=== PATIENT | female | born 1960 | race Caucasian/White ===

== ENCOUNTER → 2018-03-03 09:28 | Outpatient (CLI) | payer BC, SELFPAY ==
[2018-03-03 12:26] LABS: Absolute Lymphocyte Count 1.46 X10^3/ul (0.83-4.51); Absolute Neutrophil Count 4.4 X10^3/uL (2.0-7.7); Basophil# 0.02 X10^3/uL; Basophil% 0.3 % (0-1); Eosinophil# 0.13 X10^3/uL; Eosinophils% 1.9 % (0-5); Hematocrit 38.5 % (37-47); Hemoglobin 12.1 g/dl (12.0-15.0); Lymphocyte # 1.46 X10^3/ul (4.0); Lymphocyte % 21.9 % (19-41); Mean Corp Hgb Conc 31.4 g/gl (32-36); Mean Corpuscular Hgb 26.5 pg (27.0-32.0); Mean Corpuscular Volume 84.2 fL (81-99); Mean Platelet Vol. 10.3 fl (6.2-12.0); Neutrophil # 4.44 X10^3/uL (2.7-7.7); Neutrophil % 66.6 % (47-70); Platelet Count 312 K/mm3 (150-450); RBC Distribution Width CV 14.8 % (11.6-14.6); RBC Distribution Width SD 44.5 fl (35.1-43.9); Red Blood Count 4.57 M/mm3 (4.2-5.4); White Blood Count 6.7 K/mm3 (4.4-11.0)
[2018-03-03 12:32] LABS: POSITIVE COUNT NO; POSITIVE DIFFERENTIAL NO; POSITIVE MORPHOLOGY NO
[2018-03-03 12:43] LABS: ALB/GLOB Ratio 1.2 RATIO (0.9-2.4); AST(SGOT) 30 U/L (15-37); Alanine Aminotransfer ALT/SGPT 53 U/L (13-56); Alkaline Phosphatase 52 U/L (45-117); Anion Gap 11 (5-15); BUN 21 mg/dL (7-18); BUN/Creat Ratio 22.1 RATIO (10-20); Calcium,Total 9.8 mg/dL (8.5-10.1); Chloride 102 mmol/L (98-107); Creatinine, Serum 0.95 mg/dL (0.55-1.02); EST Glomerular Filtration Rate 64 mL/min (>60); Est Glom Filt Rate - Afr Amer 77 mL/min (>60); Globulin 3.4 g/dL (2.2-4.2); Glucose 223 mg/dL (74-106); Potassium 4.3 mmol/L (3.5-5.1); Protein, Total 7.4 g/dL (6.4-8.2); Rheumatoid Factor < 10.0 IU/mL (<15); Sodium Level 141 mmol/L (136-145)
[2018-03-09 20:07] LABS: QNTFERON TB Ag Minus Nil Value 0.04 IU/mL (.); QNTFERON TB Ag Value 0.09 IU/mL (.); QNTFERON TB Mitogen Value > 10.00 IU/mL (.); QNTFERON TB Nil Value 0.05 IU/mL (.)
[2018-03-10 11:33] LABS: CCP IgG Antibodies 4 units (0-19); HEPATITIS B SURFACE AG Negative (Negative); HLA B27 Negative (.); Hep B Surface Antibodies Non Reactive (.); Hep C Antibodies <0.1 s/co ratio (0.0-0.9); QNTIFERON TB Gold Negative (Negative)
== END ==
PROVIDERS: Family Provider Family Medicine; PCP Family Medicine; Visit Provider Internal Medicine Rheumatology
DX: L40.59 Other psoriatic arthropathy (principal)
CPT/HCPCS: 36415; 71046; 72170; 80053; 81374; 85025; 86200; 86431; 86480; 86706; 86803; 87340

== ENCOUNTER → 2019-04-04 16:30 | Outpatient (CLI) | payer BC, SELFPAY ==
[2019-04-04 18:10] LABS: Absolute Lymphocyte Count 1.86 X10^3/uL (0.83-4.51); Absolute Neutrophil Count 5.7 X10^3/uL (2.0-7.7); Basophil# 0.04 X10^3/uL; Basophil% 0.5 % (0-1); Eosinophil# 0.14 X10^3/uL; Eosinophils% 1.7 % (0-5); Hematocrit 37.9 % (37-47); Hemoglobin 11.5 g/dL (12.0-15.0); Lymphocyte # 1.86 X10^3/ul (4.0); Mean Corp Hgb Conc 30.3 g/dL (32-36); Mean Corpuscular Hgb 25.7 pg (27.0-32.0); Mean Corpuscular Volume 84.8 fL (81-99); Mean Platelet Vol. 9.6 fl (6.2-12.0); Monocyte# 0.74 X10^3/uL; Monocyte% 8.7 % (0-10); NRBC Flagged by Analyzer 0 % (0-5); Neutrophil # 5.66 X10^3/uL (2.7-7.7); Neutrophil % 66.7 % (47-70); Platelet Count 363 K/mm3 (150-450); RBC Distribution Width CV 14.5 % (11.6-14.6); RBC Distribution Width SD 44.5 fl (35.1-43.9); Red Blood Count 4.47 M/mm3 (4.2-5.4); White Blood Count 8.5 K/mm3 (4.4-11.0)
[2019-04-04 18:25] LABS: ALB/GLOB Ratio 1.2 RATIO (0.9-2.4); AST(SGOT) 15 U/L (15-37); Alanine Aminotransfer ALT/SGPT 34 U/L (13-56); Albumin, Serum 3.9 g/dL (3.2-5.0); Alkaline Phosphatase 54 U/L (45-117); Anion Gap 6 (5-15); BUN 16 mg/dL (7-18); BUN/Creat Ratio 16.4 RATIO (10-20); Calcium,Total 9.4 mg/dL (8.5-10.1); Chloride 103 mmol/L (98-107); Creatinine, Serum 0.98 mg/dL (0.55-1.02); EST Glomerular Filtration Rate 62 mL/min (>60); Est Glom Filt Rate - Afr Amer 75 mL/min (>60); Globulin 3.3 g/dL (2.2-4.2); Glucose 217 mg/dL (74-106); Protein, Total 7.2 g/dL (6.4-8.2); Sodium Level 138 mmol/L (136-145)
== END ==
PROVIDERS: Family Provider Family Medicine; PCP Family Medicine; Referring Provider Internal Medicine Rheumatology; Visit Provider Internal Medicine Rheumatology
DX: L40.59 Other psoriatic arthropathy (principal); K76.0 Fatty (change of) liver, not elsewhere classified; E11.9 Type 2 diabetes mellitus without complications; I10 Essential (primary) hypertension; E78.5 Hyperlipidemia, unspecified; E03.9 Hypothyroidism, unspecified; F32.89 Other specified depressive episodes
CPT/HCPCS: 36415; 80053; 85025

== ENCOUNTER → 2019-05-30 08:08 | Outpatient (CLI) | payer BC, SELFPAY ==
[2019-05-30 10:04] LABS: Absolute Lymphocyte Count 1.99 X10^3/uL (0.83-4.51); Absolute Neutrophil Count 4.6 X10^3/uL (2.0-7.7); Basophil# 0.04 X10^3/uL; Basophil% 0.5 % (0-1); Eosinophil# 0.14 X10^3/uL; Eosinophils% 1.8 % (0-5); Hematocrit 37.5 % (37-47); Hemoglobin 11.7 g/dL (12.0-15.0); Lymphocyte # 1.99 X10^3/ul (4.0); Lymphocyte % 26.3 % (19-41); Mean Corp Hgb Conc 31.2 g/dL (32-36); Mean Corpuscular Hgb 25.9 pg (27.0-32.0); Mean Corpuscular Volume 83.1 fL (81-99); Mean Platelet Vol. 9.6 fl (6.2-12.0); Monocyte# 0.75 X10^3/uL; Monocyte% 9.9 % (0-10); NRBC Flagged by Analyzer 0 % (0-5); Neutrophil # 4.63 X10^3/uL (2.7-7.7); Neutrophil % 61.2 % (47-70); Platelet Count 321 K/mm3 (150-450); RBC Distribution Width CV 14.6 % (11.6-14.6); RBC Distribution Width SD 43.6 fl (35.1-43.9); Red Blood Count 4.51 M/mm3 (4.2-5.4); White Blood Count 7.6 K/mm3 (4.4-11.0)
[2019-05-30 10:27] LABS: ALB/GLOB Ratio 1.2 RATIO (0.9-2.4); AST(SGOT) 21 U/L (15-37); Alanine Aminotransfer ALT/SGPT 39 U/L (13-56); Albumin, Serum 3.8 g/dL (3.2-5.0); Alkaline Phosphatase 50 U/L (45-117); Anion Gap 6 (5-15); BUN 17 mg/dL (7-18); BUN/Creat Ratio 18.9 RATIO (10-20); Calcium,Total 9.4 mg/dL (8.5-10.1); Chloride 108 mmol/L (98-107); EST Glomerular Filtration Rate 68 mL/min (>60); Est Glom Filt Rate - Afr Amer 82 mL/min (>60); Globulin 3.2 g/dL (2.2-4.2); Glucose 151 mg/dL (74-106); Potassium 4.2 mmol/L (3.5-5.1); Sodium Level 141 mmol/L (136-145)
== END ==
PROVIDERS: Family Provider Family Medicine; PCP Family Medicine; Referring Provider Internal Medicine Rheumatology; Visit Provider Internal Medicine Rheumatology
DX: L40.59 Other psoriatic arthropathy (principal); K76.0 Fatty (change of) liver, not elsewhere classified; E11.9 Type 2 diabetes mellitus without complications; I10 Essential (primary) hypertension; E03.9 Hypothyroidism, unspecified; E78.5 Hyperlipidemia, unspecified; F32.89 Other specified depressive episodes
CPT/HCPCS: 36415; 80053; 85025

== ENCOUNTER → 2019-08-01 09:12 | Outpatient (CLI) | payer BC, SELFPAY ==
[2019-08-01 12:23] LABS: Absolute Neutrophil Count 6.9 X10^3/uL (2.0-7.7); Basophil# 0.03 X10^3/uL; Basophil% 0.3 % (0-1); Eosinophil# 0.14 X10^3/uL; Eosinophils% 1.4 % (0-5); Hematocrit 35.7 % (37-47); Hemoglobin 11.2 g/dL (12.0-15.0); Lymphocyte % 19.3 % (19-41); Mean Corp Hgb Conc 31.4 g/dL (32-36); Mean Corpuscular Volume 82.8 fL (81-99); Mean Platelet Vol. 9.7 fl (6.2-12.0); Monocyte% 8.1 % (0-10); NRBC Flagged by Analyzer 0 % (0-5); Neutrophil # 6.94 X10^3/uL (2.7-7.7); Neutrophil % 70.5 % (47-70); Platelet Count 330 K/mm3 (150-450); RBC Distribution Width CV 15.9 % (11.6-14.6); RBC Distribution Width SD 47.5 fl (35.1-43.9); Red Blood Count 4.31 M/mm3 (4.2-5.4); White Blood Count 9.9 K/mm3 (4.4-11.0)
[2019-08-01 12:33] LABS: ALB/GLOB Ratio 1.1 RATIO (0.9-2.4); AST(SGOT) 43 U/L (15-37); Alanine Aminotransfer ALT/SGPT 68 U/L (13-56); Albumin, Serum 3.7 g/dL (3.2-5.0); Alkaline Phosphatase 55 U/L (45-117); Anion Gap 5 (5-15); BUN 10 mg/dL (7-18); BUN/Creat Ratio 11.4 RATIO (10-20); Calcium,Total 9.2 mg/dL (8.5-10.1); Chloride 104 mmol/L (98-107); Creatinine, Serum 0.88 mg/dL (0.55-1.02); EST Glomerular Filtration Rate 70 mL/min (>60); Est Glom Filt Rate - Afr Amer 84 mL/min (>60); Globulin 3.3 g/dL (2.2-4.2); Glucose 178 mg/dL (74-106); Potassium 3.8 mmol/L (3.5-5.1); Sodium Level 137 mmol/L (136-145)
== END ==
PROVIDERS: PCP Family Medicine; Referring Provider Internal Medicine Rheumatology; Visit Provider Internal Medicine Rheumatology
DX: L40.59 Other psoriatic arthropathy (principal); E11.9 Type 2 diabetes mellitus without complications; I10 Essential (primary) hypertension; E78.5 Hyperlipidemia, unspecified; E03.9 Hypothyroidism, unspecified; K76.0 Fatty (change of) liver, not elsewhere classified; F32.89 Other specified depressive episodes
CPT/HCPCS: 36415; 80053; 85025

== ENCOUNTER → 2020-02-08 09:09 | Outpatient (CLI) | payer BC, SELFPAY ==
[2020-02-08 10:07] LABS: Absolute Lymphocyte Count 1.94 X10^3/uL (0.83-4.51); Absolute Neutrophil Count 5.5 X10^3/uL (2.0-7.7); Basophil# 0.04 X10^3/uL; Basophil% 0.5 % (0-1); Eosinophil# 0.18 X10^3/uL; Eosinophils% 2.1 % (0-5); Hemoglobin 11.7 g/dL (12.0-15.0); Lymphocyte # 1.94 X10^3/ul (4.0); Lymphocyte % 22.9 % (19-41); Mean Corpuscular Hgb 24.7 pg (27.0-32.0); Mean Corpuscular Volume 82.5 fL (81-99); Mean Platelet Vol. 9.6 fl (6.2-12.0); Monocyte# 0.85 X10^3/uL; NRBC Flagged by Analyzer 0 % (0-5); Neutrophil # 5.45 X10^3/uL (2.7-7.7); Neutrophil % 64.1 % (47-70); Platelet Count 352 K/mm3 (150-450); RBC Distribution Width CV 14.7 % (11.6-14.6); RBC Distribution Width SD 44.9 fl (35.1-43.9); Red Blood Count 4.73 M/mm3 (4.2-5.4); White Blood Count 8.5 K/mm3 (4.4-11.0)
[2020-02-08 11:07] LABS: ALB/GLOB Ratio 1.1 RATIO (0.9-2.4); AST(SGOT) 23 U/L (15-37); Alanine Aminotransfer ALT/SGPT 44 U/L (13-56); Albumin, Serum 3.9 g/dL (3.2-5.0); Alkaline Phosphatase 59 U/L (45-117); Anion Gap 9 (5-15); BUN 14 mg/dL (7-18); BUN/Creat Ratio 16.9 RATIO (10-20); Calcium,Total 9.1 mg/dL (8.5-10.1); Chloride 100 mmol/L (98-107); Creatinine, Serum 0.83 mg/dL (0.55-1.02); EST Glomerular Filtration Rate 75 mL/min (>60); Est Glom Filt Rate - Afr Amer 90 mL/min (>60); Globulin 3.4 g/dL (2.2-4.2); Glucose 188 mg/dL (74-106); Potassium 4.1 mmol/L (3.5-5.1); Protein, Total 7.3 g/dL (6.4-8.2); Sodium Level 137 mmol/L (136-145)
== END ==
PROVIDERS: PCP Family Medicine; Referring Provider Internal Medicine Rheumatology; Visit Provider Internal Medicine Rheumatology
DX: L40.59 Other psoriatic arthropathy (principal); K76.0 Fatty (change of) liver, not elsewhere classified; E11.9 Type 2 diabetes mellitus without complications; I10 Essential (primary) hypertension; E03.9 Hypothyroidism, unspecified; E78.5 Hyperlipidemia, unspecified; F32.89 Other specified depressive episodes
CPT/HCPCS: 36415; 80053; 85025

== ENCOUNTER → 2020-03-16 09:19 | Outpatient (CLI) | payer BC, SELFPAY ==
[2020-03-16 11:08] LABS: Thyroid Stim Hormone (TSH) 2.97 uIU/mL (0.358-3.74)
== END ==
PROVIDERS: PCP Family Medicine; Referring Provider Psychiatry & Neurology Psychiatry; Visit Provider Psychiatry & Neurology Psychiatry
DX: R53.83 Other fatigue (principal); Z79.899 Other long term (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 therapy
CPT/HCPCS: 36415; 84443

== ENCOUNTER → 2020-08-03 09:59 | Outpatient (CLI) | payer BC, SELFPAY ==
[2020-08-03 12:12] LABS: Absolute Lymphocyte Count 1.67 X10^3/uL (0.83-4.51); Absolute Neutrophil Count 4.9 X10^3/uL (2.0-7.7); Basophil# 0.04 X10^3/uL; Basophil% 0.5 % (0-1); Eosinophil# 0.17 X10^3/uL; Eosinophils% 2.3 % (0-5); Hematocrit 37.3 % (37-47); Hemoglobin 11.5 g/dL (12.0-15.0); Lymphocyte # 1.67 X10^3/ul (4.0); Lymphocyte % 22.2 % (19-41); Mean Corp Hgb Conc 30.8 g/dL (32-36); Mean Corpuscular Hgb 24.7 pg (27.0-32.0); Mean Platelet Vol. 9.8 fl (6.2-12.0); Monocyte# 0.76 X10^3/uL; Monocyte% 10.1 % (0-10); NRBC Flagged by Analyzer 0 % (0-5); Neutrophil # 4.87 X10^3/uL (2.7-7.7); Neutrophil % 64.6 % (47-70); Platelet Count 368 K/mm3 (150-450); RBC Distribution Width CV 15.7 % (11.6-14.6); RBC Distribution Width SD 45.1 fl (35.1-43.9); Red Blood Count 4.66 M/mm3 (4.2-5.4); White Blood Count 7.5 K/mm3 (4.4-11.0)
[2020-08-03 12:34] LABS: ALB/GLOB Ratio 1.1 RATIO (0.9-2.4); AST(SGOT) 25 U/L (15-37); Alanine Aminotransfer ALT/SGPT 58 U/L (13-56); Albumin, Serum 3.8 g/dL (3.2-5.0); Alkaline Phosphatase 62 U/L (45-117); Anion Gap 8 (5-15); BUN 17 mg/dL (7-18); Calcium,Total 9.1 mg/dL (8.5-10.1); Chloride 103 mmol/L (98-107); Creatinine, Serum 0.85 mg/dL (0.55-1.02); EST Glomerular Filtration Rate 72 mL/min (>60); Est Glom Filt Rate - Afr Amer 87 mL/min (>60); Globulin 3.4 g/dL (2.2-4.2); Glucose 142 mg/dL (74-106); Protein, Total 7.2 g/dL (6.4-8.2); Sodium Level 138 mmol/L (136-145)
== END ==
PROVIDERS: PCP Family Medicine; Referring Provider Internal Medicine Rheumatology; Visit Provider Internal Medicine Rheumatology
DX: L40.59 Other psoriatic arthropathy (principal); K76.0 Fatty (change of) liver, not elsewhere classified; E11.9 Type 2 diabetes mellitus without complications; I10 Essential (primary) hypertension; E78.5 Hyperlipidemia, unspecified; E03.9 Hypothyroidism, unspecified; F32.89 Other specified depressive episodes
CPT/HCPCS: 36415; 80053; 85025

== ENCOUNTER 2020-08-26 00:14 | Observation (INO) | payer BC, SELFPAY ==
[2020-08-26] VITALS (24 sets, daily range): BP systolic 113–163; BP diastolic 56–84; PULSE 73–97; RESP 14–20; TEMP 35.5–36.8; O2SAT 91–99; BMI 30.6; BMI 30.1
--- NOTE | 2020-08-26 00:24 | RAD_ITS ---
STUDY: X-RAY CHEST REASON FOR EXAM: Female, 59 years old. chest pain TECHNIQUE: Single AP portable view of the chest. COMPARISON: 03/03/2018. FINDINGS: The lungs are clear and expanded. There is no demonstrated pleural abnormality. Normal size heart. Normal mediastinum and hernan. Normal visualized pulmonary arteries. There is atherosclerotic calcification of the aortic arch with tortuosity. Normal visualized thoracic spine. There is degenerative osteoarthritis of the bilateral shoulders. There is no demonstrated abnormality of the visualized soft tissue structures of the upper abdomen. RAD/Chest 1 View (Portable) IMPRESSION: No acute cardiopulmonary disease. Electronically Signed: Arely Mora MD at 0:58 EST , Service support ,
--- NOTE | 2020-08-26 00:24 | EKG12_ITS ---
Test Reason : CP Blood Pressure : / mmHG Vent. Rate : 083 BPM Atrial Rate : 083 BPM P-R Int : 156 ms QRS Dur : 092 ms QT Int : 394 ms P-R-T Axes : 044 -36 012 degrees QTc Int : 462 ms Normal sinus rhythm Left axis deviation Abnormal ECG Confirmed by ASIA SUÁREZ, HENRIETTA ([id number]), assistant editor DULCE MARIA KENNY ([id number]) on 08/27/2020 10:09:19 AM Referred By: DOMINIK Confirmed By:HENRIETTA BETANCOURT MD
--- NOTE | 2020-08-26 00:24 | ED.VIS.CHEST ---
History of Present Illness Chief Complaint: Chest Pain Informant: Patient Onset: Hours - 2 Activity at onset: Rest - Sitting up in bed Timing: Continuous Quality: Sharp - And pinching/squeezing Location: Right Chest - And into right parascapular area, a little into shoulder, - - No radiation to jaw, abdomen, or arms Current Severity: Moderate Maximum Severity: Moderate Worsened By: Breathing - A little if breathes deep. Not Worsened By: Exertion, Movement of Arm, Movement of Torso, Palpation Relieved By: Nothing, NSAIDS - Took aspirin prior to arrival Associated Symptoms: Negative for: Nausea, Vomiting, Diaphoresis, Dyspnea, Cough, Fever, Lightheadedness, Palpitations Narrative: Patient presenting with relatively sudden onset of discomfort in her right chest. She has been feeling well all day today, no excessive movements/lifting or injury, no recent illness, no recent travel, immobilization, hospitalization, or surgery. She states she has never had this before. No history of heart problems that she knows of. No history of venous thrombolic disease. She takes a baby aspirin daily and took a full strength tablet prior to coming. Denies any recent leg pain or swelling. Prior Similar Symptoms: No Recent Illness/Hospitalization: No CVD Risk Factors: Hypertension, Diabetes, Hypercholesterolemia, Smoking - Former PE Risk Factors: Negative for: Recent Travel/Surgery, Recenet Immobilization, Prior DVT or PE, Cancer, OCP + Smoking + >/=35 - Past Medical History (1) Hypothyroid Status: Chronic (2) Hypertension Status: Chronic (3) Hyperlipidemia Status: Chronic (4) Type 2 diabetes mellitus Status: Chronic (5) Anxiety and depression Status: Chronic (6) Psoriatic arthritis Status: Chronic Past Medical History - Allergies and Home Meds Allergies/Adverse Reactions: Allergies empagliflozin [From Jardiance] Allergy (Verified 08/26/20 00:16) PT UNSURE OF REACTION Primary Care Physician: Franklin Aviles MD [Primary Care Provider] - Smoking Status: Former smoker Review of Systems General: Denies: Chills, Fever, Sweats Eyes: Denies: Visual changes - bilaterally, Diplopia ENT: Denies: Rhinorrhea, Sore throat Cardiovascular: Reports: Chest pain. Denies: Palpitations Respiratory: Denies: Dyspnea, Cough, Dyspnea on exertion Gastrointestinal: Denies: Abdominal pain, Nausea, Vomiting, Diarrhea, Melena, Hematochezia Genitourinary: Denies: Dysuria, Hematuria, Frequency Musculoskeletal: Reports: Back pain. Denies: Neck pain, Swelling, Extremity Pain Skin: Denies: Rash, Wounds Neurological: Denies: Headache, Weakness, Numbness Physical Exam Vital Signs/Narrative: Vital Signs Temp Pulse Resp BP Pulse Ox 08/26/20 00:17 163/83 H 08/26/20 00:15 96 F L 84 19 H 98 Inital Vital Signs reviewed: Yes General: Well nourished, Well developed, No Acute Distress Head: Normocephalic, Atraumatic Eyes: Perrl, EOMI ENT: Moist mucous membranes, No rhinorrhea Neck: Supple, Nontender, No lymphadenopathy, No JVD Cardiovascular: Regular rate, Regular rhythm, No murmurs. Negative for: Tachycardia Respiratory: No distress, CTA bilaterally, Chest nontender Abdomen: Soft, Nontender, Nondistended, Normal bowel sounds. Negative for: Gusman's sign Back: Nontender, Normal Inspection. Negative for: CVA tenderness Extremities: Nontender, No edema. Negative for: Calf Tenderness Skin: Normal color, No rash, No Trauma Neurological: Alert, Oriented x3, Cranial nerves II-XII grossly intact, Normal Strength, Normal Sensation, Normal Gait Psychological: Normal affect - Except anxious, Normal Mood Diagnostic/Tx/Re-eval Impressions Chest X-Ray 08/26/20 00:24 IMPRESSION: No acute cardiopulmonary disease. Electronically Signed: Arely Mora MD at 0:58 EST , Service support , Chest CTA 08/26/20 01:21 IMPRESSION: Negative CTA chest examination, without a demonstrated pulmonary embolism or arterial dissection. No acute cardiopulmonary disease. Electronically Signed: Arely Mora MD at 2:05 EST , Service support , 08/26/20 00:24 Chest 1 View (Portable) [RAD] Stat 08/26/20 01:21 CTA Chest W/WO Contrast [CT] Stat Laboratory Results 08/26/20 08/26/20 08/26/20 00:20 00:20 00:20 WBC 8.0 RBC 4.55 Hgb 11.3 L Hct 37.0 MCV 81.3 MCH 24.8 L MCHC 30.5 L RDW Std Deviation 46.7 H RDW Coeff of Rena 15.8 H Plt Count 379 MPV 9.7 Immature Gran % (Auto) 0.200 Neut % (Auto) 57.0 Lymph % (Auto) 29.4 [place] % (Auto) 10.7 H Eos % (Auto) 2.2 Baso % (Auto) 0.5 Absolute Neuts (auto) 4.6 Absolute Lymphs (auto) 2.36 Nucleated RBC % 0 D-Dimer Quant (PE/DVT) Cancelled Sodium 137 Potassium 3.8 Chloride 102 Carbon Dioxide 27.0 Anion Gap 8 BUN 17 Creatinine 0.91 Estim Creat Clear Calc 60.78 Est GFR (MDRD) Af Amer 81 Est GFR (MDRD) Non-Af 67 BUN/Creatinine Ratio 18.7 Glucose 169 H Calcium 9.3 Troponin I < 0.015 08/26/20 00:50 WBC RBC Hgb Hct MCV MCH MCHC RDW Std Deviation RDW Coeff of Rena Plt Count MPV Immature Gran % (Auto) Neut % (Auto) Lymph % (Auto) [place] % (Auto) Eos % (Auto) Baso % (Auto) Absolute Neuts (auto) Absolute Lymphs (auto) Nucleated RBC % D-Dimer Quant (PE/DVT) 0.69 H* Sodium Potassium Chloride Carbon Dioxide Anion Gap BUN Creatinine Estim Creat Clear Calc Est GFR (MDRD) Af Amer Est GFR (MDRD) Non-Af BUN/Creatinine Ratio Glucose Calcium Troponin I - Rhythm Strip Rhythm Strip: Sinus Rhythm Rate: 83 Ectopy: None - EKG Initial EKG Interpretation: Sinus Rhythm, No Acute Injury Pattern, Non-Specific ST Changes - Inferior and lateral flattening without inversions or ST segment deviations, - - Left axis Prior: No Prior Treatment: Aspirin - Full strength, taken by patient prior to arrival, NTG SL, NTG Topical Repeat Eval: improved after NTG SL RADHA Risk: >/= 3RF, ASA within 7 days Score: 2 - Medical Decision Making Patient has an abnormal EKG showing a left axis, she has no old EKG available for comparison. Her discomfort improved with nitroglycerin, her D-dimer returned abnormal so she had CT angiography that returned normal, and when she came back she states her chest and back discomfort are completely gone and she is feeling much better. Nitroglycerin paste placed on her chest. Acute coronary syndrome is in the differential, the symptoms are atypical, but she is an older female who is a diabetic, which can present atypically. Given her risk factors, I think she should be admitted for provocative stress testing and the patient is comfortable with that plan. ED Disposition - Plan for ED Patient: Disposition: Acute Care Hospital [facility] Diagnosis: Chest pain, unspecified Referrals: Franklin Aviles MD [Primary Care Provider] -
[2020-08-26 00:30] LABS: Absolute Lymphocyte Count 2.36 X10^3/uL (0.83-4.51); Absolute Neutrophil Count 4.6 X10^3/uL (2.0-7.7); Basophil# 0.04 X10^3/uL; Basophil% 0.5 % (0-1); Eosinophil# 0.18 X10^3/uL; Eosinophils% 2.2 % (0-5); Hemoglobin 11.3 g/dL (12.0-15.0); Lymphocyte # 2.36 X10^3/ul (4.0); Lymphocyte % 29.4 % (19-41); Mean Corp Hgb Conc 30.5 g/dL (32-36); Mean Corpuscular Hgb 24.8 pg (27.0-32.0); Mean Corpuscular Volume 81.3 fL (81-99); Mean Platelet Vol. 9.7 fl (6.2-12.0); Monocyte# 0.86 X10^3/uL; Monocyte% 10.7 % (0-10); NRBC Flagged by Analyzer 0 % (0-5); Neutrophil # 4.58 X10^3/uL (2.7-7.7); Platelet Count 379 K/mm3 (150-450); RBC Distribution Width CV 15.8 % (11.6-14.6); RBC Distribution Width SD 46.7 fl (35.1-43.9); Red Blood Count 4.55 M/mm3 (4.2-5.4)
[2020-08-26] MEDS: Nitroglycerin SL (ED/IMG/CATH) 0.4 MG TABLET SUBLINGUAL ×2 (00:33→01:01)
[2020-08-26] MEDS: 0.9% Normal Saline 1,000 ML 150 ML IV (00:34)
[2020-08-26 00:44] LABS: Anion Gap 8 (5-15); BUN 17 mg/dL (7-18); BUN/Creat Ratio 18.7 RATIO (10-20); Calcium,Total 9.3 mg/dL (8.5-10.1); Chloride 102 mmol/L (98-107); Creatinine, Serum 0.91 mg/dL (0.55-1.02); EST Glomerular Filtration Rate 67 mL/min (>60); Est Glom Filt Rate - Afr Amer 81 mL/min (>60); Estimated Creatinine Clearance 60.78 ml/min; Glucose 169 mg/dL (74-106); Potassium 3.8 mmol/L (3.5-5.1); Sodium Level 137 mmol/L (136-145)
[2020-08-26 01:14] LABS: D-Dimer Quantitative (DVT/PE) 0.69 FEU/ug/m (0.27-0.49)
--- NOTE | 2020-08-26 01:21 | CT_ITS ---
STUDY: CTA CHEST REASON FOR EXAM: Female, 59 years old. right chest pain, elevated d-dimer RADIATION DOSAGE (If Supplied By Facility): CTDIvol = ( 12.75 ) mGy, DLP = ( 460.67 ) mGycm TECHNIQUE: The examination was performed with the intravenous administration of IV 75mL Isovue-370. Post-processing of the angiographic images was performed, with multiplanar reformation and 3D reconstruction. Individualized dose optimization techniques were used for this CT. COMPARISON: None. FINDINGS: Normal enhancement of the main pulmonary artery and right and left pulmonary arteries. Normal enhancement of the bilateral peripheral pulmonary arteries. There is no demonstrated pulmonary embolism. Normal thoracic aorta and visualized great vessels. There is no demonstrated aortic dissection. Normal heart and pericardium. Normal mediastinum. Normal hilar regions. Normal visualized trachea and bronchi. The lungs are well expanded. Normal pulmonary parenchyma. Normal pleura. Normal chest wall structures. There are degenerative changes of thoracic spine. Normal visualized upper abdomen. CT/CTA Chest W/WO Contrast IMPRESSION: Negative CTA chest examination, without a demonstrated pulmonary embolism or arterial dissection. No acute cardiopulmonary disease. Electronically Signed: Arely Mora MD at 2:05 EST , Service support ,
--- NOTE | 2020-08-26 02:22 | HP.PCM_ITS ---
Problem List (1) Chest pain, unspecified Status: Acute Qualifiers: Chest pain type: unspecified Qualified Code(s): R07.9 - Chest pain, unspecified (2) Former tobacco use Status: Chronic (3) Anxiety and depression Status: Chronic (4) Hyperlipidemia Status: Chronic Qualifiers: Hyperlipidemia type: unspecified Qualified Code(s): E78.5 - Hyperlipidemia, unspecified (5) Hypertension Status: Chronic Qualifiers: Hypertension type: essential hypertension Qualified Code(s): I10 - Essential (primary) hypertension (6) Hypothyroid Status: Chronic Qualifiers: Hypothyroidism type: unspecified Qualified Code(s): E03.9 - Hypothyroidism, unspecified (7) Psoriatic arthritis Status: Chronic (8) Type 2 diabetes mellitus Status: Chronic Qualifiers: 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 mellitus 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 Diabetes mellitus complication status: with other specified complication Qualified Code(s): E11.69 - Type 2 diabetes mellitus with other specified complication; 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 History of Present Illness Date of Admission: 08/26/20 Chief Complaint: Chest pain The patient is a 59 y/o F w/ PMHx: HTN, HLD, Anxiety and Depression, Psoriatic Arthritis, Diabetes mellitus type II, Hypothyroidism, Obesity who presents to the [facility] ED on 08/26/20 with history of onset chest discomfort ongoing approximately 2 hours prior to ED presentation with onset while lying in bed, continuous since described as a sharp and squeezing sensation primarily to the right chest and the right periscapular region as well as shoulder worsened by deep inspiratory effort with self administration of aspirin prior to arrival with no associated nausea, dyspnea or diaphoresis. Patient following NG notes resolution of chest pain specifically following her CTPA at ~ 2 am. She notes only having snacks for dinner the evening prior to presentation. Work-up in the ED included T 96 temporally, heart rate 86, BP 163/83, respiratory rate 19, 90% on room air, CBC with WC 8, hemoglobin 11.3, platelet 379 without marked shift, D-dimer 0.69, BMP with glucose 169 otherwise unremarkable, troponin less than 0.015, chest x-ray with no acute cardiopulmonary findings, EKG with sinus rhythm with nonspecific ST changes with inferior and lateral flattening without inversions, L axis without comparison, CTA with no evidence of pulmonary emboli or arterial dissection with no acute cardiopulmonary findings. Past Medical History Past Medical History (Chronic Problems): Chronic Problems Hypothyroid (Chronic) Hypertension (Chronic) Hyperlipidemia (Chronic) Type 2 diabetes mellitus (Chronic) Anxiety and depression (Chronic) Psoriatic arthritis (Chronic) Former tobacco use (Chronic) Allergies empagliflozin [From Jarjuniorance] Allergy (Verified 08/26/20 00:16) PT UNSURE OF REACTION Home Medications: Ambulatory Orders Medication Instructions Recorded Amitriptyline HCl 25 mg PO QHS 08/26/20 Apremilast [Otezla] 30 mg PO BID 08/26/20 Escitalopram Oxalate 10 mg PO DAILY 08/26/20 Fenofibrate [Tricor] 145 mg PO DAILY 08/26/20 Insulin Degludec [Tresiba 35 unit SQ BID 08/26/20 Flextouch U-100] Insulin Lispro [Humalog KwikPen] 0 - 100 unit SQ TID 08/26/20 Levothyroxine [Synthroid] 75 mcg PO DAILY 08/26/20 Losartan Potassium 25 mg PO DAILY 08/26/20 Metformin HCl 850 mg PO TID 08/26/20 Simvastatin 20 mg PO QHS 08/26/20 Surgical History: - - L breast cyst resection, unclear type of uterine surgery. 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 Lives: Spouse/ Significant Other Smoking Status: Former smoker - Quit cigarette tobacco use 2008, prior to this 1-2 packs since she was a teenager. Tobacco Use: Non-smoker Alcohol: None Drugs: None - *Family History Maternal History Items: Cancer - Mother with history of breast CA and tongue CA., Stroke Paternal History Items: High Cholesterol, Heart Disease - Father with history of AL, CAD, 1st occurence 70-80 year old., Hypertension Review of Systems Constitutional: Reports: Anorexia, Malaise, Weakness, Fatigue. Denies: Chills, Fever, Weight Change HEENT: Denies: Head Aches, Sinus Congestion, Sinus Drainage Cardiovascular: Reports: Chest Pain. Denies: Chest Pressure, Chest Tightness, Light Headedness, Orthopnea, Palpitations, Syncope Respiratory: Denies: Cough, Shortness of breath at rest, Sputum production Gastrointestinal: Denies: Abdominal Pain, Nausea, Vomiting Genitourinary: Denies: Dysuria Musculoskeletal: Reports: Joint Pain. Denies: Joint Tenderness Skin: Denies: Rash, Wounds Neurological: Denies: Numbness, Tingling, Focal weakness Psychiatric: Reports: Anxiety, Depression. Denies: Homicidal Ideations, Suicidal Ideations Hematologic/ Lymphatic: Denies: Easy Bruising, Easy Bleeding VTE Information - Inpt Only VTE Present on Admission: No VTE Mechan Device Prophylaxis: SCD's VTE Pharm Prophylaxis ordered?: Yes Patient Problems: Active and Suspected Problems Chest pain, unspecified (Acute) Subjective: Patient seated upright in the ED bed, NAD, notes resolution of her chest pain, NG in place. Objective: Physical Examination: General: awake, alert, oriented x 3 and cooperative, seated upright in the ED bed in no apparent distress, chest pain resolved. Skin: normal color, turgor, no icterus, cyanosis. HEENT: AT/NC, EOMI, PERRLA, MMM, no carotid bruits or JVD noted. Lungs: CTA bilaterally, moderate effort, mild decrease BL bases, no rales, ronchi or wheezing. Heart: Regular rate and rhythm; no gallop, rub audible. Abdomen: soft, obesity, NTTP, ND, normal BS, no HSM. Extremities: no cyanosis, clubbing, or edema. Neurological: patient awake, alert, oriented as noted; cognitive function intact; pupils equally reactive to light and accomodation; cranial nerves II-XII grossly normal, moving all 4 extremities, no focal deficits, strength preserved. Psychiatric: affect appears mildly fatigued otherwise normal, no acute evidence of depressive or anxiety feelings. - Physical Exam Vitals/I&O's: Vital Signs Temp Pulse Resp BP Pulse Ox 96 F L 78 20 H 118/65 99 08/26/20 00:15 08/26/20 02:00 08/26/20 02:00 08/26/20 02:00 08/26/20 02:00 Oxygen Delivery Method Room Air Weight: 189 lb 13.088 oz Body Mass Index (BMI) 30.6 Laboratory Results 08/26/20 00:20: WBC 8.0, RBC 4.55, Hgb 11.3 L, Hct 37.0, MCV 81.3, MCH 24.8 L, MCHC 30.5 L, RDW Std Deviation 46.7 H, RDW Coeff of Rena 15.8 H, Plt Count 379, MPV 9.7, Immature Gran % (Auto) 0.200, Neut % (Auto) 57.0, Lymph % (Auto) 29.4, [place] % (Auto) 10.7 H, Eos % (Auto) 2.2, Baso % (Auto) 0.5, Absolute Neuts (auto) 4.6, Absolute Lymphs (auto) 2.36, Nucleated RBC % 0 08/26/20 00:20: D-Dimer Quant (PE/DVT) Cancelled 08/26/20 00:20: Sodium 137, Potassium 3.8, Chloride 102, Carbon Dioxide 27.0, Anion Gap 8, BUN 17, Creatinine 0.91, Estim Creat Clear Calc 60.78, Est GFR (MDRD) Af Amer 81, Est GFR (MDRD) Non-Af 67, BUN/Creatinine Ratio 18.7, Glucose 169 H, Calcium 9.3, Troponin I < 0.015 08/26/20 00:50: D-Dimer Quant (PE/DVT) 0.69 H* Current Medications Sodium Chloride () 1,000 mls @ 150 mls/hr IV .[id number] [facility] Last Admin: 08/26/20 00:34 Dose: 150 mls/hr Documented by: Sodium Chloride 1,000 ml/ N/A 1,000 mls @ 86.1 mls/hr IV .[id number] [facility] Stop: 08/27/20 01:26 Nitroglycerin (Nitroglycerin Sl (Ed/Img/Cath) 0.4 Mg Tablet) 0.4 mg SUBLINGUAL Q5M PRN PRN Reason: Chest pain Last Admin: 08/26/20 01:01 Dose: 0.4 mg Documented by: Assessment/Plan All Active Problems Chest pain, unspecified (Acute) The patient is a 59 y/o F w/ PMHx: HTN, HLD, Anxiety and Depression, Psoriatic Arthritis, Diabetes mellitus type II, Hypothyroidism, Obesity who presents to the [facility] ED on 08/26/20 with history of onset chest discomfort ongoing appr oximately 2 hours prior to ED presentation with onset while lying in bed, continuous since described as a sharp and squeezing sensation primarily to the right chest and the right periscapular region as well as shoulder. 1. Chest Pain: ED evaluation w/ troponin less than 0.015, chest x-ray with no acute cardiopulmonary findings, EKG with sinus rhythm with nonspecific ST changes with inferior and lateral flattening without inversions, CTPA with no evidence of pulmonary emboli arterial dissection with no acute cardiopulmonary findings. Will admit to PCU, place on a monitored bed to assure no acute myocardial infarction with serial cardiac enzymes and EKGs. If repeat EKGs and cardiac enzymes remain unremarkable pursue a.m. cardiac stress testing Thursday. FLP in AM. Mag pending. ASA, NG, morphine. 2. Diabetes mellitus type II: Hold oral home regimen, continue home insulin regimen, ADA diet, accu checks w/ ISS. 3. Hypertension: Continue home regimen including losartan with hold parameters, PRN hydralazine. 4. Hyperlipidemia: Continue home statin, TriCor regimen. 5. Hypothyroidism: Continue home synthroid regimen. 6. Psoriatic arthritis: We will continue home apremilast regimen, she will use her own home regimen. 7. Anxiety and depression: We will continue patient home escitalopram regimen. 8. Former tobacco use: Encourage continued tobacco cessation. 9. Obesity: Weight loss and lifestyle changes encouraged. 10. DVT prophylaxis: SCDs, Lovenox. OBSV E&M: [id number] Initial observation care L3
[2020-08-26] MEDS: Nitroglycerin Oint 1 INCH PACKET TD (02:25)
--- NOTE | 2020-08-26 03:16 | EKG12_ITS ---
Test Reason : CP Blood Pressure : / mmHG Vent. Rate : 072 BPM Atrial Rate : 072 BPM P-R Int : 162 ms QRS Dur : 092 ms QT Int : 354 ms P-R-T Axes : 053 -36 014 degrees QTc Int : 387 ms Normal sinus rhythm Left axis deviation Nonspecific T wave abnormality Abnormal ECG No previous ECGs available Confirmed by NICHOL SUÁREZ, JESSICA ([id number]), film editor supervisor DULCE MARIA KENNY ([id number]) on 08/28/2020 1:07:14 PM Referred By: ITALIA Confirmed By:JESSICA GANDARA MD
[2020-08-26 03:31] LABS: Magnesium 1.6 mg/dL (1.6-2.6)
[2020-08-26] MEDS: Levothyroxine 75 MCG Tablet PO (06:51)
[2020-08-26] MEDS: Nitroglycerin Oint 1 INCH PACKET 0.5 INCH TD ×3 (06:51→17:57)
[2020-08-26 06:55] LABS: Bedside Glucose 125 mg/dL (70-110)
[2020-08-26 07:10] LABS: Absolute Lymphocyte Count 2.01 X10^3/uL (0.83-4.51); Absolute Neutrophil Count 3.9 X10^3/uL (2.0-7.7); Basophil# 0.03 X10^3/uL; Basophil% 0.4 % (0-1); Eosinophil# 0.16 X10^3/uL; Eosinophils% 2.3 % (0-5); Hematocrit 33.9 % (37-47); Lymphocyte # 2.01 X10^3/ul (4.0); Lymphocyte % 29.4 % (19-41); Mean Corp Hgb Conc 29.5 g/dL (32-36); Mean Corpuscular Hgb 24.2 pg (27.0-32.0); Mean Corpuscular Volume 82.1 fL (81-99); Mean Platelet Vol. 9.7 fl (6.2-12.0); Monocyte# 0.72 X10^3/uL; Monocyte% 10.5 % (0-10); NRBC Flagged by Analyzer 0 % (0-5); Neutrophil # 3.89 X10^3/uL (2.7-7.7); Platelet Count 307 K/mm3 (150-450); RBC Distribution Width CV 15.8 % (11.6-14.6); RBC Distribution Width SD 47.7 fl (35.1-43.9); Red Blood Count 4.13 M/mm3 (4.2-5.4); White Blood Count 6.8 K/mm3 (4.4-11.0)
[2020-08-26 08:04] LABS: ALB/GLOB Ratio 1.1 RATIO (0.9-2.4); AST(SGOT) 27 U/L (15-37); Alanine Aminotransfer ALT/SGPT 49 U/L (13-56); Albumin, Serum 3.3 g/dL (3.2-5.0); Alkaline Phosphatase 51 U/L (45-117); Anion Gap 10 (5-15); BUN 15 mg/dL (7-18); BUN/Creat Ratio 18.4 RATIO (10-20); Calcium,Total 8.4 mg/dL (8.5-10.1); Chloride 105 mmol/L (98-107); Cholesterol 167 mg/dL (200); Creatinine, Serum 0.82 mg/dL (0.55-1.02); EST Glomerular Filtration Rate 76 mL/min (>60); Est Glom Filt Rate - Afr Amer 92 mL/min (>60); Estimated Creatinine Clearance 67.45 ml/min; Glucose 125 mg/dL (74-106); High Density Lipoprotein 45 mg/dL; Potassium 3.8 mmol/L (3.5-5.1); Protein, Total 6.3 g/dL (6.4-8.2); Sodium Level 140 mmol/L (136-145); Triglycerides 180 mg/dL; Very Low Density Lipoprotein 36 mg/dL (5-40)
[2020-08-26] MEDS: Aspirin E.C. 81 MG Tablet PO (09:01)
[2020-08-26] MEDS: Fenofibrate 145 MG Tablet PO (09:01)
[2020-08-26] MEDS: Losartan Potassium 25 MG Tablet PO (09:01)
[2020-08-26] MEDS: Escitalopram Oxalate 10 MG Tablet PO (09:01)
[2020-08-26] MEDS: Famotidine 20 MG Tablet PO ×2 (09:01→21:11)
[2020-08-26] MEDS: Enoxaparin 40 MG/0.4 ML Syringe SC (09:07)
--- NOTE | 2020-08-26 11:08 | PCM.HOSP.N ---
Hospitalist Note The patient was admitted with right-sided chest pain with radiation to right scapula. Patient denies any manual pulling, pushing or stretching for arms or shoulders. No excess shortness of breath. Had stress test couple years ago and was normal in [facility]. Currently still sometimes feels right sided chest pain. No shortness of breath. Serial troponin enzymes are negative. Glucose mildly elevated. The patient is scheduled for treadmill nuclear stress test tomorrow a.m. Lungs: Air entry parental equal. No crepitation/rhonchi. Denies history of smoking Heart: S1-S2 regular, no murmur gallop no gallops no rub. Laboratory Results 08/26/20 00:20: WBC 8.0, RBC 4.55, Hgb 11.3 L, Hct 37.0, MCV 81.3, MCH 24.8 L, MCHC 30.5 L, RDW Std Deviation 46.7 H, RDW Coeff of Rena 15.8 H, Plt Count 379, MPV 9.7, Immature Gran % (Auto) 0.200, Neut % (Auto) 57.0, Lymph % (Auto) 29.4, [place] % (Auto) 10.7 H, Eos % (Auto) 2.2, Baso % (Auto) 0.5, Absolute Neuts (auto) 4.6, Absolute Lymphs (auto) 2.36, Nucleated RBC % 0 08/26/20 00:20: D-Dimer Quant (PE/DVT) Cancelled 08/26/20 00:20: Sodium 137, Potassium 3.8, Chloride 102, Carbon Dioxide 27.0, Anion Gap 8, BUN 17, Creatinine 0.91, Estim Creat Clear Calc 60.78, Est GFR (MDRD) Af Amer 81, Est GFR (MDRD) Non-Af 67, BUN/Creatinine Ratio 18.7, Glucose 169 H, Calcium 9.3, Troponin I < 0.015 08/26/20 00:20: Magnesium 1.6 08/26/20 00:50: D-Dimer Quant (PE/DVT) 0.69 H* 08/26/20 03:42: Troponin I < 0.015 08/26/20 06:25: WBC 6.8, RBC 4.13 L, Hgb 10.0 L, Hct 33.9 L, MCV 82.1, MCH 24.2 L, MCHC 29.5 L, RDW Std Deviation 47.7 H, RDW Coeff of Rena 15.8 H, Plt Count 307, MPV 9.7, Immature Gran % (Auto) 0.400, Neut % (Auto) 57.0, Lymph % (Auto) 29.4, [place] % (Auto) 10.5 H, Eos % (Auto) 2.3, Baso % (Auto) 0.4, Absolute Neuts (auto) 3.9, Absolute Lymphs (auto) 2.01, Nucleated RBC % 0 08/26/20 06:25: Sodium 140, Potassium 3.8, Chloride 105, Carbon Dioxide 25.0, Anion Gap 10, BUN 15, Creatinine 0.82, Estim Creat Clear Calc 67.45, Est GFR (MDRD) Af Amer 92, Est GFR (MDRD) Non-Af 76, BUN/Creatinine Ratio 18.4, Glucose 125 H, Calcium 8.4 L, Total Bilirubin 0.20, AST 27, ALT 49, Alkaline Phosphatase 51, Total Protein 6.3 L, Albumin 3.3, Globulin 3.0, Albumin/Globulin Ratio 1.1, Triglycerides 180, Cholesterol 167, LDL Cholesterol 86, VLDL Cholesterol 36, HDL Cholesterol 45 08/26/20 06:25: Troponin I < 0.015 08/26/20 06:48: POC Glucose 125 H Clinical Impression(s) from Imaging Studies Chest X-Ray 08/26/20 00:24 IMPRESSION: No acute cardiopulmonary disease. Chest CTA 08/26/20 01:21 IMPRESSION: Negative CTA chest examination, without a demonstrated pulmonary embolism or arterial dissection. No acute cardiopulmonary disease.
[2020-08-26 11:31] LABS: Bedside Glucose 173 mg/dL (70-110)
[2020-08-26] MEDS: Insulin Lispro 100 UNIT/ML INSULN.PEN SC ×3 (11:31→21:11)
[2020-08-26 16:41] LABS: Bedside Glucose 174 mg/dL (70-110)
[2020-08-26] MEDS: oxyCODONE 5 MG Tablet PO (17:57)
[2020-08-26] MEDS: Atorvastatin Calcium 10 MG Tablet PO (21:10)
[2020-08-26] MEDS: Amitriptyline 25 MG Tablet PO (21:11)
[2020-08-26 22:10] LABS: Bedside Glucose 230 mg/dL (70-110)
[2020-08-27] VITALS (7 sets, daily range): BP systolic 132–136; BP diastolic 68–73; PULSE 76–92; RESP 12–16; TEMP 36.6–36.7; O2SAT 93–98
[2020-08-27] MEDS: 0.9% Normal Saline 1,000 ML 100 ML IV (00:18)
[2020-08-27] MEDS: oxyCODONE 5 MG Tablet PO (00:18)
[2020-08-27] MEDS: Levothyroxine 75 MCG Tablet PO (06:10)
[2020-08-27] MEDS: Losartan Potassium 25 MG Tablet PO (06:10)
[2020-08-27] MEDS: Aspirin E.C. 81 MG Tablet PO (06:10)
[2020-08-27 06:40] LABS: Bedside Glucose 179 mg/dL (70-110)
[2020-08-27] MEDS: Famotidine 20 MG Tablet PO (10:23)
[2020-08-27] MEDS: Escitalopram Oxalate 10 MG Tablet PO (10:23)
[2020-08-27] MEDS: Fenofibrate 145 MG Tablet PO (10:23)
[2020-08-27] MEDS: Insulin Lispro 100 UNIT/ML INSULN.PEN SC (11:29)
--- NOTE | 2020-08-27 12:16 | DCINST_ITS ---
- Discharge Diagnoses Current Active Problems: Current Active and Chronic Problems Hypothyroid (Chronic) Hypertension (Chronic) Hyperlipidemia (Chronic) Type 2 diabetes mellitus (Chronic) Anxiety and depression (Chronic) Psoriatic arthritis (Chronic) Chest pain, unspecified (Acute) Former tobacco use (Chronic) You will use the following diet at home:: Calorie/Carbohydrate Controlled (specify 1200, 1400, etc) - 2000 ina., Cardiac Your food should be the consistency of: Regular Discharge Activity: Return to Normal Activity Weight Bearing Status: Full weight bearing Call your doctor if you observe: Fever of 101 or Higher, Shortness of breath, Dizziness, Fainting spells, Chest pain, Increased palpitations (irregular heartbeat), Uncontrolled pain Additional Instructions: You can use [id number] Tylenol or Aleve as needed for pain. Allergies/Adverse Reactions: Allergies empagliflozin [From Jardiance] Allergy (Verified 08/26/20 00:16) PT UNSURE OF REACTION Medications to take at Discharge Amitriptyline HCl 25 mg PO QHS 08/26/20 Apremilast [Otezla] 30 mg PO BID 08/26/20 Aspirin 81 mg PO DAILY 08/26/20 B Complex 1 tab PO DAILY 08/26/20 Escitalopram Oxalate 10 mg PO DAILY 08/26/20 Fenofibrate [Tricor] 145 mg PO DAILY 08/26/20 Glucosamine/Chondr/[place] 1 tab PO DAILY 08/26/20 Insulin Degludec [Tresiba Flextouch U-100] 35 unit SQ BID 08/26/20 Insulin Lispro [Humalog KwikPen] 0 - 100 unit SQ TIDCM 08/26/20 Levothyroxine [Synthroid] 75 mcg PO DAILY 08/26/20 Losartan Potassium 25 mg PO DAILY 08/26/20 Metformin HCl 850 mg PO TID MDD DIABETES 08/26/20 Multivitamin with Iron 1 tab PO DAILY 08/26/20 Simvastatin 20 mg PO QHS 08/26/20 Vitamin D 1,000 iu PO DAILY 08/26/20 Primary Care Physician: Franklin Aviles MD [Primary Care Provider] - Please follow up with your Primary Care Physician in: 1-2 weeks. Test Results: Test results from this visit will be discussed in further detail at your follow- up appointment, if applicable.
[2020-08-27 12:36] LABS: Bedside Glucose 194 mg/dL (70-110)
--- NOTE | 2020-08-27 14:21 | PHA.DC.MR ---
Pharmacy Service has performed discharge medication reconciliation for this patient. No new medications at time of discharge review. Medications reviewed are from previously reported home medications. Home Medications Amitriptyline HCl 25 mg PO QHS 08/26/20 Apremilast [Otezla] 30 mg PO BID 08/26/20 Aspirin 81 mg PO DAILY 08/26/20 B Complex 1 tab PO DAILY 08/26/20 Escitalopram Oxalate 10 mg PO DAILY 08/26/20 Fenofibrate [Tricor] 145 mg PO DAILY 08/26/20 Glucosamine/Chondr/[place]/Tur 1 tab PO DAILY 08/26/20 Insulin Degludec [Tresiba Flextouch U-100] 35 unit SQ BID 08/26/20 Insulin Lispro [Humalog KwikPen] 0 - 100 unit SQ TIDCM 08/26/20 Levothyroxine [Synthroid] 75 mcg PO DAILY 08/26/20 Losartan Potassium 25 mg PO DAILY 08/26/20 Metformin HCl 850 mg PO TID MDD DIABETES 08/26/20 Multivitamin with Iron 1 tab PO DAILY 08/26/20 Simvastatin 20 mg PO QHS 08/26/20 Vitamin D 1,000 iu PO DAILY 08/26/20 The patient's discharge medication list was reviewed for discrepancies and discrepancies were resolved.
--- NOTE | 2020-08-27 15:10 | PCM.DC.SUM ---
Discharge Date and Diagnosis - Problem List Patient Problems: Active and Suspected Problems Chest pain, unspecified (Acute) Date of Admission: 08/26/20 Date of Discharge: 08/27/20 - Primary Discharge Diagnosis Acute Problems: Active Problems Atypical chest pain, ACS ruled out. Probably due to musculoskeletal pain. - Secondary Discharge Diagnosis Chronic Problems: Chronic Problems Hypothyroid (Chronic) Hypertension (Chronic) Hyperlipidemia (Chronic) Type 2 diabetes mellitus (Chronic) Anxiety and depression (Chronic) Psoriatic arthritis (Chronic) Former tobacco use (Chronic) Hospital Course and Treatment Imaging Results: Clinical Impression(s) from Imaging Studies Chest X-Ray 08/26/20 00:24 IMPRESSION: No acute cardiopulmonary disease. Electronically Signed: Arely Mora MD at 0:58 EST , Service support , Chest CTA 08/26/20 01:21 IMPRESSION: Negative CTA chest examination, without a demonstrated pulmonary embolism or arterial dissection. No acute cardiopulmonary disease. Electronically Signed: Arely Mora MD at 2:05 EST , Service support , Operations: None Procedures: EKG, Stress test Summary of Care Provided: Patient seen and examined on the day of discharge and appeared to be stable to be discharged home. Chest pain on the right side improved. No other complaints. Vital signs are stable. The patient is a 59 year old F admitted because of atypical chest pain for evaluation. Her pain was on the right side. Her EKG revealed no acute ischemic changes. Troponin was negative x3. Chest x-ray showed no acute findings. D-dimer was elevated for which CTA chest done and showed no PE or dissection, no infiltrate or consolidation. She underwent nuclear stress test that showed no evidence of stress-induced myocardial ischemia and ejection fraction was 70%. ACS ruled out. Her pain is likely due to musculoskeletal pain. Patient discharged home in a stable medical condition, discharged in her previous home medications without any changes, instructed to use Tylenol or Aleve [id number] for pain as needed, follow-up with PCP in 1 to 2 weeks. Patient Problems: Active and Suspected Problems Chest pain, unspecified (Acute) - Physical Exam Vitals/I&O's: Vital Signs Temp Pulse Resp BP Pulse Ox 98.1 F 76 12 132/68 H 94 08/27/20 06:06 08/27/20 14:52 08/27/20 06:06 08/27/20 06:06 08/27/20 07:44 Oxygen Delivery Method Room Air Weight: 186 lb 4.65 oz Body Mass Index (BMI) 30.0 Intake and Output for Last 24 Hours 08/25/20 08/26/20 08/27/20 23:59 23:59 23:59 Intake Total 1757.5 / 1757.5 995.00 / 995.00 Balance 1757.5 / 1757.5 995.00 / 995.00 General: Alert, Oriented x3, Cooperative, No apparent distress HEENT: Atraumatic, PERRLA, EOMI, Normocephalic Oral: Moist Mucosa, No Gingival or Mucosal Lesions/ Ulcerations Neck: Supple, No JVD, Negative Carotid Bruits, Trachea Midline, Thyroid Normal Size and Texture Lungs: Clear to auscultation, Normal air movement, No rhonchi, No wheeze, No rales Cardiovascular: Regular rate, Regular Rhythm, Normal S1, Normal S2, PMI Normal Abdomen: Bowel Sounds Present, Soft, Non Tender, Non-Distended, No Hepato-splenomegaly Extremities: No clubbing, No cyanosis, No edema Skin: No rashes, No breakdown Lymphatic: No Cervical, Supraclavicular, or Inguinal Adenopathy Neurological: Cranial nerves II-XII grossly intact, Neuro grossly intact Psych/Mental Status: Normal Affect, Appropriate Laboratory Results 08/26/20 16:15: POC Glucose 174 H 08/26/20 21:08: POC Glucose 230 H 08/27/20 06:09: POC Glucose 179 H 08/27/20 11:28: POC Glucose 194 H Current Medications Acetaminophen (Acetaminophen 325 Mg Tablet) 650 mg PO Q6H PRN PRN PRN Reason: Pain Score 1-10/Temp > 100.7 F Al Hydroxide/Mg Hydroxide (Mag Hydrox/Al Hydrox/Simeth 30 Ml Udc) 30 ml PO Q6H PRN PRN PRN Reason: Gastric Burning Albuterol Sulfate (Albuterol 2.5 Mg/3 Ml Vial.Neb.) 2.5 mg INHALATION Q2H PRN PRN PRN Reason: Dyspnea, wheezing Amitriptyline HCl (Amitriptyline 25 Mg Tablet) 25 mg PO QHS [facility] Last Admin: 08/26/20 21:11 Dose: 25 mg Documented by: Aspirin (Aspirin E.C. 81 Mg Tablet) 81 mg PO DAILY@0800 [facility] Last Admin: 08/27/20 06:10 Dose: 81 mg Documented by: Atorvastatin Calcium (Atorvastatin Calcium 10 Mg Tablet) 10 mg PO QHS [facility] Last Admin: 08/26/20 21:10 Dose: 10 mg Documented by: Dextrose (Dextrose 50%-Water 25 Gm/50 Ml Disp.Syrin) 0 gm IV X1 PRN; Protocol PRN Reason: Hypoglycemia Enoxaparin Sodium (Enoxaparin 40 Mg/0.4 Ml Syringe) 40 mg SC DAILY [facility] Last Admin: 08/26/20 09:07 Dose: 40 mg Documented by: Escitalopram Oxalate (Escitalopram Oxalate 10 Mg Tablet) 10 mg PO DAILY [facility] Last Admin: 08/27/20 10:23 Dose: 10 mg Documented by: Famotidine (Famotidine 20 Mg Tablet) 20 mg PO BID [facility] Last Admin: 08/27/20 10:23 Dose: 20 mg Documented by: Fenofibrate (Fenofibrate 145 Mg Tablet) 145 mg PO DAILY [facility] Last Admin: 08/27/20 10:23 Dose: 145 mg Documented by: Glucagon (Glucagon 1 Mg/Ml Syringe) 1 mg IM .X1 PRN PRN Reason: Hypoglycemia Guaifenesin (Guaifenesin 10 Ml Udc (200mg/10ml)) 20 ml PO Q4H PRN PRN PRN Reason: COUGH Hydralazine HCl (Hydralazine 20 Mg/Ml Vial) 10 mg IV Q4H PRN PRN PRN Reason: SBP > 160 Sodium Chloride () 1,000 mls @ 100 mls/hr IV .Q10H [facility] Last Admin: 08/27/20 12:27 Dose: Not Given Documented by: Insulin Glargine (Insulin Glargine 100 Units/Ml Pen) 35 units SC BID [facility] Last Admin: 08/27/20 10:23 Dose: 35 u Documented by: Insulin Human Lispro (Insulin Lispro 100 Unit/Ml Insuln.Pen) 0 unit SC ACHS [facility]; Protocol Last Admin: 08/27/20 11:29 Dose: 2 u Documented by: Levothyroxine Sodium (Levothyroxine 75 Mcg Tablet) 75 mcg PO DAILY@0600 [facility] Last Admin: 08/27/20 06:10 Dose: 75 mcg Documented by: Losartan Potassium (Losartan Potassium 25 Mg Tablet) 25 mg PO DAILY [facility] Last Admin: 08/27/20 06:10 Dose: 25 mg Documented by: Magnesium Hydroxide (Magnesium Hydroxide 30 Ml Udc) 30 ml PO DAILY PRN PRN PRN Reason: Constipation Morphine Sulfate (Morphine 2 Mg/Ml Syringe) 2 mg IV Q3H PRN PRN PRN Reason: Pain Score 6-10 Nitroglycerin (Nitroglycerin Oint 1 Inch Packet) 0.5 inch TD Q6 [facility] Last Admin: 08/27/20 11:29 Dose: Not Given Documented by: Ondansetron HCl (Ondansetron 4 Mg/2 Ml Vial) 4 mg IV Q8H PRN PRN PRN Reason: NAUSEA/VOMITING Oxycodone HCl (Oxycodone 5 Mg Tablet) 5 mg PO Q4H PRN PRN PRN Reason: Pain Score 4-5 Last Admin: 08/27/20 00:18 Dose: 5 mg Documented by: Prochlorperazine Edisylate (Prochlorperazine 10 Mg/2 Ml Vial) 5 mg IV Q4H PRN PRN PRN Reason: Breakthrough Nausea/Vomiting Psyllium Hydrophilic Mucilloid (Psyllium 1 Packet) 1 packet PO DAILY PRN PRN PRN Reason: Constipation Senna/Docusate Sodium (Senna/Docusate Sodium 1 Tablet) 2 tablet PO BID PRN PRN PRN Reason: Constipation Sodium Chloride (0.9% Saline Lock 10 Ml Syringe) 10 - 40 ml IV UD PRN PRN Reason: SALINE FLUSH Temazepam (Temazepam 15 Mg Capsule) 15 mg PO QHS PRN PRN PRN Reason: INSOMNIA Throat Lozenges (Benzocaine/Menthol 1 Lozenge) 1 lozenge MUCOUS MEM Q2H PRN PRN PRN Reason: SORE THROAT Discharge Activity: Return to Normal Activity Weight Bearing Status: Full weight bearing Call your doctor if you observe: Fever of 101 or Higher, Shortness of breath, Dizziness, Fainting spells, Chest pain, Increased palpitations (irregular heartbeat), Uncontrolled pain Home Medications: Medications to take at Discharge Amitriptyline HCl 25 mg PO QHS 08/26/20 Apremilast [Otezla] 30 mg PO BID 08/26/20 Aspirin 81 mg PO DAILY 08/26/20 B Complex 1 tab PO DAILY 08/26/20 Escitalopram Oxalate 10 mg PO DAILY 08/26/20 Fenofibrate [Tricor] 145 mg PO DAILY 08/26/20 Glucosamine/Chondr/[place]/Tur 1 tab PO DAILY 08/26/20 Insulin Degludec [Tresiba Flextouch U-100] 35 unit SQ BID 08/26/20 Insulin Lispro [Humalog KwikPen] 0 - 100 unit SQ TIDCM 08/26/20 Levothyroxine [Synthroid] 75 mcg PO DAILY 08/26/20 Losartan Potassium 25 mg PO DAILY 08/26/20 Metformin HCl 850 mg PO TID MDD DIABETES 08/26/20 Multivitamin with Iron 1 tab PO DAILY 08/26/20 Simvastatin 20 mg PO QHS 08/26/20 Vitamin D 1,000 iu PO DAILY 08/26/20 Primary Care Physician: Franklin Aviles MD [Primary Care Provider] - Please follow up with your Primary Care Physician in: 1-2 weeks. Disposition: Home Minutes spent on discharge:: 26 Patient Condition:: Stable Medical Necessity - Tobacco Use Smoking Status: Former smoker Tobacco Use: Non-smoker Meaningful Use Info Meaningful Use Diagnoses (Choose all that apply): None applicable OBSV E&M: 29111 Observation care discharge
--- NOTE | 2020-08-27 15:14 | STRESSREP ---
Stress Test Report Exercise myocardial perfusion stress test. 59-year-old lady with a history of chest pain and elevated D-dimer. Medications Elavil aspirin Lipitor Lovenox. Stress protocol: Resting EKG demonstrates normal sinus rhythm with a rate of 86 bpm normal intervals are noted resting blood pressure is 124/70 mmHg. Patient exercised according to regular [facility] protocol for a total duration of 6 minutes and 30 seconds. The maximum heart rate attained was 171 bpm which was 107% of maximum predicted heart rate the maximum workload was 7.7 metabolic equivalents. The patient maintained sinus rhythm throughout the recording. At rest there were no ST or T wave changes noted suggest ischemia at peak exercise upsloping ST changes were noted with no meet the criteria for ischemia. The peak blood pressure of 210/68 mmHg which was hypertensive response to exercise the test was terminated due to dyspnea. Myocardial perfusion protocol. 12.0 mCi of technetium 99m sestamibi was injected at rest. The patient exercised for 6-1/2 minutes and at peak exercise 34.0 mCi of technetium 99m sestamibi was injected stress images were obtained stress and rest images were reconstructed and compared in the short axis vertical long horizontal long axis. Gated images were also obtained Perfusion SPECT analysis: Review of the stress images demonstrate normal uptake of tracer noted in all areas of myocardium the resting images similarly demonstrate normal uptake of tracer noted in all areas of myocardium. No areas of reversibility are noted suggest ischemia no previous infarct is noted. Gated SPECT analysis: The gated ejection fraction is noted to be 70%. Conclusion: Normal exercise myocardial perfusion stress test at a moderate workload. Preserved ejection fraction.
== END 2020-08-27 12:17 | disposition home or self-care (01) ==
LOC: ED 02:22 → PCU 02:39
PROVIDERS: Internal Medicine; Admitting Provider Family Medicine; Emergency Provider Emergency Medicine; PCP Family Medicine; Visit Provider Hospitalist
DX: R07.89 Other chest pain (principal); E03.9 Hypothyroidism, unspecified; E78.5 Hyperlipidemia, unspecified; E11.9 Type 2 diabetes mellitus without complications; I10 Essential (primary) hypertension; L40.50 Arthropathic psoriasis, unspecified; R94.31 Abnormal electrocardiogram [ECG] [EKG]; E66.9 Obesity, unspecified; F41.9 Anxiety disorder, unspecified; F32.9 Major depressive disorder, single episode, unspecified; Z87.891 Personal history of nicotine dependence; Z79.899 Other long term (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 therapy; Z79.4 Long term (current) use of insulin; Z79.82 Long term (current) use of aspirin; Z68.30 Body mass index [BMI] 30.0-30.9, adult
CPT/HCPCS: 36415; 71045; 71275; 78452; 80048; 80053; 80061; 82962; 83735; 84484; 85025; 85379; 93005; 93017; 96360; 96361; 96372; 99218; 99285; A9500; J7030; Q9967; A4216; G0378

== ENCOUNTER → 2021-01-14 15:54 | Outpatient (CLI) | payer BC, SELFPAY ==
[2021-01-14 17:47] LABS: Absolute Lymphocyte Count 1.67 X10^3/uL (0.83-4.51); Absolute Neutrophil Count 5.2 X10^3/uL (2.0-7.7); Basophil# 0.04 X10^3/uL; Basophil% 0.5 % (0-1); Eosinophil# 0.15 X10^3/uL; Eosinophils% 1.9 % (0-5); Hematocrit 37.9 % (37-47); Hemoglobin 11.5 g/dL (12.0-15.0); Lymphocyte # 1.67 X10^3/ul (0.83-4.51); Lymphocyte % 21.1 % (19-41); Mean Corp Hgb Conc 30.3 g/dL (32-36); Mean Corpuscular Hgb 24.2 pg (27.0-32.0); Mean Corpuscular Volume 79.6 fL (81-99); Mean Platelet Vol. 9.6 fl (6.2-12.0); Monocyte# 0.79 X10^3/uL; NRBC Flagged by Analyzer 0 % (0-5); Neutrophil # 5.23 X10^3/uL (2.7-7.7); Neutrophil % 66.1 % (47-70); Platelet Count 438 K/mm3 (150-450); RBC Distribution Width CV 15.9 % (11.6-14.6); RBC Distribution Width SD 46.2 fl (35.1-43.9); Red Blood Count 4.76 M/mm3 (4.2-5.4); White Blood Count 7.9 K/mm3 (4.4-11.0)
[2021-01-14 18:31] LABS: ALB/GLOB Ratio 1.2 RATIO (0.9-2.4); AST(SGOT) 27 U/L (15-37); Alanine Aminotransfer ALT/SGPT 53 U/L (13-56); Albumin, Serum 4.1 g/dL (3.2-5.0); Alkaline Phosphatase 55 U/L (45-117); Anion Gap 9 (5-15); BUN 15 mg/dL (7-18); BUN/Creat Ratio 15.2 RATIO (10-20); Calcium,Total 9.5 mg/dL (8.5-10.1); Chloride 104 mmol/L (98-107); Creatinine, Serum 0.98 mg/dL (0.55-1.02); EST Glomerular Filtration Rate 61 mL/min (>60); Est Glom Filt Rate - Afr Amer 74 mL/min (>60); Globulin 3.4 g/dL (2.2-4.2); Glucose 180 mg/dL (74-106); Potassium 3.9 mmol/L (3.5-5.1); Protein, Total 7.5 g/dL (6.4-8.2); Sodium Level 141 mmol/L (136-145)
== END ==
PROVIDERS: PCP Family Medicine; Referring Provider Internal Medicine Rheumatology; Visit Provider Internal Medicine Rheumatology
DX: L40.59 Other psoriatic arthropathy (principal); K76.0 Fatty (change of) liver, not elsewhere classified; E11.9 Type 2 diabetes mellitus without complications; I10 Essential (primary) hypertension; E78.5 Hyperlipidemia, unspecified; E03.9 Hypothyroidism, unspecified; F32.89 Other specified depressive episodes
CPT/HCPCS: 36415; 80053; 85025

== ENCOUNTER → 2021-06-25 09:45 | Outpatient (CLI) | payer BC, SELFPAY ==
[2021-06-25 12:31] LABS: Absolute Lymphocyte Count 2.17 X10^3/uL (0.83-4.51); Absolute Neutrophil Count 5.5 X10^3/uL (2.0-7.7); Basophil# 0.05 X10^3/uL; Basophil% 0.6 % (0-1); Eosinophil# 0.26 X10^3/uL; Eosinophils% 2.9 % (0-5); Hemoglobin 11.6 g/dL (12.0-15.0); Lymphocyte # 2.17 X10^3/ul (0.83-4.51); Lymphocyte % 24.5 % (19-41); Mean Corp Hgb Conc 31.4 g/dL (32-36); Mean Corpuscular Hgb 25.7 pg (27.0-32.0); Mean Corpuscular Volume 81.9 fL (81-99); Mean Platelet Vol. 9.1 fl (6.2-12.0); Monocyte# 0.79 X10^3/uL; Monocyte% 8.9 % (0-10); NRBC Flagged by Analyzer 0 % (0-5); Neutrophil # 5.54 X10^3/uL (2.7-7.7); Neutrophil % 62.8 % (47-70); Platelet Count 366 K/mm3 (150-450); RBC Distribution Width CV 15.7 % (11.6-14.6); RBC Distribution Width SD 46.9 fl (35.1-43.9); Red Blood Count 4.52 M/mm3 (4.2-5.4); White Blood Count 8.8 K/mm3 (4.4-11.0)
[2021-06-25 12:40] LABS: ALB/GLOB Ratio 0.9 RATIO (0.9-2.4); AST(SGOT) 28 U/L (15-37); Alanine Aminotransfer ALT/SGPT 59 U/L (13-56); Albumin, Serum 3.5 g/dL (3.2-5.0); Alkaline Phosphatase 52 U/L (45-117); Anion Gap 9 (5-15); BUN 15 mg/dL (7-18); BUN/Creat Ratio 18.5 RATIO (10-20); Calcium,Total 9.2 mg/dL (8.5-10.1); Chloride 102 mmol/L (98-107); Creatinine, Serum 0.81 mg/dL (0.55-1.02); EST Glomerular Filtration Rate 76 mL/min (>60); Est Glom Filt Rate - Afr Amer 92 mL/min (>60); Globulin 3.7 g/dL (2.2-4.2); Glucose 130 mg/dL (74-106); Potassium 3.8 mmol/L (3.5-5.1); Protein, Total 7.2 g/dL (6.4-8.2); Sodium Level 141 mmol/L (136-145)
== END ==
PROVIDERS: PCP Family Medicine; Referring Provider Internal Medicine Rheumatology; Visit Provider Internal Medicine Rheumatology
DX: L40.59 Other psoriatic arthropathy (principal); E11.9 Type 2 diabetes mellitus without complications; K76.0 Fatty (change of) liver, not elsewhere classified; I10 Essential (primary) hypertension; E03.9 Hypothyroidism, unspecified; E78.5 Hyperlipidemia, unspecified; F32.89 Other specified depressive episodes
CPT/HCPCS: 36415; 80053; 85025

== ENCOUNTER → 2022-05-20 | Outpatient (CLI) | payer BC, SELFPAY ==
[2022-05-20 10:12] LABS: Absolute Lymphocyte Count 2.29 X10^3/uL (0.83-4.51); Absolute Neutrophil Count 6.6 X10^3/uL (2.0-7.7); Basophil# 0.06 X10^3/uL; Basophil% 0.6 % (0-1); Eosinophil# 0.23 X10^3/uL; Eosinophils% 2.3 % (0-5); Hematocrit 38.8 % (37-47); Hemoglobin 11.8 g/dL (12.0-15.0); Lymphocyte # 2.29 X10^3/ul (0.83-4.51); Lymphocyte % 22.9 % (19-41); Mean Corp Hgb Conc 30.4 g/dL (32-36); Mean Corpuscular Hgb 24.5 pg (27.0-32.0); Mean Corpuscular Volume 80.7 fL (81-99); Mean Platelet Vol. 9.6 fl (6.2-12.0); Monocyte# 0.81 X10^3/uL; Monocyte% 8.1 % (0-10); NRBC Flagged by Analyzer 0 % (0-5); Neutrophil # 6.58 X10^3/uL (2.7-7.7); Neutrophil % 65.7 % (47-70); Platelet Count 376 K/mm3 (150-450); RBC Distribution Width CV 15.5 % (11.6-14.6); RBC Distribution Width SD 45.1 fl (35.1-43.9); Red Blood Count 4.81 M/mm3 (4.2-5.4)
[2022-05-20 10:30] LABS: ALB/GLOB Ratio 1.1 RATIO (0.9-2.4); AST(SGOT) 26 U/L (15-37); Alanine Aminotransfer ALT/SGPT 58 U/L (13-56); Albumin, Serum 3.8 g/dL (3.2-5.0); Alkaline Phosphatase 53 U/L (45-117); Anion Gap 9 (5-15); BUN 15 mg/dL (7-18); BUN/Creat Ratio 16.8 RATIO (10-20); Calcium,Total 9.8 mg/dL (8.5-10.1); Chloride 101 mmol/L (98-107); Creatinine, Serum 0.89 mg/dL (0.55-1.02); EST Glomerular Filtration Rate 68 mL/min (>60); Est Glom Filt Rate - Afr Amer 82 mL/min (>60); Globulin 3.5 g/dL (2.2-4.2); Glucose 153 mg/dL (74-106); Potassium 4.1 mmol/L (3.5-5.1); Protein, Total 7.3 g/dL (6.4-8.2); Sodium Level 138 mmol/L (136-145)
== END | disposition home or self-care (01) ==
LOC: MTLAB 08:28
PROVIDERS: PCP Family Medicine; Referring Provider Internal Medicine Rheumatology; Visit Provider Internal Medicine Rheumatology
DX: L40.59 Other psoriatic arthropathy (principal); E11.9 Type 2 diabetes mellitus without complications; L40.8 Other psoriasis; K76.0 Fatty (change of) liver, not elsewhere classified; F32.89 Other specified depressive episodes; E03.9 Hypothyroidism, unspecified; E78.5 Hyperlipidemia, unspecified; I10 Essential (primary) hypertension; Z79.899 Other long term (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 therapy
CPT/HCPCS: 36415; 80053; 85025

== ENCOUNTER → 2022-10-02 | Outpatient (CLI) | payer BC, SELFPAY ==
[2022-10-02 15:09] LABS: Absolute Lymphocyte Count 1.32 X10^3/uL (0.83-4.51); Absolute Neutrophil Count 4.3 X10^3/uL (2.0-7.7); Basophil# 0.03 X10^3/uL; Basophil% 0.5 % (0-1); Eosinophil# 0.09 X10^3/uL; Eosinophils% 1.5 % (0-5); Hematocrit 37.9 % (37-47); Hemoglobin 11.7 g/dL (12.0-15.0); Lymphocyte # 1.32 X10^3/ul (0.83-4.51); Lymphocyte % 21.5 % (19-41); Mean Corp Hgb Conc 30.9 g/dL (32-36); Mean Corpuscular Hgb 25.7 pg (27.0-32.0); Mean Corpuscular Volume 83.1 fL (81-99); Mean Platelet Vol. 10.2 fl (6.2-12.0); Monocyte% 6.5 % (0-10); NRBC Flagged by Analyzer 0 % (0-5); Neutrophil # 4.27 X10^3/uL (2.7-7.7); Neutrophil % 69.5 % (47-70); Platelet Count 317 K/mm3 (150-450); RBC Distribution Width CV 15.8 % (11.6-14.6); RBC Distribution Width SD 47.5 fl (35.1-43.9); Red Blood Count 4.56 M/mm3 (4.2-5.4); White Blood Count 6.1 K/mm3 (4.4-11.0)
[2022-10-02 16:03] LABS: ALB/GLOB Ratio 1.2 RATIO (0.9-2.4); AST(SGOT) 16 U/L (15-37); Alanine Aminotransfer ALT/SGPT 27 U/L (13-56); Albumin, Serum 3.7 g/dL (3.2-5.0); Alkaline Phosphatase 40 U/L (45-117); Anion Gap 6 (5-15); BUN 16 mg/dL (7-18); BUN/Creat Ratio 17.4 RATIO (10-20); Calcium,Total 9.5 mg/dL (8.5-10.1); Chloride 102 mmol/L (98-107); Creatinine, Serum 0.92 mg/dL (0.55-1.02); EST Glomerular Filtration Rate 65 mL/min (>60); Est Glom Filt Rate - Afr Amer 79 mL/min (>60); Globulin 3.1 g/dL (2.2-4.2); Glucose 242 mg/dL (74-106); Protein, Total 6.8 g/dL (6.4-8.2); Sodium Level 139 mmol/L (136-145)
== END | disposition home or self-care (01) ==
LOC: MTLAB 13:28
PROVIDERS: PCP Physician Assistant; Referring Provider Internal Medicine Rheumatology; Visit Provider Internal Medicine Rheumatology
DX: L40.59 Other psoriatic arthropathy (principal); E11.9 Type 2 diabetes mellitus without complications; L40.8 Other psoriasis; K76.0 Fatty (change of) liver, not elsewhere classified; F32.89 Other specified depressive episodes; E03.9 Hypothyroidism, unspecified; E78.5 Hyperlipidemia, unspecified; I10 Essential (primary) hypertension
CPT/HCPCS: 36415; 80053; 85025

== ENCOUNTER → 2023-03-30 | Outpatient (CLI) | payer BC, SELFPAY ==
[2023-03-30 12:15] LABS: Absolute Lymphocyte Count 1.95 X10^3/uL (0.83-4.51); Absolute Neutrophil Count 5.5 X10^3/uL (2.0-7.7); Basophil# 0.03 X10^3/uL; Basophil% 0.4 % (0-1); Eosinophil# 0.16 X10^3/uL; Eosinophils% 1.9 % (0-5); Hemoglobin 11.3 g/dL (12.0-15.0); Lymphocyte # 1.95 X10^3/ul (0.83-4.51); Mean Corp Hgb Conc 30.5 g/dL (32-36); Mean Corpuscular Hgb 25.7 pg (27.0-32.0); Mean Corpuscular Volume 84.3 fL (81-99); Mean Platelet Vol. 9.5 fl (6.2-12.0); Monocyte# 0.77 X10^3/uL; Monocyte% 9.1 % (0-10); NRBC Flagged by Analyzer 0 % (0-5); Platelet Count 400 K/mm3 (150-450); RBC Distribution Width CV 15.3 % (11.6-14.6); RBC Distribution Width SD 46.6 fl (35.1-43.9); Red Blood Count 4.39 M/mm3 (4.2-5.4); White Blood Count 8.5 K/mm3 (4.4-11.0)
[2023-03-30 12:58] LABS: ALB/GLOB Ratio 1.2 RATIO (0.9-2.4); AST(SGOT) 35 U/L (15-37); Alanine Aminotransfer ALT/SGPT 62 U/L (13-56); Albumin, Serum 3.8 g/dL (3.2-5.0); Alkaline Phosphatase 52 U/L (45-117); Anion Gap 8 (5-15); BUN 14 mg/dL (7-18); Calcium,Total 8.9 mg/dL (8.5-10.1); Chloride 103 mmol/L (98-107); Creatinine, Serum 0.94 mg/dL (0.55-1.02); EST Glomerular Filtration Rate 64 mL/min (>60); Est Glom Filt Rate - Afr Amer 77 mL/min (>60); Globulin 3.3 g/dL (2.2-4.2); Glucose 153 mg/dL (74-106); Potassium 4.1 mmol/L (3.5-5.1); Protein, Total 7.1 g/dL (6.4-8.2); Sodium Level 137 mmol/L (136-145)
== END | disposition home or self-care (01) ==
LOC: MTLAB 10:26
PROVIDERS: PCP Physician Assistant; Referring Provider Internal Medicine Rheumatology; Visit Provider Internal Medicine Rheumatology
DX: L40.59 Other psoriatic arthropathy (principal); Z79.899 Other long term (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 therapy
CPT/HCPCS: 36415; 80053; 85025

== ENCOUNTER → 2023-09-24 | Outpatient (CLI) | payer BC, SELFPAY ==
[2023-09-24 12:06] LABS: Absolute Lymphocyte Count 1.96 X10^3/uL (0.83-4.51); Basophil# 0.05 X10^3/uL; Basophil% 0.6 % (0-1); Eosinophil# 0.15 X10^3/uL; Eosinophils% 1.7 % (0-5); Hemoglobin 10.8 g/dL (12.0-15.0); Lymphocyte # 1.96 X10^3/ul (0.83-4.51); Lymphocyte % 21.7 % (19-41); Mean Corpuscular Hgb 24.7 pg (27.0-32.0); Mean Corpuscular Volume 82.4 fL (81-99); Mean Platelet Vol. 9.7 fl (6.2-12.0); Monocyte# 0.84 X10^3/uL; Monocyte% 9.3 % (0-10); NRBC Flagged by Analyzer 0 % (0-5); Neutrophil % 66.5 % (47-70); Platelet Count 342 K/mm3 (150-450); RBC Distribution Width CV 15.3 % (11.6-14.6); RBC Distribution Width SD 46.6 fl (35.1-43.9); Red Blood Count 4.37 M/mm3 (4.2-5.4)
[2023-09-24 13:11] LABS: ALB/GLOB Ratio 1.2 RATIO (0.9-2.4); AST(SGOT) 19 U/L (15-37); Alanine Aminotransfer ALT/SGPT 31 U/L (13-56); Albumin, Serum 3.7 g/dL (3.2-5.0); Alkaline Phosphatase 45 U/L (45-117); Anion Gap 5 (5-15); BUN 16 mg/dL (7-18); BUN/Creat Ratio 17.8 RATIO (10-20); Calcium,Total 9.3 mg/dL (8.5-10.1); Chloride 105 mmol/L (98-107); EST Glomerular Filtration Rate 67 mL/min (>60); Est Glom Filt Rate - Afr Amer 81 mL/min (>60); Glucose 144 mg/dL (74-106); Potassium 3.8 mmol/L (3.5-5.1); Protein, Total 6.7 g/dL (6.4-8.2); Sodium Level 138 mmol/L (136-145)
== END | disposition home or self-care (01) ==
LOC: MTLAB 10:43
PROVIDERS: PCP Internal Medicine; Referring Provider Internal Medicine Rheumatology; Visit Provider Internal Medicine Rheumatology
DX: L40.59 Other psoriatic arthropathy (principal); Z79.899 Other long term (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 therapy
CPT/HCPCS: 36415; 80053; 85025

== ENCOUNTER → 2023-10-09 | Outpatient (CLI) | payer BC, SELFPAY ==
[2023-10-09 13:10] LABS: Ferritin 14 ng/mL (8-252); Iron 28 ug/dL (50-170); Iron Binding Capacity,Total 451 ug/dL (250-450); PERCENT IRON SATURATION 6.2 % (15.0-55.0)
[2023-10-09 13:27] LABS: Vitamin B12 639 pg/mL (211-911); Vitamin D,25 Hydroxy 97.4 ng/mL
[2023-10-12 17:07] LABS: G6PD Quant Test 258 (127-427); Red Blood Cell Count Test/G6PD 4.43 x10E6/uL (3.77-5.28)
== END | disposition home or self-care (01) ==
LOC: MTLAB 11:11
PROVIDERS: PCP Internal Medicine; Referring Provider Internal Medicine Rheumatology; Visit Provider Internal Medicine Rheumatology
DX: L40.59 Other psoriatic arthropathy (principal); L40.8 Other psoriasis; K76.0 Fatty (change of) liver, not elsewhere classified; Z79.899 Other long term (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 therapy; D64.9 Anemia, unspecified
CPT/HCPCS: 36415; 82306; 82607; 82728; 82955; 83540; 83550

== ENCOUNTER → 2024-01-11 | Outpatient (CLI) | payer MEDICARE, BC, SELFPAY ==
[2024-01-11 12:04] LABS: Absolute Lymphocyte Count 1.55 X10^3/uL (0.83-4.51); Absolute Neutrophil Count 4.4 X10^3/uL (2.0-7.7); Basophil# 0.04 X10^3/uL; Basophil% 0.6 % (0-1); Eosinophil# 0.18 X10^3/uL; Eosinophils% 2.6 % (0-5); Hematocrit 37.5 % (37-47); Hemoglobin 11.2 g/dL (12.0-15.0); Lymphocyte # 1.55 X10^3/ul (0.83-4.51); Lymphocyte % 22.1 % (19-41); Mean Corp Hgb Conc 29.9 g/dL (32-36); Mean Corpuscular Hgb 24.8 pg (27.0-32.0); Mean Platelet Vol. 9.7 fl (6.2-12.0); Monocyte# 0.81 X10^3/uL; Monocyte% 11.6 % (0-10); NRBC Flagged by Analyzer 0 % (0-5); Neutrophil # 4.41 X10^3/uL (2.7-7.7); Neutrophil % 62.8 % (47-70); Platelet Count 336 K/mm3 (150-450); RBC Distribution Width CV 16.7 % (11.6-14.6); RBC Distribution Width SD 49.8 fl (35.1-43.9); Red Blood Count 4.52 M/mm3 (4.2-5.4)
[2024-01-11 13:30] LABS: ALB/GLOB Ratio 1.2 RATIO (0.9-2.4); AST(SGOT) 24 U/L (15-37); Alanine Aminotransfer ALT/SGPT 45 U/L (13-56); Albumin, Serum 3.9 g/dL (3.2-5.0); Alkaline Phosphatase 47 U/L (45-117); Anion Gap 9 (5-15); BUN 17 mg/dL (7-18); BUN/Creat Ratio 20.2 RATIO (10-20); Calcium,Total 9.3 mg/dL (8.5-10.1); Chloride 101 mmol/L (98-107); Cholesterol 189 mg/dL (200); Creatinine, Serum 0.84 mg/dL (0.55-1.02); EST Glomerular Filtration Rate 72 mL/min (>60); Est Glom Filt Rate - Afr Amer 87 mL/min (>60); Globulin 3.2 g/dL (2.2-4.2); Glucose 150 mg/dL (74-106); High Density Lipoprotein 53 mg/dL; Potassium 4.2 mmol/L (3.5-5.1); Protein, Total 7.1 g/dL (6.4-8.2); Sodium Level 137 mmol/L (136-145); T4 Free Direct 1.19 ng/dL (0.76-1.46); Thyroid Stim Hormone (TSH) 1.34 uIU/mL (0.358-3.74); Triglycerides 219 mg/dL; Very Low Density Lipoprotein 44 mg/dL (5-40)
== END | disposition home or self-care (01) ==
LOC: MTLAB 10:29
PROVIDERS: Nurse Practitioner Family; PCP Internal Medicine; Referring Provider Internal Medicine Rheumatology; Visit Provider Internal Medicine Rheumatology
DX: L40.59 Other psoriatic arthropathy (principal); Z79.899 Other long term (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 therapy
CPT/HCPCS: 36415; 80053; 80061; 84439; 84443; 85025

== ENCOUNTER → 2024-04-12 | Outpatient (CLI) | payer MEDICARE, BC, SELFPAY ==
[2024-04-12 12:58] LABS: Absolute Neutrophil Count 3.9 X10^3/uL (2.0-7.7); Basophil# 0.04 X10^3/uL; Basophil% 0.6 % (0-1); Eosinophil# 0.21 X10^3/uL; Eosinophils% 3.2 % (0-5); Hemoglobin 11.5 g/dL (12.0-15.0); Mean Corp Hgb Conc 30.3 g/dL (32-36); Mean Corpuscular Hgb 25.6 pg (27.0-32.0); Mean Corpuscular Volume 84.4 fL (81-99); Mean Platelet Vol. 10.2 fl (6.2-12.0); Monocyte# 0.66 X10^3/uL; Monocyte% 10.1 % (0-10); NRBC Flagged by Analyzer 0 % (0-5); Neutrophil % 59.6 % (47-70); Platelet Count 329 K/mm3 (150-450); RBC Distribution Width CV 15.2 % (11.6-14.6); RBC Distribution Width SD 46.5 fl (35.1-43.9); White Blood Count 6.5 K/mm3 (4.4-11.0)
[2024-04-12 13:36] LABS: ALB/GLOB Ratio 1.2 RATIO (0.9-2.4); AST(SGOT) 25 U/L (15-37); Alanine Aminotransfer ALT/SGPT 37 U/L (13-56); Albumin, Serum 3.8 g/dL (3.2-5.0); Alkaline Phosphatase 52 U/L (45-117); Anion Gap 6 (5-15); BUN 16 mg/dL (7-18); Calcium,Total 9.4 mg/dL (8.5-10.1); Chloride 104 mmol/L (98-107); Creatinine, Serum 0.94 mg/dL (0.55-1.02); EST Glomerular Filtration Rate 63 mL/min (>60); Est Glom Filt Rate - Afr Amer 77 mL/min (>60); Globulin 3.1 g/dL (2.2-4.2); Glucose 139 mg/dL (74-106); Protein, Total 6.9 g/dL (6.4-8.2); Sodium Level 139 mmol/L (136-145)
== END | disposition home or self-care (01) ==
LOC: MTLAB 09:25
PROVIDERS: PCP Internal Medicine; Referring Provider Internal Medicine Rheumatology; Visit Provider Internal Medicine Rheumatology
DX: L40.59 Other psoriatic arthropathy (principal); L40.8 Other psoriasis; K76.0 Fatty (change of) liver, not elsewhere classified; Z79.899 Other long term (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 therapy
CPT/HCPCS: 36415; 80053; 85025

== ENCOUNTER → 2024-05-05 | Outpatient (CLI) | payer MEDICARE, BC, SELFPAY | END | disposition home or self-care (01) | LOC: MRI 13:16 | PROVIDERS: PCP Internal Medicine; Referring Provider Nurse Practitioner; Visit Provider Nurse Practitioner | DX: R41.3 Other amnesia (principal) | CPT/HCPCS: 70030; 70553; A9575 ==

== ENCOUNTER → 2024-06-02 | Outpatient (CLI) | payer MEDICARE, BC, SELFPAY ==
--- NOTE | 2024-06-02 09:24 | US_ITS ---
STUDY: ABDOMINAL ULTRASOUND - RIGHT UPPER QUADRANT REASON FOR VISIT: Female, 63 years old fatty liver disease TECHNIQUE: Ultrasound evaluation of the right upper quadrant was performed with real-time and static marie-scale imaging. TECHNICAL QUALITY: Adequate. COMPARISON: None. FINDINGS: Liver: The liver is enlarged and measures 18.4 cm. There is increased echogenicity consistent with fatty infiltration. The bile ducts are within normal limits. There is hepatic color flow. The direction of portal flow is hepatopetal. There is no demonstrated mass lesion. Gallbladder: Normal distended gallbladder. The gallbladder wall measures 2.0 mm. There is a negative sonographic Gusman''s sign. There is no pericholecystic fluid. There are no gallstones. Common Bile Duct (C.B.D.): The common bile duct measures 3.4 mm. Pancreas: Normal size of the head, body and tail of the pancreas. There is normal echogenicity of the pancreas. There is no demonstrated pancreatic mass or cyst. Right Kidney: Normal size of the right kidney. The right kidney measures 12.2 cm x 5.5 cm x 4.5 cm. Normal renal cortex. The right cortex measures 1.2 cm. There is no demonstrated renal mass or cyst. There is no right hydronephrosis. US/Liver IMPRESSION: Mild hepatomegaly and fatty infiltration of the liver. Electronically Signed: Rd gAosto MD at 14:31 EST ,
[2024-06-02 12:06] LABS: Absolute Lymphocyte Count 1.44 X10^3/uL (0.83-4.51); Basophil# 0.04 X10^3/uL; Basophil% 0.6 % (0-1); Eosinophil# 0.13 X10^3/uL; Eosinophils% 1.8 % (0-5); Hematocrit 36.2 % (37-47); Lymphocyte # 1.44 X10^3/ul (0.83-4.51); Lymphocyte % 19.9 % (19-41); Mean Corp Hgb Conc 30.4 g/dL (32-36); Mean Corpuscular Hgb 25.4 pg (27.0-32.0); Mean Corpuscular Volume 83.6 fL (81-99); Mean Platelet Vol. 9.7 fl (6.2-12.0); Monocyte# 0.62 X10^3/uL; Monocyte% 8.6 % (0-10); NRBC Flagged by Analyzer 0 % (0-5); Neutrophil # 4.96 X10^3/uL (2.7-7.7); Neutrophil % 68.7 % (47-70); Platelet Count 310 K/mm3 (150-450); RBC Distribution Width CV 15.2 % (11.6-14.6); RBC Distribution Width SD 46.1 fl (35.1-43.9); Red Blood Count 4.33 M/mm3 (4.2-5.4); White Blood Count 7.2 K/mm3 (4.4-11.0)
[2024-06-02 12:58] LABS: ALB/GLOB Ratio 1.2 RATIO (0.9-2.4); AST(SGOT) 16 U/L (15-37); Alanine Aminotransfer ALT/SGPT 24 U/L (13-56); Albumin, Serum 3.7 g/dL (3.2-5.0); Alkaline Phosphatase 49 U/L (45-117); Anion Gap 7 (5-15); BUN 12 mg/dL (7-18); BUN/Creat Ratio 14.7 RATIO (10-20); Chloride 105 mmol/L (98-107); Creatinine, Serum 0.82 mg/dL (0.55-1.02); EST Glomerular Filtration Rate 75 mL/min (>60); Est Glom Filt Rate - Afr Amer 91 mL/min (>60); Ferritin 10 ng/mL (8-252); Glucose 170 mg/dL (74-106); Iron 40 ug/dL (50-170); Iron Binding Capacity,Total 399 ug/dL (250-450); Potassium 3.8 mmol/L (3.5-5.1); Protein, Total 6.7 g/dL (6.4-8.2); Sodium Level 138 mmol/L (136-145)
== END | disposition home or self-care (01) ==
PROVIDERS: Nurse Practitioner; PCP Internal Medicine; Referring Provider Nurse Practitioner Family; Visit Provider Nurse Practitioner Family
DX: K76.0 Fatty (change of) liver, not elsewhere classified (principal); L40.59 Other psoriatic arthropathy; L40.8 Other psoriasis; D64.9 Anemia, unspecified; Z79.899 Other long term (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 therapy
CPT/HCPCS: 36415; 76705; 80053; 82728; 83540; 83550; 85025

== ENCOUNTER → 2024-06-27 | Outpatient (CLI) | payer MEDICARE, BC, SELFPAY ==
--- NOTE | 2024-06-27 13:39 | BI_ITS ---
MAMMOGRAPHY - BILATERAL SCREENING 3-D TOMOSYNTHESIS REASON FOR EXAM: Female, 63 years old. Routine screening PERTINENT HISTORY: Mother and aunt with breast cancer.. TECHNIQUE: 2-D mammograms and 3-D Tomosynthesis of the breast (s) were performed. CAD was performed. COMPARISON: 06/24/2023 FINDINGS: The breast composition is heterogeneously dense that can obscure small breast masses. Scattered benign calcifications are seen. No dense spiculated masses or suspicious microcalcifications are identified. No architectural distortion is identified. There is no skin thickening or retraction. There has been no significant change since the prior study. BI/SCRN MAMM (CAD)W/MARIA E BILAT IMPRESSION: No mammographic signs of malignancy. Routine yearly mammograms recommended. ASSESSMENT CATEGORY: BIRADS Category 1: Negative. A letter regarding these results will be sent to the patient by the facility within 30 days. FOLLOW UP RECOMMENDATION: Yearly follow up mammogram recommended. (A) Approximately 10% of breast cancers are not detected by mammography. A normal mammogram should not delay biopsy of a clinically suspicious abnormality. Electronically Signed: John Sandoval MD at 8:14 EST ,
== END | disposition home or self-care (01) ==
LOC: OPBI 13:39
PROVIDERS: PCP Internal Medicine; Referring Provider Nurse Practitioner; Visit Provider Nurse Practitioner
DX: Z12.31 Encounter for screening mammogram for malignant neoplasm of breast (principal)
CPT/HCPCS: 77063; 77067

== ENCOUNTER → 2024-08-04 | Outpatient (CLI) | payer MEDICARE, SELFPAY ==
[2024-08-04 15:32] LABS: Absolute Lymphocyte Count 1.45 X10^3/uL (0.83-4.51); Absolute Neutrophil Count 4.8 X10^3/uL (2.0-7.7); Basophil# 0.04 X10^3/uL; Basophil% 0.6 % (0-1); Eosinophil# 0.17 X10^3/uL; Eosinophils% 2.4 % (0-5); Hematocrit 36.4 % (37-47); Hemoglobin 11.4 g/dL (12.0-15.0); Lymphocyte # 1.45 X10^3/ul (0.83-4.51); Lymphocyte % 20.6 % (19-41); Mean Corp Hgb Conc 31.3 g/dL (32-36); Mean Corpuscular Hgb 26.1 pg (27.0-32.0); Mean Corpuscular Volume 83.3 fL (81-99); Mean Platelet Vol. 9.4 fl (6.2-12.0); Monocyte# 0.57 X10^3/uL; Monocyte% 8.1 % (0-10); NRBC Flagged by Analyzer 0 % (0-5); Neutrophil # 4.76 X10^3/uL (2.7-7.7); Neutrophil % 67.7 % (47-70); Platelet Count 317 K/mm3 (150-450); RBC Distribution Width CV 15.3 % (11.6-14.6); RBC Distribution Width SD 47.1 fl (35.1-43.9); Red Blood Count 4.37 M/mm3 (4.2-5.4)
[2024-08-04 16:03] LABS: ALB/GLOB Ratio 1.1 RATIO (0.9-2.4); AST(SGOT) 22 U/L (15-37); Alanine Aminotransfer ALT/SGPT 36 U/L (13-56); Albumin, Serum 3.7 g/dL (3.2-5.0); Alkaline Phosphatase 49 U/L (45-117); Anion Gap 8 (5-15); BUN 13 mg/dL (7-18); BUN/Creat Ratio 12.9 RATIO (10-20); Calcium,Total 9.4 mg/dL (8.5-10.1); Chloride 102 mmol/L (98-107); Creatinine, Serum 1.01 mg/dL (0.55-1.02); EST Glomerular Filtration Rate 58 mL/min (>60); Est Glom Filt Rate - Afr Amer 71 mL/min (>60); Globulin 3.3 g/dL (2.2-4.2); Glucose 219 mg/dL (74-106); Potassium 4.2 mmol/L (3.5-5.1); Sodium Level 137 mmol/L (136-145)
== END | disposition home or self-care (01) ==
LOC: MTLAB 13:06
PROVIDERS: PCP Internal Medicine; Referring Provider Internal Medicine Rheumatology; Visit Provider Internal Medicine Rheumatology
DX: L40.59 Other psoriatic arthropathy (principal); Z79.899 Other long term (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 therapy
CPT/HCPCS: 36415; 80053; 85025

== ENCOUNTER → 2024-09-29 | Outpatient (CLI) | payer MEDICARE, SELFPAY ==
[2024-09-29 12:22] LABS: Absolute Lymphocyte Count 1.39 X10^3/uL (0.83-4.51); Absolute Neutrophil Count 4.1 X10^3/uL (2.0-7.7); Basophil# 0.05 X10^3/uL; Basophil% 0.8 % (0-1); Eosinophil# 0.14 X10^3/uL; Eosinophils% 2.2 % (0-5); Hematocrit 36.2 % (37-47); Hemoglobin 11.4 g/dL (12.0-15.0); Lymphocyte # 1.39 X10^3/ul (0.83-4.51); Lymphocyte % 21.6 % (19-41); Mean Corp Hgb Conc 31.5 g/dL (32-36); Mean Corpuscular Hgb 26.4 pg (27.0-32.0); Mean Corpuscular Volume 83.8 fL (81-99); Mean Platelet Vol. 9.3 fl (6.2-12.0); Monocyte# 0.72 X10^3/uL; Monocyte% 11.2 % (0-10); NRBC Flagged by Analyzer 0 % (0-5); Neutrophil # 4.13 X10^3/uL (2.7-7.7); Neutrophil % 63.9 % (47-70); Platelet Count 337 K/mm3 (150-450); RBC Distribution Width CV 14.9 % (11.6-14.6); RBC Distribution Width SD 45.5 fl (35.1-43.9); Red Blood Count 4.32 M/mm3 (4.2-5.4); White Blood Count 6.5 K/mm3 (4.4-11.0)
[2024-09-29 14:20] LABS: ALB/GLOB Ratio 1.8 RATIO (0.9-2.4); AST(SGOT) 25 U/L (<=31); Alanine Aminotransfer ALT/SGPT 25 U/L (<=34); Albumin, Serum 4.4 g/dL (3.4-4.8); Alkaline Phosphatase 44 U/L (35-104); Anion Gap 14 (5-15); BUN 12 mg/dL (4-19); BUN/Creat Ratio 13.6 RATIO (10-20); Calcium,Total 9.5 mg/dL (7.6-11.0); Carbon Dioxide 23.2 mmol/L (21.0-32.0); Chloride 100 mmol/L (98-108); Creatinine, Serum 0.89 mg/dL (0.70-1.20); EST Glomerular Filtration Rate 72 (>60); Globulin 2.4 g/dL (2.2-4.2); Glucose 183 mg/dL (70-99); Potassium 4.2 mmol/L (3.3-5.1); Protein, Total 6.8 g/dL (5.9-8.4); Sodium Level 138 mmol/L (133-145); Total Bilirubin 0.21 mg/dL (0.00-1.30)
== END | disposition home or self-care (01) ==
LOC: MTLAB 10:22
PROVIDERS: PCP Internal Medicine; Referring Provider Internal Medicine Rheumatology; Visit Provider Internal Medicine Rheumatology
DX: L40.59 Other psoriatic arthropathy (principal); Z79.899 Other long term (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 therapy
CPT/HCPCS: 36415; 80053; 85025

== ENCOUNTER → 2024-10-12 | Outpatient (CLI) | payer MEDICARE, SELFPAY ==
[2024-10-14 08:08] LABS: Rubeola IgG Ab < 13.5 AU/mL (Immune >16.4)
== END | disposition home or self-care (01) ==
LOC: BIMLAB 14:03
PROVIDERS: PCP Internal Medicine; Referring Provider Internal Medicine; Visit Provider Internal Medicine
DX: Z01.84 Encounter for antibody response examination (principal)
CPT/HCPCS: 36415; 86765

== ENCOUNTER → 2024-12-12 | Outpatient (CLI) | payer MEDICARE, SELFPAY ==
--- NOTE | 2024-12-12 15:14 | RAD_ITS ---
PROCEDURE: FOOT MIN 3 VIEWS 12/12/2024 REASON FOR EXAM: PAIN TECHNIQUE: FOOT MIN 3 VIEWS COMPARISON: None FINDINGS: Bones: No visible fracture. No suspicious bone lesion. Joints: Normal alignment. Soft tissues: Soft tissue swelling. Other: RAD/Foot min 3 Views IMPRESSION: Soft tissue swelling. No fracture is seen. Reading Location: [place] [id number]
== END | disposition home or self-care (01) ==
LOC: MTRAD 15:14
PROVIDERS: PCP Internal Medicine; Referring Provider Physician Assistant; Visit Provider Physician Assistant
DX: M79.671 Pain in right foot (principal)
CPT/HCPCS: 73630

== ENCOUNTER → 2024-12-21 | Outpatient (CLI) | payer MEDICARE, SELFPAY ==
[2024-12-21 12:58] LABS: Microalbumin,Random Urine < 12.0 mg/L (NO RANGE EST.); Microalbumin:Creatinine Ratio UNABLE TO CALCULATE mg/g CRE
[2024-12-21 13:36] LABS: ALB/GLOB Ratio 1.9 RATIO (0.9-2.4); AST(SGOT) 18 U/L (<=31); Alanine Aminotransfer ALT/SGPT 20 U/L (<=34); Albumin, Serum 4.1 g/dL (3.4-4.8); Alkaline Phosphatase 41 U/L (35-104); Anion Gap 13 (5-15); BUN 16 mg/dL (4-19); BUN/Creat Ratio 18.8 RATIO (10-20); Calcium,Total 9.2 mg/dL (7.6-11.0); Carbon Dioxide 23.5 mmol/L (21.0-32.0); Chloride 102 mmol/L (98-108); Cholesterol 189 mg/dL (<=200); Creatinine, Serum 0.85 mg/dL (0.70-1.20); EST Glomerular Filtration Rate 76 (>60); Globulin 2.2 g/dL (2.2-4.2); Glucose 172 mg/dL (70-99); High Density Lipoprotein 53 mg/dL; Low Density Lipoprotein Calc. 100 mg/dL; Potassium 4.2 mmol/L (3.3-5.1); Protein, Total 6.3 g/dL (5.9-8.4); Sodium Level 138 mmol/L (133-145); Total Bilirubin 0.23 mg/dL (0.00-1.30); Triglycerides 181 mg/dL; Very Low Density Lipoprotein 36 mg/dL (5-40); cholesterol:hdl ratio screen 3.55
[2024-12-21 13:48] LABS: Vitamin D,25 Hydroxy 38.6 ng/mL (30-100)
== END | disposition home or self-care (01) ==
LOC: MTLAB 10:02
PROVIDERS: PCP Internal Medicine; Referring Provider Nurse Practitioner Family; Visit Provider Nurse Practitioner Family
DX: E55.9 Vitamin D deficiency, unspecified (principal); E11.69 Type 2 diabetes mellitus with other specified complication; Z79.4 Long term (current) use of insulin
CPT/HCPCS: 36415; 80053; 80061; 82043; 82306; 82570; 84439; 84443

== ENCOUNTER → 2024-12-28 | Outpatient (CLI) | payer MEDICARE, SELFPAY ==
[2024-12-28 17:44] LABS: Hematocrit 37.9 % (37-47); Hemoglobin 11.6 g/dL (12.0-15.0); Immature Granulocytes Count 0.020 X10^3/uL (0.0-0.0); Mean Corp Hgb Conc 30.6 g/dL (32-36); Mean Corpuscular Volume 84.2 fL (81-99); Mean Platelet Vol. 9.5 fl (6.2-12.0); NRBC Flagged by Analyzer 0 % (0-5); Platelet Count 383 K/mm3 (150-450); RBC Distribution Width CV 15.1 % (11.6-14.6); RBC Distribution Width SD 46.2 fl (35.1-43.9); Red Blood Count 4.50 M/mm3 (4.2-5.4); White Blood Count 6.5 K/mm3 (4.4-11.0)
[2024-12-28 18:43] LABS: AST(SGOT) 24 U/L (<=31); Alanine Aminotransfer ALT/SGPT 22 U/L (<=34); Albumin, Serum 4.6 g/dL (3.4-4.8); Alkaline Phosphatase 48 U/L (35-104); Anion Gap 12 (5-15); BUN 18 mg/dL (4-19); BUN/Creat Ratio 22.1 RATIO (10-20); Calcium,Total 10.2 mg/dL (7.6-11.0); Carbon Dioxide 26.4 mmol/L (21.0-32.0); Chloride 100 mmol/L (98-108); Globulin 2.4 g/dL (2.2-4.2); Glucose 88 mg/dL (70-99); Potassium 4.0 mmol/L (3.3-5.1)
== END | disposition home or self-care (01) ==
LOC: MTLAB 14:47
PROVIDERS: PCP Internal Medicine; Referring Provider Internal Medicine Rheumatology; Visit Provider Internal Medicine Rheumatology
DX: L40.59 Other psoriatic arthropathy (principal); L40.8 Other psoriasis; Z79.899 Other long term (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 therapy
CPT/HCPCS: 36415; 80053; 85025

== ENCOUNTER → 2025-02-09 | Outpatient (CLI) | payer MEDICARE, SELFPAY ==
--- NOTE | 2025-02-09 09:56 | BD_ITS ---
PROCEDURE: DEXA BONE DENSITY STUDY 02/09/2025 REASON FOR EXAM: SCREENING F, age 64 y/o . Postmenopausal. TECHNIQUE: DEXA BONE DENSITY STUDY COMPARISON: None FINDINGS: BMD and T-SCORES Lumbar spine: 1.134 g/cm2, T-score 0.8 Levels: Levels 1 through L4 Left femoral neck: 0.751 g/cm2, T-score -0.9 Femoral neck comparison data not recommended for monitoring change. Left total hip: 0.947 g/cm2, T-score 0.0 Right femoral neck: 0.788 g/cm2, T-score -0.5 Femoral neck comparison data not recommended for monitoring change. Right total hip: 0.952 g/cm2, T-score 0.1 The World Health Organization has defined the following categories based on bone density: Normal bone density: T-score equal to or greater than -1.0 Osteopenia: T-score between -1.0 and -2.5 Osteoporosis: T-score equal to or less than -2.5 The patient does meet the pharmacological treatment recommendations for prevention of osteoporosis. BD/Dexa Bone Density Study IMPRESSION: NORMAL T-SCORES. Recommend follow-up as clinically warranted. Reading Location: [place] [id number]
--- OUTSIDE RECORDS SUMMARY | 2025-02-09 10:57 | XMS RPT_ITS | CCD ---
Author Organization [facility] Care Team Providers Care Television Receiver Analyzer Name Role Phone [facility], [facility] Unavailable Jennifer Ardon PA-C Primary Care Provider [phone] COTY Sanchez Primary Care Provider [phone] Dawood Aponte Attending Provider Unavailable Dr. Franklin Aviles Referring Provider BELA Sneed Attending Provider COTY Sanchez Referring Provider [facility], [place] Unavailable Jennifer Ardon PA-C Primary Care Provider [phone] [facility], [facility] Unavailable COTY Sanchez Primary Care Provider [phone] COTY Sanchez Referring Provider BELA Sneed Attending Provider Dr. Samara Monroy Primary Care Provider Dr. Samara Monroy Attending Provider [phone] Eliot SAND CUTTER.COFFERDAM CONSTRUCTION SUPERVISOR, Merle Unavailable Suppan SAND CUTTER.COFFERDAM CONSTRUCTION SUPERVISOR, Анна A Unavailable [phone] Dr. Samara Monroy MD Primary Care Provider [phone] Leticia Lanier Attending Provider [phone] María CROWCLeticia Referring Provider [phone] Dr. Samara Monroy MD Attending Provider Dr. Jessika Monroy MDia Referring Provider Denys SUÁREZ, Dr. Santillan Attending Provider Denys SUÁREZ, Dr. Santillan Referring Provider Naren FLUXER-CSue Attending Provider Eliana SUÁREZ, Dr. Pascual Primary Care Provider [phone] Eliana SUÁREZ, Dr. Pascual Referring Provider Eliana SUÁREZ, Dr. Pascual Attending Provider Vic Shah Attending Provider Eliana SUÁREZ, Dr. Pascual Primary Care Provider [phone] Eliana SUÁREZ, Dr. Pascual Referring Provider Naren FLUXER-C, Sue Attending Provider Denys SUÁREZ, Dr. Santillan Attending Provider Denys SUÁREZ, Dr. Santillan Referring Provider Vic Shah Referring Provider Naren FLUXER-C, Sue Referring Provider Eliana SUÁREZ, Dr. Pascual Primary Care Provider [phone] Eliana SUÁREZ, Dr. Pascual Referring Provider Naren FLUXER-C, uSe Attending Provider Forman, Samara Referring Unavailable Forman, Samara Attending Unavailable Forman, Samara Primary Care Unavailable Eliana, Samara Primary Care Unavailable Forman, Samara Referring Unavailable Vic Shah Attending Unavailable NarenSue Attending Unavailable Forman, Samara Primary Care Unavailable Eliana, Samara Referring Unavailable Forman, Samara Primary Care Unavailable Eliana, Samara Referring Unavailable Eliana, Samara Attending Unavailable Christianolanki, Jacque Attending Unavailable Vellanki, Jacque Referring Unavailable Forman, Samara Primary Care Unavailable Vellanki, Jacque Referring Unavailable Vellanki, Jacque Attending Unavailable Eliana, Samara Primary Care Unavailable Eliana, Samara Attending Unavailable Eliana, Samara Primary Care Unavailable Forman, Samara Referring Unavailable Vellanki, Jacque Attending Unavailable Vellanki, Jacque Referring Unavailable Eliana, Samara Primary Care Unavailable Eliana, Samara Primary Care Unavailable Vic Shah Referring Unavailable Vic Shah Attending Unavailable Ferullo, Leticia Referring Unavailable Ferullo, Leticia Attending Unavailable Forman, Samara Primary Care Unavailable Eliana, Samara Primary Care Unavailable Eliana, Samara Referring Unavailable Vic Shah Attending Unavailable Eliana, Samara Referring Unavailable NarenSue Attending Unavailable Eliana, Samara Primary Care Unavailable Forman, Samara Referring Unavailable Forman, Samara Primary Care Unavailable NarenSue Attending Unavailable NarenSue Attending Unavailable Eliana, Samara Referring Unavailable Forman, Samara Primary Care Unavailable Sue Sneed Attending Unavailable Forman, Samara Referring Unavailable Eliana, Samara Primary Care Unavailable Ferullo, Leticia Attending Unavailable Eliana, Samara Referring Unavailable Forman, Samara Primary Care Unavailable Sue Sneed Attending Unavailable Vellanki, Jacque Consulting Unavailable Forman, Samara Primary Care Unavailable NarenSue Referring Unavailable Ferullo, Leticia Consulting Unavailable Vellanki, Jacque Attending Unavailable Vellanki, Jacque Referring Unavailable Eliana, Samara Primary Care Unavailable Vellanki, Jacque Attending Unavailable Vellanki, Jacque Referring Unavailable Forman, Samara Primary Care Unavailable Eliana, Samara Primary Care Unavailable Forman, Samara Referring Unavailable Forman, Samara Attending Unavailable Vellanki, Jacque Attending Unavailable Vellanki, Jacque Referring Unavailable Forman, Samara Primary Care Unavailable Ferullo, Leticia Referring Unavailable Ferullo, Leticia Attending Unavailable Eliana, Samara Primary Care Unavailable Sue Sneed Attending Unavailable Eliana, Samara Primary Care Unavailable NarenSue Referring Unavailable Forman, Samara Attending Unavailable Eliana, Samara Referring Unavailable Forman, Samara Primary Care Unavailable Allergies Allergy Classification Reported Allergen(s) Allergy Type Date of Onset Reaction(s) Facility (20 sources) empagliflozin Drug Allergy 8 Other: See Comments [facility] Work Phone: (20 sources) SITagliptin Drug Allergy 1 Intolerance [facility] Comment on above: unknown (11 sources) dulaglutide Drug Allergy 3 Other [facility] Comment on above: extreme nausea and f atigue (9 sources) Methotrexate Drug Allergy 4 Other [facility] (1 source) dulaglutide Drug Allergy 5 [facility] Repository (1 source) empagliflozin Drug Allergy 5 [facility] Repository (1 source) Methotrexate Drug Allergy 5 [facility] Repository (1 source) SITagliptin Drug Allergy 5 [facility] Repository Medications Current Medications Medication Drug Class(es) Dates Sig (Normalized) Sig (Original) apremilast 30 mg oral tablet (20 sources) Start: 08-26-2020 take 1 tablet by mouth twice daily Apremilast 30 MG tablet Active 30 mg PO TWICE A DAY August 26, 2020 1:00am PSORIATIC ARTHRITIS Comment on above: Take 30 mg by mouth twice daily. aspirin 81 mg delayed release oral tablet (20 sources) Platelet Aggregation Inhibitor, Nonsteroidal Anti-inflammatory Drug Start: 02-10-2024 Aspirin (Adult Low Dose Aspirin) 81 mg tablet,delayed release (DR/EC) Active 81 mg PO DAILY February 10, 2024 12:00am Start: 08-26-2020 End: 02-10-2024 take 81 mg by mouth once daily Aspirin Discontinued 81 mg PO DAILY August 26, 2020 1:00am February 10, 2024 2:44pm heart health Comment on above: Take 81 mg by mouth once daily. cholecalciferol 0.075 mg oral tablet (20 sources) Vitamin D Start: 01-11-20 take 1 tablet by mouth once daily Cholecalciferol (Vitamin D3) 75 mcg (3,000 unit) tablet Active 75 ug PO daily January 10, 2025 12:00am take 1 capsule by mouth once lucio ly Cholecalciferol, Vitamin D3, 1,000 unit cap Take 1,000 Units by mouth once daily. Active Comment on above: Take 1,000 Units by mouth once daily. escitalopram 10 mg oral tablet (20 sources) Serotonin Reuptake Inhibitor Start: 08-05-2023 Escitalopram Oxalate 10 mg tablet Active 15 mg PO DAILY August 05, 2023 2:41pm DEPRESSION Start: 08-05-2023 take 15 mg by mouth once daily Escitalopram Oxalate Active 15 MG PO DAILY August 05, 2023 2:41pm Start: 07-07-2020 End: 08-05-2023 take 1 tablet by mouth once daily Escitalopram Oxalate 10 MG tablet Discontinued 10 mg PO DAILY August 26, 2020 1:00am August 05, 2023 2:41pm DEPRESSION Comment on above: Take 1 tablet by maurilio th once daily. ferrous sulfate 325 mg oral tablet (20 sources) Start: 05-11-2024 End: 07-13-2024 take 1 tablet by mouth four times weekly Ferrous Sulfate (Feosol) 325 mg (65 mg iron) tablet Active 325 mg PO 4 times per week July 13, 2024 3:43pm mon,wed and fri Start: 11-11-2023 End: 05-11-2024 take 1 tablet by mouth once daily Ferrous Sulfate (Feosol) 325 mg (65 mg iron) tablet Discontinued 325 mg PO DAILY November 11, 2023 12:00am May 11, 2024 3:51pm mon,wed and fri Start: 12-05-2021 End: 08-22-2022 take 1 tablet by mouth once daily at breakfast ferrous sulfate 325 mg (65 mg iron) tablet Take 1 tablet by mouth daily with breakfast. 90 tablet 1 12/05/2021 08/22/2022 Discontinued Comment on above: Take 1 tablet by maurilio th daily with breakfast. Finerenone (6 sources) Start: 12-01-2024 take 1 tablet by mouth once daily Finerenone (Kerendia) 10 mg tablet Active 10 mg PO daily 25 11December 01, 2024 12:00am Stage 3 chronic kidney disease Type 2 diabetes mellitus Chronic kidney disease, stage 3a Type 2 diabetes mellitus with other specified complication nursing home (current) use of insulin Start: 12-01-2024 take 1 tablet by maurilio th once daily Finerenone (Kerendia) 10 mg tablet Active 10 mg PO daily December 01, 2024 12:00am flash glucose scanning reade r (AnonymAsk BATSHEVA 14 DAY READER) (20 sources) Start: 04-09-2020 flash glucose scanning reader (FREESTYLE BATSHEVA 14 DAY READER) Indications: Type 2 diabetes mellitus without complication, with long-term current use of insulin (HCC) Use to check blood sugar 4 times daily 1 Each 04/09/2020 Active Start: 04-09-2020 flash glucose scanning reader (FREESTYLE BATSHEVA 14 DAY READER) Indications: Type 2 diabetes mellitus without complication, with long-term current use of insulin (HCC) Use to check blood sugar 4 times daily 1 Each 0 04/09/2020 Active Comment on above: Use to check blood s ugar 4 times daily flash glucose sensor (FREESTYLE BATSHEVA 14 DAY SENSOR) kit (20 sources) Start: 07-01-2022 flash glucose sensor (FREESTYLE BATSHEVA 14 DAY SENSOR) kit Indications: Type 2 diabetes mellitus without complication, with long-term current use of insulin (HCC) Use to check blood sugar 4 times daily 2 Kit 11 07/01/2022 Active Start: 07-01-2021 End: 06-28-2022 flash glucose sensor (FREEST YLE BATSHEVA 14 DAY SENSOR) kit Indications: Type 2 diabetes mellitus without complication, with long-term current use of insulin (HCC) Use to check blood sugar 4 times daily 2 Kit 11 07/01/2021 06/28/2022 Discontinued Start: 07-01-2021 flash glucose sensor (FREESTYLE BATSHEVA 14 DAY SENSOR) kit Indications: Type 2 diabetes mellitus without complication, with long-term current use of insulin (HCC) Use to check blood sugar 4 times daily 2 Kit 11 07/01/2021 Active Comment on above: Use to check blood s ugar 4 times daily Flash Glucose Sensor (Freestyle Batsheva 14 Day Sensor) kit (18 sources) Start: 11-30-2023 Flash Glucose Sensor (Freestyle Batsheva 14 Day Sensor) kit Active 0 .Route 6 November 30, 2023 4:10pm Type 2 diabetes mellitus Encounter for long-term (current) use of insulin Type 2 diabetes mellitus with other specified complication nursing home (current) use of insulin As directed Start: 11-30-2023 Flash Glucose Sensor (Freestyle Batsheva 14 Day Sensor) kit Active 0 .Route 6 November 30, 2023 4:10pm As directed Start: 06-05-2023 End: 11-30-2023 Flash Glucose Sensor (Freest yle Batsheva 14 Day Sensor) kit Discontinued 0 .Route 6 June 05, 2023 1:00am November 30, 2023 4:13pm As directed Start: 06-05-2023 End: 11-30-2023 Flash Glucose Sensor (Freest yle Batsheva 14 Day Sensor) kit Discontinued 0 .Route June 05, 2023 1:00am November 30, 2023 4:13pm As directed Start: 06-05-2023 Flash Glucose Sensor (Freestyle Batsheva 14 Day Sensor) kit Active 0 .Route June 05, 2023 1:00am As directed Glucosamine/Chondr/Keiko/T ur (12 sources) Start: 08-26-2020 Glucosamine/Chondr/[place]/T ur Active 1 {tbl} PO DAILY August 26, 2020 1:00am supplement Start: 08-26-2020 Glucosamine/Ch ondr/[place]/Tur Active 1 {tbl} PO DAILY August 26, 2020 1:00am Start: 08-26-2020 take 1 tablet by maurilio th once daily Glucosamine/Chondr/[place]/Tur Active 1 TABLET PO DAILY August 26, 2020 1:00am Start: 08-26-2020 take 1 tablet by maurilio th once daily Glucosamine/Chondr/[place]/Tur Active 1 TABLET PO DAILY August 26, 2020 12:00am hydrocortisone 25 mg/ml topical lotion (20 sources) Corticosteroid hydrocortisone ( HYTONE) 2.5 % lotion Apply to affected area twice daily. Active Comment on above: Apply to affected ar ea twice daily. MEDICATION, NON-DATABASE (20 sources) MEDICATION, NON- DATABASE 1 capsule once daily. [employer] Glucosamine sulfate 500mg /chondroitin sulfate 50 mg/turmeric 50 mg/MSM 8 mg Active MEDICATION, NON- DATABASE 1 capsule once daily. [employer] Glucosamine sulfate 500mg /chondroitin sulfate 50 mg/turmeric 50 mg/MSM 8 mg 0 Active Comment on above: 1 capsule once daily . [employer] Glucosamine sulfate 500mg /chondroitin sulfate 50 mg/turmeric 50 mg/MSM 8 mg Miscellaneous Medical Supply kit (7 sources) Start: 10-12-2024 Miscellaneous Medical Supply kit Active 1 NMA MC DAILY 1 October 12, 2024 12:00am Tachycardia Tachycardia, unspecified Start: 10-12-2024 Miscellaneous Medical Supply kit Active 1 NMA MC DAILY 1 October 12, 2024 12:00am Oebxzaus-Myye-Wwy-Folic Acid (CENTRUM) 3,500-18-0.4 unit-mg-mg chewable tablet (20 sources) take 1 tablet by mouth once daily Kccxdbak-Islt-Hzz-Folic Acid (CENTRUM) 3,500-18-0.4 unit-mg-mg chewable tablet Take 1 tablet by mouth once daily. Active take 1 tablet by mouth once garth y Emjwwedy-Qkvr-Oef-Folic Acid (CENTRUM) 3,500-18-0.4 unit-mg-mg chewable tablet Take 1 tablet by mouth once daily. 0 Active Comment on above: Take 1 tablet by maurilio th once daily. Multivitamin preparation (11 sources) Start: 07-15-2022 Multivitamin Active 1 {tbl} PO DAILY July 15, 2022 2:42pm vitamin Start: 07-15-2022 Multivitamin A ctive 1 {tbl} PO DAILY July 15, 2022 2:42pm Start: 07-15-2022 take 1 tablet by maurilio once daily Multivitamin Active 1 TABLET PO DAILY July 15, 2022 2:42pm sulfaSALAzine 500 mg oral tablet (20 sources) Aminosalicylate Start: 02-10-2024 End: 05-11-2024 take 1 tablet by mouth in the morning, then take 2 tablets by mouth in the evening Sulfasalazine 500 mg tablet Active 0 .ROUTE .COMPLEX May 11, 2024 3:50pm Take 1 tab PO in the AM and 2 tabs PO in the PM; give with food (meal/snack) Start: 11-11-2023 End: 02-10-2024 take 1 tablet by mouth once daily at mealtime Sulfasalazine 500 mg tablet Discontinued 0.5 g PO DAILY November 11, 2023 12:00am February 10, 2024 2:46pm give with food (meal/snack) triamcinolone acetonide 1 mg/ml topical cream (2 sources) Corticosteroid Start: 12-18-2022 End: 01-01-2023 triamcinolone acetonide (KENALOG) 0.1 % cream Indications: Yeast infection of the skin Apply 1 application to affected area three times daily for 14 days. Apply sparingly to area for rash/itching. 30 g 1 12/18/2022 01/01/2023 Active Comment on above: Apply 1 application to affected area three times daily for 14 days. Apply sparingly to area for rash/itching. vitamin e 180 mg oral capsule (8 sources) Start: 08-10-2024 take 1 capsule by mouth once daily Vitamin E 268 mg (400 unit) capsule Active 268 mg PO DAILY August 10, 2024 1:00am I don't remember Completed/Discontinued Medications Medication Drug Class(es) Dates Sig (Normalized) Sig (Original) amitriptyline hydrochloride 50 mg oral tablet (20 sources) Tricyclic Antidepressant Start: 04-05-2024 End: 11-01-2024 take 1 tablet by mouth at bedtime Amitriptyline 50 mg tablet Discontinued 50 mg PO AT BEDTIME 90 0 September 06, 2024 9:54am November 01, 2024 7:37am Start: 08-26-2020 End: 04-05-2024 take 1 tablet by mouth at bedtime Amitriptyline 25 mg tablet Discontinued 25 mg PO AT BEDTIME 90 1 January 06, 2024 8:29am April 05, 2024 4:10pm Comment on above: Take 1 tablet by maurilio th daily at bedtime. B Complex (12 sources) Start: 08-26-2020 End: 07-15-2022 B Complex Discontinued 1 {tbl} PO DAILY August 26, 2020 1:00am July 15, 2022 2:42pm vitamin Start: 08-26-2020 End: 07-15-2022 B Complex Discontinued 1 {tb l} PO DAILY August 26, 2020 1:00am July 15, 2022 2:42pm Start: 08-26-2020 End: 07-15-2022 take 1 tablet by mouth once daily B Complex Discontinued 1 TABLET PO DAILY August 26, 2020 1:00am July 15, 2022 2:42pm Start: 08-26-2020 take 1 tablet by maurilio th once daily B Complex Active 1 TABLET PO DAILY August 26, 2020 12:00am busPIRone hydrochloride 5 mg oral tablet (20 sources) Start: 07-15-2022 End: 11-11-2023 take 1 tablet by mouth once daily Buspirone 5 mg tablet Discontinued 5 mg PO DAILY July 15, 2022 1:00am November 11, 2023 2:21pm Comment on above: Take 5 mg by mouth o nce daily as needed. 1-2 tabs daily as needed 0.5 ml dulaglutide 1.5 mg/ml auto-injector (20 sources) GLP-1 Receptor Agonist Start: 10-29-2020 End: 12-18-2022 inject 0.75 mg by subcutaneous injection every week dulaglutide (TRULICITY) 0.75 mg/0.5 mL pen injector Inject 0.75 mg subcutaneously one time a week. 4 Each 5 12/26/2021 12/18/2022 Discontinued Comment on above: Inject 0.75 mg subcu taneously one time a week. fenofibrate 145 mg oral tablet (20 sources) Peroxisome Proliferator Receptor alpha Agonist Start: 06-28-2020 End: 12-01-2024 take 1 tablet by mouth once daily Fenofibrate Nanocrystallized 145 mg tablet Discontinued 145 mg PO DAILY 90 November 23, 2024 10:04am December 01, 2024 2:28pm Comment on above: Take 1 tablet by maurilio th once daily. ferrous fumarate 325 mg oral tablet (11 sources) Start: 07-24-2022 End: 10-06-2023 take 1 tablet by mouth once daily Ferrous Fumarate 325 mg (106 mg iron) tablet Discontinued 325 mg PO DAILY July 24, 2022 1:00am October 06, 2023 2:29pm 3 ml insulin degludec 100 unt/ml pen injector (20 sources) Insulin Analog Start: 11-03-2021 End: 09-21-2022 insulin degludec (TRESIBA FLEXTOUCH U-100) 100 unit/mL (3 mL) injection pen Indications: Type 2 diabetes mellitus without complication, with long-term current use of insulin (HCC) Inject 70 Units subcutaneously daily at bedtime. 15 mL 11 08/22/2022 Active Start: 08-26-2020 End: 01-21-2023 Insulin Degludec 100 UNIT/ML insulin pen Discontinued 35 U SQ TWICE A DAY August 26, 2020 1:00am January 21, 2023 1:59pm DIABETES Comment on above: Inject 70 Units subc utaneously daily at bedtime. 1.5 ml insulin glargine 300 unt/ml pen injector (20 sources) Insulin Analog Start: 01-27-2023 insulin glargine U-300 conc (TOUJEO MAX U-300 SOLOSTAR) 300 unit/mL (3 mL) inpn Inject 62 Units subcutaneously once daily. 01/27/2023 Active Start: 01-21-2023 End: 06-24-2024 Insulin Glargine U-300 Conc (Toujeo Solostar U-300 Insulin) 300 unit/mL (1.5 mL) insulin pen Discontinued 70 U SC DAILY 21 September 07, 2023 9:12am June 24, 2024 9:00am Comment on above: Inject 62 Units subc utaneously once daily. 3 ml insulin lispro 100 unt/ml pen injector (20 sources) Insulin Analog Start: 05-06-2023 End: 10-04-2024 Insulin Lispro 100 unit/mL insulin pen Discontinued 40 U SC 3 TIMES DAILY WITH MEALS 108 June 24, 2024 8:58am October 04, 2024 7:40am Type 2 diabetes mellitus Type 2 diabetes mellitus with other specified complication nursing home (current) use of insulin DIABETES Start: 08-26-2020 End: 05-06-2023 Insulin Lispro 100 UNIT/ML i nsulin pen Discontinued 0 - 100 U SQ 3 TIMES DAILY WITH MEALS August 26, 2020 1:00am May 06, 2023 9:04am DIABETES Comment on above: Inject 14 units Subc utaneously three times daily before meals Plus sliding scale (2 units for every 50 mg/dL greater than 150 mg/dL) levothyroxine sodium 0.088 mg oral tablet (20 sources) l-Thyroxine Start: 01-21-2023 End: 04-29-2023 Levothyroxine 75 mcg tablet Discontinued 88 ug PO DAILY January 21, 2023 1:11pm April 29, 2023 1:07pm THYROID Start: 01-21-2023 End: 04-29-2023 take 88 ug by mouth once daily Levothyroxine Discontin ued 88 MCG PO DAILY January 21, 2023 1:11pm April 29, 2023 1:07pm Start: 01-13-2023 End: 06-24-2024 take 1 tablet by mouth once daily Levothyroxine 88 mcg tablet Discontinued 88 ug PO DAILY 90 1 February 22, 2024 11:55am June 24, 2024 8:59am Start: 08-26-2020 End: 01-21-2023 take 1 tablet by mouth once daily Levothyroxine 75 MCG tablet Discontinued 75 ug PO DAILY August 26, 2020 1:00am January 21, 2023 1:12pm THYROID Comment on above: Take 1 tablet by maurilio th once daily. Take on empty stomach. For Thyroid Take 1 tablet by maurilio th once daily. Take on empty stomach. losartan potassium 25 mg oral tablet (20 sources) Angiotensin 2 Receptor Lois Start: End: 5 take 1 tablet by mouth once daily Losartan 25 mg tablet Discontinued 25 mg PO DAILY 90 August 01, 2024 9:55am December 01, 2024 2:28pm BLOOD PRESSURE Comment on above: Take 1 tablet by maurilio th once daily. metFORMIN hydrochloride 1000 mg oral tablet (20 sources) Biguanide Start: 3 End: 4 take 1 tablet by mouth twice daily Metformin 1,000 mg tablet Discontinued 1000 mg PO TWICE A DAY 180 2 February 04, 2024 7:45am June 24, 2024 8:59am Start: 08-26-2020 End: 12-18-2022 take 1 tablet by mouth three times daily Metformin 850 MG tablet Discontinued 850 mg PO THREE TIMES A DAY August 26, 2020 1:00am October 06, 2022 7:31am DIABETES Comment on above: Take 1 tablet by maurilio th three times daily with meals. Take 1 tablet by maurilio th twice daily with meals. Multivitamin with Iron (12 sources) Start: 08-26-2020 End: 07-15-2022 Multivitamin with Iron Discontinued 1 {tbl} PO DAILY August 26, 2020 1:00am July 15, 2022 2:42pm vitamin Start: 08-26-2020 End: 07-15-2022 Multivitamin with Iron Disco ntinued 1 {tbl} PO DAILY August 26, 2020 1:00am July 15, 2022 2:42pm Start: 08-26-2020 End: 07-15-2022 take 1 tablet by mouth once daily Multivitamin with Iron Discontinued 1 TABLET PO DAILY August 26, 2020 1:00am July 15, 2022 2:42pm Start: 08-26-2020 take 1 tablet by maurilio th once daily Multivitamin with Iron Active 1 TABLET PO DAILY August 26, 2020 12:00am Sterling 1-Avn-Wui-Fish Oil ([facility] [place]-3 Gummy Fish) 35-25-5-113.5 mg tablet,chewable (11 sources) Start: 07-24-2022 End: 10-06-2023 Sterling 6-Qxp-Jso-Fish Oil ([facility] [place]-3 Gummy Fish) 35-25-5-113.5 mg tablet,chewable Discontinued {tbl} PO July 24, 2022 1:00am October 06, 2023 2:29pm Start: 07-24-2022 End: 10-06-2023 Sterling 2-Phf-Jyq-Fish Oil ([facility] G[facility]) 35-25-5-113.5 mg tablet,chewable Discontinued TABLET PO July 24, 2022 1:00am October 06, 2023 2:29pm Start: 07-24-2022 Sterling 3-Dha-Ep a-Fish Oil ([facility] [place]-3 Gummy Fish) 35-25-5-113.5 mg tablet,chewable Active TABLET PO July 24, 2022 1:00am simvastatin 40 mg oral tablet (20 sources) HMG-CoA Reductase Inhibitor Start: 06-24-2023 End: 12-01-2024 take 1 tablet by mouth once daily Simvastatin 40 mg tablet Discontinued 40 mg PO DAILY 90 June 24, 2024 8:58am December 01, 2024 2:28pm Hyperlipidemia Type 2 diabetes mellitus Hyperlipidemia, unspecified Type 2 diabetes mellitus with other specified complication [employer] terminal [employer]er (current) use of insulin Start: 01-21-2023 End: 08-06-2023 take 2 tablets by mouth at bedtime Simvastatin 20 mg tablet Discontinued 40 mg PO AT BEDTIME 90 August 05, 2023 4:34pm August 06, 2023 9:20am CHOLESTEROL Start: 01-21-2023 End: 08-06-2023 take 40 mg by mouth at bedtime Simvastatin Discontinue d 40 MG PO AT BEDTIME 90 August 05, 2023 4:34pm August 06, 2023 9:20am Start: 01-13-2023 take 1 tablet by maurilio th once daily at bedtime simvastatin (ZOCOR) 40 mg tablet Take 1 tablet by mouth daily at bedtime. For cholesterols. 90 tablet 1 01/13/2023 Active Start: 06-28-2020 End: 01-21-2023 take 1 tablet by mouth at bedtime Simvastatin 20 MG tablet Discontinued 20 mg PO AT BEDTIME August 26, 2020 1:00am January 21, 2023 1:12pm CHOLESTEROL Comment on above: Take 1 tablet by maurilio th daily at bedtime. Take 1 tablet by maurilio th daily at bedtime. For cholesterols. Vitamin D (20 sources) Start: 10-06-2023 End: 11-11-2023 Vitamin D Discontinued 92475 [iU] PO DAILY October 06, 2023 2:30pm November 11, 2023 2:24pm vitamin Start: 10-06-2023 End: 11-11-2023 Vitamin D Discontinued 46874 [iU] PO DAILY October 06, 2023 2:30pm November 11, 2023 2:24pm Start: 10-06-2023 take 73738 [IU] by m out once daily Vitamin D Active 98248 IU PO DAILY October 06, 2023 2:30pm Start: 08-26-2020 End: 10-06-2023 Vitamin D Discontinued 1000 [iU] PO DAILY August 26, 2020 1:00am October 06, 2023 2:30pm vitamin Start: 08-26-2020 End: 10-06-2023 Vitamin D Discontinued 1000 [iU] PO DAILY August 26, 2020 1:00am October 06, 2023 2:30pm Start: 08-26-2020 End: 10-06-2023 take 1000 [IU] by mouth once daily Vitamin D Discontinued 1000 IU PO DAILY August 26, 2020 1:00am October 06, 2023 2:30pm Start: 08-26-2020 take 1000 [IU] by mo uth once daily Vitamin D Active 1000 IU PO DAILY August 26, 2020 1:00am Start: 08-26-2020 take 1000 [IU] by mo uth once daily Vitamin D Active 1000 IU PO DAILY August 26, 2020 12:00am Problems Active Problems Problem Classification Problem Date Documented Date Episodic/Chronic Administrative/social admission (1 source) Persons encountering health services in other specified circumstances; Translations: [Other reasons for seeking consultation] 10-06-2023 Episodic Anxiety disorders (20 sources) Mixed anxiety and depressive disorder; Translations: [Anxiety disorder, unspecified] Onset: 07-21-2024 08-26-2020 Chronic Chronic kidney disease (20 sources) Chronic kidney disease stage 3A ; Translations: [Stage 3a chronic kidney disease (HCC)] Onset: 09-23-2017 Chronic Chronic kidney disease (1 source) Chronic kidney disease; Translations: [Chronic kidney disease, stage 3a] Onset: 12-01-2024 Deficiency and other anemia (18 sources) Anemia; Translations: [Anemia, unspecified] 04-05-2024 Episodic Diabetes mellitus with complications (1 source) Type 2 diabetes mellitus with other specified complication; Translations: [Type 2 diabetes mellitus with other specified complication] Onset: 12-01-2024 Chronic Diabetes mellitus without complication (20 sources) Type 2 diabetes mellitus without complication; Translations: [Type 2 diabetes mellitus without complications] Onset: 10-23-2015 Resolved: 12-18-2015 Chronic Disorders of lipid metabolism (20 sources) Mixed hyperlipidemia; Translations: [Mixed hyperlipidemia] Onset: 12-01-2024 Chronic Essential hypertension (20 sources) Essential hypertension; Translations: [Essential (primary) hypertension] Onset: 07-21-2024 Chronic Mood disorders (20 sources) Depressive disorder; Translations: [Depression] Onset: 07-21-2024 09-11-2015 Chronic Mycoses (1 source) Candidiasis of skin; Translations: [Candidiasis of skin and nail] Episodic Nonspecific chest pain (12 sources) Chest pain; Translations: [Chest pain, unspecified] 08-26-2020 Episodic Nutritional deficiencies (1 source) Vitamin D deficiency, unspecified; Translations: [Vitamin D deficiency, unspecified] Onset: 12-26-2024 Chronic Other aftercare (1 source) Other 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 worker (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 therapy; Translations: [Other terminal worker (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 therapy] Onset: 01-04-2025 Episodic Other aftercare (1 source) tank terminal gauger (current) use of insulin; Translations: [tank terminal gauger (current) use of insulin] Onset: 12-01-2024 Episodic Other connective tissue disease (1 source) Pain in right foot; Translations: [Pain in right foot] Onset: 12-15-2024 Episodic Other inflammatory condition of skin (20 sources) Psoriasis; Translations: [Psoriasis, unspecified] 09-11-2015 Chronic Other inflammatory condition of skin (20 sources) Psoriatic arthritis; Translations: [Arthropathic psoriasis, unspecified] Onset: 12-06-2018 12-06-2018 Chronic Other inflammatory condition of skin (2 sources) Arthropathic psoriasis, unspecified; Translations: [Psoriatic arthropathy] Onset: 07-21-2024 10-06-2023 Chronic Other inflammatory condition of skin (2 sources) Other psoriatic arthropathy; Translations: [Other psoriatic arthropathy] Onset: 01-02-2025 Chronic Other inflammatory condition of skin (1 source) Other psoriasis; Translations: [Other psoriasis] Onset: 01-04-2025 Chronic Other liver diseases (20 sources) Steatosis of liver; Translations: [Fatty (change of) liver, not elsewhere classified] 06-24-2021 Chronic Other liver diseases (2 sources) Fatty (change of) liver, not elsewhere classified; Translations: [Fatty (change of) liver, not elsewhere classified] Onset: 05-11-2024 Chronic Other nutritional; endocrine; and metabolic disorders (1 source) Obesity; Translations: [Obesity, unspecified] 04-29-2023 Chronic Other nutritional; endocrine; and metabolic disorders (20 sources) Overweight; Translations: [Overweight] 01-21-2023 Episodic Other nutritional; endocrine; and metabolic disorders (2 sources) Overweight; Translations: [Overweight] 08-05-2023 Episodic Residual codes; unclassified (8 sources) Difficulty sleeping ; Translations: [Sleep disorder, unspecified] 04-05-2024 Episodic Residual codes; unclassified (20 sources) Memory impairment; Translations: [Other amnesia] 04-05-2024 Episodic Residual codes; unclassified (7 sources) Postmenopausal state; Translations: [Asymptomatic menopausal state] 10-12-2024 Episodic Screening and history of mental health and substance abuse codes (12 sources) Ex-tobacco user; Translations: [Personal history of nicotine dependence] 08-26-2020 Episodic Superficial injury; contusion (8 sources) Contusion of right lesser toe; Translations: [Contusion of right lesser toe(s) without damage to nail, initial encounter] 12-12-2024 Episodic Thyroid disorders (20 sources) Hypothyroidism; Translations: [Hypothyroidism, unspecified] Onset: 12-01-2024 Chronic Unclassified (10 sources) R41.3 - Other amnesia Past or Other Problems Problem Classification Problem Date Documented Da te Episodic/Chronic Cardiac dysrhythmias (8 sources) Tachycardia; Translations: [Tachycardia, unspecified] Onset: 10-12-2024 10-12-2024 Episodic Deficiency and other anemia (2 sources) Anemia, unspecified; Translations: [Anemia, unspecified] Onset: 04-05-2024 10-06-2023 Episodic Deficiency and other anemia (1 source) Iron deficiency anemia, unspecified; Translations: [Iron deficiency anemia, unspecified] Onset: 07-21-2024 Episodic Immunizations and screening for infectious disease (2 sources) Encounter for immunization; Translations: [Need for prophylactic vaccination and inoculation against unspecified single disease] Onset: 04-05-2024 10-06-2023 Episodic Nonmalignant breast conditions (20 sources) Solitary cyst of breast; Translations: [Solitary cyst of left breast] Onset: 12-28-2015 12-28-2015 Episodic Other liver diseases (20 sources) Elevated liver enzymes level; Translations: [Abnormal levels of other serum enzymes] Onset: 06-10-2018 06-10-2018 Episodic Other screening for suspected conditions (not mental disorders or infectious disease) (20 sources) Patient encounter status; Translations: [Encounter for screening mammogram for malignant neoplasm of breast] Onset: 04-05-2024 Episodic Other upper respiratory infections (1 source) Acute pharyngitis, unspecified; Translations: [Acute pharyngitis, unspecified] Onset: 10-19-2024 Episodic Residual codes; unclassified (2 sources) Other amnesia; Translations: [Memory loss] Onset: 07-21-2024 10-06-2023 Episodic Residual codes; unclassified (2 sources) Asymptomatic menopausal state; Translations: [Asymptomatic menopausal state] Onset: 10-12-2024 Episodic Unclassified (1 source) Patient encounter status 08-16-2024 Results Test Name Value Interpretation Reference Range Facility Internal Medicine Office Vis yoly 01-09-2025 Internal Medicine Office Visit [facility] [address] [place] [address] OFFICE VISIT Date of Service: 01/10/25 MR#: [id number] Acct: [id number] Name: ROMA WALTON Rep #: [id number] : [id number] Provider: Dr. Samara maya MD Age/Sex: 64/F Location: [facility] [place] [place] Status: Signed Intake Vital Signs 10/12/24 13:33 12/01/24 13:40 01/10/25 13:01 Height 5 ft 6 in 5 ft 6 in 5 ft 6 in Weight: 175 lb 6 oz BMI 28.3 BP 130/64 H Blood Pressure Location Rt brachial Position Sitting Respiration 16 Pulse 109 H Pulse Source Monitor Temp 97.4 F L Temp Source Temporal Pulse Oximetry (%) 96 Oxygen Delivery Method room air Intake Visit Reasons: 3 M FU Chief Complaint: FU Crm Specialist Required: No Accompanied by: Self Is patient in pain?: No Allergies dulaglutide (From Trulicity) Allergy (Severe, Verified 01/10/25 12:51) Other empagliflozin (From Jardiance) Allergy (Verified 01/10/25 12:51) PT UNSURE OF REACTION methotrexate Adverse Reaction (Mild, Verified 01/10/25 12:51) Other sitagliptin (From Januvia) Adverse Reaction (Verified 01/10/25 12:51) Other Medications ???Medication ???Instructions ???Recorded ???Confirmed ???Type Glucosamine/Chondr/Rodrigo well/Tur 1 tab PO DAILY supplement 08/26/20 01/10/25 History apremilast 30 mg tablet 30 mg PO BID PSORIATIC ARTHRITIS 0 08/26/20 01/10/25 History Multivitamin 1 tab PO DAILY vitamin 07/15/22 History escitalopram oxalate 10 mg tablet 15 mg PO DAILY DEPRESSION 4 01/10/25 History flash glucose sensor (FreeStyle #6 ea 11/30/23 01/10/25 Rx Batsheva 14 Day Sensor kit) aspirin 81 mg tablet,delayed 81 mg PO DAILY 02/10/24 01/10/25 H istory release (Adult Low Dose Aspirin) sulfasalazine 500 mg tablet See Rx Instructions .Route .COMPLE X 05/11/24 01/10/25 History insulin glargine U-300 conc 300 70 unit (0.2333 mL) subcut DAILY 1 08/25/23 01/10/25 Rx unit/mL (1.5 mL) subcutaneous pen #42 mL (Toujeo SoloStar U-300 Insulin) levothyroxine 88 mcg tablet 88 mcg PO DAILY #90 tabs 06/24/24 01/10/25 Rx metformin 1,000 mg tablet 1,000 mg PO BID #180 tabs 06/24/24 01/10/25 Rx ferrous sulfate 325 mg (65 mg 325 mg PO 4XW 07/13/24 01/10/25 Hi story iron) tablet (Feosol) vitamin E 268 mg (400 unit) capsule 268 mg PO DAILY I don't remembe r 08/10/24 01/10/25 History insulin lispro 100 unit/mL 40 unit (0.4 mL) subcut TIDCM 02/2001/10/25 Rx subcutaneous pen DIABETES #108 mL miscellaneous medical supply 1 ea miscellaneous DAILY #1 ea 01/10/25 Rx amitriptyline 50 mg tablet 50 mg PO QHS #90 tabs 11/01/24 Rx fenofibrate nanocrystallized 145 145 mg PO DAILY #90 tabs 12/01/24 01/10/25 Rx mg tablet finerenone 10 mg tablet (Kerendia) 10 mg PO QDAY #30 tabs 12/01/24 01/10/25 Rx losartan 25 mg tablet 25 mg PO DAILY BLOOD PRESSURE #90 12/01/24 01/10/25 Rx tabs pen needle, diabetic 32 gauge x #100 ea 12/01/24 01/10/25 Rx simvastatin 40 mg tablet 40 mg PO DAILY #90 tabs 12/01/24 0 01/10/25 Rx cholecalciferol (vitamin D3) 75 75 mcg PO QDAY 01/10/25 01/10/25 H istory mcg (3,000 unit) tablet Have you fallen in the past year?: No [facility] Medical History Contusion of right lesser toe(s) without damage to nail, initial encounter Pancreatitis Fatty liver Psoriasis Surgical History History of colonoscopy History of breast biopsy (06/29/99) [place] teeth extracted History of gynecologic surgery Family History Father Myocardial infarction, Onset Age: 84 Hypertension Seizures Alzheimer's dementia Hyponatremia Mother TIA (transient ischemic attack) Breast cancer Tongue cancer Anesthesia anaesthesia sensitivity Anxiety IBS (irritable bowel syndrome) Hypertension High cholesterol Osteoporosis Psychiatric care COPD (chronic obstructive pulmonary disease) Cancer melanoma CVA (cerebral vascular accident) Thyroid disorder Dementia Hyponatremia Sister Thyroid disorder Prediabetes Uncle H/O Needmore's disease Unknown H/O Kaci's disease Social History (Updated 01/10/25 @ 13:[address] Samara Monroy MD) household members: spouse current occupational status: unemployed Smoking Status: Former smoker quit date: 06/29/08 pack-years: 36 Electronic Cigarette Use: not used alcohol intake: former year quit: 2008 substance use type: does not use what type of physical activity do you participate in: none do you feel safe at home: Yes Questionnaire PQH-9 BMS Over the last 2 weeks, how often have you been bothered by any of the following problems? 1. Little interest or pleasure in doing (more content not included)... Normal [facility] Absolute lymphocyte countOrd ered By: Jacque Mcfarlane on 12-28-2024 Lymphocytes Auto (Unsp spec) [#/Vol] 1.54 10*3/uL 0.83-4.51 [facility] Absolute neutrophil countOrd ered By: Jacque Mcfarlane on 12-28-2024 Neutrophils (Bld) [#/Vol] 3.8 10*3/uL 2.0-7.7 [facility] Anion gap in Serum or Plasma Ordered By: Jacque Mcfarlane on 12-28-2024 Anion gap [Moles/Vol] 12 mmol/L 5-15 [facility] Automated lymphocyte count a s percentage of total leukocytesOrdered By: Jacque Mcfarlane on 12-28-2024 Lymphocytes/100 WBC Auto (Unsp spec) 23.8 % 19-41 [facility] BUN/creatinine ratioOrdered By: Jacque Mcfarlane on 12-28-2024 Urea nitrogen/Creatinine [Mass ratio] 22.1 mg/mg High 10-20 [facility] Basophil percentageOrdered B y: Jacque Mcfarlane on 12-28-2024 Basophils/100 WBC (Bld) 0.6 % 0-1 [facility] Bilirubin, totalOrdered By: Jacque Mcfarlane on 12-28-2024 Bilirubin [Mass/Vol] 0.20 mg/dL 0.00-1.30 [facility] CBC W/Diff, Automatedon 07 Absolute Lymph 1.54 X10 3/uL Normal 0.83-4.51 [facility] Comment on above: Performed By: #### L 100.0100, L500.4050 #### [facility] [address] [place], [address] Absolute Neut 3.8 X10 3/uL Normal 2.0-7.7 [facility] Comment on above: Performed By: #### L 100.0100, L500.4050 #### [facility] [address] [place], [address] Basophils/100 WBC (Bld) 0.6 % Normal 0-1 [facility] Comment on above: Performed By: #### L 100.0100, L500.4050 #### [facility] [address] [place], [address] Eosinophils/100 WBC (Bld) 2.0 % Normal 0-5 [facility] Comment on above: Performed By: #### L 100.0100, L500.4050 #### [facility] [address] [place], [address] Erythrocyte distribution width (RBC) [Ratio] 15.1 % High 11.6-14.6 [facility] Comment on above: Performed By: #### L 100.0100, L500.4050 #### [facility] [address] [place], [address] Hematocrit (Bld) [Volume fraction] 37.9 % Normal 37-47 [facility] Comment on above: Performed By: #### L 100.0100, L500.4050 #### [facility] [address] [place], [address] Hemoglobin (Bld) [Mass/Vol] 11.6 g/dL Low 12.0-15.0 [facility] Comment on above: Performed By: #### L 100.0100, L500.4050 #### [facility] [address] [place], [address] IG% 0.300 Normal 0.0-0.9 [facility] Comment on above: Result Comment: IG% - Immature Granulocytes (promyelocytes, myelocytes and metamyelocytes) > 1% indicates that a LEFT SHIFT is Present. Performed By: #### L 100.0100, L500.4050 #### [facility] [address] [place], [address] Lymphocytes/100 WBC (Bld) 23.8 % Normal 19-41 [facility] Comment on above: Performed By: #### L 100.0100, L500.4050 #### [facility] [address] [place], [address] MCH (RBC) [Entitic mass] 25.8 pg Low 27.0-32.0 [facility] Comment on above: Performed By: #### L 100.0100, L500.4050 #### [facility] [address] [place], [address] MCHC (RBC) [Mass/Vol] 30.6 g/dL Low 32-36 [facility] Comment on above: Performed By: #### L 100.0100, L500.4050 #### [facility] [address] [place], [address] MCV (RBC) [Entitic vol] 84.2 fL Normal 81-99 [facility] Comment on above: Performed By: #### L 100.0100, L500.4050 #### [facility] [address] [place], [address] Monocytes/100 WBC (Bld) 14.0 % High 0-10 [facility] Comment on above: Performed By: #### L 100.0100, L500.4050 #### [facility] [address] [place], [address] Neutrophils/100 WBC (Bld) 59.3 % Normal 47-70 [facility] Comment on above: Performed By: #### L 100.0100, L500.4050 #### [facility] [address] [place], [address] Nucleated RBC (Bld) [#/Vol] 0 10*3/uL Normal 0-5 [facility] Comment on above: Performed By: #### L 100.0100, L500.4050 #### [facility] [address] [place], [address] Platelet mean volume (Bld) [Entitic vol] 9.5 fL Normal 6.2-12.0 [facility] Comment on above: Performed By: #### L 100.0100, L500.4050 #### [facility] [address] [place], [address] Platelets (Bld) [#/Vol] 383 10*3/uL Normal 150-450 [facility] Comment on above: Performed By: #### L 100.0100, L500.4050 #### [facility] [address] [place], [address] RBC (Bld) [#/Vol] 4.50 10*6/uL Normal 4.2-5.4 [facility] Comment on above: Performed By: #### L 100.0100, L500.4050 #### [facility] [address] [place], [address] RDW SD 46.2 fl High 35.1-43.9 [facility] Comment on above: Performed By: #### L 100.0100, L500.4050 #### [facility] [address] [place], [address] WBC (Bld) [#/Vol] 6.5 10*3/uL Normal 4.4-11.0 [facility] Comment on above: Performed By: #### L 100.0100, L500.4050 #### [facility] [address] [place], [address] Carbon dioxide, total [Moles /volume] in Central venous bloodOrdered By: Jacque Mcfarlane on 12-28-2024 CO2 [Moles/Vol] 26.4 mmol/L 21.0-32.0 [facility] Chloride assayOrdered By: Coty Mcfarlane on 12-28-2024 Chloride [Moles/Vol] 100 mmol/L 98-108 [facility] Comprehensive Metabolic Prof ilon 12-28-2024 Albumin [Mass/Vol] 4.6 g/dL Normal 3.4-4.8 [facility] Comment on above: Performed By: #### L 100.0100, L500.4050 #### [facility] [address] [place], [address] Albumin/Globulin [Mass ratio] 1.9 {ratio} Normal 0.9-2.4 [facility] Comment on above: Performed By: #### L 100.0100, [id number] #### [facility] [address] [place], [address] ALK PHOS 48 U/L Normal 35-104 [facility] Comment on above: Performed By: #### L 100.0100, L500.4050 #### [facility] [address] [place], [address] ALT [Catalytic activity/Vol] 22 U/L Normal <=34 [facility] Comment on above: Performed By: #### L 100.0100, L500.4050 #### [facility] [address] [place], [address] AST [Catalytic activity/Vol] 24 U/L Normal <=31 [facility] Comment on above: Performed By: #### L 100.0100, L500.4050 #### [facility] [address] [place], [address] Bilirubin [Mass/Vol] 0.20 mg/dL Normal 0.00-1.30 [facility] Comment on above: Performed By: #### L 100.0100, [id number] #### [facility] [address] [place], [address] BUN/CRE 22.1 RATIO High 10-20 [facility] Comment on above: Performed By: #### L 100.0100, [id number] #### [facility] [address] [place], [address] Calcium [Mass/Vol] 10.2 mg/dL Normal 7.6-11.0 [facility] Comment on above: Performed By: #### L 100.0100, [id number] #### [facility] [address] [place], [address] Chloride [Moles/Vol] 100 mmol/L Normal 98-108 [facility] Comment on above: Performed By: #### L 100.0100, [id number] #### [facility] [address] [place], [address] CO2 [Moles/Vol] 26.4 mmol/L Normal 21.0-32.0 [facility] Comment on above: Performed By: #### L 100.0100, L500.4050 #### [facility] [address] [place], [address] Creatinine [Mass/Vol] 0.81 mg/dL Normal 0.70-1.20 [facility] Comment on above: Performed By: #### L 100.0100, L500.4050 #### [facility] [address] [place], [address] GAP 12 Normal 5-15 [facility] Comment on above: Performed By: #### L 100.0100, L500.4050 #### [facility] [address] [place], [address] GFR/1.73 sq M.predicted among non-blacks MDRD (S/P/Bld) [Vol rate/Area] 80 mL/min/{1.73_m2} Normal >60 [facility] Comment on above: Result Comment: mL/m in/1.73m2 CKD-EPI Creatinine Equation (2020) Performed By: #### L 100.0100, L500.4050 #### [facility] [address] [place], [address] Globulin (S) [Mass/Vol] 2.4 g/dL Normal 2.2-4.2 [facility] Comment on above: Performed By: #### L 100.0100, L500.4050 #### [facility] [address] [place], [address] Glucose [Mass/Vol] 88 mg/dL Normal 70-99 [facility] Comment on above: Performed By: #### L 100.0100, L500.4050 #### [facility] [address] [place], [address] Potassium [Moles/Vol] 4.0 mmol/L Normal 3.3-5.1 [facility] Comment on above: Performed By: #### L 100.0100, L500.4050 #### [facility] [address] [place], [address] Sodium [Moles/Vol] 139 mmol/L Normal 133-145 [facility] Comment on above: Performed By: #### L 100.0100, [id number] #### [facility] [address] [place], [address] T PROT 7.0 g/dL Normal 5.9-8.4 [facility] Comment on above: Performed By: #### L 100.0100, L500.4050 #### [facility] [address] [place], [address] Urea nitrogen [Mass/Vol] 18 mg/dL Normal 4-19 [facility] Comment on above: Performed By: #### L 100.0100, L500.4050 #### [facility] [address] [place], [address] Eosinophil percentageOrdered By: Jacque Mcfarlane on 12-28-2024 Eosinophils/100 WBC (Bld) 2.0 % 0-5 [facility] Erythrocyte distribution wid th ratioOrdered By: Jacque Mcfarlane on 12-28-2024 Erythrocyte distribution width (RBC) [Ratio] 15.1 % High 11.6-14.6 [facility] Erythrocyte distribution wid th standard deviationOrdered By: Jacque Mcfarlane on 12-28-2024 Erythrocyte distribution width (RBC) [Ratio] 46.2 fl High 35.1-43.9 [facility] Glomerular filtration rate ( GFR) estimation/1.73 sq m using serum, plasma, or whole bOrdered By: Jacque Mcfarlane on 12-28-2024 GFR/1.73 sq M.predicted among non-blacks MDRD (S/P/Bld) [Vol rate/Area] 80 mL/min/{1.73_m2} >60 [facility] Comment on above: mL/min/1.73m2 CKD-EP I Creatinine Equation (2020) Hematocrit Auto (Bld) [Volum e fraction]Ordered By: Jacque Mcfarlane on 12-28-2024 Hematocrit (Bld) [Volume fraction] 37.9 % 37-47 [facility] Hemoglobin measurementOrdere d By: Jacque Mcfarlane on 12-28-2024 Hemoglobin (Bld) [Mass/Vol] 11.6 g/dL Low 12.0-15.0 [facility] Immature granulocytes/100 WB C Auto (Bld)Ordered By: Jacque Mcfarlane on 12-28-2024 Immature granulocytes/100 WBC (Bld) 0.300 % 0.0-0.9 [facility] Comment on above: IG% - Immature Granu locytes (promyelocytes, myelocytes and metamyelocytes) > 1% indicates that a LEFT SHIFT is Present. Laboratory - Chemistry and C hemistry - challengeOrdered By: Jacque Mcfarlane on 12-28-2024 AST [Catalytic activity/Vol] 24 U/L <32 [facility] MCV (mean corpuscular volume ) determinationOrdered By: Jacque Mcfarlane on 12-28-2024 MCV (RBC) [Entitic vol] 84.2 fL 81-99 [facility] Mean corpuscular hemoglobin (MCH) determinationOrdered By: Jacque Mcfarlane on 12-28-2024 MCH (RBC) [Entitic mass] 25.8 pg Low 27.0-32.0 [facility] Mean corpuscular hemoglobin concentration (MCHC) determinationOrdered By: Jacque Mcfarlane on 12-28-2024 MCHC (RBC) [Mass/Vol] 30.6 g/dL Low 32-36 [facility] Mean platelet volume determi nationOrdered By: Jacque Mcfarlane on 12-28-2024 Platelet mean volume (Bld) [Entitic vol] 9.5 fL 6.2-12.0 [facility] Monocyte percentageOrdered B y: Jacque Mcfarlane on 12-28-2024 Monocytes/100 WBC (Bld) 14.0 % High 0-10 [facility] Neutrophil percentageOrdered By: Jacque Mcfarlane on 12-28-2024 Neutrophils/100 WBC (Bld) 59.3 % 47-70 [facility] Nucleated red blood cell per centageOrdered By: Jacque Mcfarlane on 12-28-2024 Nucleated RBC/100 WBC (Bld) [Ratio] 0 % 0-5 [facility] Platelet countOrdered By: Coty Mcfarlane on 12-28-2024 Platelets (Bld) [#/Vol] 383 10*3/uL 150-450 [facility] Potassium measurement (mass/ volume)Ordered By: Jacque Mcfarlane on 12-28-2024 Potassium (Unsp spec) [Mass/Vol] 4.0 mmol/L 3.3-5.1 [facility] RBC Auto (Bld) [#/Vol]Ordere d By: Jacque Mcfarlane on 12-28-2024 RBC (Bld) [#/Vol] 4.50 10*6/uL 4.2-5.4 [facility] [facility] Serum creatinine measurement (mass/volume)Ordered By: Jacque Mcfarlane on 12-28-2024 Creatinine [Mass/Vol] 0.81 mg/dL 0.70-1.20 [facility] Serum globulin measurementOr dered By: Jacque Mcfarlane on 12-28-2024 Globulin (S) [Mass/Vol] 2.4 g/dL 2.2-4.2 [facility] Serum glucose measurement (m ass/volume)Ordered By: Jacque Mcfarlane on 12-28-2024 Glucose [Mass/Vol] 88 mg/dL 70-99 [facility] Serum or plasma alanine vilchis otransferase (ALT) measurementOrdered By: Jacque Mcfarlane on 12-28-2024 ALT [Catalytic activity/Vol] 22 U/L <35 [facility] Serum or plasma albumin esteban urement (mass/volume)Ordered By: Jacque Mcfarlane on 12-28-2024 Albumin [Mass/Vol] 4.6 g/dL 3.4-4.8 [facility] Serum or plasma albumin/glob ulin mass ratioOrdered By: Jacque Mcfarlane on 12-28-2024 Albumin/Globulin [Mass ratio] 1.9 {ratio} 0.9-2.4 [facility] Serum or plasma alkaline kee sphatase measurementOrdered By: Jacque Mcfarlane on 12-28-2024 ALP [Catalytic activity/Vol] 48 U/L 35-104 [facility] Serum or plasma calcium esteban urement (mass/volume)Ordered By: Jacque Mcfarlane on 12-28-2024 Calcium [Mass/Vol] 10.2 mg/dL 7.6-11.0 [facility] Serum or plasma urea nitroge n measurement (mass/volume)Ordered By: Jacque Mcfarlane on 12-28-2024 Urea nitrogen [Mass/Vol] 18 mg/dL 4-19 [facility] Sodium levelOrdered By: Meenu Mcfarlane on 12-28-2024 Sodium [Moles/Vol] 139 mmol/L 133-145 [facility] Total proteinOrdered By: Darlyn Mcfarlane on 12-28-2024 Protein [Mass/Vol] 7.0 g/dL 5.9-8.4 [facility] White blood cell (WBC) count Ordered By: Jacque Mcfarlane on 12-28-2024 WBC (Bld) [#/Vol] 6.5 10*3/uL 4.4-11.0 [facility] Anion gap in Serum or Plasma Ordered By: Sue Sneed on 12-21-2024 Anion gap [Moles/Vol] 13 mmol/L 5-15 [facility] BUN/creatinine ratioOrdered By: Sue Sneed on 12-21-2024 Urea nitrogen/Creatinine [Mass ratio] 18.8 mg/mg 10-20 [facility] Bilirubin, totalOrdered By: Sue Sneed on 12-21-2024 Bilirubin [Mass/Vol] 0.23 mg/dL 0.00-1.30 [facility] Calculated very low density lipoprotein (VLDL) cholesterol measurementOrdered By: Sue Sneed on 12-21-2024 Calculated very low density lipoprotein (VLDL) cholesterol measurement 36 mg/dL 5-40 [facility] Carbon dioxide, total [Moles /volume] in Central venous bloodOrdered By: Sue Sneed on 12-21-2024 CO2 [Moles/Vol] 23.5 mmol/L 21.0-32.0 [facility] Chloride assayOrdered By: Me aquiles Sneed on 12-21-2024 Chloride [Moles/Vol] 102 mmol/L 98-108 [facility] Comprehensive Metabolic Prof ilon 12-21-2024 Albumin [Mass/Vol] 4.1 g/dL Normal 3.4-4.8 [facility] Comment on above: Performed By: #### L 100.0100, L500.4050 #### [facility] [address] [place], [address] Albumin/Globulin [Mass ratio] 1.9 {ratio} Normal 0.9-2.4 [facility] Comment on above: Performed By: #### L 100.0100, L500.4050 #### [facility] [address] [place], [address] ALK PHOS 41 U/L Normal 35-104 [facility] Comment on above: Performed By: #### L 100.0100, L500.4050 #### [facility] [address] [place], [address] ALT [Catalytic activity/Vol] 20 U/L Normal <=34 [facility] Comment on above: Performed By: #### L 100.0100, L500.4050 #### [facility] [address] [place], [address] AST [Catalytic activity/Vol] 18 U/L Normal <=31 [facility] Comment on above: Performed By: #### L 100.0100, L500.4050 #### [facility] [address] [place], [address] Bilirubin [Mass/Vol] 0.23 mg/dL Normal 0.00-1.30 [facility] Comment on above: Performed By: #### L 100.0100, L500.4050 #### [facility] [address] [place], [address] BUN/CRE 18.8 RATIO Normal 10-20 [facility] Comment on above: Performed By: #### L 100.0100, L500.4050 #### [facility] [address] [place], [address] Calcium [Mass/Vol] 9.2 mg/dL Normal 7.6-11.0 [facility] Comment on above: Performed By: #### L 100.0100, L500.4050 #### [facility] [address] [place], [address] Chloride [Moles/Vol] 102 mmol/L Normal 98-108 [facility] Comment on above: Performed By: #### L 100.0100, L500.4050 #### [facility] [address] [place], [address] CO2 [Moles/Vol] 23.5 mmol/L Normal 21.0-32.0 [facility] Comment on above: Performed By: #### L 100.0100, L500.4050 #### [facility] [address] [place], [address] Creatinine [Mass/Vol] 0.85 mg/dL Normal 0.70-1.20 [facility] Comment on above: Performed By: #### L 100.0100, L500.4050 #### [facility] [address] [place], [address] GAP 13 Normal 5-15 [facility] Comment on above: Performed By: #### L 100.0100, L500.4050 #### [facility] [address] [place], [address] GFR/1.73 sq M.predicted among non-blacks MDRD (S/P/Bld) [Vol rate/Area] 76 mL/min/{1.73_m2} Normal >60 [facility] Comment on above: Result Comment: mL/m in/1.73m2 CKD-EPI Creatinine Equation (2020) Performed By: #### L 100.0100, L500.4050 #### [facility] [address] [place], [address] Globulin (S) [Mass/Vol] 2.2 g/dL Normal 2.2-4.2 [facility] Comment on above: Performed By: #### L 100.0100, L500.4050 #### [facility] [address] [place], [address] Glucose [Mass/Vol] 172 mg/dL High 70-99 [facility] Comment on above: Performed By: #### L 100.0100, L500.4050 #### [facility] [address] [place], [address] Potassium [Moles/Vol] 4.2 mmol/L Normal 3.3-5.1 [facility] Comment on above: Performed By: #### L 100.0100, L500.4050 #### [facility] [address] [place], [address] Sodium [Moles/Vol] 138 mmol/L Normal 133-145 [facility] Comment on above: Performed By: #### L 100.0100, L500.4050 #### [facility] [address] [place], [address] T PROT 6.3 g/dL Normal 5.9-8.4 [facility] Comment on above: Performed By: #### L 100.0100, L500.4050 #### [facility] [address] [place], [address] Urea nitrogen [Mass/Vol] 16 mg/dL Normal 4-19 [facility] Comment on above: Performed By: #### L 100.0100, L500.4050 #### [facility] [address] [place], [address] Glomerular filtration rate ( GFR) estimation/1.73 sq m using serum, plasma, or whole bOrdered By: Sue Sneed on 12-21-2024 GFR/1.73 sq M.predicted among non-blacks MDRD (S/P/Bld) [Vol rate/Area] 76 mL/min/{1.73_m2} >60 [facility] Comment on above: mL/min/1.73m2 CKD-EP I Creatinine Equation (2020) LDL calc ser/plasOrdered By: Sue Sneed on 12-21-2024 Cholesterol in LDL [Mass/Vol] 100 mg/dL [facility] Comment on above: Vobzpndzzz=874-493 m g/dL & Higher Bogu=513 mg/dL or greater Laboratory - Chemistry and C hemistry - challengeOrdered By: Sue Sneed on 12-21-2024 AST [Catalytic activity/Vol] 18 U/L <32 [facility] Lipid Profileon 12-21-2024 CHOL:HDL 3.55 Normal [facility] Comment on above: Performed By: #### L 100.0100, L500.4050 #### [facility] [address] [place], [address] Cholesterol [Mass/Vol] 189 mg/dL Normal <=200 [facility] Comment on above: Result Comment: Chol esterol level, Desirable <200 mg/dL Borderline high cholesterol 200-239 mg/dL High cholesterol >=240 mg/dL Recommendations of the NCEP Adult Treatment Panel for the following risk-cutoff thresholds for the [place] population. Performed By: #### L 100.0100, L500.4050 #### [facility] [address] [place], [address] Cholesterol in HDL [Mass/Vol] 53 mg/dL Normal [facility] Comment on above: Result Comment: Estelle onal Cholesterol Education Program (NCEP) guidelines: <40 mg/dL: Low HDL-cholesterol (major risk factor for CHD) >= 60 mg/dL: High HDL-cholesterol (negative risk factor for CHD) HDL-cholesterol is affected by a number of factors, e.g. smoking, exercise, hormones, sex and age. Performed By: #### L 100.0100, L500.4050 #### [facility] [address] [place], [address] Cholesterol in LDL [Mass/Vol] 100 mg/dL Normal [facility] Comment on above: Result Comment: Bord rufnpj=774-200 mg/dL Higher Smjq=903 mg/dL or greater Performed By: #### L 100.0100, L500.4050 #### [facility] [address] [place], [address] Cholesterol in VLDL [Mass/Vol] 36 mg/dL Normal 5-40 [facility] Comment on above: Performed By: #### L 100.0100, L500.4050 #### [facility] [address] [place], [address] Triglyceride [Mass/Vol] 181 mg/dL Normal [facility] Comment on above: Result Comment: The drugs N-Acetylcysteine and Metamizole may falsely depress this assay. Normal range: <150 mg/dL Borderline High: 150-199 mg/dL High: 200-499 mg/dL Very High: >500 mg/dL Performed By: #### L 100.0100, L500.4050 #### [facility] [address] [place], [address] Microalb:Creat Ratio,Random URon 12-21-2024 MALB:CREAT UNABLE TO CALCULATE Normal [facility] Comment on above: Performed By: #### L 100.0100, L500.4050 #### [facility] [address] [place], [address] MICROALBUMIN,UR < 12.0 Normal NO RANGE EST. [facility] Comment on above: Performed By: #### L 100.0100, L500.4050 #### [facility] [address] [place], [address] Microalbumin/creat ratio urO rdered By: Sue Sneed on 12-21-2024 Urine microalbumin/creatinine ratio measurement UNABLE TO CALCULATE mg/g CRE [facility] Potassium measurement (mass/ volume)Ordered By: Sue Sneed on 12-21-2024 Potassium (Unsp spec) [Mass/Vol] 4.2 mmol/L 3.3-5.1 [facility] Random urine creatinine esteban urement (mass/volume)Ordered By: Sue Sneed on 12-21-2024 Creatinine Unsp time (U) [Mass/Vol] 121.00 mg/dL 28.00-217.00 [facility] Screening total cholesterol/ high density lipoprotein (HDL) cholesterol ratioOrdered By: Sue Sneed on 12-21-2024 Cholesterol.total/Choles terol in HDL [Mass ratio] 3.55 {ratio} [facility] Serum creatinine measurement (mass/volume)Ordered By: Sue Sneed on 12-21-2024 Creatinine [Mass/Vol] 0.85 mg/dL 0.70-1.20 [facility] Serum globulin measurementOr dered By: Sue Sneed on 12-21-2024 Globulin (S) [Mass/Vol] 2.2 g/dL 2.2-4.2 [facility] Serum glucose measurement (m ass/volume)Ordered By: Sue Sneed on 12-21-2024 Glucose [Mass/Vol] 172 mg/dL High 70-99 [facility] Serum or plasma alanine vilchis otransferase (ALT) measurementOrdered By: Sue Sneed on 12-21-2024 ALT [Catalytic activity/Vol] 20 U/L <35 [facility] Serum or plasma albumin esteban urement (mass/volume)Ordered By: Sue Sneed on 12-21-2024 Albumin [Mass/Vol] 4.1 g/dL 3.4-4.8 [facility] Serum or plasma albumin/glob ulin mass ratioOrdered By: Sue Sneed on 12-21-2024 Albumin/Globulin [Mass ratio] 1.9 {ratio} 0.9-2.4 [facility] Serum or plasma alkaline kee sphatase measurementOrdered By: Sue Sneed on 12-21-2024 ALP [Catalytic activity/Vol] 41 U/L 35-104 [facility] Serum or plasma calcium esteban urement (mass/volume)Ordered By: Sue Sneed on 12-21-2024 Calcium [Mass/Vol] 9.2 mg/dL 7.6-11.0 [facility] Serum or plasma cholesterol in HDL measurement (mass/volume)Ordered By: Sue Sneed on 12-21-2024 Cholesterol in HDL [Mass/Vol] 53 mg/dL >40 [facility] Comment on above: National Cholesterol Education Program (NCEP) guidelines:<40 mg/dL: Low HDL-cholesterol (major risk factor for CHD)>= 60 mg/dL: High HDL-cholesterol (negative risk factor for CHD)HDL-cholesterol is affected by a number of factors, e.g. smoking, exercise, hormones, sex and age. Serum or plasma cholesterol measurement (mass/volume)Ordered By: Sue Sneed on 12-21-2024 Cholesterol [Mass/Vol] 189 mg/dL <201 [facility] Comment on above: Cholesterol level, D esirable <200 mg/dLBorderline high cholesterol 200-239 mg/dLHigh cholesterol >=240 mg/dLRecommendations of the NCEP Adult Treatment Panel for the following risk-cutoff thresholds for the [place] population. Serum or plasma urea nitroge n measurement (mass/volume)Ordered By: Sue Sneed on 12-21-2024 Urea nitrogen [Mass/Vol] 16 mg/dL 4-19 [facility] Sodium levelOrdered By: Vidal Sneed on 12-21-2024 Sodium [Moles/Vol] 138 mmol/L 133-145 [facility] T4 Free Directon 12-21-2024 T4 FREE DIRECT 1.20 ng/dL Normal 0.76-1.46 [facility] Comment on above: Performed By: #### L 100.0100, L500.4050 #### [facility] [address] [place], [address] T4 freeOrdered By: Esthela on 12-21-2024 Free T4 [Mass/Vol] 1.20 ng/dL 0.76-1.46 [facility] TSH DL <= 0.005 mIU/L QnOrde red By: Sue Sneed on 12-21-2024 TSH Qn 1.070 uIU/mL 0.300-4.200 [facility] Thyroid Stim Hormone (TSH)on 12-21-2024 TSH 1.070 uIU/mL Normal 0.300-4.200 [facility] Comment on above: Performed By: #### L 100.0100, L500.4050 #### [facility] [address] [place], [address] Total proteinOrdered By: Nubia Sneed on 12-21-2024 Protein [Mass/Vol] 6.3 g/dL 5.9-8.4 [facility] Triglycerides measurementOrd ered By: Sue Naren on 12-21-2024 Triglyceride [Mass/Vol] 181 mg/dL <199 [facility] Comment on above: The drugs N-Acetylcy steine and Metamizole may falsely depress this assay. Normal range: <150 mg/dLBorderline High: 150-199 mg/dLHigh: 200-499 mg/dLVery High: >500 mg/dL Urine albumin measurement wi th detection limit of 20 mg/L or less (mass/volume)Ordered By: Sue Naren on 12-21-2024 Albumin DL <= 20 mg/L (U) [Mass/Vol] < 12.0 mg/L NO RANGE EST. [facility] Vitamin D,25 Hydroxyon 12-21 Vitamin D 25-OH 38.6 ng/mL Normal 30-100 [facility] Comment on above: Result Comment: Carmen min D Status Deficiency: <20 ng/mL (50nmol/L) Insufficiency: 20-30 ng/mL (50-75 nmol/L) Sufficiency: 30-100 ng/mL (75-250 nmol/L) Toxicity: >100 ng/mL (>250 nmol/L) Performed By: #### L 100.0100, L500.4050 #### [facility] [address] [place], [address] Foot min 3 Viewson 5 Foot min 3 Views [facility] [address] [place] [address] Foot min 3 Views MR#: [id number] Acct: [id number] Name: ROMA WALTON Rep #: [id number] : 1960 F 63 From: Rd gil MD PCP: Dr. Samara Monroy MD Status: REG CLI Study: Foot min 3 Views Date of Exam: 12/12/24 Exam# [id number] Ordering Dr: Vic Baird PA PROCEDURE: FOOT MIN 3 VIEWS 12/12/2024 REASON FOR EXAM: PAIN TECHNIQUE: FOOT MIN 3 VIEWS COMPARISON: None FINDINGS: Bones: No visible fracture. No suspicious bone lesion. Joints: Normal alignment. Soft tissues: Soft tissue swelling. Other: RAD/Foot min 3 Views IMPRESSION: Soft tissue swelling. No fracture is seen. Reading Location: [place] [address] CC: Dr. 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: Signed Normal [facility] Urgent Care Visit Reporton 0 12-12-2024 Urgent Care Visit Report [facility] [address], [address] [place] [address] OFFICE VISIT Date of Service: 12/12/24 MR#: [id number] Acct: [id number] Name: ROMA WALTON Rep #: [id number] : 1960 Provider: COTY Zabala Age/Sex: 63/F Location: [facility] [place] [place] Status: Signed Intake Vital Signs 12/01/24 13:40 12/12/24 15:40 Height 5 ft 6 in Weight: 175 lb 4 oz BMI 28.3 BP 130/81 H 126/84 H Blood Pressure Location Lt brachial Position Sitting Sitting Respiration 18 Pulse 102 H 101 H Pulse Source Monitor Temp 98.4 F Temp Source Oral Pulse Oximetry (%) 94 93 Oxygen Delivery Method room air room air Intake Visit Reasons: 2nd toe on r foot injury Accompanied by: Is patient in pain?: Yes Pain scale (1-10): 3 Allergies dulaglutide (From Trulicity) Allergy (Severe, Verified 12/12/24 15:45) Other empagliflozin (From Jardiance) Allergy (Verified 12/12/24 15:45) PT UNSURE OF REACTION methotrexate Adverse Reaction (Mild, Verified 12/12/24 15:45) Other sitagliptin (From Januvia) Adverse Reaction (Verified 12/12/24 15:45) Other Medications ???Medication ???Instructions ???Recorded ???Confirmed ???Type Glucosamine/Chondr/Rodrigo well/Tur 1 tab PO DAILY supplement 08/26/20 12/12/24 History apremilast 30 mg tablet 30 mg PO BID PSORIATIC ARTHRITIS 0 08/26/20 12/12/24 History Multivitamin 1 tab PO DAILY vitamin 07/15/22 History escitalopram oxalate 10 mg tablet 15 mg PO DAILY DEPRESSION 4 12/12/24 History flash glucose sensor (FreeStyle #6 ea 11/30/23 12/12/24 Rx Batsheva 14 Day Sensor kit) aspirin 81 mg tablet,delayed 81 mg PO DAILY 02/10/24 12/12/24 H istory release (Adult Low Dose Aspirin) sulfasalazine 500 mg tablet See Rx Instructions .Route .COMPLE X 05/11/24 12/12/24 History insulin glargine U-300 conc 300 70 unit (0.2333 mL) subcut DAILY 1 08/25/23 12/12/24 Rx unit/mL (1.5 mL) subcutaneous pen #42 mL (Toujeo SoloStar U-300 Insulin) levothyroxine 88 mcg tablet 88 mcg PO DAILY #90 tabs 06/24/24 12/12/24 Rx metformin 1,000 mg tablet 1,000 mg PO BID #180 tabs 06/24/24 12/12/24 Rx ferrous sulfate 325 mg (65 mg 325 mg PO 4XW 07/13/24 12/12/24 Hi story iron) tablet (Feosol) vitamin E 268 mg (400 unit) capsule 268 mg PO DAILY I don't remembe r 08/10/24 12/12/24 History insulin lispro 100 unit/mL 40 unit (0.4 mL) subcut TIDCM 04/02/2012/12/24 Rx subcutaneous pen DIABETES #108 mL miscellaneous medical supply 1 ea miscellaneous DAILY #1 ea 12/12/24 Rx amitriptyline 50 mg tablet 50 mg PO QHS #90 tabs 11/01/24 Rx fenofibrate nanocrystallized 145 145 mg PO DAILY #90 tabs 12/01/24 12/12/24 Rx mg tablet finerenone 10 mg tablet (Kerendia) 10 mg PO QDAY #30 tabs 12/01/24 12/12/24 Rx losartan 25 mg tablet 25 mg PO DAILY BLOOD PRESSURE #90 12/01/24 12/12/24 Rx tabs pen needle, diabetic 32 gauge x #100 ea 12/01/24 12/12/24 Rx simvastatin 40 mg tablet 40 mg PO DAILY #90 tabs 12/01/24 0 12/12/24 Rx Have you fallen in the past year?: No Nurse's Note: Patient hit her 2nd toe on her right foot last night on a step stool. [facility] Medical History (Updated 12/12/24 @ 15:59 by Vic ANSARI, PA) Contusion of right lesser toe(s) without damage to nail, initial encounter Pancreatitis Fatty liver Psoriasis Surgical History History of colonoscopy History of breast biopsy (06/29/99) [place] teeth extracted History of gynecologic surgery Family History Father Myocardial infarction, Onset Age: 84 Hypertension Seizures Alzheimer's dementia Hyponatremia Mother TIA (transient ischemic attack) Breast cancer Tongue cancer Anesthesia anaesthesia sensitivity Anxiety IBS (irritable bowel syndrome) Hypertension High cholesterol Osteoporosis Psychiatric care COPD (chronic obstructive pulmonary disease) Cancer melanoma CVA (cerebral vascular accident) Thyroid disorder Dementia Hyponatremia Sister Thyroid disorder Prediabetes Uncle H/O Kaci's disease Unknown H/O Needmore's disease Social History household members: spouse current occupational status: unemployed Smoking Status: Former smoker quit date: 06/29/08 pack-years: 36 Electronic Cigarette Use: not used alcohol intake: former year quit: 2008 substance use type: does not use what type of physical activity do you participate in: none do you feel safe at home: Yes HPI HPI Details: ROMA WALTON, is a 63 F who presents to the office today for initial evaluation at the [facility] clinic status post trauma to the same last [facility] (more content not included)... Normal [facility] Endocrinology Visit Reporton 12-01-2024 Endocrinology Visit Report [facility] [address] [place] [address] [address] [place] [address] OFFICE VISIT Date of Service: 12/01/24 MR#: [id number] Acct: [id number] Name: ROMA WALTON Rep #: [id number] : 1960 Provider: BELA harper Age/Sex: 63/F [place] [facility] Status: Signed Intake Vital Signs 08/10/24 14:38 10/12/24 13:33 10/19/24 16:49 12/01/24 13:40 Height 5 ft 6 in 5 ft 6 in 5 ft 6 in 5 ft 6 in Weight: 175 lb 4 oz BMI 28.3 BP 130/81 H Blood Pressure Location Lt brachial Position Sitting Pulse 102 H Pulse Source Monitor Pulse Oximetry (%) 94 Oxygen Delivery Method room air Intake Visit Reasons: 4 M FU Chief Complaint: f/u diabetes Is patient in pain?: No Allergies dulaglutide (From Trulicity) Allergy (Severe, Verified 12/01/24 13:43) Other empagliflozin (From Jardiance) Allergy (Verified 12/01/24 13:43) PT UNSURE OF REACTION methotrexate Adverse Reaction (Mild, Verified 12/01/24 13:43) Other sitagliptin (From Januvia) Adverse Reaction (Verified 12/01/24 13:43) Other Medications ???Medication ???Instructions ???Recorded ???Confirmed ???Type Glucosamine/Chondr/Rodrigo well/Tur 1 tab PO DAILY supplement 08/26/20 12/01/24 History apremilast 30 mg tablet 30 mg PO BID PSORIATIC ARTHRITIS 0 08/26/20 12/01/24 History Multivitamin 1 tab PO DAILY vitamin 07/15/22 History escitalopram oxalate 10 mg tablet 15 mg PO DAILY DEPRESSION 4 12/01/24 History flash glucose sensor (FreeStyle #6 ea 11/30/23 10/19/24 Rx Batsheva 14 Day Sensor kit) aspirin 81 mg tablet,delayed 81 mg PO DAILY 02/10/24 12/01/24 H istory release (Adult Low Dose Aspirin) sulfasalazine 500 mg tablet See Rx Instructions .Route .COMPLE X 05/11/24 12/01/24 History insulin glargine U-300 conc 300 70 unit (0.2333 mL) subcut DAILY 1 08/25/23 12/01/24 Rx unit/mL (1.5 mL) subcutaneous pen #42 mL (Toujeo SoloStar U-300 Insulin) levothyroxine 88 mcg tablet 88 mcg PO DAILY #90 tabs 06/24/24 12/01/24 Rx metformin 1,000 mg tablet 1,000 mg PO BID #180 tabs 06/24/24 12/01/24 Rx ferrous sulfate 325 mg (65 mg 325 mg PO 4XW 07/13/24 12/01/24 Hi story iron) tablet (Feosol) vitamin E 268 mg (400 unit) capsule 268 mg PO DAILY I don't remembe r 08/10/24 12/01/24 History insulin lispro 100 unit/mL 40 unit (0.4 mL) subcut TIDCM 02/2012/01/24 Rx subcutaneous pen DIABETES #108 mL miscellaneous medical supply 1 ea miscellaneous DAILY #1 ea 12/01/24 Rx amitriptyline 50 mg tablet 50 mg PO QHS #90 tabs 11/01/2411/20 Rx fenofibrate nanocrystallized 145 145 mg PO DAILY #90 tabs 12/01/24 12/01/24 Rx mg tablet finerenone 10 mg tablet (Kerendia) 10 mg PO QDAY #30 tabs 12/01/24 12/01/24 Rx losartan 25 mg tablet 25 mg PO DAILY BLOOD PRESSURE #90 12/01/24 12/01/24 Rx tabs pen needle, diabetic 32 gauge x #100 ea 12/01/24 12/01/24 Rx simvastatin 40 mg tablet 40 mg PO DAILY #90 tabs 12/01/24 0 12/01/24 Rx Have you fallen in the past year?: No PFSH Medical History Pancreatitis Fatty liver Psoriasis Surgical History History of colonoscopy History of breast biopsy (06/29/99) [place] teeth extracted History of gynecologic surgery Family History Father Myocardial infarction, Onset Age: 84 Hypertension Seizures Alzheimer's dementia Hyponatremia Mother TIA (transient ischemic attack) Breast cancer Tongue cancer Anesthesia anaesthesia sensitivity Anxiety IBS (irritable bowel syndrome) Hypertension High cholesterol Osteoporosis Psychiatric care COPD (chronic obstructive pulmonary disease) Cancer melanoma CVA (cerebral vascular accident) Thyroid disorder Dementia Hyponatremia Sister Thyroid disorder Prediabetes Uncle H/O Kaci's disease Unknown H/O Needmore's disease Social History household members: spouse current occupational status: unemployed Smoking Status: Former smoker quit date: 06/29/08 pack-years: 36 Electronic Cigarette Use: not used alcohol intake: former year quit: 2008 substance use type: does not use what type of physical activity do you participate in: none do you feel safe at home: Yes HPI HPI Chief Complaint: f/u diabetes Details: ROMA WALTON, is a 63 F who presents to the office today for evaluation and management of diabetes. A1C today is 6.6%, improved from 08/10/24 at 7.3%. She has lost 4 lbs since her last appt here on 09/01/24. She is pleased with her progress. Currently taking Toujeo 32 u once daily and Humalog sliding scale. C (more content not included)... Normal [facility] - Hematology and Cell countsOrdered By: Sue Sneed on 12-01-2024 HbA1c (Bld) [Mass fraction] 6.6 % High 4.2-6.3 [facility] Rapid group A Streptococcus antigen assay at point of careOrdered By: Vic Baird on 10-19-2024 S. pyogenes Ag IA.rapid Ql (Throat) Negative [facility] Urgent Care Visit Reporton 0 10-19-2024 Urgent Care Visit Report [facility] [address], [address] [place] [address] OFFICE VISIT Date of Service: 10/19/24 MR#: [id number] Acct: [id number] Name: ROMA WALTON Rep #: [id number] : 1960 Provider: COTY Zabala Age/Sex: 63/F Location: [facility] [place] [place] Status: Signed Intake Vital Signs 10/12/24 13:33 10/19/24 16:49 Height 5 ft 6 in 5 ft 6 in Weight: 178 lb 179 lb 6 oz BMI 28.7 28.9 BP 136/78 H 142/66 H Blood Pressure Location Lt brachial Lt brachial Position Sitting Sitting Respiration 16 16 Pulse 123 H 90 Pulse Source Monitor NIBP Temp 98.3 F 98.9 F Temp Source Temporal Oral Pulse Oximetry (%) 98 96 Oxygen Delivery Method room air room air Intake Visit Reasons: ST/FEVER Chief Complaint: ST, laryngitis Crm Specialist Required: No Is patient in pain?: Yes Allergies dulaglutide (From Trulicity) Allergy (Severe, Verified 10/19/24 16:50) Other empagliflozin (From Jardiance) Allergy (Verified 10/19/24 16:50) PT UNSURE OF REACTION methotrexate Adverse Reaction (Mild, Verified 10/19/24 16:50) Other sitagliptin (From Januvia) Adverse Reaction (Verified 10/19/24 16:50) Other Medications ???Medication ???Instructions ???Recorded ???Confirmed ???Type Glucosamine/Chondr/Rodrigo well/Tur 1 tab PO DAILY supplement 08/26/20 10/19/24 History apremilast 30 mg tablet 30 mg PO BID PSORIATIC ARTHRITIS 0 08/26/20 10/19/24 History Multivitamin 1 tab PO DAILY vitamin 07/15/22 History escitalopram oxalate 10 mg tablet 15 mg PO DAILY DEPRESSION 4 10/19/24 History flash glucose sensor (FreeSpectral Edgeyle #6 ea 11/30/23 10/19/24 Rx Batsheva 14 Day Sensor kit) aspirin 81 mg tablet,delayed 81 mg PO DAILY 02/10/24 10/19/24 H istory release (Adult Low Dose Aspirin) sulfasalazine 500 mg tablet See Rx Instructions .Route .COMPLE X 05/11/24 10/19/24 History fenofibrate nanocrystallized 145 145 mg PO DAILY #90 tabs 06/24/24 10/19/24 Rx mg tablet insulin glargine U-300 conc 300 70 unit (0.2333 mL) subcut DAILY 1 08/25/23 10/19/24 Rx unit/mL (1.5 mL) subcutaneous pen #42 mL (Toujeo SoloStar U-300 Insulin) levothyroxine 88 mcg tablet 88 mcg PO DAILY #90 tabs 06/24/24 10/19/24 Rx metformin 1,000 mg tablet 1,000 mg PO BID #180 tabs 06/24/24 10/19/24 Rx pen needle, diabetic 32 gauge x #100 ea 06/24/24 10/19/24 Rx /32 (BD Ultra-Fine Natalya Pen Needle) simvastatin 40 mg tablet 40 mg PO DAILY #90 tabs 06/24/24 0 10/19/24 Rx ferrous sulfate 325 mg (65 mg 325 mg PO 4XW 07/13/24 10/19/24 Hi story iron) tablet (Feosol) losartan 25 mg tablet 25 mg PO DAILY BLOOD PRESSURE #90 08/01/24 10/19/24 Rx tabs vitamin E 268 mg (400 unit) capsule 268 mg PO DAILY I don't remembe r 08/10/24 10/19/24 History amitriptyline 50 mg tablet 50 mg PO QHS #90 tabs 09/06/24 Rx insulin lispro 100 unit/mL 40 unit (0.4 mL) subcut TIDCM 02/2010/19/24 Rx subcutaneous pen DIABETES #108 mL miscellaneous medical supply 1 ea miscellaneous DAILY #1 ea 10/19/24 Rx Is last menstrual period known: No Post menopausal: Yes Patient : No Have you fallen in the past year?: No Nurse's Note: ST, laryngitis and painful to swallow since this morning. denies fever, AGUIRRE, BA, cough, congestion. PFSH Medical History Pancreatitis Fatty liver Psoriasis Surgical History History of colonoscopy History of breast biopsy (06/29/99) [place] teeth extracted History of gynecologic surgery Family History Father Myocardial infarction, Onset Age: 84 Hypertension Seizures Alzheimer's dementia Hyponatremia Mother TIA (transient ischemic attack) Breast cancer Tongue cancer Anesthesia anaesthesia sensitivity Anxiety IBS (irritable bowel syndrome) Hypertension High cholesterol Osteoporosis Psychiatric care COPD (chronic obstructive pulmonary disease) Cancer melanoma CVA (cerebral vascular accident) Thyroid disorder Dementia Hyponatremia Sister Thyroid disorder Prediabetes Uncle H/O Needmore's disease Unknown H/O Kaci's disease Social History household members: spouse current occupational status: unemployed Smoking Status: Former smoker quit date: 06/29/08 pack-years: 36 Electronic Cigarette Use: not used alcohol intake: former year quit: 2008 substance use type: does not use what type of physical activity do you participate in: none do you feel safe at home: Yes HPI HPI Chief Complaint: ST, laryngitis Details: ROMA WALTON, is a 63 F who presents to the office today for initial evaluation a (more content not included)... Normal [facility] Rubeola IgG Abon 10-14-2024 RUBEOLA Ab, IgG < 13.5 Low Immune >16.4 [facility] Comment on above: Result Comment: Nega tive <13.5 Equivocal 13.5 - 16.4 Positive >16.4 Presence of antibodies to Rubeola is presumptive evidence of immunity except when acute infection is suspected. Performed at: [address] [id number] Family Nurse: Heber Barnes PhD, Phone: [phone] Performed By: #### L 3100.3300 #### [facility] [place], [address] MeV IgG IA Qn (S)Ordered By: Samara Monroy on 10-12-2024 Rubeola (Measles) IgG Antibody < 13.5 AU/mL Low Immune >16.4 [facility] Comment on above: Negative <13.5 Equiv ocal 13.5 - 16.4 Positive >16.4Presence of antibodies to Rubeola is presumptive evidenceof immunity except when acute infection is suspected.Performed at: [address] [id number] Director: Heber Barnes PhD, Phone: [phone] Serum measles virus IgG anti body assay by immunoassay (units/volume)Ordered By: Samara Monroy on 10-12-2024 MeV IgG IA Qn (S) < 13.5 AU/mL Low Immune >16.4 [facility] Comment on above: Negative <13.5 Equiv ocal 13.5 - 16.4 Positive >16.4Presence of antibodies to Rubeola is presumptive evidenceof immunity except when acute infection is suspected.Performed at: - [facility], [place], [place] [id number] Director: Heber Barnes PhD, Phone: [phone] Internal Medicine Office Vis yoly 10-11-2024 Internal Medicine Office Visit [facility] [address] [place] [address] [place] [address] OFFICE VISIT Date of Service: 10/12/24 MR#: [id number] Acct: [id number] Name: ROMA WALTON Rep #: [id number] : 1960 Provider: Dr. Samara maya MD Age/Sex: 63/F Location: [facility] [place] [place] Status: Signed Intake Vital Signs 07/13/24 14:47 09/01/24 14:43 10/12/24 13:33 Height 5 ft 6 in 5 ft 6 in 5 ft 6 in Weight: 178 lb BMI 28.7 BP 136/78 H Blood Pressure Location Lt brachial Position Sitting Respiration 16 Pulse 123 H Pulse Source Monitor Temp 98.3 F Temp Source Temporal Pulse Oximetry (%) 98 Oxygen Delivery Method room air Intake Visit Reasons: 3 M FU Crm Specialist Required: No Is patient in pain?: No Allergies dulaglutide (From Trulicity) Allergy (Severe, Verified 10/12/24 13:27) Other empagliflozin (From Jardiance) Allergy (Verified 10/12/24 13:27) PT UNSURE OF REACTION methotrexate Adverse Reaction (Mild, Verified 10/12/24 13:27) Other sitagliptin (From Januvia) Adverse Reaction (Verified 10/12/24 13:27) Other Medications ???Medication ???Instructions ???Recorded ???Confirmed ???Type Glucosamine/Chondr/Rodrigo well/Tur 1 tab PO DAILY supplement 08/26/20 10/12/24 History apremilast 30 mg tablet 30 mg PO BID PSORIATIC ARTHRITIS 0 08/26/20 10/12/24 History Multivitamin 1 tab PO DAILY vitamin 07/15/22 History escitalopram oxalate 10 mg tablet 15 mg PO DAILY DEPRESSION 4 10/12/24 History flash glucose sensor (FreeStyle #6 ea 11/30/23 10/12/24 Rx Batsheva 14 Day Sensor kit) aspirin 81 mg tablet,delayed 81 mg PO DAILY 02/10/24 10/12/24 H istory release (Adult Low Dose Aspirin) sulfasalazine 500 mg tablet See Rx Instructions .Route .COMPLE X 05/11/24 10/12/24 History fenofibrate nanocrystallized 145 145 mg PO DAILY #90 tabs 06/24/24 10/12/24 Rx mg tablet insulin glargine U-300 conc 300 70 unit (0.2333 mL) subcut DAILY 1 08/25/23 10/12/24 Rx unit/mL (1.5 mL) subcutaneous pen #42 mL (Toujeo SoloStar U-300 Insulin) levothyroxine 88 mcg tablet 88 mcg PO DAILY #90 tabs 06/24/24 10/12/24 Rx metformin 1,000 mg tablet 1,000 mg PO BID #180 tabs 06/24/24 10/12/24 Rx pen needle, diabetic 32 gauge x #100 ea 06/24/24 10/12/24 Rx 5/32 (BD Ultra-Fine Natalya Pen Needle) simvastatin 40 mg tablet 40 mg PO DAILY #90 tabs 06/24/24 0 10/12/24 Rx ferrous sulfate 325 mg (65 mg 325 mg PO 4XW 07/13/24 10/12/24 Hi story iron) tablet (Feosol) losartan 25 mg tablet 25 mg PO DAILY BLOOD PRESSURE #90 08/01/24 10/12/24 Rx tabs vitamin E 268 mg (400 unit) capsule 268 mg PO DAILY I don't remembe r 08/10/24 10/12/24 History amitriptyline 50 mg tablet 50 mg PO QHS #90 tabs 09/06/24 Rx insulin lispro 100 unit/mL 40 unit (0.4 mL) subcut TIDCM 02/2010/12/24 Rx subcutaneous pen DIABETES #108 mL miscellaneous medical supply 1 ea miscellaneous DAILY #1 ea 10/12/24 Rx Have you fallen in the past year?: No PFSH Medical History Pancreatitis Fatty liver Psoriasis Surgical History History of colonoscopy History of breast biopsy (06/29/99) [place] teeth extracted History of gynecologic surgery Family History Father Myocardial infarction, Onset Age: 84 Hypertension Seizures Alzheimer's dementia Hyponatremia Mother TIA (transient ischemic attack) Breast cancer Tongue cancer Anesthesia anaesthesia sensitivity Anxiety IBS (irritable bowel syndrome) Hypertension High cholesterol Osteoporosis Psychiatric care COPD (chronic obstructive pulmonary disease) Cancer melanoma CVA (cerebral vascular accident) Thyroid disorder Dementia Hyponatremia Sister Thyroid disorder Prediabetes Uncle H/O Kaci's disease Unknown H/O Kaci's disease Social History household members: spouse current occupational status: unemployed Smoking Status: Former smoker quit date: 06/29/08 pack-years: 36 Electronic Cigarette Use: not used alcohol intake: former year quit: 2008 substance use type: does not use what type of physical activity do you participate in: none do you feel safe at home: Yes HPI HPI Details: ROMA WALTON, is a 63 F who presents to the office today for a follow up. She is up to date on her routine blood work and is due for a bone density scan. She isn't due for any immunizations. She doesn't smoke and does not need refills. She reports she has been trying to eat healthy. She reports she hasn't been very active. She does check her sugars at home and reports they have been in the 160 rang (more content not included)... Normal [facility] Absolute lymphocyte countOrd ered By: Jacque Mcfarlane on 09-29-2024 Lymphocytes Auto (Unsp spec) [#/Vol] 1.39 10*3/uL 0.83-4.51 [facility] Absolute neutrophil countOrd ered By: Jacque Mcfarlane on 09-29-2024 Neutrophils (Bld) [#/Vol] 4.1 10*3/uL 2.0-7.7 [facility] Anion gap in Serum or Plasma Ordered By: Jacque Mcfarlane on 09-29-2024 Anion gap [Moles/Vol] 14 mmol/L 5-15 [facility] Automated lymphocyte count a s percentage of total leukocytesOrdered By: Jacque Mcfarlane on 09-29-2024 Lymphocytes/100 WBC Auto (Unsp spec) 21.6 % 19-41 [facility] BUN/creatinine ratioOrdered By: Jacquewilfrido Mcfarlane on 09-29-2024 Urea nitrogen/Creatinine [Mass ratio] 13.6 mg/mg 10-20 [facility] Basophil percentageOrdered B y: Jacque Mcfarlane on 09-29-2024 Basophils/100 WBC (Bld) 0.8 % 0-1 [facility] Bilirubin, totalOrdered By: Jacque Mcfarlane on 09-29-2024 Bilirubin [Mass/Vol] 0.21 mg/dL 0.00-1.30 [facility] CBC W/Diff, Automatedon Absolute Lymph 1.39 X10 3/uL Normal 0.83-4.51 [facility] Comment on above: Performed By: #### L 100.0100, L500.4050 #### [facility] [address] [place], [address] Absolute Neut 4.1 X10 3/uL Normal 2.0-7.7 [facility] Comment on above: Performed By: #### L 100.0100, L500.4050 #### [facility] [address] [place], [address] Basophils/100 WBC (Bld) 0.8 % Normal 0-1 [facility] Comment on above: Performed By: #### L 100.0100, L500.4050 #### [facility] [address] [place], [address] Eosinophils/100 WBC (Bld) 2.2 % Normal 0-5 [facility] Comment on above: Performed By: #### L 100.0100, L500.4050 #### [facility] [address] [place], [address] Erythrocyte distribution width (RBC) [Ratio] 14.9 % High 11.6-14.6 [facility] Comment on above: Performed By: #### L 100.0100, L500.4050 #### [facility] [address] [place], [address] Hematocrit (Bld) [Volume fraction] 36.2 % Low 37-47 [facility] Comment on above: Performed By: #### L 100.0100, L500.4050 #### [facility] [address] [place], [address] Hemoglobin (Bld) [Mass/Vol] 11.4 g/dL Low 12.0-15.0 [facility] Comment on above: Performed By: #### L 100.0100, L500.4050 #### [facility] [address] [place], [address] IG% 0.300 Normal 0.0-0.9 [facility] Comment on above: Result Comment: IG% - Immature Granulocytes (promyelocytes, myelocytes and metamyelocytes) > 1% indicates that a LEFT SHIFT is Present. Performed By: #### L 100.0100, L500.4050 #### [facility] [address] [place], [address] Lymphocytes/100 WBC (Bld) 21.6 % Normal 19-41 [facility] Comment on above: Performed By: #### L 100.0100, L500.4050 #### [facility] [address] [place], [address] MCH (RBC) [Entitic mass] 26.4 pg Low 27.0-32.0 [facility] Comment on above: Performed By: #### L 100.0100, L500.4050 #### [facility] [address] [place], [address] MCHC (RBC) [Mass/Vol] 31.5 g/dL Low 32-36 [facility] Comment on above: Performed By: #### L 100.0100, L500.4050 #### [facility] [address] [place], [address] MCV (RBC) [Entitic vol] 83.8 fL Normal 81-99 [facility] Comment on above: Performed By: #### L 100.0100, L500.4050 #### [facility] [address] [place], [address] Monocytes/100 WBC (Bld) 11.2 % High 0-10 [facility] Comment on above: Performed By: #### L 100.0100, L500.4050 #### [facility] [address] [place], [address] Neutrophils/100 WBC (Bld) 63.9 % Normal 47-70 [facility] Comment on above: Performed By: #### L 100.0100, L500.4050 #### [facility] [address] [place], [address] Nucleated RBC (Bld) [#/Vol] 0 10*3/uL Normal 0-5 [facility] Comment on above: Performed By: #### L 100.0100, L500.4050 #### [facility] [address] [place], [address] Platelet mean volume (Bld) [Entitic vol] 9.3 fL Normal 6.2-12.0 [facility] Comment on above: Performed By: #### L 100.0100, L500.4050 #### [facility] [address] [place], [address] Platelets (Bld) [#/Vol] 337 10*3/uL Normal 150-450 [facility] Comment on above: Performed By: #### L 100.0100, L500.4050 #### [facility] [address] [place], [address] RBC (Bld) [#/Vol] 4.32 10*6/uL Normal 4.2-5.4 [facility] Comment on above: Performed By: #### L 100.0100, L500.4050 #### [facility] [address] [place], [address] RDW SD 45.5 fl High 35.1-43.9 [facility] Comment on above: Performed By: #### L 100.0100, L500.4050 #### [facility] [address] [place], [address] WBC (Bld) [#/Vol] 6.5 10*3/uL Normal 4.4-11.0 [facility] Comment on above: Performed By: #### L 100.0100, L500.4050 #### [facility] [address] [place], [address] Carbon dioxide, total [Moles /volume] in Central venous bloodOrdered By: Jacque Mcfarlane on 09-29-2024 CO2 [Moles/Vol] 23.2 mmol/L 21.0-32.0 [facility] Chloride assayOrdered By: Coty Mcfarlane on 09-29-2024 Chloride [Moles/Vol] 100 mmol/L 98-108 [facility] Comprehensive Metabolic Prof ilon 09-29-2024 Albumin [Mass/Vol] 4.4 g/dL Normal 3.4-4.8 [facility] Comment on above: Performed By: #### L 100.0100, L500.4050 #### [facility] [address] [place], [address] Albumin/Globulin [Mass ratio] 1.8 {ratio} Normal 0.9-2.4 [facility] Comment on above: Performed By: #### L 100.0100, L500.4050 #### [facility] [address] [place], [address] ALK PHOS 44 U/L Normal 35-104 [facility] Comment on above: Performed By: #### L 100.0100, L500.4050 #### [facility] [address] [place], [address] ALT [Catalytic activity/Vol] 25 U/L Normal <=34 [facility] Comment on above: Performed By: #### L 100.0100, L500.4050 #### [facility] [address] [place], [address] AST [Catalytic activity/Vol] 25 U/L Normal <=31 [facility] Comment on above: Performed By: #### L 100.0100, L500.4050 #### [facility] [address] [place], [address] Bilirubin [Mass/Vol] 0.21 mg/dL Normal 0.00-1.30 [facility] Comment on above: Performed By: #### L 100.0100, L500.4050 #### [facility] [address] [place], [address] BUN/CRE 13.6 RATIO Normal 10-20 [facility] Comment on above: Performed By: #### L 100.0100, L500.4050 #### [facility] [address] [place], [address] Calcium [Mass/Vol] 9.5 mg/dL Normal 7.6-11.0 [facility] Comment on above: Performed By: #### L 100.0100, L500.4050 #### [facility] [address] [place], [address] Chloride [Moles/Vol] 100 mmol/L Normal 98-108 [facility] Comment on above: Performed By: #### L 100.0100, L500.4050 #### [facility] [address] [place], [address] CO2 [Moles/Vol] 23.2 mmol/L Normal 21.0-32.0 [facility] Comment on above: Performed By: #### L 100.0100, L500.4050 #### [facility] [address] [place], [address] Creatinine [Mass/Vol] 0.89 mg/dL Normal 0.70-1.20 [facility] Comment on above: Performed By: #### L 100.0100, L500.4050 #### [facility] [address] [place], [address] GAP 14 Normal 5-15 [facility] Comment on above: Performed By: #### L 100.0100, L500.4050 #### [facility] [address] [place], [address] GFR/1.73 sq M.predicted among non-blacks MDRD (S/P/Bld) [Vol rate/Area] 72 mL/min/{1.73_m2} Normal >60 [facility] Comment on above: Result Comment: mL/m in/1.73m2 CKD-EPI Creatinine Equation (2020) Performed By: #### L 100.0100, L500.4050 #### [facility] [address] [place], [address] Globulin (S) [Mass/Vol] 2.4 g/dL Normal 2.2-4.2 [facility] Comment on above: Performed By: #### L 100.0100, L500.4050 #### [facility] [address] [place], [address] Glucose [Mass/Vol] 183 mg/dL High 70-99 [facility] Comment on above: Performed By: #### L 100.0100, L500.4050 #### [facility] [address] [place], [address] Potassium [Moles/Vol] 4.2 mmol/L Normal 3.3-5.1 [facility] Comment on above: Performed By: #### L 100.0100, L500.4050 #### [facility] [address] [place], [address] Sodium [Moles/Vol] 138 mmol/L Normal 133-145 [facility] Comment on above: Performed By: #### L 100.0100, L500.4050 #### [facility] [address] [place], [address] T PROT 6.8 g/dL Normal 5.9-8.4 [facility] Comment on above: Performed By: #### L 100.0100, L500.4050 #### [facility] [address] [place], [address] Urea nitrogen [Mass/Vol] 12 mg/dL Normal 4-19 [facility] Comment on above: Performed By: #### L 100.0100, L500.4050 #### [facility] [address] [place], [address] Eosinophil percentageOrdered By: Jacque Mcfarlane on 09-29-2024 Eosinophils/100 WBC (Bld) 2.2 % 0-5 [facility] Erythrocyte distribution wid th (RBC) [Ratio]Ordered By: Jacque Mcfarlane on 09-29-2024 Erythrocyte distribution width (RBC) [Entitic vol] 45.5 fL High 35.1-43.9 [facility] Erythrocyte distribution wid th ratioOrdered By: Jacque Denys on 09-29-2024 Erythrocyte distribution width (RBC) [Ratio] 14.9 % High 11.6-14.6 [facility] Erythrocyte distribution wid th standard deviationOrdered By: Jacque Mcfarlane on 09-29-2024 Erythrocyte distribution width (RBC) [Ratio] 45.5 fl High 35.1-43.9 [facility] GFR/1.73 sq M.predicted devin g non-blacks MDRD (S/P/Bld) [Vol rate/Area]Ordered By: Jacque Mcfarlane on 09-29-2024 Estimated GFR (MDRD) Non-Af Amer 72 >60 [facility] Comment on above: mL/min/1.73m2 CKD-EP I Creatinine Equation (2020) Glomerular filtration rate ( GFR) estimation/1.73 sq m using serum, plasma, or whole bOrdered By: Jacque Mcfarlane on 09-29-2024 GFR/1.73 sq M.predicted among non-blacks MDRD (S/P/Bld) [Vol rate/Area] 72 mL/min/{1.73_m2} >60 [facility] Comment on above: mL/min/1.73m2 CKD-EP I Creatinine Equation (2020) Hematocrit Auto (Bld) [Volum e fraction]Ordered By: Jacque Mcfarlane on 09-29-2024 Hematocrit (Bld) [Volume fraction] 36.2 % Low 37-47 [facility] Hemoglobin measurementOrdere d By: Jacque Mcfarlane on 09-29-2024 Hemoglobin (Bld) [Mass/Vol] 11.4 g/dL Low 12.0-15.0 [facility] Immature granulocytes/100 WB C Auto (Bld)Ordered By: Jacque Mcfarlane on 09-29-2024 Immature granulocytes/100 WBC (Bld) 0.300 % 0.0-0.9 [facility] Comment on above: IG% - Immature Granu locytes (promyelocytes, myelocytes and metamyelocytes) > 1% indicates that a LEFT SHIFT is Present. Laboratory - Chemistry and C hemistry - challengeOrdered By: Jacque Mcfarlane on 09-29-2024 AST [Catalytic activity/Vol] 25 U/L <32 [facility] Lymphocytes Auto (Unsp spec) [#/Vol]Ordered By: Jacque Mcfarlane on 09-29-2024 Lymphocytes (Bld) [#/Vol] 1.39 10*3/uL 0.83-4.51 [facility] Lymphocytes/100 WBC Auto (Un sp spec)Ordered By: Jacque Mcfarlane on 09-29-2024 Lymphocytes/100 WBC (Bld) 21.6 % 19-41 [facility] MCV (mean corpuscular volume ) determinationOrdered By: Jacque Mcfarlane on 09-29-2024 MCV (RBC) [Entitic vol] 83.8 fL 81-99 [facility] Mean corpuscular hemoglobin (MCH) determinationOrdered By: Jacque Mcfarlane on 09-29-2024 MCH (RBC) [Entitic mass] 26.4 pg Low 27.0-32.0 [facility] Mean corpuscular hemoglobin concentration (MCHC) determinationOrdered By: Jacque Mcfarlane on 09-29-2024 MCHC (RBC) [Mass/Vol] 31.5 g/dL Low 32-36 [facility] Mean platelet volume determi nationOrdered By: Jacque Mcfarlane on 09-29-2024 Platelet mean volume (Bld) [Entitic vol] 9.3 fL 6.2-12.0 [facility] Monocyte percentageOrdered B y: Jacque Mcfarlane on 09-29-2024 Monocytes/100 WBC (Bld) 11.2 % High 0-10 [facility] Neutrophil percentageOrdered By: Jacque Mcfarlane on 09-29-2024 Neutrophils/100 WBC (Bld) 63.9 % 47-70 [facility] Nucleated red blood cell per centageOrdered By: Jacque Mcfarlane on 09-29-2024 Nucleated RBC/100 WBC (Bld) [Ratio] 0 % 0-5 [facility] Platelet countOrdered By: Coty Mcfarlane on 09-29-2024 Platelets (Bld) [#/Vol] 337 10*3/uL 150-450 [facility] Potassium (Unsp spec) [Mass/ Vol]Ordered By: Jacque Mcfarlane on 09-29-2024 Potassium [Moles/Vol] 4.2 mmol/L 3.3-5.1 [facility] Potassium measurement (mass/ volume)Ordered By: Jacque Mcfarlane on 09-29-2024 Potassium (Unsp spec) [Mass/Vol] 4.2 mmol/L 3.3-5.1 [facility] RBC Auto (Bld) [#/Vol]Ordere d By: Jacque Mcfarlane on 09-29-2024 RBC (Bld) [#/Vol] 4.32 10*6/uL 4.2-5.4 [facility] Serum creatinine measurement (mass/volume)Ordered By: Jacque Mcfarlane on 09-29-2024 Creatinine [Mass/Vol] 0.89 mg/dL 0.70-1.20 [facility] Serum globulin measurementOr dered By: Jacque Mcfarlane on 09-29-2024 Globulin (S) [Mass/Vol] 2.4 g/dL 2.2-4.2 [facility] Serum glucose measurement (m ass/volume)Ordered By: Jacque Mcfarlane on 09-29-2024 Glucose [Mass/Vol] 183 mg/dL High 70-99 [facility] Serum or plasma alanine vilchis otransferase (ALT) measurementOrdered By: Jacque Mcfarlane on 09-29-2024 ALT [Catalytic activity/Vol] 25 U/L <35 [facility] Serum or plasma albumin esteban urement (mass/volume)Ordered By: Jacque Mcfarlane on 09-29-2024 Albumin [Mass/Vol] 4.4 g/dL 3.4-4.8 [facility] Serum or plasma albumin/glob ulin mass ratioOrdered By: Jacque Mcfarlane on 09-29-2024 Albumin/Globulin [Mass ratio] 1.8 {ratio} 0.9-2.4 [facility] Serum or plasma alkaline kee sphatase measurementOrdered By: Jacque Mcfarlane on 09-29-2024 ALP [Catalytic activity/Vol] 44 U/L 35-104 [facility] Serum or plasma calcium esteban urement (mass/volume)Ordered By: Jacque Mcfarlane on 09-29-2024 Calcium [Mass/Vol] 9.5 mg/dL 7.6-11.0 [facility] Serum or plasma urea nitroge n measurement (mass/volume)Ordered By: Jacque Mcfarlane on 09-29-2024 Urea nitrogen [Mass/Vol] 12 mg/dL 4-19 [facility] Sodium levelOrdered By: Meenu Mcfarlane on 09-29-2024 Sodium [Moles/Vol] 138 mmol/L 133-145 [facility] Total proteinOrdered By: Darlyn Mcfarlane on 09-29-2024 Protein [Mass/Vol] 6.8 g/dL 5.9-8.4 [facility] White blood cell (WBC) count Ordered By: Jacque Mcfarlane on 09-29-2024 WBC (Bld) [#/Vol] 6.5 10*3/uL 4.4-11.0 [facility] Endocrinology Visit Reporton 09-01-2024 Endocrinology Visit Report [facility] [address] [place] [address] OFFICE VISIT Date of Service: 09/01/24 MR#: [id number] Acct: [id number] Name: ROMA WALTON Rep #: [id number] : 1960 Provider: BELA harper Age/Sex: 63/F [place] [facility] Status: Signed Intake Vital Signs 08/10/24 14:38 09/01/24 10:19 09/01/24 14:43 Height 5 ft 6 in 5 ft 6 in 5 ft 6 in Weight: 180 lb 179 lb BMI 29.0 28.8 BP 129/78 H 131/85 H Blood Pressure Location Lt brachial Lt brachial Position Sitting Sitting Pulse 98 110 H Pulse Source Monitor Pulse Oximetry (%) 92 96 Oxygen Delivery Method room air room air Intake Visit Reasons: 2 Wk FU Chief Complaint: f/u diabetes Is patient in pain?: No Allergies dulaglutide (From Trulicity) Allergy (Severe, Verified 09/01/24 14:46) Other empagliflozin (From Jardiance) Allergy (Verified 09/01/24 14:46) PT UNSURE OF REACTION methotrexate Adverse Reaction (Mild, Verified 09/01/24 14:46) Other sitagliptin (From Januvia) Adverse Reaction (Verified 09/01/24 14:46) Other Medications ???Medication ???Instructions ???Recorded ???Confirmed ???Type Glucosamine/Chondr/Rodrigo well/Tur 1 tab PO DAILY supplement 08/26/20 09/01/24 History apremilast 30 mg tablet 30 mg PO BID PSORIATIC ARTHRITIS 0 08/26/20 09/01/24 History Multivitamin 1 tab PO DAILY vitamin 07/15/22 History escitalopram oxalate 10 mg tablet 15 mg PO DAILY DEPRESSION 4 09/01/24 History flash glucose sensor (FreeStyle #6 ea 11/30/23 09/01/24 Rx Batsheva 14 Day Sensor kit) aspirin 81 mg tablet,delayed 81 mg PO DAILY 02/10/24 09/01/24 H istory release (Adult Low Dose Aspirin) sulfasalazine 500 mg tablet See Rx Instructions .Route .COMPLE X 05/11/24 09/01/24 History amitriptyline 50 mg tablet 50 mg PO QHS #90 tabs 06/24/2412/21 Rx fenofibrate nanocrystallized 145 145 mg PO DAILY #90 tabs 06/24/24 09/01/24 Rx mg tablet insulin glargine U-300 conc 300 70 unit (0.2333 mL) subcut DAILY 1 08/25/23 09/01/24 Rx unit/mL (1.5 mL) subcutaneous pen #42 mL (Toujeo SoloStar U-300 Insulin) insulin lispro 100 unit/mL 40 unit (0.4 mL) subcut TIDCM 05/3009/01/24 Rx subcutaneous pen DIABETES #108 mL levothyroxine 88 mcg tablet 88 mcg PO DAILY #90 tabs 06/24/24 09/01/24 Rx metformin 1,000 mg tablet 1,000 mg PO BID #180 tabs 06/24/24 09/01/24 Rx pen needle, diabetic 32 gauge x #100 ea 06/24/24 09/01/24 Rx 5/32 (BD Ultra-Fine Natalya Pen Needle) simvastatin 40 mg tablet 40 mg PO DAILY #90 tabs 06/24/24 0 09/01/24 Rx ferrous sulfate 325 mg (65 mg 325 mg PO 4XW 07/13/24 09/01/24 Hi story iron) tablet (Feosol) losartan 25 mg tablet 25 mg PO DAILY BLOOD PRESSURE #90 08/01/24 09/01/24 Rx tabs vitamin E 268 mg (400 unit) capsule 268 mg PO DAILY I don't remembe r 08/10/24 09/01/24 History Have you fallen in the past year?: No PFSH Medical History Pancreatitis Fatty liver Psoriasis Surgical History History of colonoscopy History of breast biopsy (06/29/99) [place] teeth extracted History of gynecologic surgery Family History Father Myocardial infarction, Onset Age: 84 Hypertension Seizures Alzheimer's dementia Hyponatremia Mother TIA (transient ischemic attack) Breast cancer Tongue cancer Anesthesia anaesthesia sensitivity Anxiety IBS (irritable bowel syndrome) Hypertension High cholesterol Osteoporosis Psychiatric care COPD (chronic obstructive pulmonary disease) Cancer melanoma CVA (cerebral vascular accident) Thyroid disorder Dementia Hyponatremia Sister Thyroid disorder Prediabetes Uncle H/O Kaci's disease Unknown H/O Kaci's disease Social History household members: spouse current occupational status: unemployed Smoking Status: Former smoker quit date: 06/29/08 pack-years: 36 Electronic Cigarette Use: not used alcohol intake: former year quit: 2008 substance use type: does not use what type of physical activity do you participate in: none do you feel safe at home: Yes HPI HPI Chief Complaint: f/u diabetes Details: ROMA WALTON, is a 63 F who presents to the office today for evaluation and management of diabetes. Recent A1C on 08/10/24 was 7.3%. GMI today is down to 6.8%. Weight is stable. She requested appointment today to address insulin dosing and concern for recurrent low blood sugars. Currently taking Toujeo 36 u once daily, Novolog TIDCM with meals, and metformin 1 gm BID with food. CGM downloaded and reviewed- she is h (more content not included)... Normal [facility] Endocrinology Visit Reporton 08-10-2024 Endocrinology Visit Report [facility] [address] [place] [address] OFFICE VISIT Date of Service: 08/10/24 MR#: [id number] Acct: [id number] Name: ROMA WALTON Rep #: [id number] : 1960 Provider: BELA harper Age/Sex: 63/F [place] [facility] Status: Signed Intake Vital Signs 05/11/24 14:41 07/13/24 14:47 08/10/24 14:38 Height 5 ft 6 in 5 ft 6 in 5 ft 6 in Weight: 182 lb 4 oz 180 lb BMI 29.4 29.0 BP 134/76 H 129/78 H Blood Pressure Location Lt brachial Lt brachial Position Sitting Sitting Respiration 18 Pulse 109 H 98 Pulse Source Monitor Monitor Temp 97.7 F L Temp Source Temporal Pulse Oximetry (%) 96 92 Oxygen Delivery Method room air room air Intake Visit Reasons: 3 M FU Chief Complaint: f/u diabetes and hypothyroid Crm Specialist Required: No Accompanied by: Self Is patient in pain?: No Allergies dulaglutide (From Hermes IQ) Allergy (Severe, Verified 08/10/24 14:38) Other empagliflozin (From JardiBeanstalk Tax) Allergy (Verified 08/10/24 14:38) PT UNSURE OF REACTION methotrexate Adverse Reaction (Mild, Verified 08/10/24 14:38) Other sitagliptin (From Januvia) Adverse Reaction (Verified 08/10/24 14:38) Other Medications ???Medication ???Instructions ???Recorded ???Confirmed ???Type Glucosamine/Chondr/Rodrigo well/Tur 1 tab PO DAILY supplement 08/26/20 08/10/24 History apremilast 30 mg tablet 30 mg PO BID PSORIATIC ARTHRITIS 0 08/26/20 08/10/24 History Multivitamin 1 tab PO DAILY vitamin 07/15/22 History escitalopram oxalate 10 mg tablet 15 mg PO DAILY DEPRESSION 4 08/10/24 History flash glucose sensor (FreeStyle #6 ea 11/30/23 08/10/24 Rx Batsheva 14 Day Sensor kit) aspirin 81 mg tablet,delayed 81 mg PO DAILY 02/10/24 08/10/24 H istory release (Adult Low Dose Aspirin) sulfasalazine 500 mg tablet See Rx Instructions .Route .COMPLE X 05/11/24 08/10/24 History amitriptyline 50 mg tablet 50 mg PO QHS #90 tabs 06/24/2406/22 Rx fenofibrate nanocrystallized 145 145 mg PO DAILY #90 tabs 06/24/24 08/10/24 Rx mg tablet insulin glargine U-300 conc 300 70 unit (0.2333 mL) subcut DAILY 1 08/25/23 08/10/24 Rx unit/mL (1.5 mL) subcutaneous pen #42 mL (Toukatharinao SoloStar U-300 Insulin) insulin lispro 100 unit/mL 40 unit (0.4 mL) subcut TIDCM 05/3008/10/24 Rx subcutaneous pen DIABETES #108 mL levothyroxine 88 mcg tablet 88 mcg PO DAILY #90 tabs 06/24/24 08/10/24 Rx metformin 1,000 mg tablet 1,000 mg PO BID #180 tabs 06/24/24 08/10/24 Rx pen needle, diabetic 32 gauge x #100 ea 06/24/24 08/10/24 Rx /32 (BD Ultra-Fine Natalya Pen Needle) simvastatin 40 mg tablet 40 mg PO DAILY #90 tabs 06/24/24 0 08/10/24 Rx ferrous sulfate 325 mg (65 mg 325 mg PO 4XW 07/13/24 08/10/24 Hi story iron) tablet (Feosol) losartan 25 mg tablet 25 mg PO DAILY BLOOD PRESSURE #90 08/01/24 08/10/24 Rx tabs vitamin E 268 mg (400 unit) capsule 268 mg PO DAILY I don't remembe r 08/10/24 08/10/24 History Have you fallen in the past year?: No PFSH Medical History Pancreatitis Fatty liver Psoriasis Surgical History History of colonoscopy History of breast biopsy (06/29/99) [place] teeth extracted History of gynecologic surgery Family History Father Myocardial infarction, Onset Age: 84 Hypertension Seizures Alzheimer's dementia Hyponatremia Mother TIA (transient ischemic attack) Breast cancer Tongue cancer Anesthesia anaesthesia sensitivity Anxiety IBS (irritable bowel syndrome) Hypertension High cholesterol Osteoporosis Psychiatric care COPD (chronic obstructive pulmonary disease) Cancer melanoma CVA (cerebral vascular accident) Thyroid disorder Dementia Hyponatremia Sister Thyroid disorder Prediabetes Uncle H/O [place]'s disease Unknown H/O Kaci's disease Social History household members: spouse current occupational status: unemployed Smoking Status: Former smoker quit date: 06/29/08 pack-years: 36 Electronic Cigarette Use: not used alcohol intake: former year quit: 2008 substance use type: does not use what type of physical activity do you participate in: none do you feel safe at home: Yes HPI HPI Chief Complaint: f/u diabetes and hypothyroid Details: ROMA WALTON, is a 63 F who presents to the office today for evaluation and management of diabetes. A1C today is 7.3%, increased from 05/11/24 at 6.6%. She has lost 3 lbs since that time. Currently taking Toujeo 38 u once daily, and Humalog 38-42 u TIDCM, and metform (more content not included)... Normal [facility] - Hematology and Cell countsOrdered By: Sue Sneed on 08-10-2024 HbA1c (Bld) [Mass fraction] 7.3 % High 4.2-6.3 [facility] Absolute lymphocyte countOrd ered By: Jacquewilfrido Mcfarlane on 08-04-2024 Lymphocytes Auto (Unsp spec) [#/Vol] 1.45 10*3/uL 0.83-4.51 [facility] Absolute neutrophil countOrd ered By: [facility] Denys on 08-04-2024 Neutrophils (Bld) [#/Vol] 4.8 10*3/uL 2.0-7.7 [facility] Albumin to globulin ratioOrd ered By: Jacque Mcfarlane on 08-04-2024 Albumin/Globulin [Mass ratio] 1.1 {ratio} 0.9-2.4 [facility] Automated lymphocyte count a s percentage of total leukocytesOrdered By: Jacque Mcfarlane on 08-04-2024 Lymphocytes/100 WBC Auto (Unsp spec) 20.6 % 19-41 [facility] Basophil percentageOrdered B y: Jacque Mcfarlane on 08-04-2024 Basophils/100 WBC (Bld) 0.6 % 0-1 [facility] Bilirubin, totalOrdered By: Jacque Mcfarlane on 08-04-2024 Bilirubin [Mass/Vol] 0.30 mg/dL 0.20-1.00 [facility] Comment on above: For patients on eltr ombopag therapy, use of Dimension Treece TBIL is not recommended. Blood urea nitrogen (BUN)/cr eatinine ratioOrdered By: Jacque Mcfarlane on 08-04-2024 Urea nitrogen/Creatinine [Mass ratio] 12.9 mg/mg 10-20 [facility] CBC W/Diff, Automatedon Absolute Lymph 1.45 X10 3/uL Normal 0.83-4.51 [facility] Comment on above: Performed By: #### L 100.0100, L500.4050 #### [facility] [address] [place], [address] Absolute Neut 4.8 X10 3/uL Normal 2.0-7.7 [facility] Comment on above: Performed By: #### L 100.0100, L500.4050 #### [facility] [address] [place], [address] Basophils/100 WBC (Bld) 0.6 % Normal 0-1 [facility] Comment on above: Performed By: #### L 100.0100, L500.4050 #### [facility] [address] [place], [address] Eosinophils/100 WBC (Bld) 2.4 % Normal 0-5 [facility] Comment on above: Performed By: #### L 100.0100, L500.4050 #### [facility] [address] [place], [address] Erythrocyte distribution width (RBC) [Ratio] 15.3 % High 11.6-14.6 [facility] Comment on above: Performed By: #### L 100.0100, L500.4050 #### [facility] [address] [place], [address] Hematocrit (Bld) [Volume fraction] 36.4 % Low 37-47 [facility] Comment on above: Performed By: #### L 100.0100, L500.4050 #### [facility] [address] [place], [address] Hemoglobin (Bld) [Mass/Vol] 11.4 g/dL Low 12.0-15.0 [facility] Comment on above: Performed By: #### L 100.0100, L500.4050 #### [facility] [address] [place], [address] IG% 0.600 Normal 0.0-0.9 [facility] Comment on above: Result Comment: IG% - Immature Granulocytes (promyelocytes, myelocytes and metamyelocytes) > 1% indicates that a LEFT SHIFT is Present. Performed By: #### L 100.0100, L500.4050 #### [facility] [address] [place], [address] Lymphocytes/100 WBC (Bld) 20.6 % Normal 19-41 [facility] Comment on above: Performed By: #### L 100.0100, L500.4050 #### [facility] [address] [place], [address] MCH (RBC) [Entitic mass] 26.1 pg Low 27.0-32.0 [facility] Comment on above: Performed By: #### L 100.0100, L500.4050 #### [facility] [address] [place], [address] MCHC (RBC) [Mass/Vol] 31.3 g/dL Low 32-36 [facility] Comment on above: Performed By: #### L 100.0100, L500.4050 #### [facility] [address] [place], [address] MCV (RBC) [Entitic vol] 83.3 fL Normal 81-99 [facility] Comment on above: Performed By: #### L 100.0100, L500.4050 #### [facility] [address] [place], [address] Monocytes/100 WBC (Bld) 8.1 % Normal 0-10 [facility] Comment on above: Performed By: #### L 100.0100, L500.4050 #### [facility] [address] [place], [address] Neutrophils/100 WBC (Bld) 67.7 % Normal 47-70 [facility] Comment on above: Performed By: #### L 100.0100, L500.4050 #### [facility] [address] [place], [address] Nucleated RBC (Bld) [#/Vol] 0 10*3/uL Normal 0-5 [facility] Comment on above: Performed By: #### L 100.0100, L500.4050 #### [facility] [address] [place], [address] Platelet mean volume (Bld) [Entitic vol] 9.4 fL Normal 6.2-12.0 [facility] Comment on above: Performed By: #### L 100.0100, L500.4050 #### [facility] [address] [place], [address] Platelets (Bld) [#/Vol] 317 10*3/uL Normal 150-450 [facility] Comment on above: Performed By: #### L 100.0100, L500.4050 #### [facility] [address] [place], [address] RBC (Bld) [#/Vol] 4.37 10*6/uL Normal 4.2-5.4 [facility] Comment on above: Performed By: #### L 100.0100, L500.4050 #### [facility] [address] [place], [address] RDW SD 47.1 fl High 35.1-43.9 [facility] Comment on above: Performed By: #### L 100.0100, L500.4050 #### [facility] [address] [place], [address] WBC (Bld) [#/Vol] 7.0 10*3/uL Normal 4.4-11.0 [facility] Comment on above: Performed By: #### L 100.0100, L500.4050 #### [facility] [address] [place], [address] Carbon dioxide measurementOr dered By: Jacque Mcfarlane on 08-04-2024 CO2 [Moles/Vol] 27.0 mmol/L 21.0-32.0 [facility] Chloride measurementOrdered By: Jacque Mcfarlane on 08-04-2024 Chloride [Moles/Vol] 102 mmol/L 98-107 [facility] Comprehensive Metabolic Prof ilon 08-04-2024 Albumin [Mass/Vol] 3.7 g/dL Normal 3.2-5.0 [facility] Comment on above: Performed By: #### L 100.0100, L500.4050 #### [facility] [address] [place], [address] Albumin/Globulin [Mass ratio] 1.1 {ratio} Normal 0.9-2.4 [facility] Comment on above: Performed By: #### L 100.0100, L500.4050 #### [facility] [address] [place], [address] ALK P 49 U/L Normal 45-117 [facility] Comment on above: Performed By: #### L 100.0100, L500.4050 #### [facility] [address] [place], [address] ALT [Catalytic activity/Vol] 36 U/L Normal 13-56 [facility] Comment on above: Performed By: #### L 100.0100, L500.4050 #### [facility] [address] [place], [address] AST [Catalytic activity/Vol] 22 U/L Normal 15-37 [facility] Comment on above: Performed By: #### L 100.0100, L500.4050 #### [facility] [address] [place], [address] Bilirubin [Mass/Vol] 0.30 mg/dL Normal 0.20-1.00 [facility] Comment on above: Result Comment: For patients on eltrombopag therapy, use of Dimension Treece TBIL is not recommended. Performed By: #### L 100.0100, L500.4050 #### [facility] [address] [place], [address] BUN/CRE 12.9 RATIO Normal 10-20 [facility] Comment on above: Performed By: #### L 100.0100, L500.4050 #### [facility] [address] [place], [address] CA,Total 9.4 mg/dL Normal 8.5-10.1 [facility] Comment on above: Performed By: #### L 100.0100, L500.4050 #### [facility] [address] [place], [address] Chloride [Moles/Vol] 102 mmol/L Normal 98-107 [facility] Comment on above: Performed By: #### L 100.0100, L500.4050 #### [facility] [address] [place], [address] CO2 [Moles/Vol] 27.0 mmol/L Normal 21.0-32.0 [facility] Comment on above: Performed By: #### L 100.0100, L500.4050 #### [facility] [address] [place], [address] Creatinine [Mass/Vol] 1.01 mg/dL Normal 0.55-1.02 [facility] Comment on above: Result Comment: The validity of the calculated GFR GFRAA in patients over 70 years has not been determined. Clinical correlation is essential. Performed By: #### L 100.0100, L500.4050 #### [facility] [address] [place], [address] EST GFR - AA 71 mL/min Normal >60 [facility] Comment on above: Result Comment: Afri can Liberian GFR Calc Performed By: #### L 100.0100, L500.4050 #### [facility] [address] [place], [address] GAP 8 Normal 5-15 [facility] Comment on above: Performed By: #### L 100.0100, L500.4050 #### [facility] [address] [place], [address] GFR/1.73 sq M.predicted among non-blacks MDRD (S/P/Bld) [Vol rate/Area] 58 mL/min/{1.73_m2} Low >60 [facility] Comment on above: Result Comment: Non- GFR Calc Performed By: #### L 100.0100, L500.4050 #### [facility] [address] [place], [address] Globulin (S) [Mass/Vol] 3.3 g/dL Normal 2.2-4.2 [facility] Comment on above: Performed By: #### L 100.0100, L500.4050 #### [facility] [address] [place], [address] Glucose [Mass/Vol] 219 mg/dL High 74-106 [facility] Comment on above: Result Comment: Gluc ose result greater than or equal to 200 mg/dL suggests DIABETES MELLITUS per A.D.A. criteria. Performed By: #### L 100.0100, L500.4050 #### [facility] [address] [place], [address] Potassium [Moles/Vol] 4.2 mmol/L Normal 3.5-5.1 [facility] Comment on above: Performed By: #### L 100.0100, L500.4050 #### [facility] [address] [place], [address] Sodium [Moles/Vol] 137 mmol/L Normal 136-145 [facility] Comment on above: Performed By: #### L 100.0100, L500.4050 #### [facility] [address] [place], [address] T PROT 7.0 g/dL Normal 6.4-8.2 [facility] Comment on above: Performed By: #### L 100.0100, L500.4050 #### [facility] [address] [place], [address] Urea nitrogen [Mass/Vol] 13 mg/dL Normal 7-18 [facility] Comment on above: Performed By: #### L 100.0100, L500.4050 #### [facility] [address] [place], [address] Eosinophil percentageOrdered By: Jacque Mcfarlane on 08-04-2024 Eosinophils/100 WBC (Bld) 2.4 % 0-5 [facility] Erythrocyte distribution wid th (RBC) [Ratio]Ordered By: Jacque Mcfarlane on 08-04-2024 Erythrocyte distribution width (RBC) [Entitic vol] 47.1 fL High 35.1-43.9 [facility] Erythrocyte distribution wid th ratioOrdered By: Jacque Mcfarlane on 08-04-2024 Erythrocyte distribution width (RBC) [Ratio] 15.3 % High 11.6-14.6 [facility] Erythrocyte distribution wid th standard deviationOrdered By: Jacque Mcfarlane on 08-04-2024 Erythrocyte distribution width (RBC) [Ratio] 47.1 fl High 35.1-43.9 [facility] Estimated glomerular filtrat ion rate (GFR) AmericanOrdered By: Jacque Mcfarlane on 08-04-2024 Estimated GFR (MDRD) Amer 71 mL/min >60 [facility] Comment on above: GFR Calc Glomerular filtration rate ( GFR) estimationOrdered By: Jacque Mcfarlane on 08-04-2024 Estimated GFR (MDRD) Non-Af Amer 58 mL/min Low >60 [facility] Comment on above: Non- GFR Calc GFR/1.73 sq M.predicted among non-blacks MDRD (S/P/Bld) [Vol rate/Area] 58 mL/min/{1.73_m2} Low >60 [facility] Comment on above: Non- GFR Calc Glucose measurementOrdered B y: Jacque Mcfarlane on 08-04-2024 Glucose [Mass/Vol] 219 mg/dL High 74-106 [facility] [facility] Comment on above: Glucose result great er than or equal to 200 mg/dLsuggests DIABETES MELLITUS per A.D.A. criteria. Hematocrit Auto (Bld) [Volum e fraction]Ordered By: Jacque Mcfarlane on 08-04-2024 Hematocrit (Bld) [Volume fraction] 36.4 % Low 37-47 [facility] Hemoglobin measurementOrdere d By: Jacque Mcfarlane on 08-04-2024 Hemoglobin (Bld) [Mass/Vol] 11.4 g/dL Low 12.0-15.0 [facility] Immature granulocytes/100 WB C Auto (Bld)Ordered By: Jacque Mcfarlane on 08-04-2024 Immature granulocytes/100 WBC (Bld) 0.600 % 0.0-0.9 [facility] Comment on above: IG% - Immature Granu locytes (promyelocytes, myelocytes and metamyelocytes) > 1% indicates that a LEFT SHIFT is Present. Laboratory - Chemistry and C hemistry - challengeOrdered By: Jacque Mcfarlane on 08-04-2024 AST [Catalytic activity/Vol] 22 U/L 15-37 [facility] Lymphocytes Auto (Unsp spec) [#/Vol]Ordered By: Jacque Mcfarlane on 08-04-2024 Lymphocytes (Bld) [#/Vol] 1.45 10*3/uL 0.83-4.51 [facility] Lymphocytes/100 WBC Auto (Un sp spec)Ordered By: Jacque Mcfarlane on 08-04-2024 Lymphocytes/100 WBC (Bld) 20.6 % 19-41 [facility] MCV (mean corpuscular volume ) determinationOrdered By: Jcaque Mcfarlane on 08-04-2024 MCV (RBC) [Entitic vol] 83.3 fL 81-99 [facility] Mean corpuscular hemoglobin (MCH) determinationOrdered By: Jacque Mcfarlane on 08-04-2024 MCH (RBC) [Entitic mass] 26.1 pg Low 27.0-32.0 [facility] Mean corpuscular hemoglobin concentration (MCHC) determinationOrdered By: Jacque Mcfarlane on 08-04-2024 MCHC (RBC) [Mass/Vol] 31.3 g/dL Low 32-36 [facility] Mean platelet volume determi nationOrdered By: Jacque Mcfarlane on 08-04-2024 Platelet mean volume (Bld) [Entitic vol] 9.4 fL 6.2-12.0 [facility] Monocyte percentageOrdered B y: Jacque Mcfarlane on 08-04-2024 Monocytes/100 WBC (Bld) 8.1 % 0-10 [facility] Neutrophil percentageOrdered By: Jacque Mcfarlane on 08-04-2024 Neutrophils/100 WBC (Bld) 67.7 % 47-70 [facility] Nucleated red blood cell per centageOrdered By: Jacque Mcfarlane on 08-04-2024 Nucleated RBC/100 WBC (Bld) [Ratio] 0 % 0-5 [facility] Platelet countOrdered By: Coty Mcfarlane on 08-04-2024 Platelets (Bld) [#/Vol] 317 10*3/uL 150-450 [facility] Potassium measurementOrdered By: Jacque Mcfarlane on 08-04-2024 Potassium [Moles/Vol] 4.2 mmol/L 3.5-5.1 [facility] RBC Auto (Bld) [#/Vol]Ordere d By: Jacque Mcfarlane on 08-04-2024 RBC (Bld) [#/Vol] 4.37 10*6/uL 4.2-5.4 [facility] Serum anion gap measurementO rdered By: Jacque Mcfarlane on 08-04-2024 Anion gap [Moles/Vol] 8 mmol/L 5-15 [facility] Serum globulin measurementOr dered By: Jacque Mcfarlane on 08-04-2024 Globulin (S) [Mass/Vol] 3.3 g/dL 2.2-4.2 [facility] Serum or plasma alanine vilchis otransferase (ALT) measurementOrdered By: Jacque Mcfarlane on 08-04-2024 ALT [Catalytic activity/Vol] 36 U/L 13-56 [facility] Serum or plasma albumin esteban urement (mass/volume)Ordered By: Jacque Mcfarlane on 08-04-2024 Albumin [Mass/Vol] 3.7 g/dL 3.2-5.0 [facility] Serum or plasma alkaline kee sphatase measurementOrdered By: Jacque Mcfarlane on 08-04-2024 ALP [Catalytic activity/Vol] 49 U/L 45-117 [facility] Serum or plasma calcium esteban urement (mass/volume)Ordered By: Jacque Mcfarlane on 08-04-2024 Calcium [Mass/Vol] 9.4 mg/dL 8.5-10.1 [facility] Serum or plasma creatinine m easurement (mass/volume)Ordered By: Jacque Mcfarlane on 08-04-2024 Creatinine [Mass/Vol] 1.01 mg/dL 0.55-1.02 [facility] Comment on above: The validity of the calculated GFR & GFRAA in patients over 70 years has not been determined. Clinical correlation is essential. Serum or plasma urea nitroge n measurement (mass/volume)Ordered By: Jacque Mcfarlane on 08-04-2024 Urea nitrogen [Mass/Vol] 13 mg/dL 7-18 [facility] Sodium levelOrdered By: Meenu Mcfarlane on 08-04-2024 Sodium [Moles/Vol] 137 mmol/L 136-145 [facility] Total proteinOrdered By: Darlyn Mcfarlane on 08-04-2024 Protein [Mass/Vol] 7.0 g/dL 6.4-8.2 [facility] White blood cell (WBC) count Ordered By: Jacque Mcfarlane on 08-04-2024 WBC (Bld) [#/Vol] 7.0 10*3/uL 4.4-11.0 [facility] Internal Medicine Office Vis yoly 07-12-2024 Internal Medicine Office Visit [facility] [address] [place] [address] OFFICE VISIT Date of Service: 07/13/24 MR#: [id number] Acct: [id number] Name: ROMA WALTON Rep #: [id number] : 1960 Provider: Dr. Samara maya MD Age/Sex: 63/F Location: [facility] [place] [place] Status: Signed Intake Vital Signs 04/05/24 13:50 05/11/24 14:41 07/13/24 14:47 Height 5 ft 6 in 5 ft 6 in 5 ft 6 in Weight: 182 lb 4 oz BMI 29.4 BP 134/76 H Blood Pressure Location Lt brachial Position Sitting Respiration 18 Pulse 109 H Pulse Source Monitor Temp 97.7 F L Temp Source Temporal Pulse Oximetry (%) 96 Oxygen Delivery Method room air Intake Visit Reasons: 3 m fu Chief Complaint: 3m FU Accompanied by: Self Is patient in pain?: No Allergies dulaglutide (From Trulicity) Allergy (Severe, Verified 07/13/24 14:42) Other empagliflozin (From Jardiance) Allergy (Verified 07/13/24 14:42) PT UNSURE OF REACTION methotrexate Adverse Reaction (Mild, Verified 07/13/24 14:42) Other sitagliptin (From Januvia) Adverse Reaction (Verified 07/13/24 14:42) Other Medications ???Medication ???Instructions ???Recorded ???Confirmed ???Type Glucosamine/Chondr/Rodrigo well/Tur 1 tab PO DAILY supplement 08/26/20 07/13/24 History apremilast 30 mg tablet 30 mg PO BID PSORIATIC ARTHRITIS 08/26/20 07/13/24 History Multivitamin 1 tab PO DAILY vitamin 07/15/22 07/13/24 History escitalopram oxalate 10 mg tablet 15 mg PO DAILY DEPRESSION 08/05/23 07/13/24 History flash glucose sensor (FreeStyle #6 ea 11/30/23 05/11/24 Rx Batsheva 14 Day Sensor kit) losartan 25 mg tablet 25 mg PO DAILY BLOOD PRESSURE #90 02/08/24 07/13/24 Rx tabs aspirin 81 mg tablet,delayed 81 mg PO DAILY 02/10/24 07/13/24 History release (Adult Low Dose Aspirin) sulfasalazine 500 mg tablet See Rx Instructions .Route .COMPLEX 05/11/24 07/13/24 History amitriptyline 50 mg tablet 50 mg PO QHS #90 tabs 06/24/24 07/13/24 Rx fenofibrate nanocrystallized 145 145 mg PO DAILY #90 tabs 06/24/24 07/13/24 Rx mg tablet insulin glargine U-300 conc 300 70 unit (0.2333 mL) subcut DAILY 06/24/24 07/13/24 Rx unit/mL (1.5 mL) subcutaneous pen #42 mL (Toujeo SoloStar U-300 Insulin) insulin lispro 100 unit/mL 40 unit (0.4 mL) subcut TIDCM 06/24/24 07/13/24 Rx subcutaneous pen DIABETES #108 mL levothyroxine 88 mcg tablet 88 mcg PO DAILY #90 tabs 06/24/24 07/13/24 Rx metformin 1,000 mg tablet 1,000 mg PO BID #180 tabs 06/24/24 07/13/24 Rx pen needle, diabetic 32 gauge x #100 ea 06/24/24 Rx 5/32 (BD Ultra-Fine Natalya Pen Needle) simvastatin 40 mg tablet 40 mg PO DAILY #90 tabs 06/24/24 07/13/24 Rx ferrous sulfate 325 mg (65 mg 325 mg PO 4XW 07/13/24 07/13/24 History iron) tablet (Feosol) Have you fallen in the past year?: No Nurse's Note: 3 month FU [facility] Medical History Pancreatitis Fatty liver Psoriasis Surgical History History of colonoscopy History of breast biopsy (06/29/99) [place] teeth extracted History of gynecologic surgery Family History Father Myocardial infarction, Onset Age: 84 Hypertension Seizures Alzheimer's dementia Hyponatremia Mother TIA (transient ischemic attack) Breast cancer Tongue cancer Anesthesia anaesthesia sensitivity Anxiety IBS (irritable bowel syndrome) Hypertension High cholesterol Osteoporosis Psychiatric care COPD (chronic obstructive pulmonary disease) Cancer melanoma CVA (cerebral vascular accident) Thyroid disorder Dementia Hyponatremia Sister Thyroid disorder Prediabetes Uncle H/O Needmore's disease Unknown H/O Needmore's disease Social History household members: spouse current occupational status: unemployed Smoking Status: Former smoker quit date: 06/29/08 pack-years: 36 Electronic Cigarette Use: not used alcohol intake: former year quit: 2008 substance use type: does not use what type of physical activity do you participate in: none do you feel safe at home: Yes HPI HPI Chief Complaint: 3m FU Details: ROMA WALTON, is a 63 F who presents to the office today for a follow up. She is up to date on her routine blood work and screening. She isn't due for any immunizations. She doesn't smoke and does not need refills. She reports she was not eating healthy over the holidays, but is trying to do better now. She reports she is starting to get more active around her house as well, but doesn't do any formal exercise. She does check her sugars at home and reports they have been they have been high over the holidays, however, states she is getting back on track. She is taking her medication as prescribe (more content not included)... Normal [facility] SCRN MAMM (CAD)W/MARIA E BILATo n 06-27-2024 SCRN MAMM (CAD)W/MARIA E BILAT [facility] [address], [place] [id number] SCRN MAMM (CAD)W/MARIA E BILAT MR#: [id number] Acct: [id number] Name: ROMA WALTON Rep #: [id number] : 1960 F 63 From: John Sandoval MD PCP: Dr. Samara Monroy MD Status: REG CLI Study: SCRN MAMM (CAD)W/MARIA E BILAT Date of Exam: 05/31 Exam# [id number] Ordering Dr: Leticia Daniel FLUXER-C [id number] MAMMOGRAPHY - BILATERAL SCREENING 3-D TOMOSYNTHESIS REASON FOR EXAM: Female, 63 years old. Routine screening PERTINENT HISTORY: Mother and aunt with breast cancer.. TECHNIQUE: 2-D mammograms and 3-D Tomosynthesis of the breast (s) were performed. CAD was performed. COMPARISON: 06/24/2023 FINDINGS: The breast composition is heterogeneously dense that can obscure small breast masses. Scattered benign calcifications are seen. No dense spiculated masses or suspicious microcalcifications are identified. No architectural distortion is identified. There is no skin thickening or retraction. There has been no significant change since the prior study. BI/SCRN MAMM (CAD)W/MARIA E BILAT IMPRESSION: No mammographic signs of malignancy. Routine yearly mammograms recommended. ASSESSMENT CATEGORY: BIRADS Category 1: Negative. A letter regarding these results will be sent to the patient by the facility within 30 days. FOLLOW UP RECOMMENDATION: Yearly follow up mammogram recommended. (A) Approximately 10% of breast cancers are not detected by mammography. A normal mammogram should not delay biopsy of a clinically suspicious abnormality. Electronically Signed: John Sandoval MD at 8:14 EST Reading Location ID and State: [facility] / [place] , Service support , CC: BELA Daniel; Dr. Samara Monroy MD Machine Tailer: Signed Normal [facility] CBC W/Diff, Automatedon 12-0 Absolute Lymph 1.44 X10 3/uL Normal 0.83-4.51 [facility] Comment on above: Order Comment: DR.VE BLANTON ORDERED CBCD CMP ORDERED CBCD, TIBC,FE ROBERT Performed By: #### L 100.0100, L500.4050 #### [facility] [address] [place], [address] Absolute Neut 5.0 X10 3/uL Normal 2.0-7.7 [facility] Comment on above: Order Comment: DR.VE BLANTON ORDERED CBCD RAMIRO ORDERED CBCD, TIBC,FE ROBERT Performed By: #### L 100.0100, L500.4050 #### [facility] [address] [place], [address] Basophils/100 WBC (Bld) 0.6 % Normal 0-1 [facility] Comment on above: Order Comment: DR.VE BLANTON ORDERED CBCD CMPDR.FERULLO ORDERED CBCD, TIBC,FE ROBERT Performed By: #### L 100.0100, L500.4050 #### [facility] [address] [place], [address] Eosinophils/100 WBC (Bld) 1.8 % Normal 0-5 [facility] Comment on above: Order Comment: DR.VE BLANTON ORDERED CBCD CMPDR.FERULLO ORDERED CBCD, TIBC,FE ROBERT Performed By: #### L 100.0100, L500.4050 #### [facility] [address] [place], [address] Erythrocyte distribution width (RBC) [Ratio] 15.2 % High 11.6-14.6 [facility] Comment on above: Order Comment: DR.VE BLANTON ORDERED CBCD CMPDR.FERULLO ORDERED CBCD, TIBC,FE ROBERT Performed By: #### L 100.0100, L500.4050 #### [facility] [address] [place], [address] Hematocrit (Bld) [Volume fraction] 36.2 % Low 37-47 [facility] Comment on above: Order Comment: DR.VE BLANTON ORDERED CBCD CMPDR.FERULLO ORDERED CBCD, TIBC,FE ROBERT Performed By: #### L 100.0100, L500.4050 #### [facility] [address] [place], [address] Hemoglobin (Bld) [Mass/Vol] 11.0 g/dL Low 12.0-15.0 [facility] Comment on above: Order Comment: DR.VE BLANTON ORDERED CBCD CMPDR.WOODYO ORDERED CBCD, TIBC,FE ROBERT Performed By: #### L 100.0100, L500.4050 #### [facility] [address] [place], [address] IG% 0.400 Normal 0.0-0.9 [facility] Comment on above: Order Comment: DR.VE BLANTON ORDERED CBCD CMPDR.ROBERTDILLONO ORDERED CBCD, TIBC,FE ROBERT Result Comment: IG% - Immature Granulocytes (promyelocytes, myelocytes and metamyelocytes) > 1% indicates that a LEFT SHIFT is Present. Performed By: #### L 100.0100, L500.4050 #### [facility] [address] [facility] [place], [address] Lymphocytes/100 WBC (Bld) 19.9 % Normal 19-41 [facility] Comment on above: Order Comment: DR.VE BLANTON ORDERED CBCD ROBERTDILLONO ORDERED CBCD, TIBC,FE ROBERT Performed By: #### L 100.0100, L500.4050 #### [facility] [address] [facility] [place], [address] MCH (RBC) [Entitic mass] 25.4 pg Low 27.0-32.0 [facility] Comment on above: Order Comment: DR.VE BLANTON ORDERED CBCD ROBERTDILLONO ORDERED CBCD, TIBC,FE ROBERT Performed By: #### L 100.0100, L500.4050 #### [facility] [address] [place], [address] MCHC (RBC) [Mass/Vol] 30.4 g/dL Low 32-36 [facility] Comment on above: Order Comment: DR.VE BLANTON ORDERED CBCD CMPDR.ROBERTULLO ORDERED CBCD, TIBC,FE ROBERT Performed By: #### L 100.0100, L500.4050 #### [facility] [address] [place], [address] MCV (RBC) [Entitic vol] 83.6 fL Normal 81-99 [facility] Comment on above: Order Comment: DR.VE BLANTON ORDERED CBCD CMPDRKEVINO ORDERED CBCD, TIBC,FE ROBERT Performed By: #### L 100.0100, L500.4050 #### [facility] [address] [place], [address] Monocytes/100 WBC (Bld) 8.6 % Normal 0-10 [facility] Comment on above: Order Comment: DR.VE BLANTON ORDERED CBCD JENNYO ORDERED CBCD, TIBC,FE ROBERT Performed By: #### L 100.0100, L500.4050 #### [facility] [address] [place], [address] Neutrophils/100 WBC (Bld) 68.7 % Normal 47-70 [facility] Comment on above: Order Comment: DR.VE BLANTON ORDERED CBCD JENNYO ORDERED CBCD, TIBC,FE ROBERT Performed By: #### L 100.0100, L500.4050 #### [facility] [address] [facility] [place], [address] Nucleated RBC (Bld) [#/Vol] 0 10*3/uL Normal 0-5 [facility] Comment on above: Order Comment: DR.VE BLANTON ORDERED CBCD JENNYO ORDERED CBCD, TIBC,FE ROBERT Performed By: #### L 100.0100, L500.4050 #### [facility] [address] [place], [address] Platelet mean volume (Bld) [Entitic vol] 9.7 fL Normal 6.2-12.0 [facility] Comment on above: Order Comment: DR.VE BLANTON ORDERED CBCD CMPDR.FERDILLONO ORDERED CBCD, TIBC,FE ROBERT Performed By: #### L 100.0100, L500.4050 #### [facility] [address] [place], [address] Platelets (Bld) [#/Vol] 310 10*3/uL Normal 150-450 [facility] Comment on above: Order Comment: DR.VE BLANTON ORDERED CBCD CMPDR.FERULLO ORDERED CBCD, TIBC,FE ROBERT Performed By: #### L 100.0100, L500.4050 #### [facility] [address] [place], [address] RBC (Bld) [#/Vol] 4.33 10*6/uL Normal 4.2-5.4 [facility] Comment on above: Order Comment: DR.VE BLANTON ORDERED CBCD CMPDR.FERULLO ORDERED CBCD, TIBC,FE ROBERT Performed By: #### L 100.0100, L500.4050 #### [facility] [address] [place], [address] RDW SD 46.1 fl High 35.1-43.9 [facility] Comment on above: Order Comment: DR.VE BLANTON ORDERED CBCD RAMIRO ORDERED CBCD, TIBC,FE ROBERT Performed By: #### L 100.0100, L500.4050 #### [facility] [address] [place], [address] WBC (Bld) [#/Vol] 7.2 10*3/uL Normal 4.4-11.0 [facility] Comment on above: Order Comment: DR.VE BLANTON ORDERED CBCD CMPDR.FERULLO ORDERED CBCD, TIBC,FE ROBERT Performed By: #### L 100.0100, L500.4050 #### [facility] [address] [place], [address] Comprehensive Metabolic Prof ilon 06-02-2024 Albumin [Mass/Vol] 3.7 g/dL Normal 3.2-5.0 [facility] Comment on above: Order Comment: DR.VE BLANTON ORDERED CBCD CMPDR.FERULLO ORDERED CBCD, TIBC,FE ROBERT Performed By: #### L 100.0100, L500.4050 #### [facility] [address] [place], [address] Albumin/Globulin [Mass ratio] 1.2 {ratio} Normal 0.9-2.4 [facility] Comment on above: Order Comment: DR.VE BLANTON ORDERED CBCD CMPDR.FERULLO ORDERED CBCD, TIBC,FE ROBERT Performed By: #### L 100.0100, L500.4050 #### [facility] [address] [place], [address] ALK P 49 U/L Normal 45-117 [facility] Comment on above: Order Comment: DR.VE BLANTON ORDERED CBCD CMPDR.FERULLO ORDERED CBCD, TIBC,FE ROBERT Performed By: #### L 100.0100, L500.4050 #### [facility] [address] [place], [address] ALT [Catalytic activity/Vol] 24 U/L Normal 13-56 [facility] Comment on above: Order Comment: DR.VE BLANTON ORDERED CBCD CMPDR.FERULLO ORDERED CBCD, TIBC,FE ROBERT Performed By: #### L 100.0100, L500.4050 #### [facility] [address] [place], [address] AST [Catalytic activity/Vol] 16 U/L Normal 15-37 [facility] Comment on above: Order Comment: DR.VE BLANTON ORDERED CBCD CMPDR.FERULLO ORDERED CBCD, TIBC,FE ORBERT Performed By: #### L 100.0100, L500.4050 #### [facility] [address] [place], [address] Bilirubin [Mass/Vol] 0.30 mg/dL Normal 0.20-1.00 [facility] Comment on above: Order Comment: DR.VE BLANTON ORDERED CBCD CMPDR.FERULLO ORDERED CBCD, TIBC,FE ROBERT Result Comment: For patients on eltrombopag therapy, use of Dimension Treece TBIL is not recommended. Performed By: #### L 100.0100, L500.4050 #### [facility] [address] [place], [address] BUN/CRE 14.7 RATIO Normal 10-20 [facility] Comment on above: Order Comment: DR.VE BLANTON ORDERED CBCD CMPDR.ROBERTDILLONO ORDERED CBCD, TIBC,FE ROBERT Performed By: #### L 100.0100, L500.4050 #### [facility] [address] [place], [address] CA,Total 9.0 mg/dL Normal 8.5-10.1 [facility] Comment on above: Order Comment: DR.VE BLANTON ORDERED CBCD RAMIRO ORDERED CBCD, TIBC,FE ROBERT Performed By: #### L 100.0100, L500.4050 #### [facility] [address] [place], [address] Chloride [Moles/Vol] 105 mmol/L Normal 98-107 [facility] Comment on above: Order Comment: DR.VE BLANTON ORDERED CBCD CMPDR.ROBERTDILLONO ORDERED CBCD, TIBC,FE ROBERT Performed By: #### L 100.0100, L500.4050 #### [facility] [address] [place], [address] CO2 [Moles/Vol] 27.0 mmol/L Normal 21.0-32.0 [facility] Comment on above: Order Comment: DR.VE BLANTON ORDERED CBCD CMPDR.ROBERTDILLONO ORDERED CBCD, TIBC,FE ROBERT Performed By: #### L 100.0100, L500.4050 #### [facility] [address] [place], [address] Creatinine [Mass/Vol] 0.82 mg/dL Normal 0.55-1.02 [facility] Comment on above: Order Comment: DR.VE BLANTON ORDERED CBCD CMPDRMITESH ORDERED CBCD, TIBC,FE ROBERT Result Comment: The validity of the calculated GFR GFRAA in patients over 70 years has not been determined. Clinical correlation is essential. Performed By: #### L 100.0100, L500.4050 #### [facility] [address] [place], [address] EST GFR - AA 91 mL/min Normal >60 [facility] Comment on above: Order Comment: DR.VE BLANTON ORDERED CBCD CMP ORDERED CBCD, TIBC,FE ROBERT Result Comment: Afri can [place] GFR Calc Performed By: #### L 100.0100, L500.4050 #### [facility] [address] [place], [address] GAP 7 Normal 5-15 [facility] Comment on above: Order Comment: DR.VE BLANTON ORDERED CBCD RAMIRO ORDERED CBCD, TIBC,FE ROBERT Performed By: #### L 100.0100, L500.4050 #### [facility] [address] [place], [address] GFR/1.73 sq M.predicted among non-blacks MDRD (S/P/Bld) [Vol rate/Area] 75 mL/min/{1.73_m2} Normal >60 [facility] Comment on above: Order Comment: DR.VE BLANTON ORDERED CBCD CMPDRMITESH ORDERED CBCD, TIBC,FE ROBERT Result Comment: Non- GFR Calc Performed By: #### L 100.0100, L500.4050 #### [facility] [address] [place], [address] Globulin (S) [Mass/Vol] 3.0 g/dL Normal 2.2-4.2 [facility] Comment on above: Order Comment: DR.VE BLANTON ORDERED CBCD CMPDR.FERULLO ORDERED CBCD, TIBC,FE ROBERT Performed By: #### L 100.0100, L500.4050 #### [facility] [address] [place], [address] Glucose [Mass/Vol] 170 mg/dL High 74-106 [facility] Comment on above: Order Comment: DR.VE BLANTON ORDERED CBCD CMPDR.ROBERTULLO ORDERED CBCD, TIBC,FE ROBERT Result Comment: Fast ing Glucose result greater than or equal to 126 mg/dL suggests DIABETES MELLITUS per A.D.A. criteria. Performed By: #### L 100.0100, L500.4050 #### [facility] [address] [place], [address] Potassium [Moles/Vol] 3.8 mmol/L Normal 3.5-5.1 [facility] Comment on above: Order Comment: DR.VE BLANTON ORDERED CBCD LILLIANADR.ROBERTULLO ORDERED CBCD, TIBC,FE ROBERT Performed By: #### L 100.0100, L500.4050 #### [facility] [address] [place], [address] Sodium [Moles/Vol] 138 mmol/L Normal 136-145 [facility] Comment on above: Order Comment: DR.VE BLANTON ORDERED CBCD LILLIANADR.ROBERTULLO ORDERED CBCD, TIBC,FE ROBERT Performed By: #### L 100.0100, L500.4050 #### [facility] [address] [place], [address] T PROT 6.7 g/dL Normal 6.4-8.2 [facility] Comment on above: Order Comment: DR.VE BLANTON ORDERED CBCD CMPDR.ROBERTULLO ORDERED CBCD, TIBC,FE ROBERT Performed By: #### L 100.0100, L500.4050 #### [facility] [address] [place], [address] Urea nitrogen [Mass/Vol] 12 mg/dL Normal 7-18 [facility] Comment on above: Order Comment: DR.VE BLANTON ORDERED CBCD CMPDR.FERULLO ORDERED CBCD, TIBC,FE ROBERT Performed By: #### L 100.0100, L500.4050 #### [facility] [address] [place], [address] Ferritinon 06-02-2024 Ferritin [Mass/Vol] 10 ng/mL Normal 8-252 [facility] Comment on above: Order Comment: DR.VE BLANTON ORDERED CBCD CMPDR.FERULLO ORDERED CBCD, TIBC,FE ROBERT Performed By: #### L 100.0100, L500.4050 #### [facility] [address] [place], [address] Ironon 06-02-2024 Iron [Mass/Vol] 40 ug/dL Low 50-170 [facility] Comment on above: Order Comment: DR.VE BLANTON ORDERED CBCD CMPDR.FERULLO ORDERED CBCD, TIBC,FE ROBERT Performed By: #### L 100.0100, L500.4050 #### [facility] [address] [place], [address] Iron Binding Capacity,Totalo n 06-02-2024 TIBC 399 ug/dL Normal 250-450 [facility] Comment on above: Order Comment: DR.VE BLANTON ORDERED CBCD CMPDR.FERULLO ORDERED CBCD, TIBC,FE ROBERT Performed By: #### L 100.0100, L500.4050 #### [facility] [address] [place], [address] Liveron 06-02-2024 Liver [facility] Imaging Services [address] [place] [address] Liver MR#: [id number] Acct: [id number] Name: ROMA WALTON Rep #: [id number] : 1960 F 63 From: Rd gil MD PCP: Dr. Samara Monroy MD Status: REG CLI Study: Liver Date of Exam: 06/02/24 Exam# [id number] Ordering Dr: Sue Sneed [id number] STUDY: ABDOMINAL ULTRASOUND - RIGHT UPPER QUADRANT REASON FOR VISIT: Female, 63 years old fatty liver disease TECHNIQUE: Ultrasound evaluation of the right upper quadrant was performed with real-time and static marie-scale imaging. TECHNICAL QUALITY: Adequate. COMPARISON: None. FINDINGS: Liver: The liver is enlarged and measures 18.4 cm. There is increased echogenicity consistent with fatty infiltration. The bile ducts are within normal limits. There is hepatic color flow. The direction of portal flow is hepatopetal. There is no demonstrated mass lesion. Gallbladder: Normal distended gallbladder. The gallbladder wall measures 2.0 mm. There is a negative sonographic Gusman''s sign. There is no pericholecystic fluid. There are no gallstones. Common Bile Duct (C.B.D.): The common bile duct measures 3.4 mm. Pancreas: Normal size of the head, body and tail of the pancreas. There is normal echogenicity of the pancreas. There is no demonstrated pancreatic mass or cyst. Right Kidney: Normal size of the right kidney. The right kidney measures 12.2 cm x 5.5 cm x 4.5 cm. Normal renal cortex. The right cortex measures 1.2 cm. There is no demonstrated renal mass or cyst. There is no right hydronephrosis. US/Liver IMPRESSION: Mild hepatomegaly and fatty infiltration of the liver. Electronically Signed: Rd Agosto MD at 14:31 EST , CC: BELA Sneed; Dr. Samara Monroy MD Machine Tailer: Signed Normal [facility] Endocrinology Visit Reporton 05-11-2024 Endocrinology Visit Report [facility] [address] [place] [address] OFFICE VISIT Date of Service: 05/11/24 MR#: [id number] Acct: [id number] Name: ROMA WALTON Rep #: [id number] : 1960 Provider: BELA harper Age/Sex: 63/F [place] [facility] [place]: Signed Intake Vital Signs 02/10/24 14:39 04/05/24 13:50 05/11/24 14:41 Height 5 ft 6 in 5 ft 6 in 5 ft 6 in Weight: 183 lb 184 lb 183 lb BMI 29.5 29.7 29.5 BP 128/81 H 114/74 124/78 H Blood Pressure Location Lt brachial Lt brachial Lt brachial Position Sitting Sitting Sitting Respiration 14 Pulse 113 H 94 104 H Pulse Source Monitor Monitor Monitor Temp 97.3 F L Temp Source Temporal Pulse Oximetry (%) 94 98 95 Oxygen Delivery Method room air room air room air Intake Visit Reasons: 3 M FU Chief Complaint: 3 f/u diabetes Crm Specialist Required: No Accompanied by: Self Is patient in pain?: No Allergies dulaglutide (From Trulicity) Allergy (Severe, Verified 05/11/24 14:41) Other empagliflozin (From Jardiance) Allergy (Verified 05/11/24 14:41) PT UNSURE OF REACTION methotrexate Adverse Reaction (Mild, Verified 05/11/24 14:41) Other sitagliptin (From Januvia) Adverse Reaction (Verified 05/11/24 14:41) Other Medications ???Medication ???Instructions ???Recorded ???Confirmed ???Type Glucosamine/Chondr/Rodrigo well/Tur 1 tab PO DAILY supplement 08/26/20 05/11/24 History apremilast 30 mg tablet 30 mg PO BID PSORIATIC ARTHRITIS 08/26/20 05/11/24 History Multivitamin 1 tab PO DAILY vitamin 07/15/22 05/11/24 History escitalopram oxalate 10 mg tablet 15 mg PO DAILY DEPRESSION 08/05/23 05/11/24 History pen needle, diabetic 32 gauge x #100 ea 08/05/23 05/11/24 Rx 5/32 (BD Ultra-Fine Natalya Pen Needle) simvastatin 40 mg tablet 40 mg PO DAILY #90 tabs 08/06/23 05/11/24 Rx insulin glargine U-300 conc 300 70 unit (0.2333 mL) subcut DAILY 09/07/23 05/11/24 Rx unit/mL (1.5 mL) subcutaneous pen #21 mL (Toujeo SoloStar U-300 Insulin) flash glucose sensor (FreeStyle #6 ea 11/30/23 05/11/24 Rx Batsheva 14 Day Sensor kit) insulin lispro 100 unit/mL 40 unit (0.4 mL) subcut TIDCM 12/28/23 05/11/24 Rx subcutaneous pen DIABETES #108 mL metformin 1,000 mg tablet 1,000 mg PO BID #180 tabs 02/04/24 05/11/24 Rx losartan 25 mg tablet 25 mg PO DAILY BLOOD PRESSURE #90 02/08/24 05/11/24 Rx tabs aspirin 81 mg tablet,delayed 81 mg PO DAILY 02/10/24 05/11/24 History release (Adult Low Dose Aspirin) levothyroxine 88 mcg tablet 88 mcg PO DAILY #90 tabs 02/22/24 05/11/24 Rx fenofibrate nanocrystallized 145 145 mg PO DAILY #90 tabs 03/21/24 05/11/24 Rx mg tablet amitriptyline 50 mg tablet 50 mg PO QHS #90 tabs 04/05/24 05/11/24 Rx ferrous sulfate 325 mg (65 mg 325 mg PO .MWF 05/11/24 05/11/24 History iron) tablet (Feosol) sulfasalazine 500 mg tablet See Rx Instructions .Route .COMPLEX 05/11/24 05/11/24 History Have you fallen in the past year?: No PFSH Medical History Pancreatitis Fatty liver Psoriasis Surgical History History of colonoscopy History of breast biopsy (06/29/99) [place] teeth extracted History of gynecologic surgery Family History Father Myocardial infarction, Onset Age: 84 Hypertension Seizures Alzheimer's dementia Hyponatremia Mother TIA (transient ischemic attack) Breast cancer Tongue cancer Anesthesia anaesthesia sensitivity Anxiety IBS (irritable bowel syndrome) Hypertension High cholesterol Osteoporosis Psychiatric care COPD (chronic obstructive pulmonary disease) Cancer melanoma CVA (cerebral vascular accident) Thyroid disorder Dementia Hyponatremia Sister Thyroid disorder Prediabetes Uncle H/O Kaic's disease Unknown H/O Needmore's disease Social History household members: spouse current occupational status: unemployed Smoking Status: Former smoker quit date: 06/29/08 pack-years: 36 Electronic Cigarette Use: not used alcohol intake: former year quit: 2008 substance use type: does not use what type of physical activity do you participate in: none do you feel safe at home: Yes HPI HPI Chief Complaint: 3 f/u diabetes Details: ROMA WALTON, is a 63 F who presents to the office today for evaluation and management of diabetes. A1C today is 6.6%, consistent with 02/10/24. Weight is stable. Currently taking Toujeo 38 u once daily, Humalog 38-42 u 1-2x/day, and metformin 1 gm BID with food. She is taking significantly less insulin than her previous appointment. She has made improvements in her diet (more content not included)... Normal [facility] Brain W/WO Contraston 2023 Brain W/WO Contrast [facility] Imaging Services [address] [place] [address] Brain W/WO Contrast MR#: [id number] Acct: [id number] Name: ROMA WALTON Rep #: [id number] : 1960 F 63 From: Eleuterio miller DO PCP: Dr. Samara Monroy MD Status: REG CLI Study: Brain W/WO Contrast Date of Exam: 05/05/24 Exam# [id number] Ordering Dr: Leticia Daniel [id number]-C [id number] EXAM: MR HEAD WITHOUT AND WITH INTRAVENOUS CONTRAST CLINICAL INDICATION: memory deficit TECHNIQUE: Multiplanar and multisequence MR images of the brain were obtained without and with intravenous contrast. CONTRAST: IV 17 CC CLARISCAN COMPARISON: No relevant prior studies available. FINDINGS: BRAIN AND EXTRA-AXIAL SPACES: There is mild global parenchymal volume loss with commensurate enlargement of the ventricles and the sulcal spaces. No lobar predilection of volume loss is identified. No intracranial mass or mass effect. Posterior fossa structures are unremarkable. Basal cisterns are patent. No restricted diffusion to indicate recent infarct or other pathology. No intracranial hemorrhage or pathologic mineralization. No pathologic extra-axial fluid. No pathologic parenchymal or meningeal enhancement is present. No significant white matter signal abnormalities are identified. SELLA: No significant abnormality. Normal sella turcica, pituitary gland, infundibular stalk, optic chiasm and hypothalamus. AUDITORY SYSTEM: No significant abnormality. The internal auditory canals are patent. BONES/JOINTS: No significant abnormality. No discrete lytic or blastic abnormalities. SINUSES: Normal as visualized. Clear. MASTOID AIR CELLS: Normal as visualized. Clear. ORBITS: Normal as visualized. Both globes, extraocular muscles, optic nerves and retrobulbar fat appear unremarkable. VASCULATURE: Normal as visualized. Normal flow voids in the major intracranial circulation. MRI/Brain W/WO Contrast IMPRESSION: 1. Global parenchymal volume loss without lobar predilection. 2. Otherwise, normal MRI appearance of the brain. No acute infarct or hemorrhage. No significant white matter disease. Electronically Signed: Eleuterio Todd DO at 11:28 EST , CC: BELA Daniel; Dr. Samara Monroy MD Machine Tailer: Signed Normal [facility] Orbits for Foreign Bodyon Orbits for Foreign Body [facility] Imaging Services [address] [place], [place] [id number] Orbits for Foreign Body MR#: [id number] Acct: [id number] Name: ROMA WALTON Rep #: [id number] : 1960 F 63 From: Rd gil MD PCP: Dr. Samara Monroy MD Status: REG CLI Study: Orbits for Foreign Body Date of Exam: 05/05/24 Exam# [id number] Ordering Dr: Leticia Daniel [id number] STUDY: X-RAY - ORBITS REASON FOR EXAM: Female, 63 years old. MRI CLEARANCE TECHNIQUE: 2 view(s) of the orbits were obtained. COMPARISON: None. FINDINGS: Normal bilateral orbits without a metallic orbital foreign body. Normal visualized facial bones. Normal paranasal sinuses. The soft tissue structures are unremarkable. RAD/Orbits for Foreign Body IMPRESSION: No demonstrated metallic orbital foreign body. The patient is cleared for an MRI examination. Electronically Signed: Rd Agosto MD at 13:57 EST Reading Location ID and State: [facility] / [place] , Service support , CC: BELA Daniel; Dr. Samara Monroy MD Machine Tailer: Signed Normal [facility] CBC W/Diff, Automatedon 10-1 Absolute Lymph 1.70 X10 3/uL Normal 0.83-4.51 [facility] Comment on above: Performed By: #### L 100.0100, L500.4050 #### [facility] [address] [place], [place], [id number] Absolute Neut 3.9 X10 3/uL Normal 2.0-7.7 [facility] Comment on above: Performed By: #### L 100.0100, L500.4050 #### [facility] [address] [place], [address] Basophils/100 WBC (Bld) 0.6 % Normal 0-1 [facility] Comment on above: Performed By: #### L 100.0100, L500.4050 #### [facility] [address] [place], [address] Eosinophils/100 WBC (Bld) 3.2 % Normal 0-5 [facility] Comment on above: Performed By: #### L 100.0100, L500.4050 #### [facility] [address] [place], [address] Erythrocyte distribution width (RBC) [Ratio] 15.2 % High 11.6-14.6 [facility] Comment on above: Performed By: #### L 100.0100, L500.4050 #### [facility] [address] [place], [address] Hematocrit (Bld) [Volume fraction] 38.0 % Normal 37-47 [facility] Comment on above: Performed By: #### L 100.0100, L500.4050 #### [facility] [address] [place], [address] Hemoglobin (Bld) [Mass/Vol] 11.5 g/dL Low 12.0-15.0 [facility] Comment on above: Performed By: #### L 100.0100, L500.4050 #### [facility] [address] [place], [address] IG% 0.500 Normal 0.0-0.9 [facility] Comment on above: Result Comment: IG% - Immature Granulocytes (promyelocytes, myelocytes and metamyelocytes) > 1% indicates that a LEFT SHIFT is Present. Performed By: #### L 100.0100, L500.4050 #### [facility] [address] [place], [address] Lymphocytes/100 WBC (Bld) 26.0 % Normal 19-41 [facility] Comment on above: Performed By: #### L 100.0100, L500.4050 #### [facility] [address] [place], [address] MCH (RBC) [Entitic mass] 25.6 pg Low 27.0-32.0 [facility] Comment on above: Performed By: #### L 100.0100, L500.4050 #### [facility] [address] [place], [address] MCHC (RBC) [Mass/Vol] 30.3 g/dL Low 32-36 [facility] Comment on above: Performed By: #### L 100.0100, L500.4050 #### [facility] [address] [place], [address] MCV (RBC) [Entitic vol] 84.4 fL Normal 81-99 [facility] Comment on above: Performed By: #### L 100.0100, L500.4050 #### [facility] [address] [place], [address] Monocytes/100 WBC (Bld) 10.1 % High 0-10 [facility] Comment on above: Performed By: #### L 100.0100, L500.4050 #### [facility] [address] [place], [address] Neutrophils/100 WBC (Bld) 59.6 % Normal 47-70 [facility] Comment on above: Performed By: #### L 100.0100, L500.4050 #### [facility] [address] [place], [address] Nucleated RBC (Bld) [#/Vol] 0 10*3/uL Normal 0-5 [facility] Comment on above: Performed By: #### L 100.0100, L500.4050 #### [facility] [address] [place], [address] Platelet mean volume (Bld) [Entitic vol] 10.2 fL Normal 6.2-12.0 [facility] Comment on above: Performed By: #### L 100.0100, L500.4050 #### [facility] [address] [place], [address] Platelets (Bld) [#/Vol] 329 10*3/uL Normal 150-450 [facility] Comment on above: Performed By: #### L 100.0100, L500.4050 #### [facility] [address] [place], [address] RBC (Bld) [#/Vol] 4.50 10*6/uL Normal 4.2-5.4 [facility] Comment on above: Performed By: #### L 100.0100, L500.4050 #### [facility] [address] [place], [address] RDW SD 46.5 fl High 35.1-43.9 [facility] Comment on above: Performed By: #### L 100.0100, L500.4050 #### [facility] [address] [place], [address] WBC (Bld) [#/Vol] 6.5 10*3/uL Normal 4.4-11.0 [facility] Comment on above: Performed By: #### L 100.0100, L500.4050 #### [facility] [address] [place], [address] Comprehensive Metabolic Prof [facility] 04-12-2024 Albumin [Mass/Vol] 3.8 g/dL Normal 3.2-5.0 [facility] Comment on above: Order Comment: ONLY VELLANKI Performed By: #### L 100.0100, L500.4050 #### [facility] [address] [place], [address] Albumin/Globulin [Mass ratio] 1.2 {ratio} Normal 0.9-2.4 [facility] Comment on above: Order Comment: ONLY VELLANKI Performed By: #### L 100.0100, L500.4050 #### [facility] [address] [place], [address] ALK P 52 U/L Normal 45-117 [facility] Comment on above: Order Comment: ONLY VELLANKI Performed By: #### L 100.0100, L500.4050 #### [facility] [address] [place], [address] ALT [Catalytic activity/Vol] 37 U/L Normal 13-56 [facility] Comment on above: Order Comment: ONLY VELLANKI Performed By: #### L 100.0100, L500.4050 #### [facility] [address] [place], [address] AST [Catalytic activity/Vol] 25 U/L Normal 15-37 [facility] Comment on above: Order Comment: ONLY VELLANKI Performed By: #### L 100.0100, L500.4050 #### [facility] [address] [place], [address] Bilirubin [Mass/Vol] 0.40 mg/dL Normal 0.20-1.00 [facility] Comment on above: Order Comment: ONLY VELLANKI Result Comment: For patients on eltrombopag therapy, use of Dimension Treece TBIL is not recommended. Performed By: #### L 100.0100, L500.4050 #### [facility] [address] [place], [address] BUN/CRE 17.0 RATIO Normal 10-20 [facility] Comment on above: Order Comment: ONLY VELLANKI Performed By: #### L 100.0100, L500.4050 #### [facility] [address] [place], [address] CA,Total 9.4 mg/dL Normal 8.5-10.1 [facility] Comment on above: Order Comment: ONLY VELLANKI Performed By: #### L 100.0100, L500.4050 #### [facility] [address] [place], [address] Chloride [Moles/Vol] 104 mmol/L Normal 98-107 [facility] Comment on above: Order Comment: ONLY VELLANKI Performed By: #### L 100.0100, L500.4050 #### [facility] [address] [place], [address] CO2 [Moles/Vol] 29.0 mmol/L Normal 21.0-32.0 [facility] Comment on above: Order Comment: ONLY VELLANKI Performed By: #### L 100.0100, L500.4050 #### [facility] [address] [place], [address] Creatinine [Mass/Vol] 0.94 mg/dL Normal 0.55-1.02 [facility] Comment on above: Order Comment: ONLY VELLANKI Result Comment: The validity of the calculated GFR GFRAA in patients over 70 years has not been determined. Clinical correlation is essential. Performed By: #### L 100.0100, L500.4050 #### [facility] [address] [place], [address] EST GFR - AA 77 mL/min Normal >60 [facility] Comment on above: Order Comment: ONLY VELLANKI Result Comment: Afri can Liberian GFR Calc Performed By: #### L 100.0100, L500.4050 #### [facility] [address] [place], [address] GAP 6 Normal 5-15 [facility] Comment on above: Order Comment: ONLY VELLANKI Performed By: #### L 100.0100, L500.4050 #### [facility] [address] [place], [address] GFR/1.73 sq M.predicted among non-blacks MDRD (S/P/Bld) [Vol rate/Area] 63 mL/min/{1.73_m2} Normal >60 [facility] Comment on above: Order Comment: ONLY VELLANKI Result Comment: Non- GFR Calc Performed By: #### L 100.0100, L500.4050 #### [facility] [address] [place], [address] Globulin (S) [Mass/Vol] 3.1 g/dL Normal 2.2-4.2 [facility] Comment on above: Order Comment: ONLY VELLANKI Performed By: #### L 100.0100, L500.4050 #### [facility] [address] [place], [address] Glucose [Mass/Vol] 139 mg/dL High 74-106 [facility] Comment on above: Order Comment: ONLY VELLANKI Result Comment: Fast ing Glucose result greater than or equal to 126 mg/dL suggests DIABETES MELLITUS per A.D.A. criteria. Performed By: #### L 100.0100, L500.4050 #### [facility] [address] [place], [address] Potassium [Moles/Vol] 4.0 mmol/L Normal 3.5-5.1 [facility] Comment on above: Order Comment: ONLY VELLANKI Performed By: #### L 100.0100, L500.4050 #### [facility] [address] [place], [address] Sodium [Moles/Vol] 139 mmol/L Normal 136-145 [facility] Comment on above: Order Comment: ONLY VELLANKI Performed By: #### L 100.0100, L500.4050 #### [facility] [address] [place], [address] T PROT 6.9 g/dL Normal 6.4-8.2 [facility] Comment on above: Order Comment: ONLY VELLANKI Performed By: #### L 100.0100, L500.4050 #### [facility] [address] [place], [address] Urea nitrogen [Mass/Vol] 16 mg/dL Normal 7-18 [facility] Comment on above: Order Comment: ONLY VELLANKI Performed By: #### L 100.0100, L500.4050 #### [facility] [address] [place], [place], [address] Internal Medicine Office Vis itonorm 04-05-2024 Internal Medicine Office Visit [facility] [address] [place], [place] [address] OFFICE VISIT Date of Service: 04/05/24 MR#: [id number] Acct: [id number] Name: ROMA WALTON Rep #: [id number] : 1960 Provider: BELA olea Age/Sex: 63/F Location: [facility] [place] [place] Status: Signed Intake Vital Signs 10/06/23 14:31 02/10/24 14:39 04/05/24 13:50 Height 5 ft 6 in 5 ft 6 in 5 ft 6 in Weight: 184 lb BMI 29.7 BP 114/74 Blood Pressure Location Lt brachial Position Sitting Respiration 14 Pulse 94 Pulse Source Monitor Temp 97.3 F L Temp Source Temporal Pulse Oximetry (%) 98 Oxygen Delivery Method room air Intake Visit Reasons: 6 M FU/2ND SHINGLES SHOT Crm Specialist Required: No Is patient in pain?: No Allergies dulaglutide (From Trulicity) Allergy (Severe, Verified 04/05/24 13:41) Other empagliflozin (From Jardiance) Allergy (Verified 04/05/24 13:41) PT UNSURE OF REACTION methotrexate Adverse Reaction (Mild, Verified 04/05/24 13:41) Other sitagliptin (From Januvia) Adverse Reaction (Verified 04/05/24 13:41) Other Medications ???Medication ???Instructions ???Recorded ???Confirmed ???Type Glucosamine/Chondr/Rodrigo well/Tur 1 tab PO DAILY supplement 08/26/20 04/05/24 History apremilast 30 mg tablet 30 mg PO BID PSORIATIC ARTHRITIS 08/26/20 04/05/24 History Multivitamin 1 tab PO DAILY vitamin 07/15/22 04/05/24 History escitalopram oxalate 10 mg tablet 15 mg PO DAILY DEPRESSION 08/05/23 04/05/24 History pen needle, diabetic 32 gauge x #100 ea 08/05/23 04/05/24 Rx (BD Ultra-Fine Natalya Pen Needle) simvastatin 40 mg tablet 40 mg PO DAILY #90 tabs 08/06/23 04/05/24 Rx insulin glargine U-300 conc 300 70 unit (0.2333 mL) subcut DAILY 09/07/23 04/05/24 Rx unit/mL (1.5 mL) subcutaneous pen #21 mL (Toujeo SoloStar U-300 Insulin) ferrous sulfate 325 mg (65 mg 325 mg PO DAILY 11/11/23 04/05/24 History iron) tablet (Feosol) flash glucose sensor (FreeStyle #6 ea 11/30/23 04/05/24 Rx Batsheva 14 Day Sensor kit) insulin lispro 100 unit/mL 40 unit (0.4 mL) subcut TIDCM 12/28/23 04/05/24 Rx subcutaneous pen DIABETES #108 mL metformin 1,000 mg tablet 1,000 mg PO BID #180 tabs 02/04/24 04/05/24 Rx losartan 25 mg tablet 25 mg PO DAILY BLOOD PRESSURE #90 02/08/24 04/05/24 Rx tabs aspirin 81 mg tablet,delayed 81 mg PO DAILY 02/10/24 04/05/24 History release (Adult Low Dose Aspirin) sulfasalazine 500 mg tablet 500 mg PO BID 02/10/24 04/05/24 History levothyroxine 88 mcg tablet 88 mcg PO DAILY #90 tabs 02/22/24 04/05/24 Rx fenofibrate nanocrystallized 145 145 mg PO DAILY #90 tabs 03/21/24 04/05/24 Rx mg tablet amitriptyline 50 mg tablet 50 mg PO QHS #90 tabs 04/05/24 04/05/24 Rx Have you fallen in the past year?: No Nurse's Note: Needs refill on amitriptyline. Wants to discuss probability of fatty liver turning into chirrosis. [facility] Medical History (Updated 04/05/24 @ 16:06 by BELA Titus) Pancreatitis Fatty liver Psoriasis Surgical History [place] teeth extracted History of gynecologic surgery Family History Father Myocardial infarction, Onset Age: 84 Hypertension Seizures Alzheimer's dementia Hyponatremia Mother TIA (transient ischemic attack) Breast cancer Tongue cancer Anesthesia anaesthesia sensitivity Anxiety IBS (irritable bowel syndrome) Hypertension High cholesterol Osteoporosis Psychiatric care COPD (chronic obstructive pulmonary disease) Cancer melanoma CVA (cerebral vascular accident) Thyroid disorder Dementia Hyponatremia Sister Thyroid disorder Prediabetes Uncle H/O Needmore's disease Unknown H/O Kaci's disease Social History household members: spouse current occupational status: unemployed Smoking Status: Former smoker quit date: 06/29/08 pack-years: 36 Electronic Cigarette Use: not used alcohol intake: former year quit: 2008 substance use type: does not use what type of physical activity do you participate in: none do you feel safe at home: Yes HPI HPI Details: ROMA WALTON, is a 63 F who presents to the office today for routine follow-up. She is a patient of Dr. Marrufo and was last evaluated in office on 10/06/2023. She was following with [facility] women's care and reports that she is no longer following. She is due for her second shingles vaccine today. She plans to receive annual influenza and COVID-vaccine at a later date. She is due for routine mammogram in May. She does not smoke and does not need refills. She reports that she is staying active but does not monitor her diet closely. She has a history of type 2 diabetes, she monitors her blood (more content not included)... Normal [facility] Endocrinology Visit Reporton 02-10-2024 Endocrinology Visit Report [facility] [place] [address] OFFICE VISIT Date of Service: 02/10/24 MR#: [id number] Acct: [id number] Name: ROMA WALTON Rep #: [id number] : [id number] Provider: BELA harper Age/Sex: 63/F Location: [facility] [place], [place] Status: Signed Intake Vital Signs 11/11/23 14:27 02/10/24 14:39 Height 5 ft 6 in 5 ft 6 in Weight: 184 lb 183 lb BMI 29.7 29.5 BP 109/72 128/81 H Blood Pressure Location Rt brachial Lt brachial Position Sitting Pulse 99 113 H Pulse Source Monitor Temp 97.6 F L Pulse Oximetry (%) 93 94 Oxygen Delivery Method room air Intake Visit Reasons: 3 M FU Chief Complaint: 3 f/u diabetes Crm Specialist Required: No Accompanied by: Self Is patient in pain?: No Allergies dulaglutide (From Trulicity) Allergy (Severe, Verified 02/10/24 14:43) Other empagliflozin (From Jardiance) Allergy (Verified 02/10/24 14:43) PT UNSURE OF REACTION methotrexate Adverse Reaction (Mild, Verified 02/10/24 14:43) Other sitagliptin (From Januvia) Adverse Reaction (Verified 02/10/24 14:43) Other Medications ???Medication ???Instructions ???Recorded ???Confirmed ???Type Glucosamine/Chondr/Rodrigo well/Tur 1 tab PO DAILY supplement 08/26/20 02/10/24 History apremilast 30 mg tablet 30 mg PO BID PSORIATIC ARTHRITIS 08/26/20 02/10/24 History Multivitamin 1 tab PO DAILY vitamin 07/15/22 02/10/24 History escitalopram oxalate 10 mg tablet 15 mg PO DAILY DEPRESSION 08/05/23 02/10/24 History fenofibrate nanocrystallized 145 145 mg PO DAILY #90 tabs 08/05/23 02/10/24 Rx mg tablet levothyroxine 88 mcg tablet 88 mcg PO DAILY #90 tabs 08/05/23 02/10/24 Rx pen needle, diabetic 32 gauge x #100 ea 08/05/23 10/06/23 Rx 5/32 (BD Ultra-Fine Natalya Pen Needle) simvastatin 40 mg tablet 40 mg PO DAILY #90 tabs 08/06/23 02/10/24 Rx insulin glargine U-300 conc 300 70 unit (0.2333 mL) subcut DAILY 09/07/23 02/10/24 Rx unit/mL (1.5 mL) subcutaneous pen #21 mL (Toujeo SoloStar U-300 Insulin) ferrous sulfate 325 mg (65 mg 325 mg PO DAILY 11/11/23 02/10/24 History iron) tablet (Feosol) flash glucose sensor (FreeStyle #6 ea 11/30/23 Rx Batsheva 14 Day Sensor kit) insulin lispro 100 unit/mL 40 unit (0.4 mL) subcut TIDCM 12/28/23 02/10/24 Rx subcutaneous pen DIABETES #108 mL amitriptyline 25 mg tablet 25 mg PO QHS #90 tabs 01/06/24 02/10/24 Rx metformin 1,000 mg tablet 1,000 mg PO BID #180 tabs 02/04/24 02/10/24 Rx losartan 25 mg tablet 25 mg PO DAILY BLOOD PRESSURE #90 02/08/24 02/10/24 Rx tabs aspirin 81 mg tablet,delayed 81 mg PO DAILY 02/10/24 02/10/24 History release (Adult Low Dose Aspirin) sulfasalazine 500 mg tablet 500 mg PO BID 02/10/24 02/10/24 History Have you fallen in the past year?: No PFSH Medical History Pancreatitis Fatty liver Psoriasis Surgical History [place] teeth extracted History of gynecologic surgery Family History Father Myocardial infarction, Onset Age: 84 Hypertension Seizures Alzheimer's dementia Hyponatremia Mother TIA (transient ischemic attack) Breast cancer Tongue cancer Anesthesia anaesthesia sensitivity Anxiety IBS (irritable bowel syndrome) Hypertension High cholesterol Osteoporosis Psychiatric care COPD (chronic obstructive pulmonary disease) Cancer melanoma CVA (cerebral vascular accident) Thyroid disorder Dementia Hyponatremia Sister Thyroid disorder Prediabetes Uncle H/O Needmore's disease Unknown H/O Kaci's disease Social History household members: spouse current occupational status: unemployed Smoking Status: Former smoker quit date: 06/29/08 pack-years: 36 Electronic Cigarette Use: not used alcohol intake: former year quit: 2008 substance use type: does not use what type of physical activity do you participate in: none do you feel safe at home: Yes HPI HPI Chief Complaint: 3 f/u diabetes Details: ROMA WALTON, is a 63 F who presents to the office today for evaluation and management of diabetes. A1C today is 6.6%, improved from 09/03/23 at 7.2%. TopiVert downloaded and reviewed- she is having lows between meals, blood sugar trends downwards during sleeping hours, she is having post meal elevations. Currently taking Toujeo 46 u once daily, Humalog 36-40 u TIDCM +SSI, and metformin 1 gm BID with food. Denies any significant episodes of hypoglycemia that have required assistance from others. She is making small improvements in her diet. 01/11/24 TSH 1.34, T4 1.19. Currently taking levothyroxine 88 mcg o (more content not included)... Normal [facility] Blood erythrocytes count (nu mber/volume)Ordered By: Samara Monroy on 10-09-2023 RBC (Bld) [#/Vol] 4.43 10*6/uL 3.77-5.28 [facility] Erythrocyte [id number] ate dehydrogenase (enzymatic activity/mass)Ordered By: Samara Monroy on 10-09-2023 G6PD (RBC) [Catalytic activity/Mass] 258 127-427 [facility] Comment on above: Result Units: U/10E1 2 RBCWhen decreased, G-6-PD, Quant. values are associated withacute hemolytic anemia when deficient individuals areexposed to oxidative stress, such as with certainmedications (e.g., primaquine), infection, or ingestion offava beans. Caution: In patients with acute hemolysis(e.g., abnormally low RBC values), testing for G-6-PD maybe falsely normal because older erythrocytes with a higherenzyme deficiency have been hemolyzed. Young erythrocytesand reticulocytes have normal or near-normal enzymeactivity. Normal values of G-6-PD may be measured forseveral weeks following a hemolytic event.Performed at: [address] [id number] Director: Heber Barnes PhD, Phone: [phone] at: [facility] [id number] Director: Teodora Galazra MD, Phone: [phone] Iron measurement (mass/mass) Ordered By: Samara Monroy on 10-09-2023 Iron (Unsp spec) [Mass/Mass] 28 ug/dL 50-170 [facility] Laboratory - Chemistry and C hemistry - challengeOrdered By: Samara Monroy on 10-09-2023 Cobalamin (Vitamin B12) [Mass/Vol] 639 pg/mL 211-911 [facility] Ferritin [Mass/Vol] 14 ng/mL 8-252 [facility] No Panel InformationOrdered By: Samara Monroy on 10-09-2023 Total Iron Binding Capacity 451 ug/dL 250-450 [facility] Vitamin D 25-Hydroxy 97.4 ng/mL [facility] Comment on above: Vitamin D 25(OH) Sta tus Range Deficiency <20 ng/mL (50nmol/L) Insufficiency 20 - 30 ng/mL (50 - 75 nmol/L) Sufficiency 30 - 100 ng/mL (75 - 250 nmol/L) Toxicity >100 ng/mL (>250 nmol/L) Serum or plasma iron saturat ion measurement (mass fraction)Ordered By: Samara Monroy on 10-09-2023 Iron saturation [Mass fraction] 6.2 % 15.0-55.0 [facility] Absolute lymphocyte countOrd ered By: Jacque Mcfarlane on 09-24-2023 Lymphocytes Auto (Unsp spec) [#/Vol] 1.96 10*3/uL 0.83-4.51 [facility] Automated lymphocyte count a s percentage of total leukocytesOrdered By: Jacque Mcfarlane on 09-24-2023 Lymphocytes/100 WBC Auto (Unsp spec) 21.7 % 19-41 [facility] Basophil percentageOrdered B y: Jacque Mcfarlane on 09-24-2023 Basophils/100 WBC (Bld) 0.6 % 0-1 [facility] Bilirubin [Mass/Vol] 0.20 mg/dL 0.20-1.00 [facility] Comment on above: For patients on eltr ombopag therapy, use of Dimension Treece TBIL is not recommended. Chloride [Moles/Vol] 105 mmol/L 98-107 [facility] Eosinophils/100 WBC (Bld) 1.7 % 0-5 [facility] Glucose [Mass/Vol] 144 mg/dL 74-106 [facility] Comment on above: Fasting Glucose resu lt greater than or equal to 126 mg/dL suggests DIABETES MELLITUS per A.D.A. criteria. Hemoglobin (Bld) [Mass/Vol] 10.8 g/dL 12.0-15.0 [facility] Monocytes/100 WBC (Bld) 9.3 % 0-10 [facility] Neutrophils (Bld) [#/Vol] 6.0 10*3/uL 2.0-7.7 [facility] Neutrophils/100 WBC (Bld) 66.5 % 47-70 [facility] Potassium [Moles/Vol] 3.8 mmol/L 3.5-5.1 [facility] Protein [Mass/Vol] 6.7 g/dL 6.4-8.2 [facility] Sodium [Moles/Vol] 138 mmol/L 136-145 [facility] WBC (Bld) [#/Vol] 9.0 10*3/uL 4.4-11.0 [facility] Determination of erythrocyte mean corpuscular volume (MCV)Ordered By: Jacque Mcfarlane on 09-24-2023 MCV (RBC) [Entitic vol] 82.4 fL 81-99 [facility] Erythrocyte distribution wid th ratioOrdered By: Jacuqe Mcfarlane on 09-24-2023 Erythrocyte distribution width (RBC) [Ratio] 15.3 % 11.6-14.6 [facility] Erythrocyte distribution wid th standard deviationOrdered By: Jacque Mcfarlane on 09-24-2023 Erythrocyte distribution width (RBC) [Entitic vol] 46.6 fL 35.1-43.9 [facility] Hematocrit Auto (Bld) [Volum e fraction]Ordered By: Jacque Mcfarlane on 09-24-2023 Hematocrit (Bld) [Volume fraction] 36.0 % 37-47 [facility] Immature granulocytes/100 WB C Auto (Bld)Ordered By: Jacque Mcfarlane on 09-24-2023 Immature granulocytes/100 WBC (Bld) 0.200 % 0.0-0.9 [facility] Comment on above: IG% - Immature Granu locytes (promyelocytes, myelocytes and metamyelocytes) > 1% indicates that a LEFT SHIFT is Present. Laboratory - Chemistry and C hemistry - challengeOrdered By: Jacque Mcfarlane on 09-24-2023 Albumin/Globulin [Mass ratio] 1.2 {ratio} 0.9-2.4 [facility] ALP [Catalytic activity/Vol] 45 U/L 45-117 [facility] ALT [Catalytic activity/Vol] 31 U/L 13-56 [facility] CO2 [Moles/Vol] 28.0 mmol/L 21.0-32.0 [facility] Globulin (S) [Mass/Vol] 3.0 g/dL 2.2-4.2 [facility] Urea nitrogen/Creatinine [Mass ratio] 17.8 mg/mg 10-20 [facility] Laboratory - Hematology and Cell countsOrdered By: Jacque Mcfarlane on 09-24-2023 MCH (RBC) [Entitic mass] 24.7 pg 27.0-32.0 [facility] MCHC (RBC) [Mass/Vol] 30.0 g/dL 32-36 [facility] Nucleated RBC/100 WBC (Bld) [Ratio] 0 % 0-5 [facility] Platelet mean volume (Bld) [Entitic vol] 9.7 fL 6.2-12.0 [facility] Platelets (Bld) [#/Vol] 342 10*3/uL 150-450 [facility] No Panel InformationOrdered By: Jacque Mcfarlane on 09-24-2023 Estimated GFR (MDRD) Amer 81 mL/min >60 [facility] Comment on above: GFR Calc Estimated GFR (MDRD) Non-Af Amer 67 mL/min >60 [facility] Comment on above: Non- GFR Calc RBC Auto (Bld) [#/Vol]Ordere d By: Jacque Mcfarlane on 09-24-2023 RBC (Bld) [#/Vol] 4.37 10*6/uL 4.2-5.4 [facility] Serum or plasma calcium esteban urement (mass/volume)Ordered By: Jacque Mcfarlane on 09-24-2023 Calcium [Mass/Vol] 9.3 mg/dL 8.5-10.1 [facility] Serum or plasma creatinine m easurement (mass/volume)Ordered By: Jacque Mcfarlane on 09-24-2023 Creatinine [Mass/Vol] 0.90 mg/dL 0.55-1.02 [facility] Comment on above: The validity of the calculated GFR & GFRAA in patients over 70 years has not been determined. Clinical correlation is essential. Serum or plasma urea nitroge n measurement (mass/volume)Ordered By: Jacque Mcfarlane on 09-24-2023 Urea nitrogen [Mass/Vol] 16 mg/dL 7-18 [facility] Thin prep Papanicolaou smear with manual screeningOrdered By: Jacque Mcfarlane on 09-24-2023 Thin prep Papanicolaou smear with manual screening 3.7 g/dL 3.2-5.0 [facility] Thin prep Papanicolaou smear with manual screening 19 U/L 15-37 [facility] Thin prep Papanicolaou smear with manual screening 5 5-15 [facility] Laboratory - Hematology and Cell countson 09-02-2023 HbA1c (Bld) [Mass fraction] 7.2 % [facility] Laboratory - Hematology and Cell countson 08-05-2023 HbA1c (Bld) [Mass fraction] 7.7 % 4.2-6.3 [facility] HBA1C (OUTSIDE)on 04-29-2023 HbA1c (Bld) [Mass fraction] 7.0 % [facility] Absolute lymphocyte countOrd ered By: Dr. Mcfarlane on 10-02-2022 Lymphocytes Auto (Unsp spec) [#/Vol] 1.32 10*3/uL 0.83-4.51 [facility] Basophil percentageOrdered B y: Dr. Mcfarlane on 10-02-2022 Basophils/100 WBC (Bld) 0.5 % 0-1 [facility] Bilirubin [Mass/Vol] 0.20 mg/dL 0.20-1.00 [facility] Comment on above: For patients on eltr ombopag therapy, use of Dimension Treece TBIL is not recommended. Chloride [Moles/Vol] 102 mmol/L 98-107 [facility] Eosinophils/100 WBC (Bld) 1.5 % 0-5 [facility] Glucose [Mass/Vol] 242 mg/dL 74-106 [facility] Comment on above: Glucose result great er than or equal to 200 mg/dLsuggests DIABETES MELLITUS per A.D.A. criteria. Neutrophils (Bld) [#/Vol] 4.3 10*3/uL 2.0-7.7 [facility] Neutrophils/100 WBC (Bld) 69.5 % 47-70 [facility] Potassium [Moles/Vol] 4.0 mmol/L 3.5-5.1 [facility] Protein [Mass/Vol] 6.8 g/dL 6.4-8.2 [facility] Sodium [Moles/Vol] 139 mmol/L 136-145 [facility] WBC (Bld) [#/Vol] 6.1 10*3/uL 4.4-11.0 [facility] Blood erythrocytes count (nu mber/volume)Ordered By: Dr. Mcfarlane on 10-02-2022 RBC (Bld) [#/Vol] 4.56 10*6/uL 4.2-5.4 [facility] Blood hemoglobin measurement (mass/volume)Ordered By: Dr. Mcfarlane on 10-02-2022 Hemoglobin (Bld) [Mass/Vol] 11.7 g/dL 12.0-15.0 [facility] Blood lymphocytes/100 leukoc ytesOrdered By: Dr. Mcfarlane on 10-02-2022 Lymphocytes/100 WBC (Bld) 21.5 % 19-41 [facility] Blood monocytes/100 leukocyt esOrdered By: Dr. Mcfarlane on 10-02-2022 Monocytes/100 WBC (Bld) 6.5 % 0-10 [facility] Blood platelet mean volumeOr dered By: Dr. Mcfarlane on 10-02-2022 Platelet mean volume (Bld) [Entitic vol] 10.2 fL 6.2-12.0 [facility] Determination of erythrocyte mean corpuscular volume (MCV)Ordered By: Dr. Mcfarlane on 10-02-2022 MCV (RBC) [Entitic vol] 83.1 fL 81-99 [facility] Hematocrit Auto (Bld) [Volum e fraction]Ordered By: Dr. Mcfarlane on 10-02-2022 Hematocrit (Bld) [Volume fraction] 37.9 % 37-47 [facility] Laboratory - Chemistry and C hemistry - challengeOrdered By: Dr. Mcfarlane on 10-02-2022 ALP [Catalytic activity/Vol] 40 U/L 45-117 [facility] ALT [Catalytic activity/Vol] 27 U/L 13-56 [facility] CO2 [Moles/Vol] 31.0 mmol/L 21.0-32.0 [facility] Globulin (S) [Mass/Vol] 3.1 g/dL 2.2-4.2 [facility] Urea nitrogen/Creatinine [Mass ratio] 17.4 mg/mg 10-20 [facility] Laboratory - Hematology and Cell countsOrdered By: Dr. Mcfarlane on 10-02-2022 Erythrocyte distribution width (RBC) [Entitic vol] 47.5 fL 35.1-43.9 [facility] Erythrocyte distribution width (RBC) [Ratio] 15.8 % 11.6-14.6 [facility] Immature granulocytes/100 WBC (Bld) 0.500 % 0.0-0.9 [facility] Comment on above: IG% - Immature Granu locytes (promyelocytes, myelocytes and metamyelocytes) > 1% indicates that a LEFT SHIFT is Present. MCH (RBC) [Entitic mass] 25.7 pg 27.0-32.0 [facility] Nucleated RBC/100 WBC (Bld) [Ratio] 0 % 0-5 [facility] MCHC Auto (RBC) [Mass/Vol]Or dered By: Dr. Mcfarlane on 10-02-2022 MCHC (RBC) [Mass/Vol] 30.9 g/dL 32-36 [facility] No Panel InformationOrdered By: Dr. Mcfarlane on 10-02-2022 Estimated GFR (MDRD) Amer 79 mL/min >60 [facility] Comment on above: GFR Calc Estimated GFR (MDRD) Non-Af Amer 65 mL/min >60 [facility] Comment on above: Non- GFR Calc Platelets bldOrdered By: Dr. Mcfarlane on 10-02-2022 Platelets (Bld) [#/Vol] 317 10*3/uL 150-450 [facility] Serum or plasma albumin esteban urement (mass/volume)Ordered By: Dr. Mcfarlane on 10-02-2022 Albumin [Mass/Vol] 3.7 g/dL 3.2-5.0 [facility] Serum or plasma albumin/glob ulin mass ratioOrdered By: Dr. Mcfarlane on 10-02-2022 Albumin/Globulin [Mass ratio] 1.2 {ratio} 0.9-2.4 [facility] Serum or plasma calcium esteban urement (mass/volume)Ordered By: Dr. Mcfarlane on 10-02-2022 Calcium [Mass/Vol] 9.5 mg/dL 8.5-10.1 [facility] Serum or plasma creatinine m easurement (mass/volume)Ordered By: Dr. Mcfarlane on 10-02-2022 Creatinine [Mass/Vol] 0.92 mg/dL 0.55-1.02 [facility] Comment on above: The validity of the calculated GFR & GFRAA in patients over 70 years has not been determined. Clinical correlation is essential. Serum or plasma urea nitroge n measurement (mass/volume)Ordered By: Dr. Mcfarlane on 10-02-2022 Urea nitrogen [Mass/Vol] 16 mg/dL 7-18 [facility] Thin prep Papanicolaou smear with manual screeningOrdered By: Dr. Mcfarlane on 10-02-2022 Thin prep Papanicolaou smear with manual screening 16 U/L 15-37 [facility] Thin prep Papanicolaou smear with manual screening 6 5-15 [facility] Laboratory - Hematology and Cell countson 07-24-2022 HbA1c (Bld) [Mass fraction] 7.6 % [facility] DIEGO SCREENING W TOMOon 06-05 [facility] Absolute lymphocyte counton 05-20-2022 Lymphocytes Auto (Unsp spec) [#/Vol] 2.29 10*3/uL 0.83-4.51 [facility] Work Phone: Basophil percentageon 2021 Basophils/100 WBC (Bld) 0.6 % 0-1 [facility] Work Phone: Bilirubin [Mass/Vol] 0.30 mg/dL 0.20-1.00 [facility] Work Phone: Comment on above: For patients on eltr ombopag therapy, use of Dimension Treece TBIL is not recommended. Chloride [Moles/Vol] 101 mmol/L 98-107 [facility] Work Phone: Eosinophils/100 WBC (Bld) 2.3 % 0-5 [facility] Work Phone: Glucose [Mass/Vol] 153 mg/dL 74-106 [facility] Work Phone: Comment on above: Fasting Glucose resu lt greater than or equal to 126 mg/dL suggests DIABETES MELLITUS per A.D.A. criteria. Neutrophils (Bld) [#/Vol] 6.6 10*3/uL 2.0-7.7 [facility] Work Phone: Neutrophils/100 WBC (Bld) 65.7 % 47-70 [facility] Work Phone: Potassium [Moles/Vol] 4.1 mmol/L 3.5-5.1 [facility] Work Phone: Protein [Mass/Vol] 7.3 g/dL 6.4-8.2 [facility] Work Phone: [phone] Sodium [Moles/Vol] 138 mmol/L 136-145 [facility] Work Phone: WBC (Bld) [#/Vol] 10.0 10*3/uL 4.4-11.0 [facility] Work Phone: Blood erythrocytes count (nu mber/volume)on 05-20-2022 RBC (Bld) [#/Vol] 4.81 10*6/uL 4.2-5.4 [facility] Work Phone: Blood hemoglobin measurement (mass/volume)on 05-20-2022 Hemoglobin (Bld) [Mass/Vol] 11.8 g/dL 12.0-15.0 [facility] Work Phone: Blood lymphocytes/100 leukoc yteson 05-20-2022 Lymphocytes/100 WBC (Bld) 22.9 % 19-41 [facility] Work Phone: Blood monocytes/100 leukocyt eson 05-20-2022 Monocytes/100 WBC (Bld) 8.1 % 0-10 [facility] Work Phone: Blood platelet mean volumeon 05-20-2022 Platelet mean volume (Bld) [Entitic vol] 9.6 fL 6.2-12.0 [facility] Work Phone: Determination of erythrocyte mean corpuscular volume (MCV)on 05-20-2022 MCV (RBC) [Entitic vol] 80.7 fL 81-99 [facility] Work Phone: Hematocrit Auto (Bld) [Volum e fraction]on 05-20-2022 Hematocrit (Bld) [Volume fraction] 38.8 % 37-47 [facility] Work Phone: [phone] Laboratory - Chemistry and C hemistry - challengeon 05-20-2022 ALP [Catalytic activity/Vol] 53 U/L 45-117 [facility] Work Phone: ALT [Catalytic activity/Vol] 58 U/L 13-56 [facility] Work Phone: [phone] CO2 [Moles/Vol] 28.0 mmol/L 21.0-32.0 [facility] Work Phone: Globulin (S) [Mass/Vol] 3.5 g/dL 2.2-4.2 [facility] Work Phone: Urea nitrogen/Creatinine [Mass ratio] 16.8 mg/mg 10-20 [facility] Work Phone: Laboratory - Hematology and Cell countson 05-20-2022 Erythrocyte distribution width (RBC) [Entitic vol] 45.1 fL 35.1-43.9 [facility] Work Phone: Erythrocyte distribution width (RBC) [Ratio] 15.5 % 11.6-14.6 [facility] Work Phone: [phone] Immature granulocytes/100 WBC (Bld) 0.400 % 0.0-0.9 [facility] Work Phone: [phone] Comment on above: IG% - Immature Granu locytes (promyelocytes, myelocytes and metamyelocytes) > 1% indicates that a LEFT SHIFT is Present. MCH (RBC) [Entitic mass] 24.5 pg 27.0-32.0 [facility] Work Phone: Nucleated RBC/100 WBC (Bld) [Ratio] 0 % 0-5 [facility] Work Phone: [phone] MCHC Auto (RBC) [Mass/Vol]on 05-20-2022 MCHC (RBC) [Mass/Vol] 30.4 g/dL 32-36 [facility] Work Phone: No Panel Informationon 05-20 Estimated GFR (MDRD) Amer 82 mL/min >60 [facility] Work Phone: [phone] Comment on above: GFR Calc Estimated GFR (MDRD) Non-Af Amer 68 mL/min >60 [facility] Work Phone: Comment on above: Non- GFR Calc Platelets bldon 05-20-2022 Platelets (Bld) [#/Vol] 376 10*3/uL 150-450 [facility] Work Phone: [phone] Serum or plasma albumin esteban urement (mass/volume)on 05-20-2022 Albumin [Mass/Vol] 3.8 g/dL 3.2-5.0 [facility] Work Phone: [phone] Serum or plasma albumin/glob ulin mass ratioon 05-20-2022 Albumin/Globulin [Mass ratio] 1.1 {ratio} 0.9-2.4 [facility] Work Phone: [phone] Serum or plasma calcium esteban urement (mass/volume)on 05-20-2022 Calcium [Mass/Vol] 9.8 mg/dL 8.5-10.1 [facility] Work Phone: Serum or plasma creatinine m easurement (mass/volume)on 05-20-2022 Creatinine [Mass/Vol] 0.89 mg/dL 0.55-1.02 [facility] Work Phone: Comment on above: The validity of the calculated GFR & GFRAA in patients over 70 years has not been determined. Clinical correlation is essential. Serum or plasma urea nitroge n measurement (mass/volume)on 05-20-2022 Urea nitrogen [Mass/Vol] 15 mg/dL 7-18 [facility] Work Phone: Thin prep Papanicolaou smear with manual screeningon 05-20-2022 Thin prep Papanicolaou smear with manual screening 26 U/L 15-37 [facility] Work Phone: Thin prep Papanicolaou smear with manual screening 9 -15 [facility] Work Phone: Vital Signs Date Time Vital Sign Value Performing Clinician Faci lity 01-10-2025 13:01-0400 Body height 167.[address] Samara Monroy MD Work Phone: [facility] 01-10-2025 13:01-0400 Body mass index (BMI) [Ratio] 28.3 kg/m2 Dr. Samara Monroy MD Work Phone: [facility] 01-10-2025 13:01-0400 Body temperature 97.4 [degF] Dr. Samara Monroy MD Work Phone: [facility] 01-10-2025 13:01-0400 Body weight 79.[address] Samara Monroy MD Work Phone: [facility] 01-10-2025 13:01-0400 Diastolic blood pressure 64 mm[Hg] Dr. Samara Monroy MD Work Phone: [facility] 01-10-2025 13:01-0400 Heart rate 109 /min Dr. Samara Monroy MD Work Phone: [facility] 01-10-2025 13:01-0400 Respiratory rate 16 /min Dr. Samara Monroy MD Work Phone: [facility] 01-10-2025 13:01-0400 SaO2% (BldA) [Mass fraction] 96 % Dr. Samara Monroy MD Work Phone: [facility] 01-10-2025 13:01-0400 Systolic blood pressure 130 mm[Hg] Dr. Samara Monroy MD Work Phone: [facility] 12-12-2024 15:40-0400 Body temperature 98.4 [degF] Dr. Samara Monroy MD Work Phone: [facility] 12-12-2024 15:40-0400 Diastolic blood pressure 84 mm[Hg] Dr. Samara Monroy MD Work Phone: [facility] [facility] 12-12-2024 15:40-0400 Heart rate 101 /min Dr. Samara Monroy MD Work Phone: [facility] 12-12-2024 15:40-0400 Respiratory rate 18 /min Dr. Samara Monroy MD Work Phone: [facility] 12-12-2024 15:40-0400 SaO2% (BldA) [Mass fraction] 93 % Dr. Samara Monroy MD Work Phone: [facility] 12-12-2024 15:40-0400 Systolic blood pressure 126 mm[Hg] Dr. Samara Monroy MD Work Phone: [facility] 12-01-2024 13:40-0400 Body height 167.[address] Samara Monroy MD Work Phone: [facility] 12-01-2024 13:40-0400 Body mass index (BMI) [Ratio] 28.3 kg/m2 Dr. Samara Monroy MD Work Phone: [facility] 12-01-2024 13:40-0400 Body weight 79.[address] Samara Monroy MD Work Phone: [facility] 12-01-2024 13:40-0400 Diastolic blood pressure 81 mm[Hg] Dr. Samara Monroy MD Work Phone: [facility] 12-01-2024 13:40-0400 Heart rate 102 /min Dr. Samara Monroy MD Work Phone: [facility] 12-01-2024 13:40-0400 SaO2% (BldA) [Mass fraction] 94 % Dr. Samara Monroy MD Work Phone: [facility] 12-01-2024 13:40-0400 Systolic blood pressure 130 mm[Hg] Dr. Samara Monroy MD Work Phone: [facility] 10-19-2024 16:49-0400 Body mass index (BMI) [Ratio] 28.9 kg/m2 Dr. Samara Monroy MD Work Phone: [facility] 10-19-2024 16:49-0400 Body temperature 98.9 [degF] Dr. Samara Monroy MD Work Phone: [facility] 10-19-2024 16:49-0400 Body weight 81.[address] Samara Monroy MD Work Phone: [facility] 10-19-2024 16:49-0400 Diastolic blood pressure 66 mm[Hg] Dr. Samara Monroy MD Work Phone: [facility] 10-19-2024 16:49-0400 Heart rate 90 /min Dr. Samara Monroy MD Work Phone: [facility] 10-19-2024 16:49-0400 Respiratory rate 16 /min Dr. Samara Monroy MD Work Phone: [facility] 10-19-2024 16:49-0400 SaO2% (BldA) [Mass fraction] 96 % Dr. Samara Monroy MD Work Phone: [facility] 10-19-2024 16:49-0400 Systolic blood pressure 142 mm[Hg] Dr. Samara Monroy MD Work Phone: [facility] 10-12-2024 13:33-0400 Body height 167.[address] Samara Monroy MD Work Phone: [facility] 10-12-2024 13:33-0400 Body mass index (BMI) [Ratio] 28.7 kg/m2 Dr. Samara Monroy MD Work Phone: [facility] 10-12-2024 13:33-0400 Body temperature 98.3 [degF] Dr. Samara Monroy MD Work Phone: [facility] 10-12-2024 13:33-0400 Body weight 80.[address] Samara Monroy MD Work Phone: [facility] 10-12-2024 13:33-0400 Diastolic blood pressure 78 mm[Hg] Dr. Samara Monroy MD Work Phone: [facility] 10-12-2024 13:33-0400 Heart rate 123 /min Dr. Samara Monroy MD Work Phone: [facility] 10-12-2024 13:33-0400 Respiratory rate 16 /min Dr. Samara Monroy MD Work Phone: [facility] 10-12-2024 13:33-0400 SaO2% (BldA) [Mass fraction] 98 % Dr. Samara Monroy MD Work Phone: [facility] 10-12-2024 13:33-0400 Systolic blood pressure 136 mm[Hg] Dr. Samara Monroy MD Work Phone: [facility] 09-01-2024 14:43-0500 Body height 167.[address] Samara Monroy MD Work Phone: [facility] 09-01-2024 14:43-0500 Body mass index (BMI) [Ratio] 28.8 kg/m2 Dr. Samara Monroy MD Work Phone: [facility] 09-01-2024 14:43-0500 Body weight 81.[address] Samara Monroy MD Work Phone: [facility] 09-01-2024 14:43-0500 Diastolic blood pressure 85 mm[Hg] Dr. Samara Monroy MD Work Phone: [facility] 09-01-2024 14:43-0500 Heart rate 110 /min Dr. Samara Monroy MD Work Phone: [facility] 09-01-2024 14:43-0500 SaO2% (BldA) [Mass fraction] 96 % Dr. Samara Monroy MD Work Phone: [facility] 09-01-2024 14:43-0500 Systolic blood pressure 131 mm[Hg] Dr. Samara Monroy MD Work Phone: [facility] 08-10-2024 14:38-0500 Body mass index (BMI) [Ratio] 29 kg/m2 Dr. Samara Monroy MD Work Phone: [facility] 08-10-2024 14:38-0500 Body weight 81.[address] Samara Monroy MD Work Phone: [facility] 08-10-2024 14:38-0500 Diastolic blood pressure 78 mm[Hg] Dr. Samara Monroy MD Work Phone: [facility] 08-10-2024 14:38-0500 Heart rate 98 /min Dr. Samara Monroy MD Work Phone: [facility] 08-10-2024 14:38-0500 SaO2% (BldA) [Mass fraction] 92 % Dr. Samara Monroy MD Work Phone: [facility] 08-10-2024 14:38-0500 Systolic blood pressure 129 mm[Hg] Dr. Samara Monroy MD Work Phone: [facility] 07-13-2024 14:47-0500 Body mass index (BMI) [Ratio] 29.4 kg/m2 Dr. Samara Monroy MD Work Phone: [facility] 07-13-2024 14:47-0500 Body temperature 97.7 [degF] Dr. Samara Monroy MD Work Phone: [facility] 07-13-2024 14:47-0500 Body weight 82.[address] Samara Monryo MD Work Phone: [facility] 07-13-2024 14:47-0500 Diastolic blood pressure 76 mm[Hg] Dr. Samara Monroy MD Work Phone: [facility] 07-13-2024 14:47-0500 Heart rate 109 /min Dr. Samaar Monroy MD Work Phone: [facility] 07-13-2024 14:47-0500 Respiratory rate 18 /min Dr. Samara Monroy MD Work Phone: [facility] 07-13-2024 14:47-0500 SaO2% (BldA) [Mass fraction] 96 % Dr. Samara Monroy MD Work Phone: [facility] 07-13-2024 14:47-0500 Systolic blood pressure 134 mm[Hg] Dr. Samara Monroy MD Work Phone: [facility] 10-06-2023 14:31-0400 Body height 167.64 cm COTY ANSARI Work Phone: [facility] 10-06-2023 14:31-0400 Body mass index (BMI) [Ratio] 29.3 kg/m2 PA NORAH Ardon PA Work Phone: 4(539)353-331702 [place] [address] 10-06-2023 14:31-0400 Body temperature 97.9 [degF] PA NA Ardon PA Work Phone: [facility] 10-06-2023 14:31-0400 Body weight 82.55 kg PA NA Ardon PA Work Phone: 1(123)854-515802 [place] [address] 10-06-2023 14:31-0400 Diastolic blood pressure 70 mm[Hg] PA NA Ardon PA Work Phone: 0(199)223-506902 [place] [address] 10-06-2023 14:31-0400 Heart rate 100 /min PA NA Ardon PA Work Phone: 4(667)702-199102 [place] [address] 10-06-2023 14:31-0400 Respiratory rate 18 /min PA NA Ardon PA Work Phone: [facility] 10-06-2023 14:31-0400 SaO2% (BldA) [Mass fraction] 97 % PA NA Ardon PA Work Phone: 1(729)482-209102 [place] [address] 10-06-2023 14:31-0400 Systolic blood pressure 118 mm[Hg] PA NA Ardon PA Work Phone: 7(184)229-057202 [place] [address] 08-05-2023 13:40-0500 Body height 167.64 cm PA NA Ardon PA Work Phone: 2(386)711-355102 [place] [address] 08-05-2023 13:40-0500 Body mass index (BMI) [Ratio] 29.2 kg/m2 PA NA Ardon PA Work Phone: 5(756)934-076202 [place] [address] 08-05-2023 13:40-0500 Body temperature 98.8 [degF] PA NA Ardon PA Work Phone: 9(345)550-064702 [place] [address] 08-05-2023 13:40-0500 Body weight 82.27 kg PA NA Ardon PA Work Phone: 8(160)714-979602 [place] [address] 08-05-2023 13:40-0500 Diastolic blood pressure 76 mm[Hg] PA NA Ardon PA Work Phone: 8(349)806-077102 [place] [address] 08-05-2023 13:40-0500 Heart rate 82 /min PA NA Ardon PA Work Phone: [facility] 08-05-2023 13:40-0500 Respiratory rate 16 /min PA NA Ardon PA Work Phone: [facility] 08-05-2023 13:40-0500 SaO2% (BldA) [Mass fraction] 98 % PA NA Ardon PA Work Phone: [facility] 08-05-2023 13:40-0500 Systolic blood pressure 120 mm[Hg] PA NA Ardon PA Work Phone: [facility] 12-18-2022 14:49-0400 Body weight 82.56 kg NA Ardon PA-C Work Phone: [facility] 12-18-2022 14:49-0400 Diastolic blood pressure 80 mm[Hg] NA Ardon PA-C Work Phone: [facility] 12-18-2022 14:49-0400 Heart rate 96 /min NA Ardon PA-C Work Phone: [facility] 12-18-2022 14:49-0400 Respiratory rate 16 /min NA Ardon PA-C Work Phone: [facility] 12-18-2022 14:49-0400 SaO2% (BldA) [Mass fraction] 96 % NA Ardon PA-C Work Phone: [facility] 12-18-2022 14:49-0400 Systolic blood pressure 130 mm[Hg] NA Ardon PA-C Work Phone: [facility] 10-02-2022 11:43-0400 Body height 167.64 cm PA NA Ardon PA Work Phone: [facility] 10-02-2022 11:43-0400 Body mass index (BMI) [Ratio] 29.2 kg/m2 PA NA Ardon PA Work Phone: [facility] 10-02-2022 11:43-0400 Body temperature 97.8 [degF] PA NA Ardon PA Work Phone: 7(137)784-737002 [place] [address] 10-02-2022 11:43-0400 Body weight 82.15 kg PA NA Ardon PA Work Phone: 6(401)853-047002 [place] [address] 10-02-2022 11:43-0400 Diastolic blood pressure 75 mm[Hg] PA NA Ardon PA Work Phone: 0(147)012-329902 [place] [address] 10-02-2022 11:43-0400 Heart rate 104 /min PA NA Ardon PA Work Phone: 6(555)842-837203 [place] [address] 10-02-2022 11:43-0400 Respiratory rate 18 /min PA NA Ardon PA Work Phone: 8(467)833-254503 [place] [address] 10-02-2022 11:43-0400 SaO2% (BldA) [Mass fraction] 92 % PA NA Ardon PA Work Phone: 8(199)189-795002 [place] [address] 10-02-2022 11:43-0400 Systolic blood pressure 144 mm[Hg] PA NA Ardon PA Work Phone: 7(862)656-187903 [place] [address] 07-24-2022 10:09-0500 Body mass index (BMI) [Ratio] 29.3 kg/m2 PA NA Ardon PA Work Phone: 6(360)480-434103 [place] [address] 07-24-2022 10:09-0500 Body temperature 96.4 [degF] PA NA Ardon PA Work Phone: 5(892)211-362103 [place] [address] 07-24-2022 10:09-0500 Body weight 82.55 kg PA NA Ardon PA Work Phone: 3(524)538-810503 [place] [address] 07-24-2022 10:09-0500 Diastolic blood pressure 73 mm[Hg] PA NA Ardon PA Work Phone: 3(829)118-204603 [place] [address] 07-24-2022 10:09-0500 Heart rate 96 /min PA NA Ardon PA Work Phone: 7(944)057-033503 [place] [address] 07-24-2022 10:09-0500 Respiratory rate 18 /min PA NA Ardon PA Work Phone: 3(636)406-999902 [place] [address] 07-24-2022 10:09-0500 SaO2% (BldA) [Mass fraction] 92 % COTY ANSARI Work Phone: [facility] 07-24-2022 10:09-0500 Systolic blood pressure 118 mm[Hg] COTY ANSARI Work Phone: [facility] Encounters Encounter Date Encounter Type Care Provider Facility Start: 01-10-2025 End: 01-10-[address] Samara Monroy MD -[facility] Work Phone: Start: 01-10-2025 End: 01-10-[address] Samara Monroy MD Work Phone: [facility] Start: 01-05-2025 ambulatory [facility] Facility :[facility] Start: 12-28-2024 End: 12-28-[address] Samara Monroy MD Work Phone: -[facility] Start: 12-28-2024 End: 12-28-[address] Jacque Mcfarlane MD -[facility] Work Phone: Start: 12-28-2024 End: 12-28-2024 ambulatory [facility] Facility:[facility] Start: 12-21-2024 End: 12-21-[address] Samara Monroy MD Work Phone: -[facility] Start: 12-21-2024 End: 12-21-2024 Patient encounter procedure Sue Sneed FLUXER-C -[facility] Work Phone: Start: 12-21-2024 End: 12-21-2024 ambulatory Sue Sneed Facility:[facility] Start: 12-12-2024 End: 12-12-2024 Patient encounter procedure Vic ANSARI [facility] Work Phone: Start: 12-12-2024 End: 12-12-[address] Samara Monroy MD Work Phone: [facility] Work Phone: Start: 12-12-2024 End: 12-12-2024 ambulatory Samara Monroy Facility:[facility] Start: 12-01-2024 End: 12-01-2024 Patient encounter procedure Sue CROWC -[facility] Work Phone: Start: 12-01-2024 End: 12-01-[address] Samara Monroy MD Work Phone: [facility] Work Phone: Start: 10-19-2024 End: 10-19-2024 Patient encounter procedure Vic Baird PA -[facility] Work Phone: Start: 10-19-2024 End: 10-19-2024 ambulatory Samara Mornoy Facility:[facility] [place] [place] Start: 10-17-2024 Encounter for antibo dy response examination Samara Monroy [facility] Start: 10-12-2024 End: 10-12-[address] Samara Monroy MD -[facility] Work Phone: Start: 10-12-2024 End: 10-12-[address] Samara Monroy MD [facility] Start: 10-12-2024 End: 10-12-[address] Samara Monroy MD Work Phone: [facility] Work Phone: Start: 10-12-2024 End: 10-12-2024 ambulatory Samara Monroy Facility:[facility] Start: 09-29-2024 End: 09-29-[address] Samara Monroy MD Work Phone: [facility] Work Phone: Start: 09-29-2024 End: 09-29-[address] Jacque Mcfarlane MD -[facility] Work Phone: Start: 09-29-2024 End: 09-29-2024 ambulatory Jacque Mcfarlane Facility:[facility] Start: 09-01-2024 End: 09-01-2024 Patient encounter procedure Sue Sneed FLUXER-C -[facility] Work Phone: Start: 09-01-2024 End: 09-01-2024 ambulatory Samara Monroy Facility:[facility] Start: 08-16-2024 End: 09-16-2024 ambulatory Darrius Ardon PA-C Work Phone: [facility] [place] Start: 08-10-2024 End: 08-10-2024 Patient encounter procedure Sue Sneed FLUXER-C -[facility] Work Phone: Start: 08-10-2024 End: 08-10-2024 ambulatory Samara Monroy Facility:[facility] Start: 08-04-2024 End: 08-04-[address] [facility] Work [facility] Start: 08-04-2024 End: 08-04-2024 ambulatory Jacque Mcfarlane Facility:[facility] Start: 07-13-2024 End: 07-13-[address] Samara Monroy MD -[facility] Work Phone: Start: 07-13-2024 End: 07-13-2024 ambulatory Samara Monroy Facility:[facility] Start: 06-27-2024 End: 06-27-2024 Patient encounter procedure Leticia Daniel FLUXER-C -[facility] Work Phone: Start: 06-27-2024 End: 06-27-2024 ambulatory Leticia Daniel Facility:[facility] Start: 06-17-2024 ambulatory Jacque Mcfarlane Facility :[facility] Start: 06-02-2024 End: 06-02-2024 ambulatory Sue Sneed Facility:[facility] Start: 05-11-2024 End: 05-11-2024 ambulatory Sue Sneed Facility:[facility] Start: 05-05-2024 End: 05-05-2024 ambulatory Leticia Daniel Facility:[facility] Start: 04-12-2024 End: 04-12-2024 ambulatory Jacque Mcfarlane Facility:[facility] Start: 04-05-[address] Samara Monroy MD Work Phone: [facility] Start: 04-05-2024 End: 04-05-2024 ambulatory Leticia Daniel Facility:[facility] Start: 02-10-2024 End: 02-10-2024 ambulatory Sue Sneed Facility:[facility] Start: 10-09-2023 End: 10-09-2023 ambulatory PA Jennifer Ardon PA Work Phone: [facility] Work Phone: Start: 10-09-2023 End: 10-09-2023 Patient encounter procedure PA NA Ardon PA Work Phone: [facility] Work Phone: Start: 10-06-2023 End: 10-06-2023 Patient encounter procedure PA NA Ardon PA Work Phone: [facility] Work Phone: Start: 09-24-2023 End: 09-24-2023 ambulatory PA Jennifer Ardon PA Work Phone: [facility] Work Phone: Start: 09-24-2023 End: 09-24-2023 Patient encounter procedure PA NA Ardon PA Work Phone: [facility] Work Phone: Start: 09-02-2023 End: 09-02-2023 Patient encounter procedure PA NA Ardon PA Work Phone: [facility] Work Phone: Start: 08-15-2023 Hans cespedes PA-C Work Phone: [facility] Comment on above: Refill Request Start: 08-05-2023 End: 08-05-2023 Patient encounter procedure PA NA Ardon PA Work Phone: [facility] Work Phone: Start: 06-09-2023 ambulatory Jennifer Recinos on PA-C Work Phone: [facility] Comment on above: RSV vaccine Start: 06-05-2023 Refill Jennifer Recinos on PA-C Work Phone: [facility] Comment on above: Refill Request Start: 04-29-2023 Chart abstracting Jennifer Jd Boyle rton PA-C Work Phone: [facility] [place] Start: 04-18-2023 Refill Franklin Aviles MD Work Phone: [facility] [place] Comment on above: Refill Request Start: 03-02-2023 ambulatory Jennifer Recinos on PA-C Work Phone: [facility] [place] Comment on above: TSH Start: 01-13-2023 Telephone encounter Jennifer Ardon PA-C Work Phone: [facility] [place] Comment on above: Results Start: 01-12-2023 Refill Jennifer Recinos on PA-C Work Phone: [facility] [place] Comment on above: Refill Request Start: 12-25-2022 ambulatory Jennifer Recinos on PA-C Work Phone: [facility] Comment on above: A1C Start: 12-18-2022 End: 12-18-2022 Patient encounter procedure Jennifer Ardon PA-C Work Phone: [facility] [place] Comment on above: Primary hypertension (Primary Dx); Mixed hyperlipidemia; Controlled type 2 diabetes mellitus without complication, with long-term current use of insulin (HCC); Hypothyroidism, unspecified type; Stage 3a chronic kidney disease (HCC); Elevated liver enzymes; Psoriatic arthritis (HCC); Major depressive disorder with single episode, in partial remission (HCC); Encounter for immunization; Yeast infection of the skin Start: 11-28-2022 Refill Jennifer Recinos on PA-C Work Phone: [facility] [place] Comment on above: Refill Request Start: 10-30-2022 Refill Jennifer Recinos on PA-C Work Phone: [facility] [place] Comment on above: Refill Request Start: 10-10-2022 ambulatory Jennifer Recinos on PA-C Work Phone: [facility] [place] Comment on above: Amitriptyline 25mg Start: 10-02-2022 End: 10-02-2022 ambulatory PA Jennifer Ardon PA Work Phone: [facility] Work Phone: Start: 10-02-2022 End: 10-02-2022 Patient encounter procedure PA NORAH Ardon PA Work Phone: [facility] Start: 10-02-2022 End: 10-02-2022 Patient encounter procedure PA NORAH Ardon PA Work Phone: [facility] Start: 09-08-2022 Refill Jennifer Recinos on PA-C Work Phone: [facility] [place] Comment on above: Refill Request Start: 08-22-2022 Telephone encounter Jennifer Ardon PA-C Work Phone: [facility] [place] Comment on above: Medication Problem Start: 07-29-2022 Telephone encounter Jennifer Ardon PA-C Work Phone: [facility] [place] Comment on above: Results Start: 07-25-2022 Chart abstracting Jennifer kelloggon PA-C Work Phone: [facility] [place] Start: 07-24-2022 End: 07-24-2022 Patient encounter procedure COTY Ardon PA Work Phone: [facility] Start: 07-15-2022 Non-patient / Non-visit PA NORAH Ardon PA Work Phone: [facility] Start: 06-28-2022 Refill Jennifer Recinos on PA-C Work Phone: [facility] [place] Comment on above: Refill Request Start: 06-14-2022 Refill Jennifer Recinos on PA-C Work Phone: [facility] [place] Comment on above: Refill Request Start: 06-05-2022 Documentation procedure Mammog vira Coordinator [facility] Start: 06-05-2022 Letter encounter Mammography Coordinator [facility] Start: 06-05-2022 End: 06-05-2022 Subsequent hospital visit by physician Screen Mammo [facility] Comment on above: Encounter for screen ing mammogram for malignant neoplasm of breast [Z12.31] Start: 05-20-2022 End: 05-20-2022 ambulatory [facility] Work Phone: Start: 05-20-2022 End: 05-20-2022 Patient encounter procedure [facility] Start: 05-19-2022 Refill Franklin Aviles MD Work Phone: [facility] Comment on above: Refill Request Start: 04-23-2022 Refill Jennifer Recinos on PA-C Work Phone: [facility] Comment on above: Refill Request Orders Humalog Start: 12-25-2021 Refill Jennifer Jd Jorje on PA-C Work Phone: [facility] Comment on above: Refill Request Start: 11-01-2021 ambulatory Jennifer Recinos on PA-C Work Phone: [facility] Comment on above: Special Request Procedures Date Procedure Procedure Detail Performing Clinician Start: 12-21-2024 Vitamin D, 25-hydrox y measurement Dr. Samara Monroy MD Work Phone: Comment on above: Vitamin D StatusDefi ciency: <20 ng/mL (50nmol/L)Insufficiency: 20-30 ng/mL (50-75 nmol/L)Sufficiency: 30-100 ng/mL (75-250 nmol/L)Toxicity: >100 ng/mL (>250 nmol/L) Start: 12-12-2024 X-ray of foot, three or more views Dr. Samara Monroy MD Work Phone: Start: 08-04-2024 Measurement of renal function Dr. Samara Monroy MD Work Phone: Comment on above: GFR Calc Start: 06-27-2024 Screening mammography Che Monroy MD Work Phone: Start: 04-29-2023 Hemoglobin A1c/Hemoglobin.total in Blood [facility] Start: 07-24-2022 Hemoglobin A1c/Hemoglobin.total in Blood [facility] Start: 06-05-2022 DIEGO SCREENING W MARIA E Am y Fatimah GILBERT[employer]PER[employer] Work Phone: Start: 06-05-2022 Mammography Mammograph y Coordinator Start: 04-26-2021 Mammography NA Duglas MAGAÑA Work Phone: Start: 01-19-2019 Colonoscopy NA Duglas MAGAÑA Work Phone: Plan of Treatment Date Care Activity Detail Author Start: 12-06-2031 Urine microalbumin profile [facility] Start: 01-19-2029 Colonoscopy COLONOSCOPY [facility] Start: 01-19-2029 COLORECTAL CANCER SCREENING COLORECTAL CANCER SCREENING [facility] Start: 01-19-2029 Screening for malign ant neoplasm of colon [facility] Start: 03-29-2026 HPV TESTING HPV TESTING [facility] Start: 03-29-2026 PAP TESTING PAP TESTING [facility] Start: 03-29-2026 Screening for malign ant neoplasm of cervix [facility] Start: 02-09-2025 ambulatory Ambulatory Facility:[facility] Start: 10-20-2024 DXA Bone [Mass/Area] Bone density [facility] Start: 10-12-2024 Patient referral [facility] Work Phone: Start: 06-29-2024 Advance Directive Discussion Advance Directive Discussion [facility] Start: 06-24-2024 Screening for malign ant neoplasm of breast Mammogram Screening [facility] Start: 06-18-2024 Glaucoma screening Dilated Retinal E xam [facility] Start: 06-12-2024 Annual PCP Team [employer]et De[employer] teddy Disease Visit Annual PCP Team Chronic Disease Visit [facility] Start: 06-12-2024 BP Controlled (<130/80) BP Controlle d (<130/80) [facility] Start: 06-02-2024 Hepatitis B surface antibody level LDL Cholesterol [facility] Start: 02-28-2024 Covid-19 Vaccine (7 - 2024-25 season) Covid-19 Vaccine () [facility] Start: 02-28-2024 Influenza vaccination Influenza Vacc ine (#1) [facility] Start: 01-08-2024 Creatinine measurement Serum Creatin ine [facility] Start: 01-08-2024 Hepatitis B screening URINE AL BUMIN:CREATININE RATIO [facility] Start: 01-08-2024 Hepatitis B surface antibody level LDL CHOLESTEROL [facility] Start: 01-08-2024 SERUM CREATININE SERUM CREATININE Cl [facility] Start: 12-19-2023 3 comp foot exam completed DIABETIC FOOT EXAM [facility] Start: 12-19-2023 ANNUAL PCP TEAM SUPERVISING NURSE TEDDY DISEASE VISIT ANNUAL PCP TEAM CHRONIC DISEASE VISIT [facility] Start: 12-19-2023 Diabetic foot examination Diabetic Foot Exam [facility] Start: 12-17-2023 Screening for osteoporosis Bone Density Screening [facility] Start: 10-28-2023 Hemoglobin A1c measurement HbA1C [facility] Start: 10-28-2023 Hemoglobin A1c/Hemoglobin.total in Blood HbA1C [facility] Start: 06-05-2023 Mammography [facility] Start: 06-05-2023 Screening for malign ant neoplasm of breast Mammogram Screening [facility] Start: 05-29-2023 End: 07-29-2023 Lipid 1996 panel - Serum or Plasma LIPID PANEL BASIC Lab Routine Mixed hyperlipidemia Expected: 05/29/2023, Expires: 07/29/2023 [facility] Work Phone: Comment on above: Expected: 05/29/2023 , Expires: 07/29/2023 Start: 05-15-2023 Covid-19 Vaccine () Covid-19 Vaccine () [facility] Start: 04-09-2023 Hemoglobin A1c/Hemoglobin.total in Blood HBA1C [facility] Start: 03-16-2023 End: 05-16-2023 Thyrotropin [Units/volume] in Serum or Plasma TSH BLD Lab Routine Hypothyroidism, unspecified type Expected: 03/16/2023, Expires: 05/16/2023 [facility] Work Phone: Comment on above: Expected: 03/16/2023 , Expires: 05/16/2023 Start: 03-16-2023 End: 05-16-2023 Thyroxine (T4) free [Mass/volume] in Serum or Plasma T4 FREE/FREE THYROX Lab Routine Hypothyroidism, unspecified type Expected: 03/16/2023, Expires: 05/16/2023 [facility] Work Phone: Comment on above: Expected: 03/16/2023 , Expires: 05/16/2023 Start: 02-27-2023 Covid-19 Vaccine () Covid-19 Vaccine () [facility] Start: 02-27-2023 Influenza vaccination INFLUENZA (#1) [facility] Start: 01-27-2023 Hepatitis C antibody , confirmatory test DILATED RETINAL EXAM [facility] Comment on above: Postponed from 10/13 (Currently Scheduled) Start: 01-21-2023 Hemoglobin A1c/Hemoglobin.total in Blood HBA1C [facility] Start: 12-18-2022 End: 02-17-2023 ALBUMIN/CREAT RATIO RND UR ALBUMIN/CREAT RATIO RND UR Lab Routine Controlled type 2 diabetes mellitus without complication, with long-term current use of insulin (HCC) Expected: 12/18/2022, Expires: 02/17/2023 [facility] Work Phone: Comment on above: Expected: 12/18/2022 , Expires: 02/17/2023 Start: 12-18-2022 End: 02-17-2023 CBC panel - Blood by Automated count CBC Lab Routine Primary hypertension Expected: 12/18/2022, Expires: 02/17/2023 [facility] Work Phone: Comment on above: Expected: 12/18/2022 , Expires: 02/17/2023 Start: 12-18-2022 End: 02-17-2023 Comprehensive metabolic 2000 panel - Serum or Plasma COMP METABOLIC PANEL Lab Routine Primary hypertension Expected: 12/18/2022, Expires: 02/17/2023 [facility] Work Phone: Comment on above: Expected: 12/18/2022 , Expires: 02/17/2023 Start: 12-18-2022 End: 02-17-2023 Hemoglobin A1c in Blood HGB A1C Lab Routine Controlled type 2 diabetes mellitus without complication, with long-term current use of insulin (HCC) Expected: 12/18/2022, Expires: 02/17/2023 [facility] Work Phone: Comment on above: Expected: 12/18/2022 , Expires: 02/17/2023 Start: 12-18-2022 End: 02-17-2023 Lipid 1996 panel - Serum or Plasma LIPID PANEL BASIC Lab Routine Mixed hyperlipidemia Expected: 12/18/2022, Expires: 02/17/2023 [facility] Work Phone: Comment on above: Expected: 12/18/2022 , Expires: 02/17/2023 Start: 12-18-2022 End: 02-17-2023 Thyrotropin [Units/volume] in Serum or Plasma TSH BLD Lab Routine Hypothyroidism, unspecified type Expected: 12/18/2022, Expires: 02/17/2023 [facility] Work Phone: Comment on above: Expected: 12/18/2022 , Expires: 02/17/2023 Start: 12-05-2022 ANNUAL PCP TEAM SUPERVISING NURSE TEDDY DISEASE VISIT ANNUAL PCP TEAM CHRONIC DISEASE VISIT [facility] Start: 12-05-2022 Hepatitis C antibody , confirmatory test DILATED RETINAL EXAM [facility] Comment on above: Postponed from 10/13 (Currently Scheduled) Start: 12-05-2022 HIV SCREENING HIV SCREENING [facility] Comment on above: Postponed from 12/16 (Declined at this time) Start: 11-27-2022 Hepatitis B surface antibody level LDL CHOLESTEROL [facility] Start: 11-27-2022 SERUM CREATININE SERUM CREATININE Cl [facility] Start: 06-14-2022 Covid-19 Vaccine (6 - Pfizer risk series) Covid-19 Vaccine (6 - Pfizer risk series) [facility] Start: 05-29-2022 Hemoglobin A1c/Hemoglobin.total in Blood HBA1C [facility] Start: 04-26-2022 Mammography MAMMOGRAM [facility] Start: 03-29-2022 BP CONTROLLED (<130/80) BP CONTROLLE D (<130/80) [facility] Start: 03-29-2022 Screening for malign ant neoplasm of cervix Cervical Cancer Screening [facility] Start: 02-23-2022 COVID-19 VACCINE (5 - Booster for Pfizer series) COVID-19 VACCINE (5 - Booster for Pfizer series) [facility] Start: 02-19-2022 3 comp foot exam completed DIABETIC FOOT EXAM [facility] Start: 02-19-2022 ANNUAL PCP TEAM SUPERVISING NURSE TEDDY DISEASE VISIT ANNUAL PCP TEAM CHRONIC DISEASE VISIT [facility] Start: 02-19-2022 SHINGRIX VACCINE (1 of 2) SHINGRIX VACCINE (1 of 2) [facility] Comment on above: Postponed from 12/16 (Declined at this time) Postponed from 12/16 (Declined at this time) Start: 02-14-2022 Hepatitis B screening URINE AL BUMIN:CREATININE RATIO [facility] Start: 02-14-2022 SERUM CREATININE SERUM CREATININE Cl [facility] Start: 02-03-2022 End: 04-05-2022 Hemoglobin A1c/Hemoglobin.total in Blood HGB A1C Lab Routine Type 2 diabetes mellitus without complication, with long-term current use of insulin (HCC) Expected: 02/03/2022, Expires: 04/05/2022 [facility] Work Phone: Comment on above: Expected: 02/03/2022 , Expires: 04/05/2022 Start: 11-03-2021 End: 01-03-2022 CBC panel - Blood by Automated count CBC Lab Routine Type 2 diabetes mellitus without complication, with long-term current use of insulin (HCC) Stage 3a chronic kidney disease (HCC) Primary hypertension Hypothyroidism, unspecified type Expected: 11/03/2021, Expires: 01/03/2022 [facility] Work Phone: Comment on above: Expected: 11/03/2021 , Expires: 01/03/2022 Start: 11-03-2021 End: 01-03-2022 Comprehensive metabolic 2000 panel - Serum or Plasma COMP METABOLIC PANEL Lab Routine Type 2 diabetes mellitus without complication, with long-term current use of insulin (HCC) Stage 3a chronic kidney disease (HCC) Primary hypertension Mixed hyperlipidemia Expected: 11/03/2021, Expires: 01/03/2022 [facility] Work Phone: Comment on above: Expected: 11/03/2021 , Expires: 01/03/2022 Start: 11-03-2021 End: 01-03-2022 LIPID PANEL BASIC LIPID PANEL BASIC Lab Routine Type 2 diabetes mellitus without complication, with long-term current use of insulin (HCC) Mixed hyperlipidemia Expected: 11/03/2021, Expires: 01/03/2022 [facility] Work Phone: Comment on above: Expected: 11/03/2021 , Expires: 01/03/2022 Start: 11-03-2021 End: 01-03-2022 Thyrotropin [Units/volume] in Serum or Plasma TSH BLD Lab Routine Hypothyroidism, unspecified type Expected: 11/03/2021, Expires: 01/03/2022 [facility] Work Phone: Comment on above: Expected: 11/03/2021 , Expires: 01/03/2022 Start: 10-03-2021 Hepatitis B surface antibody level LDL CHOLESTEROL [facility] Start: 08-17-2021 Hemoglobin A1c/Hemoglobin.total in Blood HBA1C [facility] Start: 2018 Hepatitis B Vaccine (1 of 3 - Risk 3-dose series) Hepatitis B Vaccine (1 of 3 - Risk 3-dose series) [facility] Start: 2018 RSV Vaccine (1 - 1-d ose 60+ series) RSV Vaccine (1 - 1-dose 60+ series) [facility] Start: 10-13-2017 Glaucoma screening Dilated Retinal E xam [facility] Start: 10-13-2017 Hepatitis C antibody , confirmatory test DILATED RETINAL EXAM [facility] Start: 12-27-2016 FECAL OCCULT BLOOD FECAL OCCULT BLOO D [facility] Start: 12-27-2016 Screening for malign ant neoplasm of colon Fecal Occult Blood [facility] Start: 12-17-2003 COLOGUARD (FIT-DNA) COLOGUARD (FIT-D NA) [facility] Start: 12-17-[address] [facility] Start: 12-17-2003 Screening for malign ant neoplasm of colon [facility] Start: 12-17-2003 SIGMOIDOSCOPY SIGMOIDOSCOPY [facility] Start: 1977 SHINGRIX VACCINE (1 of 2) SHINGRIX VACCINE (1 of 2) [facility] Start: 1977 Urine microalbumin profile DTAP,TDAP,TD (1 - Tdap) [facility] Start: 1976 Anxiety Screening Anxiety Screening [facility] Start: 1976 BP CONTROLLED (<130/80) BP CONTROLLE D (<130/80) [facility] Start: 1976 HIV SCREENING HIV SCREENING [facility] Start: 1976 HIV screening HIV Screening [facility] Start: 1974 ONE PNEUMOVAX PRIOR TO AGE 65 ONE PNEUMOVAX PRIOR TO AGE 65 [facility] Start: 1964 PNEUMOCOCCAL (1 - PCV) PNEUMOCOCCAL (1 - PCV) [facility] Comprehensive metabo lic 1999 panel - Serum or Plasma [facility] End: 09-15-2025 DBT Breast - bilateral screening DIEGO SCREENING W MARIA E Radiology Routine Encounter for screening mammogram for breast cancer 1 Occurrences starting 08/16/2024 until 09/15/2025 [facility] Work Phone: Comment on above: 1 Occurrences starti ng 08/16/2024 until 09/15/2025 DXA Bone [Mass/Area] Bone density [facility] Lipid 1996 panel - Serum or Plasma [facility] End: 05-23-2023 DIEGO SCREENING W MARIA E DIEGO SCREENING W MARIA E Radiology Routine Encounter for screening mammogram for malignant neoplasm of breast 1 Occurrences starting 04/23/2022 until 05/23/2023 [facility] Work Phone: Comment on above: 1 Occurrences starti ng 04/23/2022 until 05/23/2023 Patient referral [facility] Work Phone: T4 free measurement [facility] Thyroid stimulating hormone measurement [facility] Urine microalbumin/creatinine ratio measurement [facility] Vitamin D, 25-hydrox y measurement [facility] Immunizations Immunization Date Immunization Notes Care Provider Avelino lehman 05-20-2024 Covid (Spikevax) Dr. Samara Monroy MD Work Phone: [facility] 05-20-2024 influenza, high dose seasonal, preservative-free Dr. Samara Monroy MD Work Phone: [facility] 04-05-[address] Samara Monroy MD Work Phone: [facility] 10-06-2023 zoster vaccine recombinant PA NA Ardon PA Work Phone: [facility] 06-12-2023 respiratory syncytia l virus (RSV) vaccine, bivalent (ABRYSVO) NA Ardon PA-C Work Phone: [facility] 03-20-2023 Covid (Spikevax) PA NA Luz Elena n PA Work Phone: [facility] 03-20-2023 Seasonal, quadrivale nt, recombinant, injectable influenza vaccine, preservative free NA Ardon PA-C Work Phone: [facility] 03-20-2023 influenza virus vaccine, unspecified formulation Darrius Ardon PA-C Work Phone: [facility] 12-18-2022 pneumococcal Conjuga te, unspecified formulation NA Ardon PA-C Work Phone: [facility] Work Phone: 12-18-2022 pneumococcal (PCV20) vaccine, 20 valent (PREVNAR 20) NA Ardon PA-C Work Phone: [facility] 04-19-2022 Covid Pfizer Bivalen t Booster PA NA Ardon PA Work Phone: [facility] 04-19-2022 Seasonal, quadrivale nt, recombinant, injectable influenza vaccine, preservative free NA Ardon PA-C Work Phone: [facility] 12-05-2021 tetanus toxoid, redu jada diphtheria toxoid, and acellular pertussis vaccine, adsorbed NA Ardon PA-C Work Phone: [facility] 10-24-2021 Covid (Moderna) PA NA Ardon PA Work Phone: [facility] 04-29-2021 COVID-19 vaccine, ag e 12+ yr (Q-Layer - [facility]) NA Ardon PA-C Work Phone: [facility] 04-29-2021 Seasonal, quadrivale nt, recombinant, injectable influenza vaccine, preservative free NORAH Ardon PA-C Work Phone: [facility] 10-06-2020 Covfartun (Pfizer) COTY ANSARI Work Phone: [facility] 10-04-2020 COVID-19 vaccine, ag e 12+ yr (PFIZER-BIONTECH - PURPLE TOP) NORAH Ardon PA-C Work Phone: [facility] 09-13-2020 COVID-19 vaccine, ag e 12+ yr (PFIZER-BIONTECH - PURPLE TOP) NORAH Ardon PA-C Work Phone: [facility] Payers Date Payer Category Payer Medicare [id number] 2024 Self-pay [id number] 2024 Self-pay [id number] 2023 Medicare [id number] 2023 Unknown [id number] 2015 [employer] Blue [facility] BLUE CARD O OOS [id number] 2015 Unknown ANTHEM BLUE CARD PPO OOS [id number] 2015-Present [phone] [address] [place] [address] PPO [id number] 2015 Unknown [employer]M BLUE CARD PPO OOS [id number] 2015-Present [phone] [address] [place] [address] PPO [id number] Unknown [id number] Unknown [id number] 2.840.1.988734.3.579.2. 462 Unknown [id number] 2.840.1.646134.3.579.2. 462 Unknown [id number] 2.840.1.989315.3.579.2. 462 Unknown [id number] 2.840.1.081917.3.579.2. 462 Unknown [id number] 2.840.1.408493.3.579.2. 462 Unknown [id number] 2.840.1.497232.3.579.2. 462 Unknown [id number] 2.840.1.860850.3.579.2. 462 Unknown [id number] .840.1.097126.3.579.2. 462 Unknown [id number] 2.840.1.997939.3.579.2. 462 Unknown [id number] 2.840.1.988238.3.579.2. 462 Unknown [id number] 2.840.1.837107.3.579.2. 462 Unknown [id number] 2.16.840.1.764577.3.579.2. 462 Unknown [id number] 2.16.840.1.384245.3.579.2. 462 Unknown [id number] 2.16.840.1.010330.3.579.2. 462 Unknown [id number] 2.16.840.1.215636.3.579.2. 462 Unknown [id number] 2.16.840.1.778980.3.579.2. 462 Unknown [id number] 2.16.840.1.798146.3.579.2. 462 Unknown [id number] 2.16.840.1.477389.3.579.2. 462 Unknown [id number] 2.16.840.1.743541.3.579.2. 462 Unknown [id number] 2.16.840.1.429102.3.579.2. 462 Unknown [id number] 2.16.840.1.364604.3.579.2. 462 Unknown [id number] 2.16.840.1.125548.3.579.2. 462 Unknown [id number] 2.16.840.1.715624.3.579.2. 462 Unknown [id number] 2.16840.1.807929.3.579.2. 462 Social History Date Type Detail Facility Start: 09-11-2015 End: 01-10-2025 Tobacco smoking status NHIS Ex-smoker [facility] End: 05-23-2009 History of tobacco use Current smoker [facility] Start: 09-11-2015 End: 12-18-2022 Tobacco use and exposure Smokeless tobacco non-user [facility] Start: 03-29-2021 End: 06-12-2023 Alcohol intake Current non-drinker of alcohol (finding) [facility] Start: 01-08-2020 End: 12-17-2022 History SDOH Alcohol Frequency 1 [facility] Start: 01-08-2020 End: 12-17-2022 History SDOH Social Connections Phone 5 [facility] Start: 01-08-2020 End: 12-17-2022 History SDOH Social Connections Membership 2 [facility] Start: 01-08-2020 End: 12-17-2022 History SDOH Social Connections Living 3 [facility] Start: 01-08-2020 End: 12-17-2022 History SDOH Physical Activity DPW 0 [facility] Start: 01-08-2020 Education 15 [facility] Start: 1960 Sex Assigned At Not on file [facility] Start: 11-25-2021 End: 05-01-2022 Exposure to SARS-CoV-2 (event) Not sure [facility] End: 05-23-2009 History of tobacco use Cigarette Smoker [facility] Start: 08-26-2020 End: 10-06-2023 Tobacco smoking status NHIS Unknown if ever smoked [facility] Start: 08-26-2020 None [facility] Start: 08-26-2020 Spouse/ Significant Other [facility] Start: 08-26-2020 Non-smoker [facility] Start: 1960 Sex Assigned At Female [facility] Start: 07-25-2022 End: 12-17-2022 History of Social function [facility] Start: 07-25-2022 End: 12-17-2022 Social connection and isolation panel [facility] Do you belong to any clubs or organizations such as islam groups, unions, fraternal or athletic groups, or school groups? Yes [facility] Are you now , , , , never or living with a partner? [facility] How often to you hav e a drink containing alcohol? Never [facility] How many standard dr inks containing alcohol do you have on a typical day? Patient does not drink [facility] Do you feel stress - tense, restless, nervous, or anxious, or unable to sleep at night because your mind is troubled all the time - these days [OSQ] To some extent [facility] (I/We) worried tino er (my/our) food would run out before (I/we) got money to buy more. Never true [facility] In the past 12 month s, was there a time when you were not able to pay the mortgage or rent on time? No [facility] Start: 10-04-2024 End: 10-17-2024 Sex Female (finding) [facility] Medical Equipment Procedure Code Equipment Code Equipment Origin al Text Equipment Identifier Dates [id number], [id number] Start: 06-15-2019 End: 06-05-2023 Comment on above: One Touch Ultra Blue . Check blood sugar 4x daily. Insulin dep: yes E11.9 USE ONCE DAILY Uses 5 daily Pen Needle, Diabetic (Bd Ultra-Fine Natalya Pen Needle) 32 gauge x 5/32 needle Start: 08-05-2023 Pen Needle, Diabetic (Bd Ultra-Fine Natalya Pen Needle) 32 gauge x 5/32 needle Start: 08-05-2023 Pen Needle, Diabetic (Bd Ultra-Fine Natalya Pen Needle) 32 gauge x 5/32 needle Start: 06-24-2024 Pen Needle, Diabetic (Bd Ultra-Fine Natalya Pen Needle) 32 gauge x 5/32 needle Start: 08-05-2023 End: 06-24-2024 Pen Needle, Diabetic (Bd Ultra-Fine Natalya Pen Needle) 32 gauge x 5/32 needle Start: 06-24-2024 Pen Needle, Diabetic (Bd Ultra-Fine Natalya Pen Needle) 32 gauge x 5/32 needle Start: 08-05-2023 End: 06-24-2024 Pen Needle, Diabetic 32 gauge x 5/32 needle Start: 12-01-2024 Pen Needle, Diabetic (Bd Ultra-Fine Natalya Pen Needle) 32 gauge x 5/32 needle Start: 08-05-2023 End: 06-24-2024 Pen Needle, Diabetic (Bd Ultra-Fine Natalya Pen Needle) 32 gauge x 5/32 needle Start: 06-24-2024 End: 12-01-2024 Pen Needle, Diabetic 32 gauge x 5/32 needle Start: 12-01-2024 Pen Needle, Diabetic (Bd Ultra-Fine Natalya Pen Needle) 32 gauge x 5/32 needle Start: 08-05-2023 End: 06-24-2024 Pen Needle, Diabetic (Bd Ultra-Fine Natalya Pen Needle) 32 gauge x 5/32 needle Start: 06-24-2024 End: 12-01-2024 Pen Needle, Diabetic 32 gauge x 5/32 needle Start: 12-01-2024 Pen Needle, Diabetic (Bd Ultra-Fine Natalya Pen Needle) 32 gauge x 5/32 needle Start: 08-05-2023 End: 06-24-2024 Pen Needle, Diabetic (Bd Ultra-Fine Natalya Pen Needle) 32 gauge x 5/32 needle Start: 06-24-2024 End: 12-01-2024 Pen Needle, Diabetic 32 gauge x 5/32 needle Start: 12-01-2024 Pen Needle, Diabetic (Bd Ultra-Fine Natalya Pen Needle) 32 gauge x 5/32 needle Start: 08-05-2023 End: 06-24-2024 Pen Needle, Diabetic (Bd Ultra-Fine Natalya Pen Needle) 32 gauge x 5/32 needle Start: 06-24-2024 End: 12-01-2024 Pen Needle, Diabetic 32 gauge x 5/32 needle Start: 12-01-2024 Pen Needle, Diabetic (Bd Ultra-Fine Natalya Pen Needle) 32 gauge x 5/32 needle Start: 08-05-2023 End: 06-24-2024 Pen Needle, Diabetic (Bd Ultra-Fine Natalya Pen Needle) 32 gauge x 5/32 needle Start: 06-24-2024 End: 12-01-2024 Pen Needle, Diabetic 32 gauge x 5/32 needle Start: 12-01-2024 Pen Needle, Diabetic (Bd Ultra-Fine Natalya Pen Needle) 32 gauge x 5/32 needle Start: 08-05-2023 End: 06-24-2024 Pen Needle, Diabetic (Bd Ultra-Fine Natalya Pen Needle) 32 gauge x 5/32 needle Start: 06-24-2024 End: 12-01-2024 Clinical Notes 12-18-2015 to 12-12-2024 Note Date & Type Note Facility 12-12-2024 Radiology Diagnostic study note [facility] Services [address] [place] [address] Foot min 3 Views MR#: [id number] Acct: [id number] Name: ROMA WALTON Rep #: [id number] : [id number] F 63 From: Armando Agosto MD PCP: Dr. Samara Monroy MD Status: REG CLI Study:Foot min 3 Views Date of Exam: Exam# [id number] Ordering Dr: [facility] shanell Baird PROCEDURE: FOOT MIN 3 VIEWS 12/12/2024 REASON FOR EXAM: PAIN TECHNIQUE: FOOT MIN 3 VIEWS COMPARISON: None FINDINGS: Bones: No visible fracture. No suspicious bone lesion. Joints: Normal alignment. Soft tissues: Soft tissue swelling. Other: RAD/Foot min 3 Views IMPRESSION: Soft tissue swelling. No fracture is seen. Reading Location: [place] [address] CC: Dr. 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: Signed [facility] 10-12-2024 Evaluation note Diagnosis Onset Date Resolution Anxiety and depression chronic Ap ril 2024 1:25pm Hypothyroid chronic October 12, 025 1:25pm Psoriatic arthritis chronic October 12, 2024 1:25pm Type 2 diabetes mellitus chronic October 12, 2024 1:25pm Anemia noneactive October 12 1:25pm Post-menopausal noneactive September 1:25pm Tachycardia noneactive October 12 025 1:25pm Essential hypertension noneactive Ap ril 2024 1:25pm Memory changes noneactive September 1:25pm Immunity status testing noneactive A pril 2024 1:25pm CKD (chronic kidney disease) stage 3, GFR 30-59 ml/min chronic December 01, 2024 1:36pm Hyperlipidemia chronic December 01, 2024 1:36pm Hypertension chronic December 01 1:36pm Hypothyroid chronic December 01 1:36pm Overweight chronic December 01, 2024 1:36pm Type 2 diabetes mellitus chronic December 01, 2024 1:36pm Contusion of right lesser toe(s) without damage to nail, initial encounter acute December 12, 2024 3:03pm [facility] Work Phone: 1(141) 373-706604-16-2025 Evaluation note* Diagnosis Onset Date Resolution Status Admit Date Anxiety and depression chronic Ap ril 2024 1:25pm Hypothyroid chronic October 12, 2 025 1:25pm Psoriatic arthritis chronic October 12, 2024 1:25pm Type 2 diabetes mellitus chronic October 12, 2024 1:25pm Anemia noneactive October 12 1:25pm Post-menopausal noneactive September 1:25pm Tachycardia noneactive October 12, 2 025 1:25pm Essential hypertension noneactive Ap ril 2024 1:25pm Memory changes noneactive September 1:25pm Immunity status testing noneactive A pril 2024 1:25pm CKD (chronic kidney disease) stage 3, GFR 30-59 ml/min chronic December 012024 1:36pm Hyperlipidemia chronic December 01, 2024 1:36pm Hypertension chronic December 01 1:36pm Hypothyroid chronic December 01 1:36pm Overweight chronic December 01, 2024 1:36pm Type 2 diabetes mellitus chronic December 01, 2024 1:36pm Contusion of right lesser toe(s) without damage to nail, initial encounter acute December 12 3:03pm Anxiety and depression chronic Ju ly 2024 12:45pm Hypothyroid chronic January 10 12:45pm Psoriatic arthritis chronic January 10, 2025 12:45pm Type 2 diabetes mellitus chronic January 10, 2025 12:45pm Anemia noneactive January 10 12:45pm Essential hypertension noneactive Ju ly 2024 12:45pm Memory changes noneactive January 10, 2025 12:45pm [facility] [employer] [facility] Work Phone: 1(924) 211-945803-06-2025 Evaluation note* Diagnosis Onset Date Resolution Status Admit Date CKD (chronic kidney disease) stage 3, GFR 30-59 ml/min chronic September 01, 2024 2:41pm Fatty liver chronic September 01 2:41pm Overweight chronic September 01 2:41pm Type 2 diabetes mellitus chronic September 01, 2024 2:41pm Anxiety and depression chronic Ap ril 2024 1:25pm Hypothyroid chronic October 12, 2 025 1:25pm Psoriatic arthritis chronic October 12, 2024 1:25pm Type 2 diabetes mellitus chronic October 12, 2024 1:25pm Anemia noneactive October 12 1:25pm Post-menopausal noneactive September 1:25pm Tachycardia noneactive October 12, 2 025 1:25pm Essential hypertension noneactive Ap ril 2024 1:25pm Memory changes noneactive September 1:25pm Immunity status testing noneactive A pril 2024 1:25pm CKD (chronic kidney disease) stage 3, GFR 30-59 ml/min chronic December 012024 1:36pm Hyperlipidemia chronic December 01, 2024 1:36pm Hypertension chronic December 01 1:36pm Hypothyroid chronic December 01 1:36pm Overweight chronic December 01, 2024 1:36pm Type 2 diabetes mellitus chronic December 01, 2024 1:36pm [facility] Work Phone: 1(769) 630-879203-06-2025 Evaluation note* Diagnosis Onset Date Resolution Status Admit Date CKD (chronic kidney disease) stage 3, GFR 30-59 ml/min chronic September 01, 2024 2:41pm Fatty liver chronic September 01 2:41pm Overweight chronic September 01 2:41pm Type 2 diabetes mellitus chronic September 01, 2024 2:41pm Anxiety and depression chronic Ap [facility] 2024 1:25pm Hypothyroid chronic October 12, 2 025 1:25pm Psoriatic arthritis chronic October 12, 2024 1:25pm Type 2 diabetes mellitus chronic October 12, 2024 1:25pm Anemia noneactive October 12 1:25pm Post-menopausal noneactive September 1:25pm Tachycardia noneactive October 12, 2 025 1:25pm Essential hypertension noneactive Ap [facility] 2024 1:25pm Memory changes noneactive September 1:25pm Immunity status testing noneactive A pril 2024 1:25pm CKD (chronic kidney disease) stage 3, GFR 30-59 ml/min chronic December 012024 1:36pm Hyperlipidemia chronic December 01, 2024 1:36pm Hypertension chronic December 01 1:36pm Hypothyroid chronic December 01 1:36pm Overweight chronic December 01, 2024 1:36pm Type 2 diabetes mellitus chronic December 01, 2024 1:36pm Contusion of right lesser toe(s) without damage to nail, initial encounter acute December 12 3:03pm [facility] Work Phone: 1(466) 574-959902-18-2025 NotePatient Outreach (FAMPWS) ROMA WALTON ([id number]) 1960 F Date Time Provider Department 08/16/24 DARRIUS ARDON During your visit today, we recorded the following information about you: Allergies As of Date: 08/16/2024 Noted Allergy Reaction JARDIANCE (EMPAGLIFLOZIN) 05/25/2018 14 - Other: See Comments Comments: RAKEL SITAGLIPTIN 03/29/2021 5 - Intolerance Date Reviewed: 12/18/2022 Reviewed by: Anamaria Oreilly MA - Fully Assessed Visit Diagnosis:Encounter for screening mammogram for breast cancer [Z12.31] Order(s):[facility] SCREENING W MARIA E [[id number]] Order #: [id number] FUTURE Prescriptions as of 09/16/2024 - amitriptyline (ELAVIL) 25 mg tablet Take 1 tablet by mouth daily at bedtime. - fenofibrate nanocrystallized (TRICOR) 145 mg tablet Take 1 tablet by mouth once daily. - simvastatin (ZOCOR) 40 mg tablet Take 1 tablet by mouth daily at bedtime. For cholesterols. - insulin glargine U-300 conc (TOUJEO MAX U-300 SOLOSTAR) 300 unit/mL (3 mL) inpn Inject 62 Units subcutaneously once daily. - Insulin Toano, Disposable, (BD ULTRA-FINE NATALYA PEN NEEDLE) 32 gauge x 5/32 Uses 5 daily - levothyroxine (SYNTHROID) 88 mcg tablet Take 1 tablet by mouth once daily. Take on empty stomach. - busPIRone (BUSPAR) 5 mg tablet Take 5 mg by mouth once daily as needed. 1-2 tabs daily as needed - metFORMIN (GLUCOPHAGE) 1,000 mg tablet Take 1 tablet by mouth twice daily with meals. - losartan (COZAAR) 25 mg tablet Take 1 tablet by mouth once daily. - flash glucose sensor (FREESTYLE BATSHEVA 14 DAY SENSOR) kit Use to check blood sugar 4 times daily - insulin lispro (HUMALOG KWIKPEN INSULIN) 100 unit/mL Inject 14 units Subcutaneously three times daily before meals Plus sliding scale (2 units for every 50 mg/dL greater than 150 mg/dL) - escitalopram oxalate (LEXAPRO) 10 mg tablet Take 1 tablet by mouth once daily. - flash glucose scanning reader ([employer] BATSHEVA 14 DAY READER) Use to check blood sugar 4 times daily - blood sugar diagnostic (BLOOD GLUCOSE TEST) test strip One Touch Ultra Blue. Check blood sugar 4x daily. Insulin dep: yes E11.9 - apremilast (OTEZLA) 30 mg tablet Take 30 mg by mouth twice daily. - MEDICATION, NON-DATABASE 1 capsule once daily. [employer] Glucosamine sulfate 500mg /chondroitin sulfate 50 mg/turmeric 50 mg/MSM 8 mg - hydrocortisone (HYTONE) 2.5 % lotion Apply to affected area twice daily. - Cholecalciferol, Vitamin D3, 1,000 unit cap Take 1,000 Units by mouth once daily. - Gtehusaj-Rizu-Skr-Folic Acid (CENTRUM) 3,500-18-0.4 unit-mg-mg chewable tablet Take 1 tablet by mouth once daily. - aspirin, enteric coated (ASPIRIN, ENTERIC COATED) 81 mg EC tablet Take 81 mg by mouth once daily. Problem List As Of Date 08/16/2024 Noted Resolved Diabetes (HCC) [E11.9] 12/18/2015 Mixed hyperlipidemia [E78.2] HTN (hypertension) [I10] Hypothyroidism [E03.9] Depression [F32.A] Psoriasis [L40.9] Fatty liver [K76.0] Diabetes mellitus type 2, controlled, without c*10/23/2015 Solitary cyst of left breast [N60.02] 12/28/2015 CKD (chronic kidney disease) stage 3, GFR 30-59*09/23/2017 Elevated liver enzymes [R74.8] 06/10/2018 Psoriatic arthritis (HCC) [L40.50] 12/06/2018 Encounter Status:Closed by ELVIS HAWK on 09/16/24[facility] 08-10-2024 Evaluation note* Diagnosis Onset Date Resolution Status Admit Date CKD (chronic kidney disease) stage 3, GFR 30-59 ml/min chronic ua 2024 2:36pm Hyperlipidemia chronic July 302024 2:36pm Hypertension chronic July 2:36pm Hypothyroid chronic July 2:36pm Overweight chronic August 10, 2024 2:36pm Type 2 diabetes mellitus chronic August 10, 2024 2:36pm CKD (chronic kidney disease) stage 3, GFR 30-59 ml/min chronic September 01, 2024 2:41pm Fatty liver chronic September 01 2:41pm Overweight chronic September 01 2:41pm Type 2 diabetes mellitus chronic September 01, 2024 2:41pm Anxiety and depression chronic Ap ril 2024 1:25pm Hypothyroid chronic October 12, 2 025 1:25pm Psoriatic arthritis chronic October 12, 2024 1:25pm Type 2 diabetes mellitus chronic October 12, 2024 1:25pm Anemia noneactive October 12 1:25pm Post-menopausal noneactive September 1:25pm Tachycardia noneactive October 12, 2 025 1:25pm Essential hypertension noneactive Ap ril 2024 1:25pm Memory changes noneactive September 1:25pm Immunity status testing noneactive A pril 2024 1:25pm [facility] Work Phone: 1(452) 933-286301-15-2025 Evaluation note* Diagnosis Onset Date Resolution Status Admit Date Anxiety and depression chronic [facility] 2024 2:31pm Hypothyroid chronic July 13, 2024 2:31pm Psoriatic arthritis chronic 2024 2:31pm Type 2 diabetes mellitus chronic July 13, 2024 2:31pm Anemia noneactive July 13, 2024 2:31pm Essential hypertension noneactive [facility] 2024 2:31pm Memory changes noneactive July 132024 2:31pm CKD (chronic kidney disease) stage 3, GFR 30-59 ml/min chronic 2024 2:36pm Hyperlipidemia chronic July 302024 2:36pm Hypertension chronic July 2:36pm Hypothyroid chronic July 2:36pm Overweight chronic August 10, 2024 2:36pm Type 2 diabetes mellitus chronic August 10, 2024 2:36pm CKD (chronic kidney disease) stage 3, GFR 30-59 ml/min September 01, 2024 2:41pm Fatty liver chronic September 01 2:41pm Overweight chronic September 01 2:41pm Type 2 diabetes mellitus chronic September 01, 2024 2:41pm [facility] Work Phone: 1(560) 949-966301-15-2025 Evaluation note* Diagnosis Onset Date Resolution Status Admit Date Anxiety and depression chronic [facility] 2024 2:31pm Hypothyroid chronic July 13, 2024 2:31pm Psoriatic arthritis chronic 2024 2:31pm Type 2 diabetes mellitus chronic July 13, 2024 2:31pm Anemia noneactive July 13, 2024 2:31pm Essential hypertension noneactive [facility] 2024 2:31pm Memory changes noneactive July 132024 2:31pm CKD (chronic kidney disease) stage 3, GFR 30-59 ml/min chronic 2024 2:36pm Hyperlipidemia chronic July 302024 2:36pm Hypertension chronic July 2:36pm Hypothyroid chronic July 2:36pm Overweight chronic August 10, 2024 2:36pm Type 2 diabetes mellitus chronic August 10, 2024 2:36pm CKD (chronic kidney disease) stage 3, GFR 30-59 ml/min chronic September 01, 2024 2:41pm Fatty liver chronic September 01 2:41pm Overweight chronic September 01 2:41pm Type 2 diabetes mellitus chronic September 01, 2024 2:41pm Anxiety and depression chronic Ap ril 2024 1:25pm Hypothyroid chronic October 12, 2 025 1:25pm Psoriatic arthritis chronic October 12, 2024 1:25pm Type 2 diabetes mellitus chronic October 12, 2024 1:25pm Anemia noneactive October 12 1:25pm Post-menopausal noneactive September 1:25pm Tachycardia noneactive October 12, 2 025 1:25pm Essential hypertension noneactive Ap ril 2024 1:25pm Memory changes noneactive September 1:25pm Immunity status testing noneactive A pril 2024 1:25pm [facility] Work Phone: 1(238) 111-917802-19-2024 Miscellaneous Notes* Telephone Encounter - Mowrer, Geoffrey, YEAST PUSHER - 08/17/2023 9:34 AM EST Patient has been identified by name and date of : Yes Patient phones for refill(s): Requested Prescriptions Pending Prescriptions Disp Refills amitriptyline (ELAVIL) 25 mg tablet 90 tablet 0 Sig: Take 1 tablet by mouth daily at bedtime. Date of last office visit in primary care: 06/12/2023 Date of next office visit in primary care: Visit date not found Please advise. Thank you. Geoffrey Pearce LPN. documented in this [facility]12-11-2023 Miscellaneous Notes* Telephone Encounter - Claire Dempsey MA - 06/08/2023 8:39 AM EST Patient has been identified by name and date of : Yes Requested Prescriptions Pending Prescriptions Disp Refills Insulin Toano, Disposable, (BD ULTRA-FINE NATALYA PEN NEEDLE) 32 gauge x 5/32 450 Each 3 Sig: Uses 5 daily RX INSTRUCTIONS: Patient aware RX will be sent to pharmacy. No need to notify patient. Patient last office visit: 12/18/22 Patient next office visit: 06/12/23 Claire Dempsey MA documented in this [facility]10-23-2023 Miscellaneous Notes* Telephone Encounter - Sri Sierra LPN - 04/20/2023 12:48 PM EDT Patient has been identified by name and date of : Yes Requested Prescriptions Pending Prescriptions Disp Refills amitriptyline (ELAVIL) 25 mg tablet 90 tablet 0 Sig: Take 1 tablet by mouth daily at bedtime. RX INSTRUCTIONS: Patient aware RX will be sent to pharmacy. No need to notify patient. RASHARD 12/18/22 Scheduled 06/12/23 Sri Sierra LPN documented in this [facility]09-25-2023 Miscellaneous Notes* Telephone Encounter - Jennifer Ardon PA-C - 03/23/2023 4:49 PM EDT The following approved medication requests have been transmitted electronically. Requested Prescriptions Signed Prescriptions Disp Refills levothyroxine (SYNTHROID) 88 mcg tablet 90 tablet 1 Sig: Take 1 tablet by mouth once daily. Take on empty stomach. Jennifer Ardon PA-C [facility] Miscellaneous Notes* Telephone Encounter - Anamaria Oreilly Ma - 01/13/2023 10:18 AM EDT Patient was made aware of the results. Patient verbalizes understanding. Anamaria Oreilly Ma * Telephone Encounter - Jennifer Ardon PA-C - 01/13/2023 6:40 AM EDT Please increase levothyroxine to 88mcg and recheck lab in 2 months overnight fasting. I am sorry I missed or forgot the message not to check [id number]. Please fax lab results to Dr. De Leon Increase rosuvastatin to 40mg daily HS Notify if any unusual muscle pain or flu-like sx. Calcium is bound to albumin so I albumin level is higher serum calcium will appear higher. Active calcium is freed from albumin and is the active ion. We will repeat to make sure there isn't a trend. I don't see a scheduled follow up, I would recommend recheck in May. Telephone on 01/13/23 TSH BLD T4 FREE/FREE THYROX LIPID PANEL BASIC The following approved medication requests have been transmitted electronically. Requested Prescriptions Signed Prescriptions Disp Refills simvastatin (ZOCOR) 40 mg tablet 90 tablet 1 Sig: Take 1 tablet by mouth daily at bedtime. For cholesterols. Authorizing Provider: Jennifer ARDON levothyroxine (SYNTHROID) 88 mcg tablet 30 tablet 2 Sig: Take 1 tablet by mouth once daily. Take on empty stomach. Authorizing Provider: Jennifer ARDON PA-C [facility]23 Miscellaneous Notes* Telephone Encounter - Geoffrey Pearce LPN - 01/12/2023 6:11 PM EDT Patient phones requesting refills as follows: Requested Prescriptions Pending Prescriptions Disp Refills simvastatin (ZOCOR) 20 mg tablet 90 tablet 0 Sig: Take 1 tablet by mouth daily at bedtime. fenofibrate nanocrystallized (TRICOR) 145 mg tablet 90 tablet 0 Sig: Take 1 tablet by mouth once daily. RASHARD 12/18/22 NOV no upcoming appt Please review and advise. Geoffrey Pearce LPN [facility] History of Present illness Narrative* Jennifer Ardon PA-C - 12/18/2022 3:00 PM EDT 62 year old female with c/o here for follow up. Feels she is doing well but running back and forth from caring for mother emily [place] and seeing sisterbruno BRAND. Primary hypertension (primary encounter diagnosis) Current meds: Losartan 25mg daily Patient is compliant with meds No Monitors bp at home: No. If yes, readings: Denies side effects: Yes. Chest pain: No. Dyspnea: No. Edema: No. Palpitations: No. Syncope: No. Headache: No. Dizziness: No. Last 3 Encounter BP Readings: Date: BP: 12/05/2021 126/82 03/29/2021 114/68 02/19/2021 122/68 Last 2 Encounter Wt Readings: Date: Wt: 12/05/2021 81.6 kg (180 lb) 03/29/2021 83.5 kg (184 lb) Mixed hyperlipidemia Current medication Fenofibrate 145mg daily Simvastatin 20mg daily Taking medication consistently Yes Observing low cholesterol high fiber diet some Muscle aches No Stomach complaints/ diarrhea No Last 2 Lipids: Component Latest Ref Rng & Units 01/03/2020 10/03/2020 11/27/2021 Protein, Total 6.3 - 8.0 g/dL 7.0 Albumin 3.9 - 4.9 g/dL 4.4 Calcium 8.5 - 10.2 mg/dL 9.7 Bilirubin, Total 0.2 - 1.3 mg/dL <0.2 (L) Alkaline Phosphatase 34 - 123 U/L 53 AST 13 - 35 U/L 31 ALT 7 - 38 U/L 34 Glucose 74 - 99 mg/dL 164 (H) BUN 7 - 21 mg/dL 21 Creatinine 0.58 - 0.96 mg/dL 0.79 Sodium 136 - 144 mmol/L 139 Potassium 3.7 - 5.1 mmol/L 4.8 Chloride 97 - 105 mmol/L 100 CO2 22 - 30 mmol/L 27 Anion Gap 9 - 18 mmol/L 12 eGFR >=60 mL/min/1.73m 85 Cholesterol, Total <200 mg/dL 171 174 191 Triglyceride <150 mg/dL 247 (H) 220 (H) 255 (H) HDL Cholesterol >39 mg/dL 46 49 46 LDL Cholesterol <100 mg/dL 76 81 94 Non HDL Cholesterol <130 mg/dL 125 125 145 (H) Fasting Time hrs 12 12 12 VLDL Cholesterol <30 mg/dL 49 (H) 44 (H) 51 (H) TC:HDL Ratio <5.10 3.72 3.55 4.15 LDL:HDL Ratio <2.54 1.65 1.65 2.04 Controlled type 2 diabetes mellitus without complication, with long-term current use of insulin (hcc) Following with endocrinology [facility]A [facility], last visit 10/02/2022 Current medications: Insulin degludec 70 units daily at bedtime Insulin lispro 14 units 3 times daily plus sliding scale Metformin 1000 mg twice a day Taking medication as directed consistently? No Medication side effects: Medical Issues / Complications: hypertension and hyperlipidemia Checking blood sugars at home? Good on vacation, have nicky high coming back home. Watching diet? some Physical Activity: Sedentary Hypoglycemic spells? Very rarely, occurred a few weeks ago in [place] Any visual disturbance? No Chest pain? No New numbness, tingling or loss of sensation? No Any recent foot problems, sores or rashes? No Any recent or sudden weight loss? No Change in urination? No. If yes: Any recent illness? No Last eye exam: due. Last foot exam: up to date. HBA1C: Hemoglobin A1C Date Value 07/24/2022 7.6 11/27/2021 7.6 % 02/14/2021 7.5 % 10/03/2020 8.1 % ) CMP: Glucose 164 11/27/2021 BUN 17 02/14/2021 Creatinine 0.79 11/27/2021 Sodium 139 02/14/2021 Potassium 4.8 11/27/2021 Chloride 100 02/14/2021 CO2 27 11/27/2021 Protein, Total 7.0 11/27/2021 Albumin 4.4 11/27/2021 Calcium 10.0 02/14/2021 Alkaline Phosphatase 53 11/27/2021 Bilirubin, Total <0.2 11/27/2021 AST 31 11/27/2021 ALT 34 11/27/2021 Last 2 Encounter Wt Readings: Date: Wt: 12/05/2021 81.6 kg (180 lb) 03/29/2021 83.5 kg (184 lb) 10/02/[address]22 [address] [facility] [address] Mcfarlane: Glucose 242 BUN 16 Creatinine 0.92, EGFR 65 BUN/creatinine 17.4 Total protein 6.8 Albumin 3.7 A/P 1.2 Calcium total 9.5 AST 16 ALP 40 ALT 27 Total bili 0.20 NA 139 K4.0 CL 102 Anion gap 6 10/22/2022 HGBA1c 7.4 Hypothyroidism, unspecified type Current medication: Levothyroxine 75mg daily AC Taking as directed on an empty stomach? Yes. Thyroid pain: No. Mass effect: No. Change in energy level/ fatigue? No. Sleep disturbance ? Has been traveling to [place] 5 times a year, adjusting each time . Temperature Intolerance: cold No, hot occasionally at night. In females, menstrual cycle issues? climateric, If yes: Change in bowel habits? No. If yes: Constipation? No. If yes: occasionally eats fiber bars. Diarrhea? No. If yes: Weight changes?No. Memory issues: word recall issues some. Diaphoresis: No. Numbness, tingling none Radiological imaging with contrast dyes within the last 3 months? No. History of radiation exposure to head or neck area? No. Change in hair or skin? Thinning on top. If yes: Other symptoms: Last 2 Encounter Wt Readings: Date: Wt: 12/05/2021 81.6 kg (180 lb) 03/29/2021 83.5 kg (184 lb) Last thyroid labs: TSH Date Value 11/27/2021 2.420 mIU/L 08/20/2020 1.750 uU/mL 07/03/2020 4.510 uU/mL ) Stage 3a chronic kidney disease (hcc) Component Latest Ref Rng & Units 08/16/2018 01/03/2020 11/27/2021 Protein, Total 6.3 - 8.0 g/dL 7.0 Albumin 3.9 - 4.9 g/dL 4.4 Calcium 8.5 - 10.2 mg/dL 9.7 Bilirubin, Total 0.2 - 1.3 mg/dL <0.2 (L) Alkaline Phosphatase 34 - 123 U/L 53 AST 13 - 35 U/L 31 ALT 7 - 38 U/L 34 Glucose 74 - 99 mg/dL 164 (H) BUN 7 - 21 mg/dL 21 Creatinine 0.58 - 0.96 mg/dL 0.79 Sodium 136 - 144 mmol/L 139 Potassium 3.7 - 5.1 mmol/L 4.8 Chloride 97 - 105 mmol/L 100 CO2 22 - 30 mmol/L 27 Anion Gap 9 - 18 mmol/L 12 eGFR >=60 mL/min/1.73m 85 Creatinine, Ur Random (UCRR) 20 - 300 mg/dL 85.2 110.9 Albumin, Urine Random mg/L <12.0 17.5 Albumin/Creat Ratio <30 mg/g Not calculated 16 Elevated liver enzymes Component Latest Ref Rng & Units 10/03/2020 11/27/2021 Protein, Total 6.3 - 8.0 g/dL 7.0 7.0 Albumin 3.9 - 4.9 g/dL 4.6 4.4 Calcium 8.5 - 10.2 mg/dL 10.0 9.7 Bilirubin, Total 0.2 - 1.3 mg/dL 0.2 <0.2 (L) Alkaline Phosphatase 34 - 123 U/L 54 53 AST 13 - 35 U/L 27 31 Glucose 74 - 99 mg/dL 117 (H) 164 (H) BUN 7 - 21 mg/dL 16 21 Creatinine 0.58 - 0.96 mg/dL 0.86 0.79 Sodium 136 - 144 mmol/L 141 139 Potassium 3.7 - 5.1 mmol/L 4.3 4.8 Chloride 97 - 105 mmol/L 99 100 CO2 22 - 30 mmol/L 31 (H) 27 Anion Gap 9 - 18 mmol/L 11 12 ALT 7 - 38 U/L 43 (H) 34 eGFR- >60 eGFR-All Other Races . >60 eGFR >=60 mL/min/1.73m 85 Psoriatic arthritis (hcc) Current medications: Otezla 30 mg twice daily Hytone 2.5% twice daily as needed Major depressive disorder with single episode, in partial remission (hcc) Dr. Lauren Moran Current medications: Escitalopram 10 mg daily Buspirone 5mg 1-2 a day Buspar helps significantly. Feels much less anxiety, able to think more clearly and mage stress better. Struggles with change time zones with travel. No thoughts of self harm. Current supplements: Vitamin D3 1000 units daily Centrum multivitamin daily ASA 81 mg EC daily HISTORIES FAMILY HISTORY Problem Relation Age of Onset Breast Cancer Mother 65 lumpectomy, radiation Alzheimer's Disease Mother Allergies Mother Stroke Mother Dementia Mother Alzheimer's Disease Father Heart Father Diabetes Sister Prostate Cancer Paternal Grandfather Breast Cancer Maternal Aunt 55 mets to brain PAST MEDICAL HISTORY Diagnosis Date Depression seeing counseling center Diabetes (HCC) Fatty liver has had liver ultrasounds etc. GERD (gastroesophageal reflux disease) HTN (hypertension) Hx of acute pancreatitis Hyperlipidemia Hypothyroidism Insomnia Microalbuminuria Psoriasis sees Derm PAST SURGICAL HISTORY Procedure Laterality Date COLONOSCOPY FLX DX W/COLLJ SPEC WHEN PFRMD 01/19/2019 Colonoscopy 10 yr interval ENDOMETRIAL BX W/WO ENDOCERVIX BX W/O DILAT SPX 2012 negative, postmeno bleed Social History Tobacco Use Smoking status: Former Types: Cigarettes Quit date: 05/23/2009 Years since quittin.5 Smokeless tobacco: Never Vaping Use Vaping Use: Never used Substance Use Topics Alcohol use: No Drug use: No ACTIVE PROBLEM LIST Hyperlipidemia Htn (Hypertension) Hypothyroidism Depression Psoriasis Fatty Liver Diabetes Mellitus Type 2, Controlled, Without Complications (Hcc) Solitary Cyst of Left Breast Ckd (Chronic Kidney Disease) Stage 3, Gfr 30-59 Ml/Min (Hcc) Elevated Liver Enzymes Psoriatic Arthritis (Hcc) Current Outpatient Medications Medication Sig Dispense Refill losartan (COZAAR) 25 mg tablet Take 1 tablet by mouth once daily. 90 tablet 3 levothyroxine (SYNTHROID) 75 mcg tablet Take 1 tablet by mouth once daily. Take on empty stomach. For Thyroid 90 tablet 3 simvastatin (ZOCOR) 20 mg tablet Take 1 tablet by mouth daily at bedtime. 90 tablet 0 fenofibrate nanocrystallized (TRICOR) 145 mg tablet Take 1 tablet by mouth once daily. 90 tablet 0 amitriptyline (ELAVIL) 25 mg tablet Take 1 tablet by mouth daily at bedtime. 90 tablet 0 insulin degludec (TRESIBA FLEXTOUCH U-100) 100 unit/mL (3 mL) injection pen Inject 70 Units subcutaneously daily at bedtime. 15 mL 11 flash glucose sensor (FREESTYLE BATSHEVA 14 DAY SENSOR) kit Use to check blood sugar 4 times daily 2 Kit 11 insulin lispro (HUMALOG KWIKPEN INSULIN) 100 unit/mL Inject 14 units Subcutaneously three times daily before meals Plus sliding scale (2 units for every 50 mg/dL greater than 150 mg/dL) 18 Each 11 Insulin Toano, Disposable, (BD ULTRA-FINE NATALYA PEN NEEDLE) 32 gauge x 5/32 Uses 5 daily 450 Each3 metFORMIN (GLUCOPHAGE) 850 mg tablet Take 1 tablet by mouth three times daily with meals. 270 tablet 1 dulaglutide (TRULICITY) 0.75 mg/0.5 mL pen injector Inject 0.75 mg subcutaneously one time a week. 4 Each 5 escitalopram oxalate (LEXAPRO) 10 mg tablet Take 1 tablet by mouth once daily. 90 tablet 3 flash glucose scanning reader (FREESTYLE BATSHEVA 14 DAY READER) Use to check blood sugar 4 times daily 1 Each 0 blood sugar diagnostic (BLOOD GLUCOSE TEST) test strip One Touch Ultra Blue. Check blood sugar 4x daily. Insulin dep: yes E11.9 200 Strip 5 apremilast (OTEZLA) 30 mg tablet Take 30 mg by mouth twice daily. MEDICATION, NON-DATABASE 1 capsule once daily. [facility] Glucosamine sulfate 500mg /chondroitin sulfate 50 mg/turmeric 50 mg/MSM 8 mg hydrocortisone (HYTONE) 2.5 % lotion Apply to affected area twice daily. Cholecalciferol, Vitamin D3, 1,000 unit cap Take 1,000 Units by mouth once daily. Bwzvifvu-Vwzk-Sfm-Folic Acid (CENTRUM) 3,500-18-0.4 unit-mg-mg chewable tablet Take 1 tablet by mouth once daily. aspirin, enteric coated (ASPIRIN, ENTERIC COATED) 81 mg EC tablet Take 81 mg by mouth once daily. No current facility-administered medications for this visit. PNEUMOCOCCAL(1 - PCV) Never done HIV SCREENING Never done BP CONTROLLED (<130/80) Never done SHINGRIX VACCINE(1 of 2) Never done DILATED RETINAL EXAM due on 10/13/2017 URINE ALBUMIN:CREATININE RATIO due on 02/14/2022 DIABETIC FOOT EXAM due on 02/19/2022 SERUM CREATININE due on 11/27/2022 ANNUAL PCP TEAM CHRONIC DISEASE VISIT due on 12/05/2022 LDL CHOLESTEROL due on 11/27/2022 EXAM: BP 130/80 Pulse 96 Resp 16 Wt 82.6 kg (182 lb) SpO2 96% BMI 29.38 kg/m Pleasant overweight adult woman in no acute distress. Alert and oriented all spheres. Normal affectand cognition. Speech normal. No deficits to learning or comprehension. Skin warm, dry, pink to lips and nailbeds. Normal turgor. Respirations regular and unlabored. HEENT: NCAT. No scleral icterus or conjunctival injection. TM's clear. Nose and oropharynx free from injection or lesion. Oral membranes moist and pink. No cervical lymph nodes. Thyroid non-tender, no masses, or enlargement. Carotids pulses 2+/4+ without bruits. No JVD with HOB at 30 degrees. Chest is normal shape. Lungs are clear to all guillen with good air exchange through out. HRRR without murmur or gallop. No lifts, heaves, or rubs. Extrem: no clubbing or cyanosis. Edema: none. Extremities are warm and pink with prompt capillary refill. Feet:Shoes and socks removed, Are you having foot pain no, No deformities, ulcers, calluses, normaldistal pulses, and sensitive to 10 gm monofilament ASSESSMENT/PLAN: 1. Primary hypertension - ICD9: 401.9, ICD10: I10 (primary diagnosis) - Controlled - Continue current medications - Recommend home blood pressure monitoring, to bring results to next visit - Encouraged sodium restriction, DASH or Mediterranean diet - Recommend regular aerobic exercise - Discussed need for and benefit of weight loss. BMI 29.38 kg/(m^2) - COMP METABOLIC PANEL - CBC 2. Mixed hyperlipidemia - ICD9: 272.2, ICD10: E78.2 - Worsening control - Continue current medications - Counseled on healthy diet and regular exercise - Discussed need for and benefit of weight loss. BMI 29.38 kg/(m^2) - LIPID PANEL BASIC 3. Controlled type 2 diabetes mellitus without complication, with long-term current use of insulin (HCC) - ICD9: 250.00, V58.67, ICD10: E11.9, Z79.4 - Controlled - Continue current medications - ALBUMIN/CREAT RATIO RND UR - HGB A1C 4. Hypothyroidism, unspecified type - ICD9: 244.9, ICD10: E03.9 Controlled on current medication: continue present levoth 75mcg daily AC - TSH 5. Stage 3a chronic kidney disease (HCC) - ICD9: 585.3, ICD10: N18.31 - eGFR: Stable - Counseled on avoiding NSAIDs, adequate hydration 6. Elevated liver enzymes - ICD9: 790.5, ICD10: R74.8 resolved 7. Psoriatic arthritis (HCC) - ICD9: 696.0, ICD10: L40.50 Following with rheum, managed well on Otezla 8. Major depressive disorder with single episode, in partial remission (HCC) - ICD9: 296.25, ICD10:F32.4 Improved with current regimen, feels able to manage well. 9. Encounter for immunization - ICD9: V03.89, ICD10: Z23 - PNEUMOCOCCAL VACCINE (PREVNAR 20) 10. Yeast infection of the skin - ICD9: 112.3, ICD10: B37.2 Behind right ear as needed, limit to 2 weeks and the a break. - TRIAMCINOLONE ACETONIDE 0.1 % TOPICAL CREAM F/u 6 [facility] Jennifer Ardon PA-C [facility]23 Miscellaneous Notes* Telephone Encounter - SERENE Mcclellan - 12/01/2022 8:31 AM EDT Patient has been identified by name and date of : Yes Patient phones for refill(s): Requested Prescriptions Pending Prescriptions Disp Refills losartan (COZAAR) 25 mg tablet 90 tablet 3 Sig: Take 1 tablet by mouth once daily. levothyroxine (SYNTHROID) 75 mcg tablet 90 tablet 3 Sig: Take 1 tablet by mouth once daily. Take on empty stomach. For Thyroid Date of last office visit in primary care: RASHARD 12/05/21 Appointment scheduled 12/18/22 Last 2 Encounter Wt Readings: Date: Wt: 12/05/2021 81.6 kg (180 lb) 03/29/2021 83.5 kg (184 lb) Please advise. Thank you. SERENE Mcclellan documented in this encounterToledo [facility]05-04-2023 Miscellaneous Notes* Telephone Encounter - Sri Sierra LPN - 10/30/2022 9:06 AM EDT Patient has been identified by name and date of : Yes Requested Prescriptions Pending Prescriptions Disp Refills simvastatin (ZOCOR) 20 mg tablet 90 tablet 3 Sig: Take 1 tablet by mouth daily at bedtime. fenofibrate nanocrystallized (TRICOR) 145 mg tablet 90 tablet 3 Sig: Take 1 tablet by mouth once daily. RX INSTRUCTIONS: Patient aware RX will be sent to pharmacy. No need to notify patient. [employer] message sent to patient to schedule. Sri Sierra LPN documented in this encounterTol[facility] Hospital04-17-2023 Miscellaneous Notes* Telephone Encounter - Jennifer Ardon PA-C - 10/13/2022 5:26 PM EDT The following approved medication requests have been transmitted electronically. Requested Prescriptions Signed Prescriptions Disp Refills amitriptyline (ELAVIL) 25 mg tablet 90 tablet 0 Sig: Take 1 tablet by mouth daily at bedtime. Jennifer Ardon PA-C * Telephone Encounter - Jane Chavez MA - 10/13/2022 8:01 AM EDT Patient has been identified by name and date of : Yes Requested Prescriptions Pending Prescriptions Disp Refills amitriptyline (ELAVIL) 25 mg tablet 90 tablet 0 Sig: Take 1 tablet by mouth daily at bedtime. RX INSTRUCTIONS: Patient aware RX will be sent to pharmacy. No need to notify patient. Jane Chavez MA Rashard; 11/2021 Nov: 07/2022 Last refill: 07/2022 documented in this encounterToledo Hospital02-24-2023 Miscellaneous Notes* Telephone Encounter - Jennifer Ardon PA-C - 08/22/2022 4:21 PM EST The following approved medication requests have been transmitted electronically. Requested Prescriptions Signed Prescriptions Disp Refills amitriptyline (ELAVIL) 25 mg tablet 30 tablet 0 Sig: Take 1 tablet by mouth daily at bedtime. Authorizing Provider: Jennifer ARDON PA-C documented in this encounterToledo Hospital01-31-2023 Miscellaneous Notes* Telephone Encounter - Carmen Lockwood RN - 07/29/2022 3:33 PM EST Images from the original note were not included. VM left for patient to call PCP office to discuss recent HGB A1C result as well as schedule appt. See provider note, as copied below. Carmen Lockwood RN COPIED: Result Notes Merle Mccabe APRN.PHUC 07/28/2022 6:02 PM EST Looks like due for an office visit. Last appt was 11/2021 and Adam wanted to see back in 6 months. Please help schedule. documented in this encounterToledo Hospital01-03-2023 Miscellaneous Notes* Telephone Encounter - Geoffrey Pearce LPN - 07/01/2022 1:46 PM EST Patient phones requesting refills as follows: Requested Prescriptions Pending Prescriptions Disp Refills flash glucose sensor (FREESTYLE BATSHEVA 14 DAY SENSOR) kit 2 Kit 11 Sig: Use to check blood sugar 4 times daily Please review and advise. Geoffrey Pearce LPN documented in this encounterToledo Hospital12-19-2022 Miscellaneous Notes* Telephone Encounter - Geoffrey Pearce LPN - 06/16/2022 2:23 PM EST Patient phones requesting refills as follows: Requested Prescriptions Pending Prescriptions Disp Refills insulin lispro (HUMALOG KWIKPEN INSULIN) 100 unit/mL 18 Each 11 Sig: Inject 14 units Subcutaneously three times daily before meals Plus sliding scale (2 units for every 50 mg/dL greater than 150 mg/dL) RASHARD 12/05/21 NOV no upcoming appt Please review and advise. Geoffrey Pearce LPN documented in this encounterToledo Hospital12-08-2022 Miscellaneous Notes* Letter - Mammography Coordinator - 06/05/2022 10:12 AM EST June 06, 2022 PID: [id number] Roma Walton [address] [place] [address] Dear Ms. Walton, We are pleased to inform you that the results of your recent breast imaging exam on 06/05/2022 are normal. Your mammogram demonstrates that you have dense breast tissue, which could hide abnormalities. Dense breast tissue, in and of itself, is a relatively common condition. Therefore, this information is not provided to cause undue concern; rather, it is to raise your awareness and promote discussion with your health care provider regarding the presence of dense breast tissue in addition to other riskfactors. Early detection of cancer is very important. We also understand recommendations regarding breast cancer screening are controversial. Please discuss with your primary care provider which strategy is best for you and whether a mammogram is right for you. Your imaging studies and report will be kept [facility] as part of your permanent medical record and are available for your continuing care. Thank you for allowing us to help in meeting your health care needs. Sincerely, Dr. Mohr Interpreting Radiologist [facility] (Normal over 40) documented in this encounterToledo Hospital12-08-2022 History of Present illness Narrative* Misti Barkley Mammo Antoinette - 06/05/2022 9:30 AM EST Radiology Service Progress Note PATIENT NAME: Roma Walton DATE OF SERVICE: June 05, 2022 TIME: 9:19 AM PATIENT IDENTITY VERIFICATION COMPLETED USING TWO (2) IDENTIFIERS: Name and Date of confirmedby patient verbally. FALL SCREENING: Has the patient had 2 falls in the last year or 1 fall with injury or currently using an Ambulatory Assistive Device (Walker, Cane, Wheelchair, Crutches, etc.)? No PATIENT GENDER DATA: Female. status: : No status: NO. PATIENT RELEVANT IMPLANT DATA REVIEWED: Not Applicable RADIOLOGY DEPARTMENT: Mammography PERIPHERAL IV DATA: Not applicable SIGNED BY: Leida Estrellao Antoinette June 05, 2022 9:19 AM documented in this encounterToledo Hospital11-21-2022 Miscellaneous Notes* Telephone Encounter - Nicole Morales LPN - 05/19/2022 1:41 PM EST Rashard--12/05/21 Nov--nothing scheduled Last refill--01/21/22 450 with 3 refills Last labs--05/01/22 documented in this encounterToledo Hospital10-27-2022 Miscellaneous Notes* Telephone Encounter - Geoffrey Villalba - 04/24/2022 1:11 PM EDT Patient scheduled for 06/05/2022 JN 04/24 * Telephone Encounter - Selena Patel RN - 04/23/2022 1:00 PM EDT Patient last seen for annual exam on 03/29/21. Please file pended mammogram order. Will need to contact patient to schedule mammogram and annual exam. Selena Patel RN * Telephone Encounter - Elizabeth Villalba Pss - 04/23/2022 12:55 PM EDT Patient called requesting maria e mamm order. Please advise once entered so that patient can schedule. documented in this encounterToledo Hospital10-26-2022 Miscellaneous Notes* Telephone Encounter - Yoli Franco RN - 04/23/2022 3:28 PM EDT Patient calls and states that she is being proactive where her medications are concerned. Patient just received the refill for Metformin and got the notice from her pharmacy that she will need a new prescription for the next refill. Patient states that he requested this ahead of time to make sure she has the medication when she needs the next refill. Yoli Franco RN documented in this encounterToledo Hospital10-26-2022 Miscellaneous Notes* Telephone Encounter - Melida Chen MA - 04/23/2022 3:24 PM EDT Pended medication with adjusted qty set to 18. Pharmacy verified. Please file. Melida Chen MA documented in this encounterToledo Hospital10-26-2022 Miscellaneous Notes* Telephone Encounter - Melida Chen MA - 04/23/2022 3:15 PM EDT Active refills for Metfromin at [facility] already. 90 day supply script written 12/05/21 with 1 refill.Patient active MyChart. Patient notified via MyChart message. WILFRIDO Youssef MA documented in this encounterToledo Hospital06-30-2022 Miscellaneous Notes* Telephone Encounter - Julee Rivera LPN - 12/26/2021 7:26 AM EDT Patient phones requesting refills as follows: Patient comment: I started this right after my appt December 05. Unfortunately, the prescription from last year has now . Can you renew it please and thank you? Pending Prescriptions Disp Refills DULAGLUTIDE 0.75 MG/0.5 ML SUBCUTANEOUS PEN INJECTOR 4 Each 5 Sig: Inject 0.75 mg subcutaneously one time a week. JOSE ANTONIO: No RASHARD-12/05/21 Labs-11/27/21 NOV-none med filled 10/29/20 Please review and advise. Julee Rivera LPN documented in this encounterToledo Hospital05-09-2022 Evaluation note* Diagnosis Stage 3a chronic kidney disease (HCC)- Primary Type 2 diabetes mellitus without complication, with long-term current use of insulin (HCC) Primary hypertension Unspecified essential hypertension Mixed hyperlipidemia Hypothyroidism, unspecified type documented in this encounter [facility]05-[facility] Miscellaneous Notes* Telephone Encounter - Jennifer Ardon PA-C - 11/03/2021 9:11 AM EDT Please advise I refilled insulin but she needs to come in for in office exam: schedule physical as it's been over a year. Needs to complete outstanding lab. Get Medical Advice on 11/01/21 CBC COMP METABOLIC PANEL HGB A1C TSH BLD LIPID PANEL BASIC The following approved medication requests have been transmitted electronically. Signed Prescriptions Disp Refills insulin degludec (TRESIBA FLEXTOUCH U-100) 100 unit/mL (3 mL) injection pen 15 mL 11 Sig: Inject 70 Units subcutaneously daily at bedtime. JOSE ANTONIO: No Jennifer Arodn PA-C documented in this encounterToledo Hospital06-21-2016 History of Past illness Narrative* Problem Noted Date Resolved Date Diabetes 12/18/2015 documented as of this encounter (statuses as of 11/04/2021) [address]21-2016 History of Past illness Narrative* Problem Noted Date Resolved Date Diabetes 12/18/2015 documented as of this encounter (statuses as of 12/26/2021) [address]21-2016 History of Past illness Narrative* Problem Noted Date Resolved Date Diabetes 12/18/2015 documented as of this encounter (statuses as of 04/23/2022) [address]-2016 History of Past illness Narrative* Problem Noted Date Resolved Date Diabetes 12/18/2015 documented as of this encounter (statuses as of 04/24/2022) [address]2016 History of Past illness Narrative* Problem Noted Date Resolved Date Diabetes 12/18/2015 documented as of this encounter (statuses as of 04/24/2022) [address]-2016 History of Past illness Narrative* Problem Noted Date Resolved Date Diabetes 12/18/2015 documented as of this encounter (statuses as of 04/26/2022) [address]-2016 History of Past illness Narrative* Problem Noted Date Resolved Date Diabetes 12/18/2015 documented as of this encounter (statuses as of 05/20/2022) [address]2016 History of Past illness Narrative* Problem Noted Date Resolved Date Diabetes 12/18/2015 documented as of this encounter (statuses as of 06/10/2022) [address]-2016 History of Past illness Narrative* Problem Noted Date Resolved Date Diabetes 12/18/2015 documented as of this encounter (statuses as of 06/16/2022) [address]2016 History of Past illness Narrative* Problem Noted Date Resolved Date Diabetes 12/18/2015 documented as of this encounter (statuses as of 07/03/2022) [address]-2016 History of Past illness Narrative* Problem Noted Date Resolved Date Diabetes 12/18/2015 documented as of this encounter (statuses as of 07/25/2022) [address]2016 History of Past illness Narrative* Problem Noted Date Resolved Date Diabetes 12/18/2015 documented as of this encounter (statuses as of 08/22/2022) [address]2016 History of Past illness Narrative* Problem Noted Date Resolved Date Diabetes 12/18/2015 documented as of this encounter (statuses as of 09/09/2022) [address]2016 History of Past illness Narrative* Problem Noted Date Resolved Date Diabetes 12/18/2015 documented as of this encounter (statuses as of 09/18/2022) [address]2016 History of Past illness Narrative* Problem Noted Date Resolved Date Diabetes 12/18/2015 documented as of this encounter (statuses as of 10/14/2022) [address]2016 History of Past illness Narrative* Problem Noted Date Resolved Date Diabetes 12/18/2015 documented as of this encounter (statuses as of 10/30/2022) [address]2016 History of Past illness Narrative* Problem Noted Date Resolved Date Diabetes 12/18/2015 documented as of this encounter (statuses as of 12/01/2022) [address]2016 History of Past illness Narrative* Problem Noted Date Resolved Date Diabetes 12/18/2015 documented as of this encounter (statuses as of 12/20/2022) [address]2016 History of Past illness Narrative* Problem Noted Date Resolved Date Diabetes 12/18/2015 documented as of this encounter (statuses as of 12/26/2022) [address]2016 History of Past illness Narrative* Problem Noted Date Diagnosed Date Resolved Date Diabetes 12/18/2015 documented as of this encounter (statuses as of 01/13/2023) [address]2016 History of Past illness Narrative* Problem Noted Date Diagnosed Date Resolved Date Diabetes 12/18/2015 documented as of this encounter (statuses as of 01/13/2023) [address]2016 History of Past illness Narrative* Problem Noted Date Diagnosed Date Resolved Date Diabetes 12/18/2015 documented as of this encounter (statuses as of 03/24/2023) [address]21[address]2016 History of Past illness Narrative* Problem Noted Date Diagnosed Date Resolved Date Diabetes 12/18/2015 documented as of this encounter (statuses as of 04/21/2023) [address]2016 History of Past illness Narrative* Problem Noted Date Diagnosed Date Resolved Date Diabetes 12/18/2015 documented as of this encounter (statuses as of 04/30/2023) [facility] N[facility]* Problem Noted Date Diagnosed Date Resolved Date Diabetes 12/18/2015 documented as of this encounter (statuses as of 05/03/2023) [facility]* Problem Noted Date Diagnosed Date Resolved Date Diabetes 12/18/2015 documented as of this encounter (statuses as of 06/08/2023) [facility]* Problem Noted Date Diagnosed Date Resolved Date Diabetes 12/18/2015 documented as of this encounter (statuses as of 06/09/2023) [facility]* Problem Noted Date Diagnosed Date Resolved Date Diabetes 12/18/2015 documented as of this encounter (statuses as of 08/18/2023) [facility] note* Diagnosis Encounter for screening mammogram for malignant neoplasm of breast- Primary Other screening mammogram [facility] Diagnosis Type 2 diabetes mellitus without complication, with long-term current use of insulin (HCC) documented in this encounter [facility] noteNo assessment information availableWKettering Health [facility] Work Phone: Evaluation note* Diagnosis Type 2 diabetes mellitus without complication, with long-term current use of insulin (HCC) documented in this encounter [facility] note* Diagnosis Major depressive disorder with single episode, in partial remission (HCC) documented in this encounter [facility] note* Diagnosis Type 2 diabetes mellitus without complication, with long-term current use of insulin (HCC) [facility] encounter [facility]* Diagnosis Onset Date Resolution Status CKD (chronic kidney disease) stage 2, GFR 60-89 ml/min chronic Hyperlipidemia chronic Hypertension chronic Type 2 diabetes mellitus chr onic Type 2 diabetes mellitus chr onic [facility] Work Phone: Evaluation note* Diagnosis Major depressive disorder with single episode, in partial remission (HCC) documented in this encounter [facility] note* Diagnosis Mixed hyperlipidemia [facility]* Diagnosis Hypothyroidism, unspecified type documented in this encounter [facility] note* Diagnosis Primary hypertension- Primary Unspecified essential hypertension Mixed hyperlipidemia Controlled type 2 diabetes mellitus without complication, with long-term current use of insulin (HCC) Hypothyroidism, unspecified type Stage 3a chronic kidney disease (HCC) Elevated liver enzymes Other nonspecific abnormal serum enzyme levels Psoriatic arthritis (HCC) Psoriatic arthropathy Major depressive disorder with single episode, in partial remission (HCC) Encounter for immunization Need for other specified prophylactic vaccination against single bacterial disease Yeast infection of the skin Candidiasis of skin and nails documented in this encounter [facility] note* Diagnosis Mixed hyperlipidemia documented in this encounter [facility] note* Diagnosis Hypothyroidism, unspecified type- Primary Mixed hyperlipidemia documented in this encounter [facility] note* Diagnosis Major depressive disorder with single episode, in partial remission (HCC) documented in this encounter [facility] note* Diagnosis Encounter for screening mammogram for malignant neoplasm of breast Other screening mammogram documented in this encounter [facility] note* Diagnosis Type 2 diabetes mellitus without complication, with long-term current use of insulin (HCC) documented in this encounter [facility] note* Diagnosis Major depressive disorder with single episode, in partial remission (HCC) documented in this encounter [facility] note* Diagnosis Onset Date Resolution Status Hypertension chronic Hypothyroid chronic Overweight chronic Type 2 diabetes mellitus chr onic [facility] Work Phone: Evaluation note* Diagnosis Onset Date Resolution Status Hypertension chronic Hypothyroid chronic Overweight chronic Type 2 diabetes mellitus chr onic Anxiety and depression chron ic Hypothyroid chronic Psoriatic arthritis chronic Type 2 diabetes mellitus chr onic Immunization due noneactive Establishing care with new doctor, encounter for noneactive Anemia noneactive Essential hypertension nonea ctive Memory changes noneactive [facility] Work Phone: Evaluation note* Diagnosis Encounter for screening mammogram for breast cancer documented in this encounter [facility] for referral (narrative)* Diagnostic Procedure Only (Routine) - Pending Review Specialty Diagnoses / Procedures Referred By Batool t Referred To Contact [facility] Diagnoses Encounter for screening mammogram for malignant neoplasm of breast Procedures DIEGO SCREENING W MARIA E SCREENING DIGITAL BREAST TOMOSYNTHESIS BI SCREENING MAMMOGRAPHY BI 2-VIEW BREAST INC Sherine Larsen, OFELIA.[employer] CONSTRUCTION SUPERVISOR [address] [place] [address] [facility] [address] [place] [address] Referral ID Status Reason Start Date Expiration Date Visits Requested Visits Authorized [id number] Pending Review Auto-Generat ed Referral 05/23/2023 1 1 [facility] for referral (narrative)* Diagnostic Procedure Only (Routine) - Closed Specialty Diagnoses / Procedures Referred By Contpardeep t Referred To Contact [facility] Diagnoses Encounter for screening mammogram for malignant neoplasm of breast Procedures DIEGO SCREENING W MARIA E SCREENING DIGITAL BREAST TOMOSYNTHESIS BI SCREENING MAMMOGRAPHY BI 2-VIEW BREAST INC Sheirne Larsen APRN.[employer] SUPERVISOR [address] [place] [address] [facility] [address] [place] [address] Referral ID Status Reason Start Date Expiration Date V isits Requested Visits Authorized [id number] Closed Auto-Generate d Referral 04/23/2022 05/23/2023 1 1 [facility] for referral (narrative)No reason for referral information availableWKettering Health [facility] Work Phone: Reason for visit Narrative* Diagnostic Procedure Only (Routine) - Closed Specialty Diagnoses / Procedures Referred By Batool [place] Referred To Contact [facility] Diagnoses Encounter for screening mammogram for malignant neoplasm of breast Procedures DIEGO SCREENING W MARIA E SCREENING DIGITAL BREAST TOMOSYNTHESIS BI SCREENING MAMMOGRAPHY BI 2-VIEW BREAST INC Sherine Larsen APRN.[employer] SUPERVISOR [address] [place] [address] [facility] [address] [place] [address] Referral ID Status Reason Start Date Expiration Date V isits Requested Visits Authorized [id number] Closed Auto-Generate d Referral 04/23/2022 05/23/2023 1 1 [facility] Advance Directives No Advanced Directives Records FoundDocuments on File Type Date Recorded Patient Press Operator Automatic Expl anation Advance Directive(s) 01/19/2019 8:45 AM Advance Directive Response Recorded Date/ Time Living Will No August 26, 021 3:23am Power of Molding Cutter No August 26, 2020 3:23am Advance Directive Response Recorded Date/ Time Living Will No August 26, 2 021 4:23am Power of Molding Cutter No August 26, 2020 4:23am Advance Directive Response Recorded Date/ Time Living Will No August 26, 021 4:23am Do you have a Healthcare Power of Molding Cutter? No August 26, 2020 4:23am Chief Complaint and Reason for Visit Chief Complaint PAIN- COPY PCP Chief Complaint Amb Documentation Diabetes 6 wk FU PAIN- COPY PCP Reason for Visit CKD (chronic kidney disease) stage 2, GFR 60-89 ml/min Hyperlipidemia Hypertension Type 2 diabetes mellitus Type 2 diabetes mellitus Chief Complaint 3 M FU A1C Check COPY PCP-PAIN Reason for Visit Hypertension Hypothyroid Overweight Type 2 diabetes mellitus Chief Complaint 3 M FU A1C Check COPY PCP-PAIN FLUXER. EST CARE - CONSENT ONLY COPY PCP-2 DRS/ 2 ORDERS Reason for Visit Hypertension Hypothyroid Overweight Type 2 diabetes mellitus Anxiety and depression Hypothyroid Psoriatic arthritis Type 2 diabetes mellitus Immunization due Establishing care with new doctor, encounter for Anemia Essential hypertension Memory changes Chief Complaint Admit Date SCREENING June 27, 2024 1:38pm 3 m fu July 13, 2024 2 :31pm PAIN- COPY PCP August 04, 2024 1 :05pm 3 M FU August 10, 2024 2:36pm 2 Wk FU September 01, 2024 2:41 pm PAIN- COPY PCP September 29, 2024 10:2 1am Reason for Visit Admit Date Anxiety and depression July 13 2:31pm Hypothyroid July 13, 2024 2 :31pm Psoriatic arthritis July 13, 2024 2 :31pm Type 2 diabetes mellitus July 13, 025 2:31pm Anemia July 13, 2024 2 :31pm Essential hypertension July 13 2:31pm Memory changes July 13, 2024 2 :31pm CKD (chronic kidney disease) stage 3, GF R 30-59 ml/min August 10, 2024 2:36pm Hyperlipidemia August 10, 2024 2:36pm Hypertension August 10, 2024 2:36pm Hypothyroid August 10, 2024 2:36pm Overweight August 10, 2024 2:36pm Type 2 diabetes mellitus August 10, 2024 2:36pm CKD (chronic kidney disease) stage 3, GF R 30-59 ml/min September 01, 2024 2:41pm Fatty liver September 01, 2024 2:41 pm Overweight September 01, 2024 2:41 pm Type 2 diabetes mellitus September 01, 2024 2:41pm Chief Complaint Admit Date SCREENING June 27, 2024 1:38pm 3 m fu July 13, 2024 2 :31pm PAIN- COPY PCP August 04, 2024 1 :05pm 3 M FU August 10, 2024 2:36pm 2 Wk FU September 01, 2024 2:41 pm PAIN- COPY PCP September 29, 2024 10:2 1am 3 M FU October 12, 2024 1:2 5pm Reason for Visit Admit Date Anxiety and depression July 13 2:31pm Hypothyroid July 13, 2024 2 :31pm Psoriatic arthritis July 13, 2024 2 :31pm Type 2 diabetes mellitus July 13, 025 2:31pm Anemia July 13, 2024 2 :31pm Essential hypertension July 13 2:31pm Memory changes July 13, 2024 2 :31pm CKD (chronic kidney disease) stage 3, GF R 30-59 ml/min August 10, 2024 2:36pm Hyperlipidemia August 10, 2024 2:36pm Hypertension August 10, 2024 2:36pm Hypothyroid August 10, 2024 2:36pm Overweight August 10, 2024 2:36pm Type 2 diabetes mellitus August 10, 2024 2:36pm CKD (chronic kidney disease) stage 3, GF R 30-59 ml/min September 01, 2024 2:41pm Fatty liver September 01, 2024 2:41 pm Overweight September 01, 2024 2:41 pm Type 2 diabetes mellitus September 01, 2024 2:41pm Anxiety and depression October 12, 2024 1:25pm Hypothyroid October 12, 2024 1:2 5pm Psoriatic arthritis October 12, 2024 1:2 5pm Type 2 diabetes mellitus October 12 1:25pm Anemia October 12, 2024 1:2 5pm Post-menopausal October 12, 2024 1:2 5pm Tachycardia October 12, 2024 1:2 5pm Essential hypertension October 12, 2024 1:25pm Memory changes October 12, 2024 1:2 5pm Immunity status testing October 12, 2024 1:25pm Chief Complaint Admit Date PAIN- COPY PCP August 04, 2024 1 :05pm 3 M FU August 10, 2024 2:36pm 2 Wk FU September 01, 2024 2:41 pm PAIN- COPY PCP September 29, 2024 10:2 1am 3 M FU October 12, 2024 1:[address]/FEVER October 19, 2024 4:4 1pm 4 M FU December 01, 2024 1:36p m Reason for Visit Admit Date CKD (chronic kidney disease) stage 3, GF R 30-59 ml/min August 10, 2024 2:36pm Hyperlipidemia August 10, 2024 2:36pm Hypertension August 10, 2024 2:36pm Hypothyroid August 10, 2024 2:36pm Overweight August 10, 2024 2:36pm Type 2 diabetes mellitus August 10, 2024 2:36pm CKD (chronic kidney disease) stage 3, GF R 30-59 ml/min September 01, 2024 2:41pm Fatty liver September 01, 2024 2:41 pm Overweight September 01, 2024 2:41 pm Type 2 diabetes mellitus September 01, 2024 2:41pm Anxiety and depression October 12, 2024 1:25pm Hypothyroid October 12, 2024 1:2 5pm Psoriatic arthritis October 12, 2024 1:2 5pm Type 2 diabetes mellitus October 12 1:25pm Anemia October 12, 2024 1:2 5pm Post-menopausal October 12, 2024 1:2 5pm Tachycardia October 12, 2024 1:2 5pm Essential hypertension October 12, 2024 1:25pm Memory changes October 12, 2024 1:2 5pm Immunity status testing October 12, 2024 1:25pm Chief Complaint Admit Date 2 Wk FU September 01, 2024 2:41 pm PAIN- COPY PCP September 29, 2024 10:2 1am 3 M FU October 12, 2024 1:[address]/FEVER October 19, 2024 4:4 1pm 4 M FU December 01, 2024 1:36p m 2nd toe on r foot injury December 12, 2024 3:03pm pain- RIGHT FOOT December 12, 2024 3:12 pm Reason for Visit Admit Date CKD (chronic kidney disease) stage 3, GF R 30-59 ml/min September 01, 2024 2:41pm Fatty liver September 01, 2024 2:41 pm Overweight September 01, 2024 2:41 pm Type 2 diabetes mellitus September 01, 2024 2:41pm Anxiety and depression October 12, 2024 1:25pm Hypothyroid October 12, 2024 1:2 5pm Psoriatic arthritis October 12, 2024 1:2 5pm Type 2 diabetes mellitus October 12 1:25pm Anemia October 12, 2024 1:2 5pm Post-menopausal October 12, 2024 1:2 5pm Tachycardia October 12, 2024 1:2 5pm Essential hypertension October 12, 2024 1:25pm Memory changes October 12, 2024 1:2 5pm Immunity status testing October 12, 2024 1:25pm CKD (chronic kidney disease) stage 3, GF R 30-59 ml/min December 01, 2024 1:36pm Hyperlipidemia December 01, 2024 1:36p m Hypertension December 01, 2024 1:36p m Hypothyroid December 01, 2024 1:36p m Overweight December 01, 2024 1:36p m Type 2 diabetes mellitus December 01, 2024 1:36pm Reason for Visit Admit Date CKD (chronic kidney disease) stage 3, GF R 30-59 ml/min September 01, 2024 2:41pm Fatty liver September 01, 2024 2:41 pm Overweight September 01, 2024 2:41 pm Type 2 diabetes mellitus September 01, 2024 2:41pm Anxiety and depression October 12, 2024 1:25pm Hypothyroid October 12, 2024 1:2 5pm Psoriatic arthritis October 12, 2024 1:2 5pm Type 2 diabetes mellitus October 12 1:25pm Anemia October 12, 2024 1:2 5pm Post-menopausal October 12, 2024 1:2 5pm Tachycardia October 12, 2024 1:2 5pm Essential hypertension October 12, 2024 1:25pm Memory changes October 12, 2024 1:2 5pm Immunity status testing October 12, 2024 1:25pm CKD (chronic kidney disease) stage 3, GF R 30-59 ml/min December 01, 2024 1:36pm Hyperlipidemia December 01, 2024 1:36p m Hypertension December 01, 2024 1:36p m Hypothyroid December 01, 2024 1:36p m Overweight December 01, 2024 1:36p m Type 2 diabetes mellitus December 01, 2024 1:36pm Contusion of right lesser to e(s) without damage to nail, initial encounter December 12, 2024 3:03pm Chief Complaint Admit Date 2 Wk FU September 01, 2024 2:41 pm PAIN- COPY PCP September 29, 2024 10:2 1am 3 M FU October 12, 2024 1:[address]/FEVER October 19, 2024 4:4 1pm 4 M FU December 01, 2024 1:36p m 2nd toe on r foot injury December 12, 2024 3:03pm pain- RIGHT FOOT December 12, 2024 3:12 pm EORDERS December 21, 2024 10:0 1am Chief Complaint Admit Date PAIN- COPY PCP September 29, 2024 10:2 1am 3 M FU October 12, 2024 1:[address]/FEVER October 19, 2024 4:4 1pm 4 M FU December 01, 2024 1:36p m 2nd toe on r foot injury December 12, 2024 3:03pm pain- RIGHT FOOT December 12, 2024 3:12 pm EORDERS December 21, 2024 10:0 1am PAIN- COPY PCP December 28, 2024 2:46p m Reason for Visit Admit Date Anxiety and depression October 12, 2024 1:25pm Hypothyroid October 12, 2024 1:2 5pm Psoriatic arthritis October 12, 2024 1:2 5pm Type 2 diabetes mellitus October 12 1:25pm Anemia October 12, 2024 1:2 5pm Post-menopausal October 12, 2024 1:2 5pm Tachycardia October 12, 2024 1:2 5pm Essential hypertension October 12, 2024 1:25pm Memory changes October 12, 2024 1:2 5pm Immunity status testing October 12, 2024 1:25pm CKD (chronic kidney disease) stage 3, GF R 30-59 ml/min December 01, 2024 1:36pm Hyperlipidemia December 01, 2024 1:36p m Hypertension December 01, 2024 1:36p m Hypothyroid December 01, 2024 1:36p m Overweight December 01, 2024 1:36p m Type 2 diabetes mellitus December 01, 2024 1:36pm Contusion of right lesser to e(s) without damage to nail, initial encounter December 12, 2024 3:03pm Chief Complaint Admit Date PAIN- COPY PCP September 29, 2024 10:2 1am 3 M FU October 12, 2024 1:[address]/FEVER October 19, 2024 4:4 1pm 4 M FU December 01, 2024 1:36p m 2nd toe on r foot injury December 12, 2024 3:03pm pain- RIGHT FOOT December 12, 2024 3:12 pm EORDERS December 21, 2024 10:0 1am PAIN- COPY PCP December 28, 2024 2:46p m 3 M FU January 10, 2025 12:4 5pm Reason for Visit Admit Date Anxiety and depression October 12, 2024 1:25pm Hypothyroid October 12, 2024 1:2 5pm Psoriatic arthritis October 12, 2024 1:2 5pm Type 2 diabetes mellitus October 12 1:25pm Anemia October 12, 2024 1:2 5pm Post-menopausal October 12, 2024 1:2 5pm Tachycardia October 12, 2024 1:2 5pm Essential hypertension October 12, 2024 1:25pm Memory changes October 12, 2024 1:2 5pm Immunity status testing October 12, 2024 1:25pm CKD (chronic kidney disease) stage 3, GF R 30-59 ml/min December 01, 2024 1:36pm Hyperlipidemia December 01, 2024 1:36p m Hypertension December 01, 2024 1:36p m Hypothyroid December 01, 2024 1:36p m Overweight December 01, 2024 1:36p m Type 2 diabetes mellitus December 01, 2024 1:36pm Contusion of right lesser to e(s) without damage to nail, initial encounter December 12, 2024 3:03pm Anxiety and depression January 10, 2025 1 2:45pm Hypothyroid January 10, 2025 12:4 5pm Psoriatic arthritis January 10, 2025 12:4 5pm Type 2 diabetes mellitus January 10, 2025 12:45pm Anemia January 10, 2025 12:4 5pm Essential hypertension January 10, 2025 1 2:45pm Memory changes January 10, 2025 12:4 5pm Family History No Family History Records Found Relationship Condition Age at Onset Recorded Date/T lazarus father Myocardial infarction Unknown mother Transient ischemic attack Unknown Malignant neoplasm of breast Unknown Malignant neoplasm of tongue Unknown Relationship Condition Age at Onset Recorded Date/T lazarus father Myocardial infarction 84 Hypertension Unknown Seizure Unknown mother Transient ischemic attack Unknown Malignant neoplasm of breast Unknown Malignant neoplasm of tongue Unknown Absence of sensation Unknown Anxiety Unknown Irritable bowel syndrome Unknown High blood cholesterol Unknown Osteoporosis Unknown Psychiatric care Unknown Chronic obstructive pulmonary disease Unk nown Malignant neoplasm Unknown Cerebrovascular accident (CVA) Unknown Disorder of thyroid Unknown History of Needmore's disease Unknown sister Diabetes mellitus Unknown Relationship Condition Age at Onset Recorded Date/T lazarus father Myocardial infarction 84 Hypertension Unknown Seizure Unknown Alzheimer's dementia Unknown Hyponatremia Unknown mother Transient ischemic attack Unknown Malignant neoplasm of breast Unknown Malignant neoplasm of tongue Unknown Absence of sensation Unknown Anxiety Unknown Irritable bowel syndrome Unknown High blood cholesterol Unknown Osteoporosis Unknown Psychiatric care Unknown Chronic obstructive pulmonary disease Unk nown Malignant neoplasm Unknown Cerebrovascular accident (CVA) Unknown Disorder of thyroid Unknown Dementia Unknown sister Disorder of thyroid Unknown Prediabetes Unknown uncle History of Needmore's disease Unknown Not Specified History of Needmore's disease Unknown Relationship Condition Age at Onset Recorded Date/T lazarus father Myocardial infarction 84 Hypertension Unknown Seizure Unknown Alzheimer's dementia Unknown Hyponatremia Unknown mother Transient ischemic attack Unknown Malignant neoplasm of breast Unknown Malignant neoplasm of tongue Unknown Absence of sensation Unknown Anxiety Unknown Irritable bowel syndrome Unknown High blood cholesterol Unknown Osteoporosis Unknown Psychiatric care Unknown Chronic obstructive pulmonary disease Unknown Malignant neoplasm Unknown Cerebrovascular accident (CVA) Unknown Disorder of thyroid Unknown Dementia Unknown sister Disorder of thyroid Unknown Prediabetes Unknown uncle History of Needmore's disease Unknown unrelated friend History of Needmore's disease Unkno wn Summary Purpose Additional Source Comments Source Comments (unrecognize d section and content) In the event this informatio n is protected by the Federal Confidentiality of Alcohol and Drug Abuse Patient Records regulations: The Federal rules restrict any use of the information to criminally investigate or prosecute any alcohol or drug abuse patient.[facility] the event this information is protected by the Federal Confidentiality of Alcohol and Drug Abuse Patient Records regulations: The Federal rules restrict any use of the information to criminally investigate or prosecute any alcohol or drug abuse patient.[facility] HospitalIn the event this information is protected by the Federal Confidentiality of Alcohol and Drug Abuse Patient Records regulations: The Federal rules restrict any use of the information to criminally investigate or prosecute any alcohol or drug abuse patient.[facility] HospitalIn the event this information is protected by the Federal Confidentiality of Alcohol and Drug Abuse Patient Records regulations: The Federal rules restrict any use of the information to criminally investigate or prosecute any alcohol or drug abuse patient.[facility] HospitalIn the event this information is protected by the Federal Confidentiality of Alcohol and Drug Abuse Patient Records regulations: The Federal rules restrict any use of the information to criminally investigate or prosecute any alcohol or drug abuse patient.[facility] HospitalIn the event this information is protected by the Federal Confidentiality of Alcohol and Drug Abuse Patient Records regulations: The Federal rules restrict any use of the information to criminally investigate or prosecute any alcohol or drug abuse patient.[facility] HospitalIn the event this information is protected by the Federal Confidentiality of Alcohol and Drug Abuse Patient Records regulations: The Federal rules restrict any use of the information to criminally investigate or prosecute any alcohol or drug abuse patient.[facility] HospitalIn the event this information is protected by the Federal Confidentiality of Alcohol and Drug Abuse Patient Records regulations: The Federal rules restrict any use of the information to criminally investigate or prosecute any alcohol or drug abuse patient.[facility] HospitalIn the event this information is protected by the Federal Confidentiality of Alcohol and Drug Abuse Patient Records regulations: The Federal rules restrict any use of the information to criminally investigate or prosecute any alcohol or drug abuse patient.[facility] HospitalIn the event this information is protected by the Federal Confidentiality of Alcohol and Drug Abuse Patient Records regulations: The Federal rules restrict any use of the information to criminally investigate or prosecute any alcohol or drug abuse patient.[facility] HospitalIn the event this information is protected by the Federal Confidentiality of Alcohol and Drug Abuse Patient Records regulations: The Federal rules restrict any use of the information to criminally investigate or prosecute any alcohol or drug abuse patient.[facility] HospitalIn the event this information is protected by the Federal Confidentiality of Alcohol and Drug Abuse Patient Records regulations: The Federal rules restrict any use of the information to criminally investigate or prosecute any alcohol or drug abuse patient.[facility] HospitalIn the event this information is protected by the Federal Confidentiality of Alcohol and Drug Abuse Patient Records regulations: The Federal rules restrict any use of the information to criminally investigate or prosecute any alcohol or drug abuse patient.[facility] HospitalIn the event this information is protected by the Federal Confidentiality of Alcohol and Drug Abuse Patient Records regulations: The Federal rules restrict any use of the information to criminally investigate or prosecute any alcohol or drug abuse patient.[facility] HospitalIn the event this information is protected by the Federal Confidentiality of Alcohol and Drug Abuse Patient Records regulations: The Federal rules restrict any use of the information to criminally investigate or prosecute any alcohol or drug abuse patient.[facility] HospitalIn the event this information is protected by the Federal Confidentiality of Alcohol and Drug Abuse Patient Records regulations: The Federal rules restrict any use of the information to criminally investigate or prosecute any alcohol or drug abuse patient.[facility] HospitalIn the event this information is protected by the Federal Confidentiality of Alcohol and Drug Abuse Patient Records regulations: The Federal rules restrict any use of the information to criminally investigate or prosecute any alcohol or drug abuse patient.[facility] HospitalIn the event this information is protected by the Federal Confidentiality of Alcohol and Drug Abuse Patient Records regulations: The Federal rules restrict any use of the information to criminally investigate or prosecute any alcohol or drug abuse patient.[facility] HospitalIn the event this information is protected by the Federal Confidentiality of Alcohol and Drug Abuse Patient Records regulations: The Federal rules restrict any use of the information to criminally investigate or prosecute any alcohol or drug abuse patient.[facility] HospitalIn the event this information is protected by the Federal Confidentiality of Alcohol and Drug Abuse Patient Records regulations: The Federal rules restrict any use of the information to criminally investigate or prosecute any alcohol or drug abuse patient.[facility] ClinicIn the event this information is protected by the Federal Confidentiality of Alcohol and Drug Abuse Patient Records regulations: The Federal rules restrict any use of the information to criminally investigate or prosecute any alcohol or drug abuse patient.[facility] HospitalIn the event this information is protected by the Federal Confidentiality of Alcohol and Drug Abuse Patient Records regulations: The Federal rules restrict any use of the information to criminally investigate or prosecute any alcohol or drug abuse patient.[facility] HospitalIn the event this information is protected by the Federal Confidentiality of Alcohol and Drug Abuse Patient Records regulations: The Federal rules restrict any use of the information to criminally investigate or prosecute any alcohol or drug abuse patient.[facility] HospitalIn the event this information is protected by the Federal Confidentiality of Alcohol and Drug Abuse Patient Records regulations: The Federal rules restrict any use of the information to criminally investigate or prosecute any alcohol or drug abuse patient.[facility] HospitalIn the event this information is protected by the Federal Confidentiality of Alcohol and Drug Abuse Patient Records regulations: The Federal rules restrict any use of the information to criminally investigate or prosecute any alcohol or drug abuse patient.[facility] HospitalIn the event this information is protected by the Federal Confidentiality of Alcohol and Drug Abuse Patient Records regulations: The Federal rules restrict any use of the information to criminally investigate or prosecute any alcohol or drug abuse patient.[facility] HospitalIn the event this information is protected by the Federal Confidentiality of Alcohol and Drug Abuse Patient Records regulations: The Federal rules restrict any use of the information to criminally investigate or prosecute any alcohol or drug abuse patient.[facility] HospitalIn the event this information is protected by the Federal Confidentiality of Alcohol and Drug Abuse Patient Records regulations: The Federal rules restrict any use of the information to criminally investigate or prosecute any alcohol or drug abuse patient.[facility] HospitalIn the event this information is protected by the Federal Confidentiality of Alcohol and Drug Abuse Patient Records regulations: The Federal rules restrict any use of the information to criminally investigate or prosecute any alcohol or drug abuse patient.[facility] Care Teams (unrecognized sec tion and content) Television Receiver Analyzer Relationship Specialty Start Date End Date Jennifer Ardon PA-C [address] [place] [address] PCP - General Family Practice 08/31/20 [facility] [address] [place] [address] Pharmacist Pharmacy 04/09/20 Television Receiver Analyzer Relationship Specialty Start Date End Date Jennifer Ardon PA-C [address] [place] [address] PCP - General Family Practice 08/31/20 [facility] [address] [place] [address] Pharmacist Pharmacy 04/09/20 Television Receiver Analyzer Relationship Specialty Start Date End Date Jennifer Ardon PA-C [address] [place] [address] PCP - General Family Medicine 08/31/20 [facility] [address] [place] [address] Pharmacist Pharmacy 04/09/20 Television Receiver Analyzer Relationship Specialty Start Date End Date Jennifer Ardon PA-C [address] [place] [address] PCP - General Family Medicine 08/31/20 MerlinAcacia baker, [facility] [address] [place] [address] Pharmacist Pharmacy 04/09/20 Television Receiver Analyzer Relationship Specialty Start Date End Date Jennifer Ardon PA-C [address] [place] [address] PCP - General Family Medicine 08/31/20 Acacia Mclain, [facility] [address] [place] [address] Pharmacist Pharmacy 04/09/20 Television Receiver Analyzer Relationship Specialty Start Date End Date Jennifer Ardon PA-C [address] [place] [address] PCP - General Family Medicine 08/31/20 MerlinAcacia baker, [facility] [address] [place] [address] Pharmacist Pharmacy 04/09/20 Television Receiver Analyzer Relationship Specialty Start Date End Date Jennifer Ardon PA-C [address] [place] [address] PCP - General Family Medicine 08/31/20 MerlinCaricynthia, [facility] [address] [place] [address] Pharmacist Pharmacy 04/09/20 Television Receiver Analyzer Relationship Specialty Start Date End Date Jennifer Ardon PA-C [address] [place] [address] PCP - General Family Medicine 08/31/20 Acacia Mclain, [facility] [address] [place] [address] Pharmacist Pharmacy 04/09/20 Television Receiver Analyzer Relationship Specialty Start Date End Date Jennifer Ardon PA-C [address] [place] [address] PCP - General Family Medicine 08/31/20 [facility] [address] [place] [address] Pharmacist Pharmacy 04/09/20 Television Receiver Analyzer Relationship Specialty Start Date End Date Jennifer Ardon PA-C [address] [place] [address] PCP - General Family Medicine 08/31/20 [facility] [address] [place] [address] Pharmacist Pharmacy 04/09/20 Television Receiver Analyzer Relationship Specialty Start Date End Date Jennifer Ardon PA-C [address] [place] [address] PCP - General Family Medicine 08/31/20 [facility] [address] [place] [address] Pharmacist Pharmacy 04/09/20 Team Status: Active Member Role Status Dates Dr. Franklin Aviles MD Family Provider Active COTY Aranda Primary Care Provider Active Team Status: Inactive Member Role Status Dates Dr. Franklin Aviles MD Referring Provider Active BELA Beaver Attending Provider Active COTY Aranda Primary Care Provider Active Team Status: Active Member Role Status Dates COTY Aranda Primary Care Provider Active Dawood Aponte Attending Provider Active Team Status: Inactive Member Role Status Dates COTY Aranda Primary Care Provider, Referri ng Provider Active BELA Beaver Attending Provider Active Team Status: Inactive Member Role Status Dates Dr. Jacque Mcfarlane MD Attending Provider, Referring Provider Active COTY Aranda Primary Care Provider Active Television Receiver Analyzer Relationship Specialty Start Date End Date Jennifer Ardon PA-C [address] [place] [address] PCP - General Family Medicine 08/31/20 [facility], [facility] [address] [place] [address] Pharmacist Pharmacy 04/09/20 Television Receiver Analyzer Relationship Specialty Start Date End Date Jennifer Ardon PA-C [address] [place] [address] PCP - General Family Medicine 08/31/20 [facility] [address] [place] [address] Pharmacist Pharmacy 04/09/20 Television Receiver Analyzer Relationship Specialty Start Date End Date Jennifer Ardon PA-C [address] [place] [address] PCP - General Family Medicine 08/31/20 [facility] [address] [place] [address] Pharmacist Pharmacy 04/09/20 Television Receiver Analyzer Relationship Specialty Start Date End Date Jennifer Ardon PA-C [address] [place] [address] PCP - General Family Medicine 08/31/20 [facility] [address] [place] [address] Pharmacist Pharmacy 04/09/20 Television Receiver Analyzer Relationship Specialty Start Date End Date Jennifer Ardon PA-C [address] [place] [address] PCP - General Family Medicine 08/31/20 Acacia Mclain, RPh [address] [place] [address] Pharmacist Pharmacy 04/09/20 Television Receiver Analyzer Relationship Specialty Start Date End Date Jennifer Ardon PA-C [address] [place] [address] PCP - General Family Medicine 08/31/20 Cari Mclaini, RP [address] [place] [address] Pharmacist Pharmacy 04/09/20 Television Receiver Analyzer Relationship Specialty Start Date End Date Jennifer Ardon PA-C [address] [place] [address] PCP - General Family Medicine 08/31/20 Acacia Mclain, [facility] Pharmacist Pharmacy 04/09/20 Television Receiver Analyzer Relationship Specialty Start Date End Date Jennifer Ardon PA-C [address] [place] [address] PCP - General Family Medicine 08/31/20 Acacia Mclain, [facility] Pharmacist Pharmacy 04/09/20 Television Receiver Analyzer Relationship Specialty Start Date End Date Jennifer Ardon PA-C [address] [place] [address] PCP - General Family Medicine 08/31/20 Acacia Mclain, [facility] Pharmacist Pharmacy 04/09/20 Television Receiver Analyzer Relationship Specialty Start Date End Date Jennifer Ardon PA-C [address] [place] [address] PCP - General Family Medicine 08/31/20 Acacia Mclain, [facility] Pharmacist Pharmacy 04/09/20 Television Receiver Analyzer Relationship Specialty Start Date End Date Jennifer Ardon PA-C [address] [place] [address] PCP - General Family Medicine 08/31/20 Team Status: Active Member Role Status Dates Dr. Franklin Aviles MD Family Provider Active Dr. Samara Monroy MD Primary Care Provider Active Team Status: Inactive Member Role Status Dates Dr. Jacque Mcfarlane MD Attending Provider, Referring Provider Active Dr. Samara Monroy MD Primary Care Provider Active Team Status: Inactive Member Role Status Dates Jennifer ANSARI PA Referring Provider Active Dr. Samara Monroy MD Primary Care Provider, Attendi ng Provider Active Team Status: Inactive Member Role Status Dates Dr. Samara Monroy MD Primary Care Provider, Other P rovider Active Dr. Jacque Mcfarlane MD Attending Provider, Referring Provider Active Television Receiver Analyzer Relationship Specialty Start Date End Date Merle Mccabe, [employer] SUPERVISOR [address] [place], [place] [id number] Veterinary Bacteriologist Family [facility] 06/03/24 Анна San, SAND CUTTER.[employer] CONSTRUCTION SUPERVISOR [address] [place], [place] [id number] Veterinary Bacteriologist Family Medicine 06/03/24 Team Status: Active Member Role Status Dates Dr. Samara Monroy MD Primary Care Provider Active Team Status: Inactive Member Role Status Dates Dr. Samara Monroy MD Primary Care Provider Active Start: June 27, 2024 End: June 27, 2024 BELA Titus Attending Provider Active S tart: June 27, 2024 End: June 27, 2024 Leticia Ferullo , FLUXER-C Referring Provider Active S tart: June 27, 2024 End: June 27, 2024 Team Status: Inactive Member Role Status Dates Dr. Samara Monroy MD Primary Care Provider Active Start: July 13, 2024 End: July 13, 2024 Dr. Samara Monroy MD Attending Provider Active Start: July 13, 2024 End: July 13, 2024 Dr. Samara Monroy MD Referring Provider Active Start: July 13, 2024 End: July 13, 2024 Team Status: Inactive Member Role Status Dates Dr. Samara Monroy MD Primary Care Provider Active Start: August 04, 2024 End: August 04, 2024 Dr. Jacque Mcfarlane MD Attending Provider Active Start: August 04, 2024 End: August 04, 2024 Dr. Jacque Mcfarlane MD Referring Provider Active Start: August 04, 2024 End: August 04, 2024 Team Status: Inactive Member Role Status Dates Dr. Samara Monroy MD Primary Care Provider Active Start: August 10, 2024 End: August 10, 2024 Dr. Samara Monroy MD Referring Provider Active Start: August 10, 2024 End: August 10, 2024 Sue Sneed NP-C Attending Provider Active Start: August 10, 2024 End: August 10, 2024 Team Status: Inactive Member Role Status Dates Dr. Samara Monroy MD Primary Care Provider Active Start: September 01, 2024 End: September 01, 2024 Dr. Samara Monroy MD Referring Provider Active Start: September 01, 2024 End: September 01, 2024 Sue Sneed NP-C Attending Provider Active Start: September 01, 2024 End: September 01, 2024 Team Status: Inactive Member Role Status Dates Dr. Samara Monroy MD Primary Care Provider Active Start: September 29, 2024 End: September 29, 2024 Dr. Jacque Mcfarlane MD Attending Provider Active Start: September 29, 2024 End: September 29, 2024 Dr. Jacque Mcfarlane MD Referring Provider Active Start: September 29, 2024 End: September 29, 2024 Team Status: Inactive Member Role Status Dates Dr. Samara Monroy MD Primary Care Provider Active Start: October 12, 2024 End: October 12, 2024 Dr. Samara Monroy MD Attending Provider Active Start: October 12, 2024 End: October 12, 2024 Dr. Samara Monroy MD Referring Provider Active Start: October 12, 2024 End: October 12, 2024 Team Status: Inactive Member Role Status Dates Dr. Samara Monroy MD Primary Care Provider Active Start: October 19, 2024 End: October 19, 2024 Dr. Samara Monroy MD Referring Provider Active Start: October 19, 2024 End: October 19, 2024 Vic Baird PA, PA Attending Provider Active Start: October 19, 2024 End: October 19, 2024 Team Status: Inactive Member Role Status Dates Dr. Samara Monroy MD Primary Care Provider Active Start: December 01, 2024 End: December 01, 2024 Dr. Samara Monroy MD Referring Provider Active Start: December 01, 2024 End: December 01, 2024 BELA Beaver Attending Provider Active Start: December 01, 2024 End: December 01, 2024 Team Status: Inactive Member Role Status Dates Dr. Samara Monroy MD Primary Care Provider Active Start: December 12, 2024 End: December 12, 2024 Dr. Samara Monroy MD Referring Provider Active Start: December 12, 2024 End: December 12, 2024 Vic ANSARI, PA Attending Provider Active Start: December 12, 2024 End: December 12, 2024 Team Status: Active Member Role Status Dates Dr. Samara Monroy MD Primary Care Provider Active Start: December 12, 2024 Vic Baird PA, PA Attending Provider Active Start: December 12, 2024 Vic Baird PA, PA Referring Provider Active Start: December 12, 2024 Team Status: Inactive Member Role Status Dates Dr. Samara Monroy MD Primary Care Provider Active Start: December 12, 2024 End: December 12, 2024 Vic Baird PA, PA Attending Provider Active Start: December 12, 2024 End: December 12, 2024 Vic Baird PA, PA Referring Provider Active Start: December 12, 2024 End: December 12, 2024 Team Status: Active Member Role/Relationship Status Dates Dr. Samara Monroy MD Primary Care Provider Active Team Status: Inactive Member Role/Relationship Status Dates Dr. Samara Monroy MD Primary Care Provider Active Start: September 01, 2024 End: September 01, 2024 Dr. Samara Monroy MD Referring Provider Active Start: September 01, 2024 End: September 01, 2024 BELA Beaver Attending Provider Active Start: September 01, 2024 End: September 01, 2024 Team Status: Inactive Member Role/Relationship Status Dates Dr. Samara Monroy MD Primary Care Provider Active Start: September 29, 2024 End: September 29, 2024 Dr. Jacque Mcfarlane MD Attending Provider Active Start: September 29, 2024 End: September 29, 2024 Dr. Jacque Mcfarlane MD Referring Provider Active Start: September 29, 2024 End: September 29, 2024 Team Status: Inactive Member Role/Relationship Status Dates Dr. Samara Monroy MD Primary Care Provider Active Start: October 12, 2024 End: October 12, 2024 Dr. Samara Monroy MD Attending Provider Active Start: October 12, 2024 End: October 12, 2024 Dr. Samara Monroy MD Referring Provider Active Start: October 12, 2024 End: October 12, 2024 Team Status: Inactive Member Role/Relationship Status Dates Dr. Samara Monroy MD Primary Care Provider Active Start: October 12, 2024 End: October 12, 2024 Dr. Samara Monroy MD Attending Provider Active Start: October 12, 2024 End: October 12, 2024 Dr. Samara Monroy MD Referring Provider Active Start: October 12, 2024 End: October 12, 2024 Team Status: Inactive Member Role/Relationship Status Dates Dr. Samara Monroy MD Primary Care Provider Active Start: October 19, 2024 End: October 19, 2024 Dr. Samara Monroy MD Referring Provider Active Start: October 19, 2024 End: October 19, 2024 Vic Baird PA, PA Attending Provider Active Start: October 19, 2024 End: October 19, 2024 Team Status: Inactive Member Role/Relationship Status Dates Dr. Samara Monroy MD Primary Care Provider Active Start: December 01, 2024 End: December 01, 2024 Dr. Samara Monroy MD Referring Provider Active Start: December 01, 2024 End: December 01, 2024 TRISTIN BeaverC Attending Provider Active Start: December 01, 2024 End: December 01, 2024 Team Status: Inactive Member Role/Relationship Status Dates Dr. Samara Monroy MD Primary Care Provider Active Start: December 12, 2024 End: December 12, 2024 Dr. Samara Monroy MD Referring Provider Active Start: December 12, 2024 End: December 12, 2024 Vic ANSARI PA Attending Provider Active Start: December 12, 2024 End: December 12, 2024 Team Status: Inactive Member Role/Relationship Status Dates Dr. Samara Monroy MD Primary Care Provider Active Start: December 12, 2024 End: December 12, 2024 Vic ANSARI PA Attending Provider Active Start: December 12, 2024 End: December 12, 2024 Vic ANSARI PA Referring Provider Active Start: December 12, 2024 End: December 12, 2024 Team Status: Inactive Member Role/Relationship Status Dates Dr. Samara Monroy MD Primary Care Provider Active Start: December 21, 2024 End: December 21, 2024 Sue Sneed NP-C Attending Provider Active Start: December 21, 2024 End: December 21, 2024 Sue Sneed NP-C Referring Provider Active Start: December 21, 2024 End: December 21, 2024 Team Status: Inactive Member Role/Relationship Status Dates Dr. Samara Monroy MD Primary Care Provider Active Start: September 29, 2024 End: September 29, 2024 Dr. Jacque Mcfarlane MD Attending Provider Active Start: September 29, 2024 End: September 29, 2024 Dr. Jacque Mcfarlane MD Referring Provider Active Start: September 29, 2024 End: September 29, 2024 Team Status: Inactive Member Role/Relationship Status Dates Dr. Samara Monroy MD Primary Care Provider Active Start: October 12, 2024 End: October 12, 2024 Dr. Samara Monroy MD Attending Provider Active Start: October 12, 2024 End: October 12, 2024 Dr. Samara Monroy MD Referring Provider Active Start: October 12, 2024 End: October 12, 2024 Team Status: Inactive Member Role/Relationship Status Dates Dr. Samara Monroy MD Primary Care Provider Active Start: October 19, 2024 End: October 19, 2024 Dr. Samara Monroy MD Referring Provider Active Start: October 19, 2024 End: October 19, 2024 Vic ANSRAI PA Attending Provider Active Start: October 19, 2024 End: October 19, 2024 Team Status: Inactive Member Role/Relationship Status Dates Dr. Samara Monroy MD Primary Care Provider Active Start: December 01, 2024 End: December 01, 2024 Dr. Samara Monroy MD Referring Provider Active Start: December 01, 2024 End: December 01, 2024 TRISTIN BeaverC Attending Provider Active Start: December 01, 2024 End: December 01, 2024 Team Status: Inactive Member Role/Relationship Status Dates Dr. Samara Monroy MD Primary Care Provider Active Start: December 12, 2024 End: December 12, 2024 Dr. Samara Monroy MD Referring Provider Active Start: December 12, 2024 End: December 12, 2024 Vic ANSARI PA Attending Provider Active Start: December 12, 2024 End: December 12, 2024 Team Status: Inactive Member Role/Relationship Status Dates Dr. Samara Monroy MD Primary Care Provider Active Start: December 12, 2024 End: December 12, 2024 Vic ANSARI, PA Attending Provider Active Start: December 12, 2024 End: December 12, 2024 Vic Baird PA, PA Referring Provider Active Start: December 12, 2024 End: December 12, 2024 Team Status: Inactive Member Role/Relationship Status Dates Dr. Samara Monroy MD Primary Care Provider Active Start: December 21, 2024 End: December 21, 2024 TRISTIN BeaverC Attending Provider Active Start: December 21, 2024 End: December 21, 2024 BELA Beaver Referring Provider Active Start: December 21, 2024 End: December 21, 2024 Team Status: Inactive Member Role/Relationship Status Dates Dr. Samara Monroy MD Primary Care Provider Active Start: December 28, 2024 End: December 28, 2024 Dr. Jacque Mcfarlane MD Attending Provider Active Start: December 28, 2024 End: December 28, 2024 Dr. Jacque Mcfarlane MD Referring Provider Active Start: December 28, 2024 End: December 28, 2024 Team Status: Inactive Member Role/Relationship Status Dates Dr. Samara Monroy MD Primary Care Provider Active Start: January 10, 2025 End: January 10, 2025 Dr. Samara Monroy MD Attending Provider Active Start: January 10, 2025 End: January 10, 2025 Dr. Samara Monroy MD Referring Provider Active Start: January 10, 2025 End: January 10, 2025 Reason for Visit (unrecogniz ed section and content) Reason Onset Date Comments Refill Request 12/25/2021 Reason Onset Date Comments Refill Request 04/23/2022 Reason Comments Orders Reason Onset Date Comments Refill Request 05/19/2022 Reason Onset Date Comments Refill Request 06/14/2022 Reason Onset Date Comments Refill Request 06/28/2022 Reason Comments Medication Problem Reason Onset Date Comments Refill Request 09/08/2022 Reason Comments Results Reason Onset Date Comments Refill Request 10/30/2022 Reason Onset Date Comments Refill Request 11/28/2022 Reason Comments Follow Up Reason Onset Date Comments Refill Request 01/12/2023 Reason Onset Date Comments Refill Request 04/18/2023 Reason Onset Date Comments Refill Request 06/05/2023 Reason Onset Date Comments Refill Request 08/15/2023 Goals (unrecognized section and content) Goals may be documented in a n alternate sectionGoals may be documented in an alternate sectionGoals may be documented in an alternate sectionGoals may be documented in an alternate sectionGoals may be documented in an alternate sectionGoals may be documented in an alternate sectionGoals may be documented in an alternate sectionGoals may be documented in an alternate sectionGoals may be documented in an alternate sectionGoals may be documented in an alternate sectionGoals may be documented in an alternate sectionGoals may be documented in an alternate section INFORMATION SOURCE (unrecogn ized section and content) DATE CREATED AUTHOR 09/17/2024 [facility] DATE CREATED AUTHOR AUTHOR'S MAHAMED COTEJACQUIE 02/05/2025 [facility] FOR RECORDS PERTAINING TO PATIENTS WHO ARE OR HAVE BEEN ENROLLED IN A CHEMICAL DEPENDENCY/SUBSTANCEABUSE PROGRAM, SOME INFORMATION MAY BE OMITTED. This clinical summary was aggregated from multiple sources. Caution should be exercised in using it in the provision of clinical care. This summary normalizes information from multiple sources, and as a consequence, information in this document may materially change the coding, format and clinical context of patient data. In addition, data may be omitted in some cases. CLINICAL DECISIONS SHOULD BE BASED ON THE PRIMARY CLINICAL RECORDS. [facility]. provides no warranty or guarantee of the accuracy or completeness of information in this document.
== END | disposition home or self-care (01) ==
LOC: OPBD 09:30
PROVIDERS: PCP Internal Medicine; Referring Provider Internal Medicine; Visit Provider Internal Medicine
DX: Z13.820 Encounter for screening for osteoporosis (principal); Z78.0 Asymptomatic menopausal state
CPT/HCPCS: 77080

== ENCOUNTER → 2025-03-09 | Outpatient (CLI) | payer MEDICARE, SELFPAY ==
[2025-03-09 13:13] LABS: Vitamin B12 950 pg/mL (180-914)
[2025-03-19 15:08] LABS: Folate, Hemolysate Test 447.0 ng/mL (Not Estab.); Folate, RBC (Hct) Test 35.5 % (34.0-46.6); Folates, RBC Test 1259 ng/mL (>498); VITAMIN B6 18.8 ug/L (3.4-65.2); Vitamin B1, Thiamine 141.1 nmol/L (66.5-200.0)
== END | disposition home or self-care (01) ==
LOC: MTLAB 10:50
PROVIDERS: PCP Internal Medicine; Referring Provider Psychiatry & Neurology Neurology; Visit Provider Psychiatry & Neurology Neurology
DX: G31.84 Mild cognitive impairment of uncertain or unknown etiology (principal)
CPT/HCPCS: 36415; 82607; 82747; 84207; 84425; 85014

== ENCOUNTER → 2025-03-23 | Outpatient (CLI) | payer MEDICARE, SELFPAY ==
--- NOTE | 2025-03-23 11:00 | MRI_ITS ---
PROCEDURE: BRAIN WITHOUT CONTRAST 03/23/2025 REASON FOR EXAM: MILD COGNITIVE IMPAIRMENT TECHNIQUE: Procedure Code: MRIBR Modality: MR Procedure: BRAIN WITHOUT CONTRAST Multiplanar and multisequence images were obtained. COMPARISON: MRI brain with and without contrast, 05/05/2024. FINDINGS: The degree of ventriculomegaly is greater than can be accounted for by the degree of cerebral atrophy, suggesting the possibility of normal pressure hydrocephalus. There is a normal sulcal pattern and gyral configuration. There is no evidence of acute intracranial hemorrhage or infarction. The marie-white differentiation is well preserved. There is no evidence of restricted diffusion. The basilar cisterns are normal. There are normal flow voids demonstrated in the recognized intracranial vessels. The cerebellum and brainstem are unremarkable. The cerebellar pontine angles are normal. The craniovertebral junction is normal. The sella and suprasellar regions are normal. The orbits and retro-orbital regions are unremarkable. The nasal septum is midline. There is no significant paranasal sinus disease. The mastoid air cells are clear. There is normal bone marrow signal in the skull base and calvarium. MRI/Brain without Contrast IMPRESSION: The degree of ventriculomegaly is greater than can be accounted for by the degr ee of cerebral atrophy suggesting the possibility of normal pressure hydrocephalus. Reading Location: [id number]
== END | disposition home or self-care (01) ==
LOC: MRI 10:52
PROVIDERS: PCP Internal Medicine; Referring Provider Psychiatry & Neurology Neurology; Visit Provider Psychiatry & Neurology Neurology
DX: G31.84 Mild cognitive impairment of uncertain or unknown etiology (principal)
CPT/HCPCS: 70551

== ENCOUNTER → 2025-03-29 | Outpatient (CLI) | payer MEDICARE, SELFPAY ==
--- NOTE | 2025-03-29 13:02 | RAD_ITS ---
PROCEDURE: KNEE 4 OR MORE VIEWS 03/29/2025 REASON FOR EXAM: PSORIATIC ARTHROPATHY TECHNIQUE: Procedure Code: RADKN Modality: DX Procedure: KNEE 4 OR MORE VIEWS Laterality: Right COMPARISON: None. FINDINGS: RIGHT KNEE: There is no evidence of fracture or dislocation. There is mild arthritis of the patellofemoral joint. There is mild arthritis of the medial joint space compartment of the knee. There is mild arthritis of the lateral joint space compartment of the knee. There is no knee joint effusion. The periarticular soft tissues are normal. RAD/Knee 4 or More Views IMPRESSION: Mild tricompartment arthritis. Reading Location: [place] [id number]
--- NOTE | 2025-03-29 13:02 | RAD_ITS ---
PROCEDURE: KNEE 4 OR MORE VIEWS 03/29/2025 REASON FOR EXAM: PSORIATIC ARTHROPATHY TECHNIQUE: Procedure Code: RADKN Modality: DX Procedure: KNEE 4 OR MORE VIEWS Laterality: Left COMPARISON: None FINDINGS: LEFT KNEE: There is no evidence of fracture or dislocation. There is mild arthritis of the patellofemoral joint. There is mild arthritis of the medial joint space compartment of the knee. There is mild arthritis of the lateral joint space compartment of the knee. There is no knee joint effusion. The periarticular soft tissues are normal. RAD/Knee 4 or More Views IMPRESSION: Mild tricompartment arthritis without knee joint effusion. Reading Location: [place] [id number]
[2025-03-29 16:09] LABS: AST(SGOT) 25 U/L (<=31); Alanine Aminotransfer ALT/SGPT 28 U/L (<=34); Albumin, Serum 4.7 g/dL (3.4-4.8); Alkaline Phosphatase 49 U/L (35-104); Anion Gap 15 (5-15); BUN 16 mg/dL (4-19); BUN/Creat Ratio 18.5 RATIO (10-20); Calcium,Total 10.1 mg/dL (7.6-11.0); Carbon Dioxide 23.9 mmol/L (21.0-32.0); Chloride 98 mmol/L (98-108); Globulin 2.5 g/dL (2.2-4.2); Glucose 197 mg/dL (70-99); Potassium 4.1 mmol/L (3.3-5.1)
[2025-03-29 16:25] LABS: Hematocrit 39.0 % (37-47); Hemoglobin 12.2 g/dL (12.0-15.0); Immature Granulocytes Count 0.030 X10^3/uL (0.0-0.0); Mean Corp Hgb Conc 31.3 g/dL (32-36); Mean Corpuscular Volume 81.9 fL (81-99); Mean Platelet Vol. 10.1 fl (6.2-12.0); NRBC Flagged by Analyzer 0 % (0-5); Platelet Count 395 K/mm3 (150-450); RBC Distribution Width CV 15.1 % (11.6-14.6); RBC Distribution Width SD 45.5 fl (35.1-43.9); Red Blood Count 4.76 M/mm3 (4.2-5.4); White Blood Count 6.9 K/mm3 (4.4-11.0)
== END | disposition home or self-care (01) ==
LOC: MTLAB 12:59
PROVIDERS: PCP Internal Medicine; Referring Provider Internal Medicine Rheumatology; Visit Provider Internal Medicine Rheumatology
DX: L40.59 Other psoriatic arthropathy (principal); L40.8 Other psoriasis; Z79.899 Other long term (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 therapy
CPT/HCPCS: 36415; 73564; 80053; 85025

== ENCOUNTER → 2025-04-11 | Outpatient (CLI) | payer MEDICARE, SELFPAY | END | disposition home or self-care (01) | LOC: SL 19:55 | PROVIDERS: PCP Internal Medicine; Referring Provider Psychiatry & Neurology Neurology; Visit Provider Psychiatry & Neurology Neurology | DX: G47.30 Sleep apnea, unspecified (principal); G47.10 Hypersomnia, unspecified | CPT/HCPCS: 95810 ==

== ENCOUNTER → 2025-05-31 | Outpatient (CLI) | payer MEDICARE, SELFPAY | END | disposition home or self-care (01) | PROVIDERS: PCP Internal Medicine; Referring Provider Psychiatry & Neurology Neurology; Visit Provider Psychiatry & Neurology Neurology | DX: G31.84 Mild cognitive impairment of uncertain or unknown etiology (principal) | CPT/HCPCS: 36415; 81401 ==

== ENCOUNTER → 2025-06-19 | Outpatient (CLI) | payer MEDICARE, SELFPAY ==
[2025-06-19 15:32] LABS: Hematocrit 35.8 % (37-47); Hemoglobin 11.4 g/dL (12.0-15.0); Immature Granulocytes Count 0.020 X10^3/uL (0.0-0.0); Mean Corp Hgb Conc 31.8 g/dL (32-36); Mean Corpuscular Volume 81.9 fL (81-99); Mean Platelet Vol. 9.8 fl (6.2-12.0); NRBC Flagged by Analyzer 0 % (0-5); Platelet Count 305 K/mm3 (150-450); RBC Distribution Width CV 14.6 % (11.6-14.6); RBC Distribution Width SD 44.2 fl (35.1-43.9); Red Blood Count 4.37 M/mm3 (4.2-5.4); White Blood Count 5.9 K/mm3 (4.4-11.0)
[2025-06-19 15:43] LABS: AST(SGOT) 21 U/L (<=31); Alanine Aminotransfer ALT/SGPT 26 U/L (<=34); Albumin, Serum 4.4 g/dL (3.4-4.8); Alkaline Phosphatase 50 U/L (35-104); Anion Gap 15 (7-18); BUN 12 mg/dL (4-19); BUN/Creat Ratio 14.2 RATIO (10-20); Calcium,Total 9.6 mg/dL (7.6-11.0); Carbon Dioxide 25.2 mmol/L (20.0-29.0); Chloride 101 mmol/L (96-106); Globulin 2.2 g/dL (2.2-4.2); Glucose 220 mg/dL (70-99); Potassium 4.1 mmol/L (3.5-5.1)
== END | disposition home or self-care (01) ==
LOC: MTLAB 11:15
PROVIDERS: PCP Internal Medicine; Referring Provider Internal Medicine Rheumatology; Visit Provider Internal Medicine Rheumatology
DX: L40.59 Other psoriatic arthropathy (principal); Z79.899 Other long term (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 therapy
CPT/HCPCS: 36415; 80053; 85025